=== PATIENT | female | born 1945 | race Caucasian/White ===

== ENCOUNTER 2020-03-24 09:22 | Outpatient (REF) | payer MEDICARE, SELFPAY ==
[2020-03-24 11:29] LABS: Thyroid Stimulating Hormone 1.43 uIU/mL (0.32-4.0)
[2020-03-24 12:03] LABS: Alanine Aminotransferase 19 U/L (0-31); Albumin Level 4.3 g/dL (3.5-5.0); Alkaline Phosphatase 74 U/L (39-117); Anion Gap 9 (12-20); Aspartate Amino Transferase 21 U/L (5-31); Bilirubin Total 0.5 mg/dL (0.0-1.0); Blood Urea Nitrogen 19 mg/dL (9-16); Calcium 9.1 mg/dL (8.4-10.2); Carbon Dioxide 28 mmol/L (22-29); Chloride 109 mmol/L (96-108); Cholesterol 142 mg/dL; Estimated Glomerular Filt Rate > 60; Glucose Fasting 129 mg/dL (60-99); HDL Cholesterol 51 mg/dL; LDL Cholesterol Calculated 76 mg/dl; Potassium 3.9 mmol/l (3.3-5.1); Sodium 142 mmol/L (135-145); Total Protein 6.9 g/dL (6.5-8.0); Triglycerides 78 mg/dL
[2020-03-24 15:50] LABS: Creatinine Urine 151.92 mg/dL; Microalbum/Creatinine Ratio Ur 6.5 ug/mg cr
== END 2020-03-24 09:23 | disposition home or self-care (01) ==
LOC: HO.LAB 09:22
PROVIDERS: PCP Physician Assistant; Visit Provider Physician Assistant
DX: E03.9 Hypothyroidism, unspecified (principal); E11.9 Type 2 diabetes mellitus without complications; E78.49 Other hyperlipidemia
CPT/HCPCS: 80053; 80061; 82043; 84443

== ENCOUNTER 2020-04-12 13:00 | Outpatient (REF) | payer MEDICARE, SELFPAY | END 2020-04-12 13:01 | disposition home or self-care (01) | LOC: HO.LAB 13:00 | PROVIDERS: Visit Provider Internal Medicine | DX: Z20.828 Contact with and (suspected) exposure to other viral communicable diseases (principal) | CPT/HCPCS: U0003 ==

== ENCOUNTER 2021-01-31 10:18 | Outpatient (REF) | payer MEDICARE, SELFPAY ==
[2021-01-31 11:10] LABS: Hematocrit 38.5 % (37-47); Hemoglobin 12.3 g/dl (12.0-16.0); Mean Corpuscular HGB Conc 31.9 g/dl (31.0-35.0); Mean Corpuscular Hemoglobin 30.6 pg (27.0-33.0); Mean Corpuscular Volume 95.8 fL (80-98); Mean Platelet Volume 9.7 fL (9.4-12.3); Platelet Count 321 X10*3/uL (160-400); Red Blood Count 4.02 X10*6/uL (4.20-5.50); Red Cell Distribution Width 13.8 % (11.0-16.0); White Blood Count 7.2 X10*3/uL (4.8-10.8)
[2021-01-31 11:43] LABS: Alanine Aminotransferase 18 U/L (0-31); Albumin Level 4.3 g/dL (3.5-5.0); Alkaline Phosphatase 76 U/L (39-117); Anion Gap 12 (12-20); Aspartate Amino Transferase 19 U/L (5-31); Bilirubin Total 0.3 mg/dL (0.0-1.0); Blood Urea Nitrogen 19 mg/dL (9-16); Carbon Dioxide 25 mmol/L (22-29); Chloride 109 mmol/L (96-108); Cholesterol 209 mg/dL; Estimated Glomerular Filt Rate > 60; Glucose Fasting 140 mg/dL (60-99); HDL Cholesterol 56 mg/dL; LDL Cholesterol Calculated 133 mg/dl; Potassium 4.4 mmol/L (3.3-5.1); Sodium 142 mmol/L (135-145); Total Protein 6.9 g/dL (6.5-8.0); Triglycerides 100 mg/dL
[2021-01-31 11:49] LABS: Estimated Average Glucose 131 mg/dL; Hemoglobin A1C 149.4614 umol/L; Hemoglobin A1c % 6.2 %
[2021-01-31 12:05] LABS: TSH reflex Free T4 3.11 uIU/mL (0.32-4.0)
[2021-01-31 12:40] LABS: Creatinine Urine 87.12 mg/dL; Microalbum/Creatinine Ratio Ur 6.8 ug/mg cr
== END 2021-01-31 10:19 | disposition home or self-care (01) ==
LOC: HO.LAB 10:18
PROVIDERS: PCP Physician Assistant; Visit Provider Physician Assistant
DX: E78.00 Pure hypercholesterolemia, unspecified (principal); E03.9 Hypothyroidism, unspecified; E11.9 Type 2 diabetes mellitus without complications; I10 Essential (primary) hypertension
CPT/HCPCS: 36415; 80053; 80061; 82043; 83036; 84443; 85027

== ENCOUNTER 2021-05-15 09:16 | Outpatient (REF) | payer MEDICARE, SELFPAY | END 2021-05-15 09:17 | disposition home or self-care (01) | LOC: HO.WFDLDS 09:16 | PROVIDERS: Visit Provider Internal Medicine | DX: Z20.822 Contact with and (suspected) exposure to COVID-19 (principal) | CPT/HCPCS: C9803; U0003; U0005 ==

== ENCOUNTER 2022-03-21 08:31 | Outpatient (REF) | payer MEDICARE, SELFPAY ==
[2022-03-21 09:08] LABS: Hematocrit 38.7 % (37.0-47.0); Hemoglobin 12.3 g/dl (12.0-16.0); Mean Corpuscular HGB Conc 31.8 g/dl (31.0-35.0); Mean Corpuscular Hemoglobin 30.4 pg (27.0-33.0); Mean Corpuscular Volume 95.6 fL (80.0-98.0); Mean Platelet Volume 9.2 fL (9.4-12.3); Platelet Count 334 X10*3/uL (160-400); Red Blood Count 4.05 X10*6/uL (4.20-5.50); Red Cell Distribution Width 14.2 % (11.0-16.0); White Blood Count 9.4 X10*3/uL (4.8-10.8)
[2022-03-21 09:34] LABS: Alanine Aminotransferase 14 U/L (0-31); Albumin Level 4.5 g/dL (3.5-5.0); Anion Gap 16 (12-20); Aspartate Amino Transferase 18 U/L (5-31); Bilirubin Total 0.6 mg/dL (0.0-1.0); Blood Urea Nitrogen 20 mg/dL (9-16); Calcium 9.8 mg/dL (8.4-10.2); Carbon Dioxide 23 mmol/L (22-29); Chloride 109 mmol/L (96-108); Estimated Glomerular Filt Rate > 60; Glucose Fasting 127 mg/dL (60-99); Potassium 4.1 mmol/L (3.3-5.1); Sodium 144 mmol/L (135-145); Total Protein 7.5 g/dL (6.5-8.0); Triglycerides 126 mg/dL
[2022-03-21 09:35] LABS: Alkaline Phosphatase 70 U/L (39-117); Cholesterol 188 mg/dL; HDL Cholesterol 57 mg/dL; LDL Cholesterol Calculated 106 mg/dl
[2022-03-21 09:58] LABS: TSH reflex Free T4 3.32 uIU/mL (0.32-4.0)
== END 2022-03-21 08:32 | disposition home or self-care (01) ==
LOC: HO.LAB 08:31
PROVIDERS: PCP Physician Assistant; Visit Provider Physician Assistant
DX: E03.9 Hypothyroidism, unspecified (principal); E11.9 Type 2 diabetes mellitus without complications; E78.00 Pure hypercholesterolemia, unspecified
CPT/HCPCS: 36415; 80053; 80061; 84443; 85027

== ENCOUNTER 2022-09-19 07:47 | Outpatient (REF) | payer MEDICARE, SELFPAY ==
[2022-09-19 12:56] LABS: Creatinine Urine 137.37 mg/dL; Microalbum/Creatinine Ratio Ur 10.1 ug/mg cr
== END 2022-09-19 07:48 | disposition home or self-care (01) ==
LOC: HO.LAB 07:47
PROVIDERS: PCP Physician Assistant; Visit Provider Physician Assistant
DX: E11.9 Type 2 diabetes mellitus without complications (principal)
CPT/HCPCS: 82043

== ENCOUNTER 2022-10-17 08:52 | Outpatient (REF) | payer MEDICARE, SELFPAY ==
--- NOTE | ~2022-10-17 | MM_ITS ---
EXAMINATION: BONE DENSITOMETRY CLINICAL INDICATION: Asymptomatic menopausal state. COMPARISON: None (current study represents initial baseline exam). TECHNIQUE: Using a Jigsaw DXA System (software version: 13.1) manufactured by [employer], dual-energy x-ray absorptiometry was performed of the lumbar spine and left hip. The images are of good technical quality. Summary results are attached. FINDINGS: AP SPINE L1-L3 (excluding L4): The data of L1-L4 has been changed to exclude the L4 vertebral body, because degenerative changes at this level may cause overestimation of lumbar spine density. BMD 1.022 g/cm2, Z-score 0.7, T-score -1.2, osteopenia. LEFT FEMUR, NECK: BMD 0.737 g/cm2, Z-score -0.1, T-score -2.2, osteopenia. LEFT FEMUR, TOTAL: BMD 0.858 g/cm2, Z-score 0.7, T-score -1.2, osteopenia. IDENTIFIED RISK FACTORS: Menopause, hysterectomy. HISTORY OF FRACTURE: None listed. MEDICATIONS: None listed. MM/XR DEXA axial skeleton IMPRESSION: 1. DIAGNOSIS: Osteopenia based on the lowest T-score value of -2.2 in the femoral neck applying World Health Organization criteria. 2. 10-YEAR FRACTURE RISK PREDICTION, FRAX: Major osteoporotic fracture (clinical spine, forearm, hip or shoulder) 14.9%. Hip fracture 4.4%. 3. Treatment Recommendations: NOF guidelines recommend consideration for treatment in postmenopausal women and men age 50 and older presenting with the following: -A hip or vertebral (clinical or morphometric) fracture. -T-score less than or equal to -2.5 at the femoral neck or spine after appropriate evaluation to exclude secondary causes. -Low bone mass at the hip or spine and a 10-year fracture probability by FRAX of greater than or equal to 3% for hip fracture or greater than or equal to 20% for major osteoporotic fracture based on the [place] adapted WHO algorithm. 4. Other Recommendations: All treatment decisions require clinical judgment and consideration of individual patient factors, including patient preferences, comorbidities, previous drug use, risk factors not captured in the FRAX model (e.g. frailty, falls, vitamin D deficiency, increased bone turnover, interval significant decline in bone density) and possible under or overestimation of fracture risk by FRAX. Additional medical evaluation for secondary cause of low bone mineral density may be appropriate. FUTURE SCAN RECOMMENDATION: People with diagnosed cases of osteoporosis or at high risk for fracture should have regular bone mineral density tests. For patients eligible for Medicare, routine testing is allowed once every 2 years. The testing frequency can be increased to one year for patients who have rapidly progressing disease, those who are receiving or discontinuing medical therapy to restore bone mass, or have additional risk factors.
== END 2022-10-17 08:53 | disposition home or self-care (01) ==
LOC: HO.MAMMO 08:52
PROVIDERS: PCP Physician Assistant; Visit Provider Physician Assistant
DX: Z13.820 Encounter for screening for osteoporosis (principal); Z78.0 Asymptomatic menopausal state
CPT/HCPCS: 77080

== ENCOUNTER 2023-01-29 12:59 | Outpatient (REF) | payer MEDICARE, SELFPAY | END 2023-01-29 13:00 | disposition home or self-care (01) | LOC: HO.SH 12:59 | PROVIDERS: Visit Provider Physician Assistant | DX: H90.A22 Sensorineural hearing loss, unilateral, left ear, with restricted hearing on the contralateral side (principal); H90.A31 Mixed conductive and sensorineural hearing loss, unilateral, right ear with restricted hearing on the contralateral side | CPT/HCPCS: 92557; 92567 ==

== ENCOUNTER → 2023-02-11 08:01 | Outpatient (REF) | payer MEDICARE, SELFPAY ==
--- NOTE | 2023-02-11 08:20 | ECG_ITS ---
Test Reason : htn Blood Pressure : / mmHG Vent. Rate : 058 BPM Atrial Rate : 058 BPM P-R Int : 158 ms QRS Dur : 086 ms QT Int : 402 ms P-R-T Axes : 022 056 057 degrees QTc Int : 394 ms Sinus bradycardia Nonspecific T wave abnormality Abnormal ECG No previous ECGs available Referred By: Raudel Flanagan Electronically Signed By:BJORN OLSON
[2023-02-11 09:16] LABS: Hematocrit 36.8 % (37.0-47.0); Hemoglobin 12.1 g/dl (12.0-16.0); Mean Corpuscular HGB Conc 32.9 g/dl (31.0-35.0); Mean Corpuscular Hemoglobin 31.7 pg (27.0-33.0); Mean Corpuscular Volume 96.3 fL (80.0-98.0); Mean Platelet Volume 9.8 fL (9.4-12.3); Platelet Count 316 X10*3/uL (160-400); Red Blood Count 3.82 X10*6/uL (4.20-5.50); Red Cell Distribution Width 13.3 % (11.0-16.0); White Blood Count 9.2 X10*3/uL (4.8-10.8)
[2023-02-11 10:00] LABS: Estimated Average Glucose 126 mg/dL
[2023-02-11 10:22] LABS: Alanine Aminotransferase 11 U/L (0-31); Albumin Level 4.2 g/dL (3.5-5.0); Alkaline Phosphatase 65 U/L (39-117); Anion Gap 14 (12-20); Aspartate Amino Transferase 15 U/L (5-31); Bilirubin Total 0.5 mg/dL (0.0-1.0); Blood Urea Nitrogen 21 mg/dL (9-16); Calcium 9.7 mg/dL (8.4-10.2); Carbon Dioxide 25 mmol/L (22-29); Chloride 108 mmol/L (96-108); Cholesterol 159 mg/dL (<200); Estimated Glomerular Filt Rate > 60; Glucose Fasting 115 mg/dL (60-99); HDL Cholesterol 52 mg/dL (>40); LDL Cholesterol Calculated 84 mg/dL (<100); Potassium 3.6 mmol/L (3.3-5.1); Sodium 143 mmol/L (135-145); Triglycerides 119 mg/dL (<150)
[2023-02-11 10:27] LABS: TSH reflex Free T4 1.72 uIU/mL (0.32-4.0)
== END ==
LOC: HO.CARD 08:01
PROVIDERS: PCP Physician Assistant; Visit Provider Physician Assistant
DX: E03.9 Hypothyroidism, unspecified (principal); R30.0 Dysuria; E78.00 Pure hypercholesterolemia, unspecified; I10 Essential (primary) hypertension; E11.9 Type 2 diabetes mellitus without complications
CPT/HCPCS: 36415; 80053; 80061; 83036; 84443; 85027; 87086; 93005

== ENCOUNTER 2023-02-11 14:42 | Outpatient (AMB) | payer MEDICARE, SELFPAY ==
[2023-02-11 14:55] VITALS: BP 122/66; PULSE 90; RESP 16; O2SAT 95; BMI 25.2
--- NOTE | 2023-02-11 14:55 | MHC.PC.OV ---
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 Accompanied by: Spouse Allergies peanut Allergy (Severe, Verified 02/11/23 15:04) Anaphylaxis Medication List - Last Reconciled 02/11/23 by Raudel Flanagan PA-C calcium carbonate (Oyster Shell Calcium) 500 mg PO BID 90 days cholecalciferol (vitamin D3) 50 mcg PO DAILY 90 days escitalopram oxalate 20 mg PO DAILY levothyroxine 88 mcg PO QAM 90 days lisinopril 20 mg PO DAILY 90 days lorazepam 0.5 mg PO DAILY 7 days metformin 1,500 mg (3 x 500 mg) PO BID 30 days simvastatin 20 mg PO BEDTIME Tobacco use date assessed: 02/11/23 Fall risk assessment: No Falls in past year Last assessed Fall Risk: 02/11/23 Dental Screening Dental Screen Date: 02/11/23 Did you have a dental visit in the last 12 months?: Yes Did you have a dental problem in the last 6 months where you did not have access to dental care?: No Was dental information given to patient?: Patient has dentist HPI f/u DMII/ HTN HPI Details who is a 77?year old female with a PMH significant for type 2 DM, anxiety, hypothyroid. Presents today with her . Concern--> Having some more trouble hearing, recently evaluated with a hearing exam and was advised to follow-up with ENT specialist. Also family having concerns about partner is short-term memory loss. 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 Also family and patient concerned about her balance. She reports she has feel somewhat off-balance when she is walking. She attributes this to wearing nonsupportive flip-flops. She does right ear issues and often has sinusitis which could be contributing to her disruptions and vestibular function. PLAN: Will try to set patient up with vestibular therapy. ? .. ? DMII: Patient is currently taking Metformin 1500 mg daily, Reports her diet has been poor, reports she is having family stress. Most recent fasting blood sugar improved to 127. Most recent A1c at 6.0 from 6.5 PLAN: Will reduce her metformin dose to 500 b.i.d.. .. Generalized anxiety disorder:? Has been under more anxiety as of late due to family issues.? Has been using lorazepam on a limited basis and needs a few refills.? Continues on Lexapro on a daily basis. ? .. ? Hypothyroidism:? Patient has been chemically clinically euthyroid.? Laboratory Tests 03/21/22 03/21/22 03/21/22 08:49 08:49 08:49 RBC 4.05 L Fasting Glucose 127 H Hgb A1c (Clinic) Hemoglobin A1c % LDL Cholesterol, C alc 106 TSH 03/21/22 02/11/23 02/11/23 09:22 08:16 08:16 RBC 3.82 L Fasting Glucose 115 H Hgb A1c (Clinic) 6.5 H Hemoglobin A1c % LDL Cholesterol, C alc TSH 02/11/23 02/11/23 02/11/23 08:16 08:16 08:16 RBC Fasting Glucose Hgb A1c (Clinic) Hemoglobin A1c % 6.0 LDL Cholesterol, C alc 84 TSH 1.72 [facility] Surgical History History of hysterectomy History of bunionectomy Family History Father Colon cancer Mother No problems noted. Social History Housing: House Alcohol intake: current Alcohol intake frequency: holidays/special occasions only Alcohol type: wine Patient Tobacco Use Status: Never used Tobacco e-Cigarette/Vaping Use: Never Used Second Hand Smoke Exposure: No Current occupational status: employed Cognitive needs: No Hearing needs: Yes (hearing loss in right ear and Pt has hearing aid.) Vision needs: No Questionnaire Thrive Questionnaire Date Thrive assessed: 09/19/22 TASHI-7 AMB Questionnaire TASHI-7 Date TASHI - 7 assessed: 09/19/22 Source: Developed by Drs. Minh Ewing, Yecenia Manzano, Juan Beckham and colleagues, with an educational lashaun from [employer]. Review of Systems Const Denies headache(s) Eyes Denies loss of vision ENT Denies vertigo, Denies dizziness, Denies headache(s) and Denies sore throat Card Denies chest pain, Denies leg edema and Denies lightheadedness Resp Denies cough, Denies hemoptysis and Denies wheezing GI Denies abdominal pain, Denies melena, Denies constipation, Denies diarrhea and Denies vomiting Denies urinary frequency, Denies dysuria and Denies urinary urgency Musc Denies arthralgias, Denies joint swelling, Denies numbness and Denies tingling Neuro Denies Abnormal speech present, Denies behavioral changes, Denies vertigo, Denies dizziness, Denies headache(s), Denies loss of vision, Reports memory loss, Denies numbness and Denies tingling Psych Reports anxiety, Denies behavioral changes, Denies depression, Reports memory loss and Denies panic attacks Harvinder/Lymph Denies easy bleeding and Denies easy bruising Aller/Immun Denies wheezing Physical exam (Primary Care) Vital Signs: Last Vital Signs Pulse 90 02/11/23 14:55 Resp 16 02/11/23 14:55 BP 122/66 02/11/23 14:55 Pulse Ox 95 02/11/23 14:55 Oxygen Delivery Method Room Air 02/11/23 14:55 BMI result Body Mass Index 25.2 Tobacco/Smoking Status: Tobacco use Status Tobacco use date assessed 02/11/23 02/11/23 15:01 Patient Tobacco Use Status Never used Tobacco 02/11/23 15:01 e-Cigarette/Vaping Use Never Used 02/11/23 15:01 Thrive Assessment: Date of Thrive Assessment Date Thrive assessed 09/19/22 02/11/23 15:01 Const General: healthy appearing, no acute distress, alert and awake Nutritional Appearance: well nourished Orientation/consciousness: oriented to person, oriented to place and oriented to time HENMT Ears: TM's normal bilaterally General nose exam: Normal nasal mucous membranes and turbinates present Eyes Conjunctivae: conjunctivae normal Sclerae: sclerae normal Pupils: Equal, round and reactive pupils present Neck Neck: Yes no lymphadenopathy and Yes no JVD Thyroid: Thyroid normal Carotids: no bruits Resp Effort & Inspection: normal respiratory effort and not tachypneic Auscultation: no crackles, no rales, no rhonchi and no wheezes Cardio Rate: regular rate Rhythm: regular rhythm Heart sounds: no murmurs and normal S1 and S2 GI Palpation (GI): Soft to palpation, nontender, no hepatomegaly and no splenomegaly Auscultation: normal bowel sounds Skin General skin exam: no rashes or lesions noted and dry skin Neuro General: oriented to person, oriented to place and oriented to time Cranial nerves: Yes Equal, round and reactive pupils present Speech: No Abnormal speech present Gait exam (Neuro): Normal gait present Motor exam (neuro): no tremor noted Extrem Right upper extremity: full ROM Left upper extremity: full ROM Right lower extremity: full ROM; no edema Left lower extremity: full ROM; no edema Psych Mental Status: mental status grossly normal Speech and movement: Normal speech and movement present Affect: normal affect Attitude: cooperative Thought process: Normal thought process present Office Procedures Flu Questionnaire Does the patient have a severe egg allergy?: No Does the patient have severe life threatening allergies?: No Does the patient have a fever or illness today?: No Has the patient ever had Guillain-[place] Syndrome?: No Has the patient ever had any past reaction to a flu shot?: No Results AMB Urinalysis, Automated UA Leukoctes 500 Sushma/uL Last Edit by HENRY Marin on 02/11/23 16:10 UA Nitrite Negative Last Edit by HENRY Marin on 02/11/23 16:10 UA Urobilinogen 0 mg/dL Last Edit by HENRY Marin on 02/11/23 16:10 UA Protein 0 mg/dL Last Edit by HENRY Marin on 02/11/23 16:10 UA pH 6.0 Last Edit by HENRY Marin on 02/11/23 16:10 UA Blood 0 Otoniel/uL Last Edit by HENRY Marin on 02/11/23 16:10 UA Specific [place] 1.030 Last Edit by HENRY Marin on 02/11/23 16:10 UA Ketone Negative Last Edit by HENRY Marin on 02/11/23 16:10 UA Bilirubin 1 mg/dL Last Edit by HENRY Marin on 02/11/23 16:10 UA Glucose 0 mg/dL Last Edit by HENRY Marin on 02/11/23 16:10 Immunizations flu vacc [id number] 6mos up(PF) 60 mcg(15 mcgx4)/0.5 mL IM syringe Performing Provider: Raudel Flanagan PA-C [facility] Administered by: HENRY Marin on 02/11/23 16:00 Dose Route Admin Location Dispensed Lot Number Expiration Date [employer] Major 0.5 mL IM Left Deltoid 0.5 mL [id number] 11/10/23 12764-085-02 [employer] VIS Given Date VIS Provided VIS Publication Date 02/11/23 Single Vaccine 20 Eligibility Eligibility Date Funding Source Not VF Eligible 02/11/23 Private Results Reviewed Results Reviewed: Laboratory Last Values Urine pH (Auto) 6.0 02/11/23 16:01 Specific [place] (Auto) 1.030 02/11/23 16:01 Urine Protein (Auto) 0 mg/dL 02/11/23 16:01 Glucose (UA)(Auto) 0 mg/dL 02/11/23 16:01 Urine Ketones (Auto) Negative 02/11/23 16:01 Urine Blood (Auto) 0 Otoniel/uL 02/11/23 16:01 Urine Nitrite (Auto) Negative 02/11/23 16:01 Urine Bilirubin (Auto) 1 mg/dL 02/11/23 16:01 Urine Urobilinogen (Auto) 0 mg/dL 02/11/23 16:01 Leukocyte Esterase (Auto) 500 Sushma/uL 02/11/23 16:01 Assessment and Plan Assessment & Plan (1) HTN (hypertension): Code(s): I10 - Essential (primary) hypertension Qualifiers: Hypertension type: essential hypertension Qualified Code(s): I10 - Essential (primary) hypertension Plan: Patient's blood pressure acceptable today in office. Will continue her current dose of lisinopril 20 mg. Goal blood pressure to be below 140/90 patient will keep an eye on her blood pressure at home. 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 A1c now 6.0. Will reduce her dose of metformin to 500 b.i.d.. Goal A1c to be below 7.0 (3) Hypothyroidism: Code(s): E03.9 - Hypothyroidism, unspecified Qualifiers: Hypothyroidism type: unspecified Qualified Code(s): E03.9 - Hypothyroidism, unspecified Plan: Patient's most recent TSH stable. Patient clinically and chemically euthyroid. Will continue current dose of levothyroxine. (4) HLD (hyperlipidemia): Code(s): E78.5 - Hyperlipidemia, unspecified Qualifiers: Hyperlipidemia type: pure hypercholesterolemia Qualified Code(s): E78.00 - Pure hypercholesterolemia, unspecified Plan: Patient continues on statin therapy without side effect. Most recent total cholesterol improved, LDL slightly elevated at 103. Continue to work on lifestyle modifications to reduce her high cholesterol foods in her diet. (5) TASHI (generalized anxiety disorder): Code(s): F41.1 - Generalized anxiety disorder Plan: Patient reports her anxiety has been well controlled with current dose of SSRI therapy. Will like to continue current dose. (6) Dysuria: Code(s): R30.0 - Dysuria Plan: Reports having some dysuria over the last week. Urinalysis showing 1+ leukocytes on in office urinalysis. Will send for urine culture (7) Memory impairment: Code(s): R41.3 - Other amnesia Plan: Family has noted worsening short-term memory issues. Will send for MRI brain to rule out any brain lesion. (8) Sensorineural hearing loss (SNHL) of both ears: Code(s): H90.3 - Sensorineural hearing loss, bilateral (9) Balance disorder: Code(s): R26.89 - Other abnormalities of gait and mobility Orders: Orders PT Evaluation and Treatment 02/11/23 R26.89 - Other abnormalities of gait and mobility Comprehensive [place]. Panel Fast 02/11/23 E11.9 - Type 2 diabetes mellitus without complications TSH reflex Free T4 02/11/23 E03.9 - Hypothyroidism, unspecified AMB Urinalysis Automated 02/11/23 R30.0 - Dysuria Urine Culture 02/11/23 R30.0 - Dysuria Influenza [id number] Immunization 02/11/23 Z23 - Encounter for immunization MR head/brain wo con 02/11/23 R41.3 - Other amnesia Microalbumin, Random (w Creat) 02/11/23 I10 - Essential (primary) hypertension Lipid Panel 02/11/23 E78.00 - Pure hypercholesterolemia, unspecified Medications: Changed From metformin Take 2 tabs in the a.m., 1 tab in the p.m. 1,500 mg (3 x 500 mg) PO BID 30 days 180 tabs 1RF E11.9 - Type 2 diabetes mellitus without complications To metformin decrease dose--> Take 1tab in the a.m., 1 tab in the p.m. 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
== END 2023-02-11 15:44 | disposition home or self-care (01) ==
PROVIDERS: PCP Physician Assistant; Visit Provider Physician Assistant
DX: Z23 Encounter for immunization (principal); R30.0 Dysuria
CPT/HCPCS: 81003; 90471; 90686; 99214

== ENCOUNTER 2023-04-17 10:21 | Outpatient (REF) | payer MEDICARE, SELFPAY ==
--- NOTE | ~2023-04-17 | MR_ITS ---
MRI OF THE BRAIN WITHOUT IV CONTRAST INDICATION: Amnesia. COMPARISON: Brain MRI 12/09/2018. TECHNIQUE: Multiplanar multisequence MR imaging of the brain was obtained without IV contrast. FINDINGS: There is no hydrocephalus, extra-axial surface collection, or herniation. Slightly progressive extensive nonspecific T2 signal changes within the supratentorial white matter, the deep patrick nuclei bilaterally, and the central tejas. Chronic lacunar infarct within the right thalamus. 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 The major flow voids at the skull base are preserved. There is no acute infarct on diffusion-weighted imaging. There is no intracranial hemorrhage on the gradient recalled echo acquisition. Punctate foci of susceptibility signal within the deep patrick nuclei bilaterally, likely chronic hypertensive microhemorrhages. The craniocervical junction is normal. Osseous marrow signal intensity is homogenous. The visualized soft tissues are unremarkable. MR/MR head/brain wo con IMPRESSION: - No acute intracranial findings. 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 - Slightly progressive extensive nonspecific T2 signal changes within the supratentorial white matter, the deep patrick nuclei bilaterally, and the central tejas. Chronic lacunar infarct within the right thalamus. - Punctate foci of susceptibility signal within the deep patrick nuclei bilaterally, likely chronic hypertensive microhemorrhages.
== END 2023-04-17 10:22 | disposition home or self-care (01) ==
LOC: HO.MRI 10:21
PROVIDERS: PCP Physician Assistant; Visit Provider Physician Assistant
DX: R41.3 Other amnesia (principal)
CPT/HCPCS: 70551

== ENCOUNTER 2023-05-16 10:43 | Outpatient (REF) | payer MEDICARE, SELFPAY | END 2023-05-16 10:44 | disposition home or self-care (01) | LOC: HO.LAB 10:43 | PROVIDERS: PCP Physician Assistant; Visit Provider Physician Assistant | DX: E03.9 Hypothyroidism, unspecified (principal); I10 Essential (primary) hypertension; E11.9 Type 2 diabetes mellitus without complications; E78.00 Pure hypercholesterolemia, unspecified | CPT/HCPCS: 36415; 80053; 80061; 82043; 82570; 84439; 84443 ==

== ENCOUNTER 2023-05-16 11:05 | Outpatient (AMB) | payer MEDICARE, SELFPAY ==
[2023-05-16 11:09] VITALS: BP 144/66; PULSE 80; RESP 17; BMI 26.3
--- NOTE | 2023-05-16 11:09 | MHC.PC.OV ---
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 Accompanied by: Self / Same As Patient Allergies peanut Allergy (Severe, Verified 05/16/23 11:24) Anaphylaxis Medication List - Last Reconciled 05/16/23 by Raudel Flanagan PA-C calcium carbonate (Oyster Shell Calcium) 500 mg PO BID 90 days cholecalciferol (vitamin D3) 50 mcg PO DAILY 90 days escitalopram oxalate 20 mg PO DAILY levothyroxine 88 mcg PO QAM 90 days lisinopril 20 mg PO DAILY 90 days lorazepam 0.5 mg PO DAILY 7 days metformin 1,000 mg (2 x 500 mg) PO BID 90 days simvastatin 20 mg PO BEDTIME Tobacco use date assessed: 05/16/23 Fall risk assessment: No Falls in past year Last assessed Fall Risk: 05/16/23 Dental Screening Dental Screen Date: 05/16/23 Did you have a dental visit in the last 12 months?: Yes Did you have a dental problem in the last 6 months where you did not have access to dental care?: No Was dental information given to patient?: Patient has dentist HPI 3mth f/u HPI Details who is a 77?year old female with a PMH significant for type 2 DM, anxiety, hypothyroid. Memory impairment: Has gotten brain MRI that did show age-related findings. Did follow-up with Neurology. ? .. ? DMII: Patient is currently taking Metformin 1500 mg daily, Reports her diet has been poor, reports she is having family stress. Most recent fasting blood sugar improved to 127. Most recent A1c at 6.0 from 6.5 .. Generalized anxiety disorder:? Has been under more anxiety as of late due to family issues.? Has been using lorazepam on a limited basis and needs a few refills.? Continues on Lexapro on a daily basis. ? .. ? Hypothyroidism:? Patient has been chemically clinically euthyroid. Will recheck TSH to assure normal. ? [facility] Surgical History History of hysterectomy History of bunionectomy Family History Father Colon cancer Mother No problems noted. 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 1. Little interest or pleasure in doing things: not at all 2. Feeling down, depressed, or hopeless: not at all 3. Trouble falling or staying asleep, or sleeping too much: not at all 4. Feeling tired or having little energy: not at all 5. Poor appetite or overeating: not at all 6. Feeling bad about yourself - or that you are a failure or have let yourself or your family down: not at all 7. Trouble concentrating on things, such as reading the newspaper or watching television: not at all 8. Moving or speaking so slowly that other people could have noticed. Or the opposite - being so fidgety or restless that you have been moving around a lot more than usual: not at all 9. Thoughts that you would be better off or of hurting yourself in some way: not at all Total score: 0 Depression Screening Interpretation: Negative Depression Screening Done: Yes 99265 - PHQ-9 Billing: Yes Source: Developed by Drs. Minh Ewing, Yecenia Manzano, Juan Beckham and colleagues, with an educational lashaun from [employer]. Thrive Questionnaire Date Thrive assessed: 05/16/23 I am a: Patient What is your living situation today?: I have a steady place to live Within the past 12 months, did the food you bought not last and you didn't have the money to get more?: Never true Within the past 12 months, did you worry whether your food would run out before you got money to buy more?: Never true Do you have trouble paying for medicines?: No Do you have trouble getting transportation to medical appointments?: No Do you have trouble paying your heating and electricity bill?: No Do you have trouble taking care of your child, family member or friend?: No Do you have trouble with day-to-day activities such as bathing, preparing meals, shopping, managing finances, etc.?: No Are you currently unemployed and looking for a job?: No Are you interested in more education?: No Please select the resources that you would like help with: None Currently or been in a relationship where the following occur: no concerns reported AUDIT C Alcohol Use Questionnaire (AUDIT-C) 1. How often do you have a drink containing alcohol?: Monthly or less 2. How many drinks containing alcohol do you have on a typical day when you are drinking?: 1 or 2 3. How often do you have six or more drinks on one occasion?: Never Total Score: 1 TASHI-7 AMB Questionnaire TASHI-7 Date TASHI - 7 assessed: 05/16/23 Feeling nervous, anxious, or on edge: 0 = Not at all Not being able to stop or control worryin = Not at all Worrying too much about different things: 0 = Not at all Trouble relaxin = Not at all Being so restless that it is hard to sit still: 0 = Not at all Becoming easily annoyed or irritable: 0 = Not at all Feeling afraid as if something awful might happen: 0 = Not at all Total TASHI-7 score (0-4 normal; 5-9 mild; 10-14 moderate; 15-21 severe): 0 Source: Developed by Drs. Minh Ewing, Yecenia Manzano, Juan Beckham and colleagues, with an educational lashaun from [employer]. TASHI-7 Assessment Billing TASHI-7 Assessment Tool: TASHI-7 Assessment 33108 Review of Systems Const Denies headache(s) Eyes Denies loss of vision ENT Denies vertigo, Denies dizziness, Denies headache(s) and Denies sore throat Card Denies chest pain, Denies leg edema and Denies lightheadedness Resp Denies cough, Denies hemoptysis and Denies wheezing GI Denies abdominal pain, Denies melena, Denies constipation, Denies diarrhea and Denies vomiting Denies urinary frequency, Denies dysuria and Denies urinary urgency Musc Denies arthralgias, Denies joint swelling, Denies numbness and Denies tingling Neuro Denies Abnormal speech present, Denies behavioral changes, Denies vertigo, Denies dizziness, Denies headache(s), Denies loss of vision, Denies memory loss, Denies numbness and Denies tingling Psych Denies anxiety, Denies behavioral changes, Denies depression, Denies memory loss and Denies panic attacks Harvinder/Lymph Denies easy bleeding and Denies easy bruising Aller/Immun Denies wheezing Physical exam (Primary Care) Vital Signs: Last Vital Signs Pulse 80 05/16/23 11:09 Resp 17 05/16/23 11:09 BP 128/70 05/16/23 11:33 BMI result Body Mass Index 26.3 Tobacco/Smoking Status: Tobacco use Status Tobacco use date assessed 05/16/23 05/16/23 11:16 Patient Tobacco Use Status Never used Tobacco 05/16/23 11:12 e-Cigarette/Vaping Use Never Used 05/16/23 11:12 PHQ-9: PHQ-9 Score PHQ-9: Total score 0 05/16/23 11:26 Depression Screening Interpretation: Negative Thrive Assessment: Date of Thrive Assessment Date Thrive assessed 05/16/23 05/16/23 11:16 Currently or been in a relationship where the following occur: no concerns reported Const General: healthy appearing, no acute distress, alert and awake Nutritional Appearance: well nourished Orientation/consciousness: oriented to person, oriented to place and oriented to time HENMT Ears: TM's normal bilaterally General nose exam: Normal nasal mucous membranes and turbinates present Eyes Conjunctivae: conjunctivae normal Sclerae: sclerae normal Pupils: Equal, round and reactive pupils present Neck Neck: Yes no lymphadenopathy and Yes no JVD Thyroid: Thyroid normal Carotids: no bruits Resp Effort & Inspection: normal respiratory effort and not tachypneic Auscultation: no crackles, no rales, no rhonchi and no wheezes Cardio Rate: regular rate Rhythm: regular rhythm Heart sounds: no murmurs and normal S1 and S2 GI Palpation (GI): Soft to palpation, nontender, no hepatomegaly and no splenomegaly Auscultation: normal bowel sounds Skin General skin exam: no rashes or lesions noted and dry skin Neuro General: oriented to person, oriented to place and oriented to time Cranial nerves: Yes Equal, round and reactive pupils present Speech: No Abnormal speech present Gait exam (Neuro): Normal gait present Motor exam (neuro): no tremor noted Extrem Right upper extremity: full ROM Left upper extremity: full ROM Right lower extremity: full ROM; no edema Left lower extremity: full ROM; no edema Psych Mental Status: mental status grossly normal Speech and movement: Normal speech and movement present Affect: normal affect Attitude: cooperative Thought process: Normal thought process present Assessment and Plan Assessment & Plan (1) HTN (hypertension): Code(s): I10 - Essential (primary) hypertension Qualifiers: Hypertension type: essential hypertension Qualified Code(s): I10 - Essential (primary) hypertension Plan: Patient's blood pressure acceptable today in office. Will continue her current dose of lisinopril 20 mg. Goal blood pressure to be below 140/90 patient will keep an eye on her blood pressure at home. 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 Continues on metformin 1000 mg daily A1c now 6.0. Goal A1c to be below 7.0 (3) Hypothyroidism: Code(s): E03.9 - Hypothyroidism, unspecified Qualifiers: Hypothyroidism type: unspecified Qualified Code(s): E03.9 - Hypothyroidism, unspecified Plan: Recently got labs to recheck TSH. Awaiting results. Will make levothyroxine dose adjustments accordingly. (4) HLD (hyperlipidemia): Code(s): E78.5 - Hyperlipidemia, unspecified Qualifiers: Hyperlipidemia type: pure hypercholesterolemia Qualified Code(s): E78.00 - Pure hypercholesterolemia, unspecified Plan: Patient continues on statin therapy without side effect. Most recent total cholesterol improved, LDL slightly elevated at 103. Continue to work on lifestyle modifications to reduce her high cholesterol foods in her diet. (5) TASHI (generalized anxiety disorder): Code(s): F41.1 - Generalized anxiety disorder Plan: Patient reports her anxiety has been well controlled with current dose of SSRI therapy. Will like to continue current dose. (6) Memory impairment: Code(s): R41.3 - Other amnesia Plan: Has gotten brain MRI the did show chronic age-related findings. Did follow-up with Neurology whom confirmed. No medication needed at this time. 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
[2023-05-16 11:33] VITALS: BP 128/70
== END 2023-05-16 11:43 | disposition home or self-care (01) ==
PROVIDERS: PCP Physician Assistant; Visit Provider Physician Assistant
DX: I10 Essential (primary) hypertension (principal); E11.9 Type 2 diabetes mellitus without complications; E03.9 Hypothyroidism, unspecified; E78.00 Pure hypercholesterolemia, unspecified; F41.1 Generalized anxiety disorder; R41.3 Other amnesia
CPT/HCPCS: 99214

== ENCOUNTER 2023-08-14 14:56 | Outpatient (AMB) | payer MEDICARE, SELFPAY ==
[2023-08-14 15:22] VITALS: BP 152/76; PULSE 79; RESP 16; O2SAT 97; BMI 26.2
--- NOTE | 2023-08-14 15:22 | MHC.PC.OV ---
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 Accompanied by: Self / Same As Patient Allergies peanut Allergy (Severe, Verified 08/14/23 15:41) Anaphylaxis Medication List - Last Reconciled 08/14/23 by Raudel Flanagan PA-C calcium carbonate (Oyster Shell Calcium) 500 mg PO BID 90 days cholecalciferol (vitamin D3) 50 mcg PO DAILY 90 days escitalopram oxalate 20 mg PO DAILY levothyroxine 88 mcg PO QAM 90 days levothyroxine 112 mcg PO DAILY 30 days lisinopril 20 mg PO DAILY 90 days lorazepam 0.5 mg PO DAILY 7 days metformin 1,000 mg (2 x 500 mg) PO BID 90 days simvastatin 20 mg PO BEDTIME Tobacco use date assessed: 05/16/23 Dental Screening Dental Screen Date: 05/16/23 HPI test results/ going over HPI Details who is a 78?year old female here today for follow-up visit. Patient has a PMH significant for type 2 DM, anxiety, hypothyroid. --Concern---> she reports over the last 12 hours noting a intermittent very sharp left lower abdominal quadrant pain. She denies any constipation or diarrhea, fevers or vomiting. She recently had a colonoscopy about 2 months ago apparently at [facility]. Will try to records, per patient there was no concern. Memory impairment: Has gotten brain MRI that did show age-related findings- parenchymal volume loss. Did follow-up with Neurology. ? .. ? DMII: Patient is currently taking Metformin 2000mg daily, Reports her diet has been poor, reports she is having family stress. Most recent fasting blood sugar elevated at 146. .. Generalized anxiety disorder:? Has been under more anxiety as of late due to family issues.? Has been using lorazepam on a limited basis and needs a few refills.? Continues on Lexapro on a daily basis. ? .. ? Hypothyroidism: Most recent TSH elevated at 7.8. Her levothyroxine had been increased in May of 2023 to 112 mcg. Advised to recheck TSH to assure normal. Also noted elevations in her cholesterol panel in the setting of hypo functioning thyroid. Laboratory Tests 02/11/23 02/11/23 02/11/23 08:16 08:16 08:16 RBC 3.82 L Hgb 12.1 Fasting Glucose 115 H Cholesterol LDL Cholesterol, C alc TSH 1.72 05/16/23 05/16/23 10:53 10:53 RBC Hgb Fasting Glucose 148 H Cholesterol 242 H LDL Cholesterol, C alc 150 H TSH 7.86 H PFSH Surgical History History of hysterectomy History of bunionectomy Family History Father Colon cancer Mother No problems noted. 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 Minh Ewing, Yecenia Manzano, Juan Beckham and colleagues, with an educational lashaun from [employer]. Review of Systems Const Denies headache(s) Eyes Denies loss of vision ENT Denies vertigo, Denies dizziness, Denies headache(s) and Denies sore throat Card Denies chest pain, Denies leg edema and Denies lightheadedness Resp Denies cough, Denies hemoptysis and Denies wheezing GI Denies abdominal pain, Denies melena, Denies constipation, Denies diarrhea and Denies vomiting Denies urinary frequency, Denies dysuria and Denies urinary urgency Musc Denies arthralgias, Denies joint swelling, Denies numbness and Denies tingling Neuro Denies Abnormal speech present, Denies behavioral changes, Denies vertigo, Denies dizziness, Denies headache(s), Denies loss of vision, Denies memory loss, Denies numbness and Denies tingling Psych Denies anxiety, Denies behavioral changes, Denies depression, Denies memory loss and Denies panic attacks Harvinder/Lymph Denies easy bleeding and Denies easy bruising Aller/Immun Denies wheezing Physical exam (Primary Care) Vital Signs: Last Vital Signs Pulse 79 08/14/23 15:22 Resp 16 08/14/23 15:22 BP 152/76 H 08/14/23 15:22 Pulse Ox 97 08/14/23 15:22 Oxygen Delivery Method Room Air 08/14/23 15:22 BMI result Body Mass Index 26.2 Tobacco/Smoking Status: Tobacco use Status Tobacco use date assessed 05/16/23 08/14/23 15:23 Patient Tobacco Use Status Never used Tobacco 08/14/23 15:23 e-Cigarette/Vaping Use Never Used 08/14/23 15:23 Thrive Assessment: Date of Thrive Assessment Date Thrive assessed 05/16/23 08/14/23 15:23 Const General: healthy appearing, no acute distress, alert and awake Nutritional Appearance: well nourished Orientation/consciousness: oriented to person, oriented to place and oriented to time HENMT Ears: TM's normal bilaterally General nose exam: Normal nasal mucous membranes and turbinates present Eyes Conjunctivae: conjunctivae normal Sclerae: sclerae normal Pupils: Equal, round and reactive pupils present Neck Neck: Yes no lymphadenopathy and Yes no JVD Thyroid: Thyroid normal Carotids: no bruits Resp Effort & Inspection: normal respiratory effort and not tachypneic Auscultation: no crackles, no rales, no rhonchi and no wheezes Cardio Rate: regular rate Rhythm: regular rhythm Heart sounds: no murmurs and normal S1 and S2 GI Other: SOME MODERATE LEFT LOWER QUADRANT ABDOMINAL PAIN TO PALPATION, NO PALPABLE LUMPS NOTED Palpation (GI): Soft to palpation, Tenderness to palpation present (GI) in the LLQ, no hepatomegaly and no splenomegaly Auscultation: normal bowel sounds Skin General skin exam: no rashes or lesions noted and dry skin Neuro General: oriented to person, oriented to place and oriented to time Cranial nerves: Yes Equal, round and reactive pupils present Speech: No Abnormal speech present Gait exam (Neuro): Normal gait present Motor exam (neuro): no tremor noted Extrem Right upper extremity: full ROM Left upper extremity: full ROM Right lower extremity: full ROM; no edema Left lower extremity: full ROM; no edema Psych Mental Status: mental status grossly normal Speech and movement: Normal speech and movement present Affect: normal affect Attitude: cooperative Thought process: Normal thought process present Assessment and Plan Assessment & Plan (1) HTN (hypertension): Code(s): I10 - Essential (primary) hypertension Qualifiers: Hypertension type: essential hypertension Qualified Code(s): I10 - Essential (primary) hypertension Plan: Patient's blood pressure acceptable today in office. Will continue her current dose of lisinopril 20 mg. Goal blood pressure to be below 140/90 patient will keep an eye on her blood pressure at home. 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 Most recent fasting blood sugar slightly elevated at 146. Continues on metformin 1000 mg BID. Goal A1c to be below 7.0 (3) Hypothyroidism: Code(s): E03.9 - Hypothyroidism, unspecified Qualifiers: Hypothyroidism type: unspecified Qualified Code(s): E03.9 - Hypothyroidism, unspecified Plan: Most recent TSH elevated at 7. Her levothyroxine was increased to 112 mcg. Advised to TSH rechecked. (4) HLD (hyperlipidemia): Code(s): E78.5 - Hyperlipidemia, unspecified Qualifiers: Hyperlipidemia type: pure hypercholesterolemia Qualified Code(s): E78.00 - Pure hypercholesterolemia, unspecified Plan: Noted elevations in her total cholesterol and LDL in the setting of hypo functioning thyroid. Will try to stabilize TSH in normal range. Will recheck lipid panel (5) TASHI (generalized anxiety disorder): Code(s): F41.1 - Generalized anxiety disorder Plan: Patient reports her anxiety has been well controlled with current dose of SSRI therapy. Will like to continue current dose. (6) Left lower quadrant abdominal pain: Code(s): R10.32 - Left lower quadrant pain Plan: Patient reports a 12 hour history sharp intermittent left lower abdominal pain. She does report getting a colonoscopy a few months ago at [facility] and there was no concerns. Will try to get records from [facility]. Will empirically treat for colitis with Augmentin Orders: Orders Lipid Panel 08/14/23 E78.00 - Pure hypercholesterolemia, unspecified TSH reflex Free T4 08/14/23 E03.9 - Hypothyroidism, unspecified Comprehensive [place]. 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
== END 2023-08-14 16:03 | disposition home or self-care (01) ==
PROVIDERS: PCP Physician Assistant; Visit Provider Physician Assistant
DX: I10 Essential (primary) hypertension (principal); E11.9 Type 2 diabetes mellitus without complications; E03.9 Hypothyroidism, unspecified; E78.00 Pure hypercholesterolemia, unspecified; F41.1 Generalized anxiety disorder; R10.32 Left lower quadrant pain
CPT/HCPCS: 99214

== ENCOUNTER 2023-09-11 09:53 | Outpatient (REF) | payer MEDICARE, SELFPAY ==
[2023-09-11 11:21] LABS: Estimated Average Glucose 143 mg/dL; Hemoglobin A1C 150.2928 umol/L; Hemoglobin A1c % 6.6 % (<6.0)
[2023-09-11 11:49] LABS: Alanine Aminotransferase 17 U/L (0-31); Albumin Level 4.1 g/dL (3.5-5.0); Alkaline Phosphatase 58 U/L (39-117); Anion Gap 12 (12-20); Aspartate Amino Transferase 20 U/L (5-31); Bilirubin Total 0.6 mg/dL (0.0-1.0); Blood Urea Nitrogen 18 mg/dL (9-16); Calcium 9.6 mg/dL (8.4-10.2); Carbon Dioxide 24 mmol/L (22-29); Chloride 110 mmol/L (96-108); Cholesterol 175 mg/dL (<200); Estimated Glomerular Filt Rate > 60; Glucose Fasting 129 mg/dL (60-99); HDL Cholesterol 53 mg/dL (>40); LDL Cholesterol Calculated 98 mg/dL (<100); Potassium 3.9 mmol/L (3.3-5.1); Sodium 142 mmol/L (135-145); Triglycerides 123 mg/dL (<150)
[2023-09-11 11:53] LABS: TSH reflex Free T4 4.19 uIU/mL (0.32-4.0)
[2023-09-11 12:40] LABS: Free T4 (Free Thyroxine) 0.72 ng/dL (0.71-1.85)
== END 2023-09-11 09:54 | disposition home or self-care (01) ==
LOC: HO.LAB 09:53
PROVIDERS: PCP Physician Assistant; Visit Provider Physician Assistant
DX: E78.00 Pure hypercholesterolemia, unspecified (principal); E03.9 Hypothyroidism, unspecified; E11.9 Type 2 diabetes mellitus without complications
CPT/HCPCS: 36415; 80053; 80061; 83036; 84439; 84443

== ENCOUNTER 2023-09-12 10:56 | Outpatient (AMB) | payer MEDICARE, SELFPAY ==
[2023-09-12 11:38] VITALS: BP 142/74; PULSE 92; O2SAT 96; BMI 26.4
--- NOTE | 2023-09-12 11:38 | MHC.PC.OV ---
Vital Signs 09/12/23 11:38 Height 5 ft 1 in Weight 140 lb BMI 26.4 BP 142/74 H Blood Pressure Location Lt brachial Position Sitting Pulse 92 Pulse Source Pulse Oximeter Pulse Oximetry (%) 96 Oxygen Delivery Method Room Air Intake Visit Reasons: f/u Labs Tripper Required: No Accompanied by: Self / Same As Patient Allergies peanut Allergy (Severe, Verified 09/12/23 11:55) Anaphylaxis Medication List - Last Reconciled 09/12/23 by Raudel Flanagan PA-C calcium carbonate (Oyster Shell Calcium) 500 mg PO BID 90 days cholecalciferol (vitamin D3) 50 mcg PO DAILY 90 days escitalopram oxalate 20 mg PO DAILY levothyroxine 112 mcg PO DAILY 30 days lisinopril 20 mg PO DAILY 90 days lorazepam 0.5 mg PO DAILY PRN metformin 1,000 mg (2 x 500 mg) PO BID 90 days simvastatin 20 mg PO BEDTIME Tobacco use date assessed: 05/16/23 Dental Screening Dental Screen Date: 05/16/23 HPI f/u Labs HPI Details who is a 78?year old female here today for follow-up visit. Patient has a PMH significant for type 2 DM, anxiety, hypothyroid. Memory impairment: Has gotten brain MRI that did show age-related findings- parenchymal volume loss. Did follow-up with Neurology. ? .. ? DMII: Most recent A1c is 6.6, fasting blood sugar improved. Patient is currently taking Metformin 2000mg daily, Reports her diet has been poor, reports she is having family stress. .. Generalized anxiety disorder:? Has been under more anxiety as of late due to family issues.? Has been using lorazepam on a limited basis and needs a few refills.? Continues on Lexapro on a daily basis. ? .. ? Hypothyroidism: Most recent TSH improved to 4.1 Her levothyroxine had been increased in May of 2023 to 112 mcg. She does report not taking thyroid medication for few weeks due to traveling and forgetting to take her meds. Also noted elevations in her cholesterol panel in the setting of hypo functioning thyroid. Lipid panel much improved since thyroid more regulated. [facility] Surgical History History of hysterectomy History of bunionectomy Family History Father Colon cancer Mother No problems noted. 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 Minh Ewing, Yecenia Manzano, Juan Beckham and colleagues, with an educational lashaun from [employer]. Review of Systems Const Denies headache(s) Eyes Denies loss of vision ENT Denies vertigo, Denies dizziness, Denies headache(s) and Denies sore throat Card Denies chest pain, Denies leg edema and Denies lightheadedness Resp Denies cough, Denies hemoptysis and Denies wheezing GI Denies abdominal pain, Denies melena, Denies constipation, Denies diarrhea and Denies vomiting Denies urinary frequency, Denies dysuria and Denies urinary urgency Musc Denies arthralgias, Denies joint swelling, Denies numbness and Denies tingling Neuro Denies Abnormal speech present, Denies behavioral changes, Denies vertigo, Denies dizziness, Denies headache(s), Denies loss of vision, Denies memory loss, Denies numbness and Denies tingling Psych Denies anxiety, Denies behavioral changes, Denies depression, Denies memory loss and Denies panic attacks Harvinder/Lymph Denies easy bleeding and Denies easy bruising Aller/Immun Denies wheezing Physical exam (Primary Care) Vital Signs: Last Vital Signs Pulse 92 09/12/23 11:38 BP 142/74 H 09/12/23 11:38 Pulse Ox 96 09/12/23 11:38 Oxygen Delivery Method Room Air 09/12/23 11:38 BMI result Body Mass Index 26.4 Tobacco/Smoking Status: Tobacco use Status Tobacco use date assessed 05/16/23 09/12/23 11:43 Patient Tobacco Use Status Never used Tobacco 09/12/23 11:43 e-Cigarette/Vaping Use Never Used 09/12/23 11:43 Thrive Assessment: Date of Thrive Assessment Date Thrive assessed 05/16/23 09/12/23 11:43 Const General: healthy appearing, no acute distress, alert and awake Nutritional Appearance: well nourished Orientation/consciousness: oriented to person, oriented to place and oriented to time HENMT Ears: TM's normal bilaterally General nose exam: Normal nasal mucous membranes and turbinates present Eyes Conjunctivae: conjunctivae normal Sclerae: sclerae normal Pupils: Equal, round and reactive pupils present Neck Neck: Yes no lymphadenopathy and Yes no JVD Thyroid: Thyroid normal Carotids: no bruits Resp Effort & Inspection: normal respiratory effort and not tachypneic Auscultation: no crackles, no rales, no rhonchi and no wheezes Cardio Rate: regular rate Rhythm: regular rhythm Heart sounds: no murmurs and normal S1 and S2 GI Palpation (GI): Soft to palpation, nontender, no hepatomegaly and no splenomegaly Auscultation: normal bowel sounds Skin General skin exam: no rashes or lesions noted and dry skin Neuro General: oriented to person, oriented to place and oriented to time Cranial nerves: Yes Equal, round and reactive pupils present Speech: No Abnormal speech present Gait exam (Neuro): Normal gait present Motor exam (neuro): no tremor noted Extrem Right upper extremity: full ROM Left upper extremity: full ROM Right lower extremity: full ROM; no edema Left lower extremity: full ROM; no edema Psych Mental Status: mental status grossly normal Speech and movement: Normal speech and movement present Affect: normal affect Attitude: cooperative Thought process: Normal thought process present Assessment and Plan Assessment & Plan (1) DMII (diabetes mellitus, type 2): Code(s): E11.9 - Type 2 diabetes mellitus without complications Qualifiers: Diabetes mellitus complication status: without complication Diabetes mellitus care home insulin use: without care home use Qualified Code(s): E11.9 - Type 2 diabetes mellitus without complications Plan: Patient's type 2 diabetes well controlled. Most recent A1c is 6.6. Fasting blood sugar improved to 129 Continues on metformin 1000 mg BID. Goal A1c to be below 7.0 (2) HTN (hypertension): Code(s): I10 - Essential (primary) hypertension Qualifiers: Hypertension type: essential hypertension Qualified Code(s): I10 - Essential (primary) hypertension Plan: Patient's blood pressure slightly elevated today in office. Will continue her current dose of lisinopril 20 mg. Goal blood pressure to be below 140/90 patient will keep an eye on her blood pressure at home. (3) Hypothyroidism: Code(s): E03.9 - Hypothyroidism, unspecified Qualifiers: Hypothyroidism type: unspecified Qualified Code(s): E03.9 - Hypothyroidism, unspecified Plan: Most recent TSH much improved to 4.1 from 7.. Her levothyroxine was increased to 112 mcg. (4) HLD (hyperlipidemia): Code(s): E78.5 - Hyperlipidemia, unspecified Qualifiers: Hyperlipidemia type: pure hypercholesterolemia Qualified Code(s): E78.00 - Pure hypercholesterolemia, unspecified Plan: Most recent lipid panel much improved from previous. Likely elevated cholesterol due to hypo functioning thyroid in the setting of being off of thyroid medication. Orders: Orders Comprehensive Basom. Panel Fast 6 Months I10 - Essential (primary) hypertension Lipid Panel 6 Months E78.00 - Pure hypercholesterolemia, unspecified TSH reflex Free T4 6 Months E03.9 - Hypothyroidism, unspecified Medications: Changed From lorazepam 0.5 mg PO DAILY 7 days 7 tabs 1RF F41.1 - Generalized anxiety disorder To lorazepam 0.5 mg PO DAILY PRN F41.1 - Generalized anxiety disorder Refilled lisinopril 20 mg PO DAILY 90 tabs 1RF 90 days I10 - Essential (primary) hypertension levothyroxine 112 mcg PO DAILY 30 tabs 1RF 30 days E03.9 - Hypothyroidism, unspecified metformin decrease dose--> Take 1tab in the a.m., 1 tab in the p.m. 1,000 mg (2 x 500 mg) PO BID 180 tabs 1RF 90 days E11.9 - Type 2 diabetes mellitus without complications Patient Instructions: Goal: A1c to remain below 7.0 Barriers: Adherence to medication, adherence to physical activity and healthy eating habits. Coding Level of Care Code Est Pt Level 4 (97076) Diagnoses Type 2 diabetes mellitus without complication, without long-term current use of insulin E11.9 Diabetes mellitus complication status: without complication Diabetes mellitus watermelon inspector insulin use: without watermelon inspector use Essential hypertension I10 Hypertension type: essential hypertension Hypothyroidism, unspecified type E03.9 Hypothyroidism type: unspecified Pure hypercholesterolemia E78.00 Hyperlipidemia type: pure hypercholesterolemia
== END 2023-09-12 12:08 | disposition home or self-care (01) ==
PROVIDERS: PCP Physician Assistant; Visit Provider Physician Assistant
DX: E11.9 Type 2 diabetes mellitus without complications (principal); I10 Essential (primary) hypertension; E03.9 Hypothyroidism, unspecified; E78.00 Pure hypercholesterolemia, unspecified
CPT/HCPCS: 99214

== ENCOUNTER 2023-12-16 08:15 | Outpatient (REF) | payer MEDICARE, SELFPAY ==
[2023-12-16 11:11] LABS: Free T4 (Free Thyroxine) 1.26 ng/dL (0.71-1.85)
== END 2023-12-16 08:16 | disposition home or self-care (01) ==
LOC: HO.LAB 08:15
PROVIDERS: PCP Physician Assistant; Visit Provider Physician Assistant
DX: E03.9 Hypothyroidism, unspecified (principal)
CPT/HCPCS: 36415; 84439; 84443

== ENCOUNTER 2023-12-16 08:37 | Outpatient (AMB) | payer MEDICARE, SELFPAY ==
[2023-12-16 08:38] VITALS: BP 130/74; PULSE 66; O2SAT 98; BMI 24.7
--- NOTE | 2023-12-16 08:38 | MHC.PC.OV ---
Vital Signs 12/16/23 08:38 Height 5 ft 1 in Weight 131 lb BMI 24.7 BP 130/74 Blood Pressure Location Lt brachial Position Sitting Pulse 66 Pulse Source Pulse Oximeter Pulse Oximetry (%) 98 Oxygen Delivery Method Room Air Intake Visit Reasons: F/U DMII/HTN Courtroom Clerk Required: No Allergies peanut Allergy (Severe, Verified 12/16/23 08:46) Anaphylaxis Medication List - Last Reconciled 12/16/23 by Raudel Flanagan PA-C calcium carbonate (Oyster Shell Calcium) 500 mg PO BID 90 days cholecalciferol (vitamin D3) 50 mcg PO DAILY 90 days escitalopram oxalate 20 mg PO DAILY levothyroxine 112 mcg PO DAILY 30 days lisinopril 20 mg PO DAILY 90 days lorazepam 0.5 mg PO DAILY PRN metformin 1,000 mg (2 x 500 mg) PO BID 90 days simvastatin 20 mg PO BEDTIME Tobacco use date assessed: 05/16/23 Fall risk assessment: No Falls in past year Last assessed Fall Risk: 12/16/23 Dental Screening Dental Screen Date: 05/16/23 HPI F/U DMII/HTN HPI Details who is a 78?year old female here today for follow-up visit. Patient has a PMH significant for type 2 DM, anxiety, hypothyroid. Concern--> she reports she continues to have somewhat of a balance issue. She often feels she is off balance when walking forward as if she was leaning to the right. We have talked about physical therapy for balance training and she is now willing to do this. Has noted some weight loss since last office visit Memory impairment: Has gotten brain MRI that did show age-related findings- parenchymal volume loss. Did follow-up with Neurology. ? .. ? DMII: Most recent A1c is 6.6, fasting blood sugar improved. Patient is currently taking Metformin 2000mg daily, Reports her diet has been a bit better during the summer. .. Generalized anxiety disorder:? Has been under more anxiety as of late due to family issues.? She does use lorazepam on a very limited p.r.n. basis.? Continues on Lexapro on a daily basis with decent affect. ? .. ? Hypothyroidism: Has noted weight loss since last office visit. Most recent TSH now low. Will reduce her levothyroxine dose. Laboratory Tests 02/11/23 05/16/23 09/11/23 08:16 10:53 10:11 RBC 3.82 L Hgb 12.1 Fasting Glucose 148 H 129 H Hemoglobin A1c % 6.6 H Cholesterol 242 H 175 LDL Cholesterol, C alc 150 H 98 TSH 7.86 H 4.19 H PFSH Surgical History History of hysterectomy History of bunionectomy Family History Father Colon cancer Mother No problems noted. 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 How often do you have a drink containing alcohol?: Monthly or less 2. How many drinks containing alcohol do you have on a typical day when you are drinking?: 1 or 2 3. How often do you have six or more drinks on one occasion?: Never Total Score: 1 TASHI-7 AMB Questionnaire TASHI-7 Date TASHI - 7 assessed: 05/16/23 Source: Developed by Drs. Minh Ewing, Yecenia Manzano, Juan Beckham and colleagues, with an educational lashaun from [employer]. Review of Systems Const Denies headache(s) Eyes Denies loss of vision ENT Denies vertigo, Denies dizziness, Denies headache(s) and Denies sore throat Card Denies chest pain, Denies leg edema and Denies lightheadedness Resp Denies cough, Denies hemoptysis and Denies wheezing GI Denies abdominal pain, Denies melena, Denies constipation, Denies diarrhea and Denies vomiting Denies urinary frequency, Denies dysuria and Denies urinary urgency Musc Denies arthralgias, Denies joint swelling, Denies numbness and Denies tingling Neuro Denies Abnormal speech present, Denies behavioral changes, Denies vertigo, Denies dizziness, Denies headache(s), Denies loss of vision, Denies memory loss, Denies numbness and Denies tingling Psych Denies anxiety, Denies behavioral changes, Denies depression, Denies memory loss and Denies panic attacks Harvinder/Lymph Denies easy bleeding and Denies easy bruising Aller/Immun Denies wheezing Physical exam (Primary Care) Vital Signs: Last Vital Signs Pulse 66 12/16/23 08:38 BP 130/74 12/16/23 08:38 Pulse Ox 98 12/16/23 08:38 Oxygen Delivery Method Room Air 12/16/23 08:38 BMI result Body Mass Index 24.7 Tobacco/Smoking Status: Tobacco use Status Tobacco use date assessed 05/16/23 12/16/23 08:38 Patient Tobacco Use Status Never used Tobacco 12/16/23 08:38 e-Cigarette/Vaping Use Never Used 12/16/23 08:38 Thrive Assessment: Date of Thrive Assessment Date Thrive assessed 05/16/23 12/16/23 08:38 Const General: healthy appearing, no acute distress, alert and awake Nutritional Appearance: well nourished Orientation/consciousness: oriented to person, oriented to place and oriented to time HENMT Ears: TM's normal bilaterally General nose exam: Normal nasal mucous membranes and turbinates present Eyes Conjunctivae: conjunctivae normal Sclerae: sclerae normal Pupils: Equal, round and reactive pupils present Neck Neck: Yes no lymphadenopathy and Yes no JVD Thyroid: Thyroid normal Carotids: no bruits Resp Effort & Inspection: normal respiratory effort and not tachypneic Auscultation: no crackles, no rales, no rhonchi and no wheezes Cardio Rate: regular rate Rhythm: regular rhythm Heart sounds: no murmurs and normal S1 and S2 GI Palpation (GI): Soft to palpation, nontender, no hepatomegaly and no splenomegaly Auscultation: normal bowel sounds Skin General skin exam: no rashes or lesions noted and dry skin Neuro General: oriented to person, oriented to place and oriented to time Cranial nerves: Yes Equal, round and reactive pupils present Speech: No Abnormal speech present Gait exam (Neuro): Normal gait present Motor exam (neuro): no tremor noted Extrem Right upper extremity: full ROM Left upper extremity: full ROM Right lower extremity: full ROM; no edema Left lower extremity: full ROM; no edema Psych Mental Status: mental status grossly normal Speech and movement: Normal speech and movement present Affect: normal affect Attitude: cooperative Thought process: Normal thought process present Results AMB Hemoglobin A1c AMB Hemoglobin A1c 6.5 % Last Edit by GENARO Murillo on 12/16/23 08:54 Results Reviewed Results Reviewed: Laboratory Last Values Hgb A1c (Clinic) 6.5 % (4.0-6.0) H 12/16/23 08:39 Assessment and Plan Assessment & Plan (1) DMII (diabetes mellitus, type 2): Code(s): E11.9 - Type 2 diabetes mellitus without complications Qualifiers: Diabetes mellitus complication status: without complication Diabetes mellitus continuous churn buttermaker insulin use: without continuous churn buttermaker use Qualified Code(s): E11.9 - Type 2 diabetes mellitus without complications Plan: Patient's type 2 diabetes well controlled. Most recent A1c is acceptable. Fasting blood sugar improved to 129 Continues on metformin 1000 mg BID. Goal A1c to be below 7.0 (2) HTN (hypertension): Code(s): I10 - Essential (primary) hypertension Qualifiers: Hypertension type: essential hypertension Qualified Code(s): I10 - Essential (primary) hypertension Plan: Patient's blood pressure acceptable today in office. Will continue her current dose of lisinopril 20 mg. Goal blood pressure to be below 140/90 patient will keep an eye on her blood pressure at home. (3) Hypothyroidism: Code(s): E03.9 - Hypothyroidism, unspecified Qualifiers: Hypothyroidism type: unspecified Qualified Code(s): E03.9 - Hypothyroidism, unspecified Plan: Most recent TSH on low side. Will reduce her levothyroxine dose to 100 mcg. (4) HLD (hyperlipidemia): Code(s): E78.5 - Hyperlipidemia, unspecified Qualifiers: Hyperlipidemia type: pure hypercholesterolemia Qualified Code(s): E78.00 - Pure hypercholesterolemia, unspecified Plan: Most recent lipid panel much improved from previous. Likely elevated cholesterol due to hypo functioning thyroid in the setting of being off of thyroid medication. (5) Balance disorder: Code(s): R26.89 - Other abnormalities of gait and mobility Plan: Patient's balance seems to be in. Which has been a chronic issue for her. She is now willing to try physical therapy for balance training. Orders: Orders AMB Hemoglobin A1c 12/16/23 E11.9 - Type 2 diabetes mellitus without complications PT Evaluation and Treatment 12/16/23 R26.89 - Other abnormalities of gait and mobility Medications: Refilled simvastatin 20 mg PO BEDTIME 90 tabs 2RF E78.00 - Pure hypercholesterolemia, unspecified Discontinued levothyroxine Discontinued Reason: Doctor's Order 112 mcg PO DAILY 30 days 30 tabs 1RF E03.9 - Hypothyroidism, unspecified Patient Instructions: Goal A1c to remain below 7, blood pressure to remain below 140/90 barriers: Adherence to physical activity and healthy eating habits Coding Level of Care Code Est Pt Level 4 (64090) Diagnoses Type 2 diabetes mellitus without complication, without long-term current use of insulin E11.9 Diabetes mellitus complication status: without complication Diabetes mellitus continuous churn buttermaker insulin use: without continuous churn buttermaker use Essential hypertension I10 Hypertension type: essential hypertension Hypothyroidism, unspecified type E03.9 Hypothyroidism type: unspecified Pure hypercholesterolemia E78.00 Hyperlipidemia type: pure hypercholesterolemia Balance disorder R26.89
== END 2023-12-16 09:09 | disposition home or self-care (01) ==
PROVIDERS: PCP Physician Assistant; Visit Provider Physician Assistant
DX: E11.9 Type 2 diabetes mellitus without complications (principal)
CPT/HCPCS: 83036; 99214

== ENCOUNTER 2024-03-19 09:23 | Outpatient (REF) | payer MEDICARE, SELFPAY ==
[2024-03-19 10:44] LABS: Alanine Aminotransferase 17 U/L (0-31); Albumin Level 4.1 g/dL (3.5-5.0); Alkaline Phosphatase 65 U/L (39-117); Anion Gap 11 (12-20); Aspartate Amino Transferase 24 U/L (5-31); Bilirubin Total 0.6 mg/dL (0.0-1.0); Blood Urea Nitrogen 15 mg/dL (9-16); Carbon Dioxide 27 mmol/L (22-29); Chloride 110 mmol/L (96-108); Cholesterol 144 mg/dL (<200); Estimated Glomerular Filt Rate > 60; Glucose Fasting 144 mg/dL (60-99); HDL Cholesterol 53 mg/dL (>40); LDL Cholesterol Calculated 68 mg/dL (<100); Potassium 3.9 mmol/L (3.3-5.1); Sodium 144 mmol/L (135-145); Triglycerides 117 mg/dL (<150)
[2024-03-19 10:52] LABS: TSH reflex Free T4 0.51 uIU/mL (0.32-4.0)
== END 2024-03-19 09:24 | disposition home or self-care (01) ==
LOC: HO.LAB 09:23
PROVIDERS: PCP Physician Assistant; Visit Provider Physician Assistant
DX: E11.9 Type 2 diabetes mellitus without complications (principal); E78.00 Pure hypercholesterolemia, unspecified; E03.9 Hypothyroidism, unspecified; I10 Essential (primary) hypertension; R26.89 Other abnormalities of gait and mobility
CPT/HCPCS: 36415; 80053; 80061; 84443; 90471; 99212

== ENCOUNTER 2024-03-19 10:46 | Outpatient (AMB) | payer MEDICARE, SELFPAY ==
[2024-03-19 11:04] VITALS: BP 148/90; PULSE 60; O2SAT 98; BMI 25.2
--- NOTE | 2024-03-19 11:04 | A.OFFPC_ITS ---
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 Accompanied by: Self / Same As Patient Allergies peanut Allergy (Severe, Verified 03/19/24 11:13) Anaphylaxis Medication List - Last Reconciled 03/19/24 by Raudel Flanagan PA-C calcium carbonate (Oyster Shell Calcium) 500 mg PO BID 90 days cholecalciferol (vitamin D3) 50 mcg PO DAILY 90 days escitalopram oxalate 20 mg PO DAILY levothyroxine 100 mcg PO DAILY lisinopril 20 mg PO DAILY 90 days lorazepam 0.5 mg PO DAILY PRN metformin 500 mg PO BID 90 days simvastatin 20 mg PO BEDTIME Tobacco use date assessed: 05/16/23 Fall risk assessment: No Falls in past year Last assessed Fall Risk: 03/19/24 Dental Screening Dental Screen Date: 05/16/23 HPI 6 Month F/U HPI Details who is a 78?year old female here today for follow-up visit. Patient has a PMH significant for type 2 DM, anxiety, hypothyroid. Concern--> Recently fell walking her dog injuring her face, Seen a [facility] ER and got CT of her head and neck without any significant injuries. She did have a contusion over I for awhile. She continues to have a bit of trouble with her balance over last several months. She understand she needs to wear more supportive shoes as she often is wearing flip-flops. She is interested in physical therapy to help her with her balance. Memory impairment: Has gotten brain MRI that did show age-related findings- parenchymal volume loss. Did follow-up with Neurology. ? .. ? DMII: Most recent A1c is 6.6, fasting blood sugar improved. Patient is currently taking Metformin 2000mg daily, Reports her diet has been a bit better during the summer. .. Generalized anxiety disorder:? Has been under more anxiety as of late due to family issues.? She does use lorazepam on a very limited p.r.n. basis.? Continues on Lexapro on a daily basis with decent affect. ? .. ? Hypothyroidism: Most recent labs showing much improved TSH. Will continue her current dose of levothyroxine. Laboratory Tests 12/16/23 12/16/23 03/19/24 08:30 08:39 09:47 Fasting Glucose 144 H Hgb A1c (Clinic) 6.5 H Cholesterol 144 TSH 0.30 L 0.51 PFSH Surgical History History of hysterectomy History of bunionectomy Family History Father Colon cancer Mother No problems noted. 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 Minh Ewing, Yecenia Manzano, Juan Beckham and colleagues, with an educational lashaun from [employer]. Review of Systems Const Denies headache(s) Eyes Denies loss of vision ENT Denies vertigo, Denies dizziness, Denies headache(s) and Denies sore throat Card Denies chest pain, Denies leg edema and Denies lightheadedness Resp Denies cough, Denies hemoptysis and Denies wheezing GI Denies abdominal pain, Denies melena, Denies constipation, Denies diarrhea and Denies vomiting Denies urinary frequency, Denies dysuria and Denies urinary urgency Musc Denies arthralgias, Denies joint swelling, Denies numbness and Denies tingling Neuro Denies Abnormal speech present, Denies behavioral changes, Denies vertigo, Denies dizziness, Denies headache(s), Denies loss of vision, Denies memory loss, Denies numbness and Denies tingling Psych Denies anxiety, Denies behavioral changes, Denies depression, Denies memory loss and Denies panic attacks Harvinder/Lymph Denies easy bleeding and Denies easy bruising Aller/Immun Denies wheezing Physical exam (Primary Care) Vital Signs: Last Vital Signs Pulse 60 03/19/24 11:04 BP 148/90 H 03/19/24 11:04 Pulse Ox 98 03/19/24 11:04 Oxygen Delivery Method Room Air 03/19/24 11:04 BMI result Body Mass Index 25.2 Tobacco/Smoking Status: Tobacco use Status Tobacco use date assessed 05/16/23 03/19/24 11:05 Patient Tobacco Use Status Never used Tobacco 03/19/24 11:05 e-Cigarette/Vaping Use Never Used 03/19/24 11:05 Thrive Assessment: Date of Thrive Assessment Date Thrive assessed 05/16/23 03/19/24 11:05 Const General: healthy appearing, no acute distress, alert and awake Nutritional Appearance: well nourished Orientation/consciousness: oriented to person, oriented to place and oriented to time HENMT Ears: TM's normal bilaterally General nose exam: Normal nasal mucous membranes and turbinates present Eyes Conjunctivae: conjunctivae normal Sclerae: sclerae normal Pupils: Equal, round and reactive pupils present Neck Neck: Yes no lymphadenopathy and Yes no JVD Thyroid: Thyroid normal Carotids: no bruits Resp Effort & Inspection: normal respiratory effort and not tachypneic Auscultation: no crackles, no rales, no rhonchi and no wheezes Cardio Rate: regular rate Rhythm: regular rhythm Heart sounds: no murmurs and normal S1 and S2 GI Palpation (GI): Soft to palpation, nontender, no hepatomegaly and no splenomegaly Auscultation: normal bowel sounds Skin General skin exam: no rashes or lesions noted and dry skin Neuro General: oriented to person, oriented to place and oriented to time Cranial nerves: Yes Equal, round and reactive pupils present Speech: No Abnormal speech present Gait exam (Neuro): Normal gait present Motor exam (neuro): no tremor noted Extrem Right upper extremity: full ROM Left upper extremity: full ROM Right lower extremity: full ROM; no edema Left lower extremity: full ROM; no edema Psych Mental Status: mental status grossly normal Speech and movement: Normal speech and movement present Affect: normal affect Attitude: cooperative Thought process: Normal thought process present Office Procedures Flu Questionnaire Does the patient have a severe egg allergy?: No Immunizations Fluarix Triv [id number] (PF) 45 mcg (15 mcg x 3)/0.5 mL IM syringe Performing Provider: Raudel Flanagan PA-C Performing Location: [facility] [place] [facility] Documented (not given) by: HENRY Marin on 03/19/24 11:05 Reason Not Given: Patient Refused Coding Level of Care Code Est Pt Level 4 (37005) Diagnoses Type 2 diabetes mellitus without complication, without long-term current use of insulin E11.9 Diabetes mellitus complication status: without complication 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 insulin use: without ad terminal makeup operator use Pure hypercholesterolemia E78.00 Hyperlipidemia type: pure hypercholesterolemia Essential hypertension I10 Hypertension type: essential hypertension Hypothyroidism, unspecified type E03.9 Hypothyroidism type: unspecified Balance disorder R26.89 Assessment & Plan Assessment & Plan (1) DMII (diabetes mellitus, type 2): Code(s): E11.9 - Type 2 diabetes mellitus without complications Category: Medical Qualifiers: Diabetes mellitus complication status: without complication Diabetes mellitus assisted insulin use: without assisted use Qualified Code(s): E11.9 - Type 2 diabetes mellitus without complications Plan: Patient's type 2 diabetes well controlled with current dose of metformin 500 b.i.d.. Goal A1c is to remain below 7.0 (2) HLD (hyperlipidemia): Code(s): E78.5 - Hyperlipidemia, unspecified Category: Medical Qualifiers: Hyperlipidemia type: pure hypercholesterolemia Qualified Code(s): E78.00 - Pure hypercholesterolemia, unspecified Plan: Patient's most recent lipid panel showing excellent control over total cholesterol and LDL. Will continue her current dose of statin therapy with goal LDL to remain below 100 (3) HTN (hypertension): Code(s): I10 - Essential (primary) hypertension Category: Medical Qualifiers: Hypertension type: essential hypertension Qualified Code(s): I10 - Essential (primary) hypertension Plan: Patient's blood pressure acceptable. Will continue current dose of medication. Goal blood pressure to be below 140/90 (4) Hypothyroidism: Code(s): E03.9 - Hypothyroidism, unspecified Category: Medical Qualifiers: Hypothyroidism type: unspecified Qualified Code(s): E03.9 - Hypothyroidism, unspecified Plan: Patient's most recent TSH has stabilized on higher dose of levothyroxine. Will continue levothyroxine 100 mcg daily. (5) Balance disorder: Code(s): R26.89 - Other abnormalities of gait and mobility Category: Medical Plan: Patient continues to feel a bit off balance when walking. Will try to establish her with physical therapy to help her with balance training. Orders: Orders PT Evaluation and Treatment 03/19/24 R26.89 - Other abnormalities of gait and mobility Influenza [id number] Immunization 03/19/24 Z23 - Encounter for immunization Patient Instructions: Goal: A1c to remain below 7.0, LDL to remain below 100 Barriers: Adherence to physical activity and healthy eating habits
== END 2024-03-19 11:33 | disposition home or self-care (01) ==
LOC: HO.HMCH 10:46
PROVIDERS: PCP Physician Assistant; Visit Provider Physician Assistant
DX: E11.9 Type 2 diabetes mellitus without complications (principal); E78.00 Pure hypercholesterolemia, unspecified; I10 Essential (primary) hypertension; E03.9 Hypothyroidism, unspecified; R26.89 Other abnormalities of gait and mobility

== ENCOUNTER 2024-04-17 10:56 | Outpatient (AMB) | payer MEDICARE, SELFPAY ==
--- NOTE | 2024-04-17 10:58 | A.OFFVIS_ITS ---
Vital Signs 04/17/24 11:01 Height 5 ft 1 in Weight 133 lb BMI 25.1 Intake Visit Reasons: INP-Amnesia Intake Note: Patient presents for follow up Amnesia Allergies peanut Allergy (Severe, Verified 04/17/24 11:04) Anaphylaxis HPI Comments Details: 78 year old female new patient referred to us by PCP for gait and memory issues. Feb 26 fell on her face tripped on the edge of sidewalk, poor shoes, she fell at son's home on the stairs, shoes got caught. Sees a building and grounds supervisor for R. Toe instability, Dr. Alyssia Nugent q 3 months R. post bunionecty, and inflammation. 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 She has balance issues and posture is right side leaning, denies vertigo, A/V hallucinations. Has hearing aids forgets them all the time. STM memory loss, forgetful at baseline, with events, tasks, appointments. Doesn't drive, scared of devices and getting lost, and confused. Sleep, is good goes to bed at midnight and sleeps in until 10am or 11am. Makes lists to remember tasks and groceries, does crosswords, piano and reads daily. 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 Mood short tempered at times, per . Diet is fine, 3 small meals toast for breakfast, snacks on cheese, crackers, then dinner. Socially goes out and has dinner with their friends and family 3 times a week. [facility], [facility] Surgical History History of hysterectomy History of bunionectomy Family History Father Colon cancer Mother No problems noted. 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.) Vision needs: No Review of Systems Const All systems reviewed & are unremarkable except as noted in HPI and below ENT Reports Normal hearing present (Wears hearing aid L ear better than R without aids in.) Neuro Reports Normal hearing present (Wears hearing aid L ear better than R without aids in.) Physical Exam Vital Signs: BMI result Body Mass Index 25.1 Const General: cooperative, comfortable and no acute distress Nutritional Appearance: average body habitus Orientation/consciousness: oriented to person and oriented to time HEENT Ears: hearing grossly impaired Teeth and gingiva: other ([place] score of 3) Eyes Pupils: Equal, round and reactive pupils present Resp Effort & Inspection: normal respiratory effort and able to speak in complete sen tences Neuro General: oriented to person and oriented to time Cranial nerves: Yes Facial sensation intact/muscles of mastication intact, Yes Equal, round and reactive pupils present, Yes Normal accommodation reflex present, Yes Bilaterally intact EOM present, Yes Nystagmus not present, Yes Normal facial strength present, Yes Midline tongue present, Yes Normal hearing present (Wears hearing aid L ear better than R without aids in.) and Yes Ability to bilaterally elevate shoulders present Gait exam (Neuro): Staggering gait present (Leans to the Right side, off balance.) Motor exam (neuro): 5/5 motor strength present throughout and Normal motor muscle tone present throughout Deep tendon reflexes (DTR's): Right triceps reflex intensity grade: 2+, Left triceps reflex intensity grade: 2+, Rt Biceps (C5, C6): 2+, Left biceps reflex intensity grade: 2+, Right brachioradialis reflex intensity grade: 2+, Left brachioradialis reflex intensity grade: 2+, Right patellar reflex intensity grade: 2+ and Left patellar reflex intensity grade: 2+ Coordination: [id number] test normal and rapid alternating movements of the distal upper extremity normal Orientation What is the (year) (season) (date) (day) (month)?: year, season, date, day and month Where are we (state) (county) (town or city) (hospital) (floor)?: state and floor Attention & Calculation (CHOOSE ONE) Spell WORLD backwards (DLROW): 5 letters Language Show patient a wristwatch & ask what it is. Repeat for pencil.: watch and pencil Ask the patient to repeat the phrase 'No ifs, ands, or buts' after you.: correct Ask the patient to 'take a piece of paper with their right hand' 'fold paper in half' 'place paper on floor': take paper in right hand, fold paper in half and place paper on floor Print the sentence 'CLOSE YOUR EYES' on a piece. If patient actually closes eyes then score.: followed written direction Give patient a blank piece of paper & ask to write a sentence. Score if it contains a noun & verb.: sentence contains subject and verb Score Score: 20 Results Reviewed Results Reviewed: MRI 2019 CATscan Feb 2024 Labs Assessment & Plan Assessment & Plan (1) Memory impairment: Code(s): R41.3 - Other amnesia Category: Medical Plan Imagining: MRI memory cognitive decline MMSE 22/ Meds: Memantine 7mg then 2 weeks later 14mg then 2 weeks later 28mg Vitamins/supplements: Mushrooms, Prevagen PRN Labs: CBC/ CMP / B12 Folate Homocysteine/ MMA /Vitamin D/ ESR CRP/ RPR / TSH / Iron Memory : -Speech and Hearing Cognitive Therapy -Gait / Balance PT Determined by patient close to home Patient Education: Patient instructed to wear her hearing aids daily, as the Vestibular system plays a major role in cognitive decline. Mood: Stay socially engaged with friends and family, play bingo, puzzles, piano and use devices to become more comfortably immersed with AI technology. Orders: Orders Complete Blood Count no Diff Today R41.3 - Other amnesia Comprehensive Met. Panel Today R41.3 - Other amnesia Vitamin B12 and Folate Today R41.3 - Other amnesia Homocysteine Today R41.3 - Other amnesia IRON PROFILE Today R41.3 - Other amnesia Methylmalonic Acid Today R41.3 - Other amnesia TSH reflex Free T4 Today F09 - Unspecified mental disorder due to known physiological condition CRP High Sensitivity Today R41.3 - Other amnesia MR brain wo con w neuroquant Today R41.3 - Other amnesia PT Evaluation and Treatment Today R26.89 - Other abnormalities of gait and mobility Referrals Speech and Hearing Referral R26.89 - Other abnormalities of gait and mobility, R41.3 - Other amnesia Medications: New memantine after she completes her 7 mg course for 2 weeks 14 mg PO DAILY 14 ea 0RF memantine after 14 mg 2 weeks course 21 mg PO DAILY 14 ea 0RF memantine after 21 mg 2 weeks course 28 mg PO DAILY 30 ea 6RF memantine 7 mg PO DAILY 14 ea 0RF Coding Level of Care Code New Pt Level 4 (39599) Diagnoses Memory impairment R41.3 Time Spent (min) 40 Comment Baseline New PT Cognitive Decline
[2024-04-17 11:01] VITALS: BMI 25.1
== END 2024-04-17 12:23 | disposition home or self-care (01) ==
PROVIDERS: PCP Physician Assistant; Visit Provider Physician Assistant Medical
DX: R41.3 Other amnesia (principal)
CPT/HCPCS: 99204

== ENCOUNTER → 2024-04-17 10:56 | Outpatient (BNVA) | payer MEDICARE, SELFPAY | PROVIDERS: PCP Physician Assistant; Visit Provider Physician Assistant Medical | DX: R41.3 Other amnesia (principal); R26.89 Other abnormalities of gait and mobility | CPT/HCPCS: 99202 ==

== ENCOUNTER 2024-05-13 09:55 | Outpatient (REF) | payer MEDICARE, SELFPAY ==
--- OUTSIDE RECORDS SUMMARY | 2024-05-13 10:00 | XMS_ITS | Data Portability ---
Author Organization [facility], [facility] Address [address] [place] [address] Care Team Providers Care Coach Name Role Phone KANWAL HEATHER Phys. Med. 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 Started by cutting out soda 6 weeks ago - previously drinking a lot of it daily. Dietary recall reveals some foods still high in added sugar, such as sinstant oatmeal packs, and some snack foods in larger portion sizes such as chips. Pt is also trying to help her change his eating habits. She used to like to bike ride with grandson, would like to get back to that. Pt Instructed in: - carb food sources and consistent carb eating 30-45g per meal, 15-20g per snack - estimated calorie & nutrient needs: 1100 kcal/day for slow gradual weight loss - appropriate portion sizes and how to measure, count out, or estimate - reading nutrition facts labels - plate method of eating - Mediterranean diet guidelines for heart health - importance of regular physical activity - SMART goal setting and identifying and overcoming barriers to change Pt verbalized understanding of above topics. [email or web address] Not available 08/30/2016 16:05:44 Plan of Treatment Reminders Order Date Submit Date Provider Last Modified By Organization Details Last Modified Time Details Appointments None recorded. Lab None recorded. Referral None recorded. Procedures None recorded. Surgeries None recorded. Imaging None recorded. Medication Orders metformin ER 500 mg tablet,exte nded release 24 hr [address]/Pharmacy #[id number], [address] [place], [address], 7 10:32:19 atorvastati n 40 mg tablet [address]/Pharmacy #2025, [address] [place], [address], 7 10:44:34 metformin ER 500 mg tablet,exte nded release 24 hr 2016 017 [facility]/Pharmacy #2025, [address] [place], [address], 7 10:44:34 Diflucan 150 mg tablet [address]/Pharmacy #2025, [address] [place], [address], 7 10:44:34 Patient TargetsNo targets recorded. Patient Instructions Encounter Date Encounter Id Patient Instructions Last Modified By Organization Details Last Modified Time 08/30/2016 [id number] - try a lower sugar higher protein breakfast - turkey sandwich? leftover chicken? - fruit or yogurt for snack - for crunchy snacks - carrots or snap peas and hummus dip? - double check labels for added sugar - 6g or less per serving in any one thing - continue to drink water all day, continue to avoid all the soda - start walking and bike riding 3-5x/week - build back up gradually 5-10 minutes to start - [email or web address] Not available 08/30/2016 14:06:36 Time in: 1:29 Time out: 2:15 Total minutes with patient: 46 [email or web address] Not available 08/30/2016 16:06:32 01/08/2017 [id number] CCM: The provide r and patient discussed the Chronic Care Management program, including the services provided, and any fees associated with them. After a discussion of treatment and medication options, which included consideration of the best practices in medicine, a medical plan was provided. The patient's opinions and concerns were included in this treatment plan and goal: ABOVE. Follow up in 3 months for labs/diabetes. Not available 01/08/2017 09:35:34 04/09/2017 [id number] high cholesterol lifestyle changes Not available 04/09/2017 10:44:33 After a discussion of treatment and medication options, which included consideration of the best practices in medicine, a medical plan was provided. The patient's opinions and concerns were included in this treatment plan and goal. -Continue w/ medS- increase in atorvastatin, and metformin. Patient is in agreement w/ this plan. Call w/ any concerns. - Follow up in 3 months. call w/ any concerns. Not available 04/09/2017 10:42:51 08/21/2017 [id number] schedule medical management when feeling better [email or web address] Not available 08/21/2017 16:44:31 08/28/2017 [id number] After a discussion of treatment options, which included consideration of best practices, patient preferences, and the patient's individual lifestyle and treatment goals, as well as consideration and attempted mitigation of any barriers to meeting the patient's goals, the above treatment plan and objectives were adopted. Good to see you today! - Please review the patient education provided to you today. - Take your medications as prescribed, and please let us know if you have any unwanted or unexpected side effects. - Keep your follow-up appointments as scheduled. - Please let us know if you are worse in any way, or if you have any further questions or concerns. 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 [email or web address] Not available 08/28/2017 16:23:16 Reason for Referral None Reported. Results Created Date Observation Date Name Description Value Unit Range Abnormal Flag Note LastModifiedBy Organization Detail LastModifiedTime 08/10/19 17 08/09/2016 HbA1c (hemo globi n A1c), blood hemoglobin A1C 6.9 % 4.8-6. 0 high Goal: <7% in Patie nts with Diabe claudy Not Available [address], [place], [address], 08/09/2016 09:15:24 08/10/1908/09/2016 HbA1c (hemo globi n A1c), blood estimated average glucose 151.3 mg/dL Not Available [address], [address], 08/09/2016 09:15:24 08/10/19 17 08/09/2016 micro album in, urine microalbumin 6.5 mg/L 1.3-20 .0 Not Available [address], [address], 08/09/2016 09:44:26 08/10/19 17 08/09/2016 micro album in, urine creatinine urine 64.1 mg/dL 30.0-1 25.0 Not Available [address], [address], 08/09/2016 09:44:26 08/10/19 17 08/09/2016 micro album in, urine microalb/cre at ratio 10.1 mg/g_ creat 0.0-29 .0 Not Available [address], [address], 08/09/2016 09:44:26 08/10/19 17 08/09/2016 BMP, serum or plasm a glucose 157 mg/dL 70-100 high Not Available [address], [address], 08/09/2016 11:14:05 08/10/19 17 08/09/2016 BMP, serum or plasm a BUN 14 mg/dL 7-18 Not Available [address], [address], 08/09/2016 11:14:05 08/10/19 17 08/09/2016 BMP, serum or plasm a creatinine 0.8 mg/dL 0.8-1. 3 Not Available [address], [address], 08/09/2016 11:14:05 08/10/19 17 08/09/2016 BMP, serum or plasm a B/C 17.5 ratio Not Available [address], [address], 08/09/2016 11:14:05 08/10/19 17 08/09/2016 BMP, serum or plasm a GFR -non 79.4 mL/mi n Recom arnold d GFR by the Natio nal Kidne y Found ation >60 mL/mi n/1.7 3m2 - Jodie l <60 mL/mi n/1.7 3m2 - Chron ic Kidne y Disea se <15 mL/mi n/1.7 3m2 - Kidne y Failu re Not Available [address], [address], 08/09/2016 11:14:05 08/10/19 17 08/09/2016 BMP, serum or plasm a GFR - if 91.3 mL/mi n For Afric an Ameri can patie nts: Resul ts Multi plied by 1.21 Not Available [address], [address], 08/09/2016 11:14:05 08/10/19 17 08/09/2016 BMP, serum or plasm a sodium 144 mmol/ L 136-14 5 Not Available [address], [address], 08/09/2016 11:14:05 08/10/19 17 08/09/2016 BMP, serum or plasm a potassium 4.1 mmol/ L 3.5-5. 1 Not Available [address], [address], 08/09/2016 11:14:05 08/10/19 17 08/09/2016 BMP, serum or plasm a chloride 108 mmol/ L 96-107 high Not Available [address], [address], 08/09/2016 11:14:05 08/10/19 17 08/09/2016 BMP, serum or plasm a anion gap 6.2 5.0-15 .0 Not Available [address], [address], 08/09/2016 11:14:05 08/10/19 17 08/09/2016 BMP, serum or plasm a CO2 30 mmol/ L 21-32 Not Available [address], [address], 08/09/2016 11:14:05 08/10/19 17 08/09/2016 BMP, serum or plasm a calcium 8.7 mg/dL 8.5-10 .3 Not Available [address], [address], 08/09/2016 11:14:05 08/10/19 17 08/09/2016 lipid panel , serum cholesterol 201 mg/dL <200 mg/dl Vince able 200-2 39 mg/dl Borde rline High >240 mg/dl High Not Available [address], [address], 08/09/2016 11:14:06 08/10/19 17 08/09/2016 lipid panel , serum triglyceride s 156 mg/dL <150 mg/dL Jodie l 150-1 99 mg/dL Borde rline High 200-4 99 mg/dL High >500 mg/dL Very High Not Available [address], [address], 08/09/2016 11:14:06 08/10/19 17 08/09/2016 lipid panel , serum direct HDL 48 mg/dL Not Available [address], [address], 08/09/2016 11:14:06 08/10/19 17 08/09/2016 LDL, calcu lated , serum (OBS) LDL - calculated 121.8 RISK CATEG ORY LDL GOAL _ CHD or CHD Risk Equiv alent s <100 mg/dl (10-y ear risk >20%) 2+ Risk Facto rs <130 mg/dl (10-y ear risk <= 20%) 0-1 Risk Facto r??? <160 mg/dl ??? Almos t all peopl e with 0-1 risk facto r have a 10 year risk <10%, thus 10 year risk asses ment in peopl e with 0-1 risk facto r is not curtis garcia. Not Available [address], [address], 08/09/2016 11:14:07 11/09/19 17 11/08/2016 HbA1c (hemo globi n A1c), blood hemoglobin A1C 7.0 % 4.8-6. 0 high Goal: <7% in Patie nts with Diabe claudy Not Available [address], [address], 11/08/2016 09:39:46 11/09/19 17 11/08/2016 HbA1c (hemo globi n A1c), blood estimated average glucose 154.2 mg/dL Not Available [address], [address], 11/08/2016 09:39:46 11/09/19 17 11/08/2016 lipid panel , serum cholesterol 151 mg/dL <200 mg/dl Vince able 200-2 39 mg/dl Borde rline High >240 mg/dl High Not Available [address], [address], 11/08/2016 11:53:43 11/09/19 17 11/08/2016 lipid panel , serum triglyceride s 88 mg/dL <150 mg/dL Jodie l 150-1 99 mg/dL Borde rline High 200-4 99 mg/dL High >500 mg/dL Very High Not Available [address], [address], 11/08/2016 11:53:43 11/09/1911/08/2016 lipid panel , serum direct HDL 50 mg/dL Not Available [address], [address], 11/08/2016 11:53:43 11/09/19 17 11/08/2016 LDL, calcu lated , serum (OBS) LDL - calculated 83.4 RISK CATEG ORY LDL GOAL _ CHD or CHD Risk Equiv alent s <100 mg/dl (10-y ear risk >20%) 2+ Risk Facto rs <130 mg/dl (10-y ear risk <= 20%) 0-1 Risk Facto r??? <160 mg/dl ??? Almos t all peopl e with 0-1 risk facto r have a 10 year risk <10%, thus 10 year risk asses ment in peopl e with 0-1 risk facto r is not curtis garcia. Not Available [address], [address], 11/08/2016 11:53:44 11/09/19 17 11/08/2016 hepat itis C virus Ab, serum hepatitis C antibody NON-RE ACTIVE non-re active normal Not Available [facility] [address], [address], 11/08/2016 19:58:09 11/09/19 17 11/08/2016 hepat itis C virus Ab, serum signal to cut-off 0.03 <1.00 normal Not Available [facility] [address], [address], 11/08/2016 19:58:09 04/08/20 17 04/08/2017 HbA1c (hemo globi n A1c), blood hemoglobin A1C 7.0 % 4.8-6. 0 high Goal: <7% in Patie nts with Diabe claudy Not Available [address], [address], 04/08/2017 09:41:26 04/08/20 17 04/08/2017 HbA1c (hemo globi n A1c), blood estimated average glucose 154.2 mg/dL Not Available [address], [address], 04/08/2017 09:41:26 04/08/20 17 04/08/2017 BMP, serum or plasm a glucose 131 mg/dL 70-100 high Not Available [address], [address], 04/08/2017 11:00:57 04/08/20 17 04/08/2017 BMP, serum or plasm a BUN 19 mg/dL 7-18 high Not Available [address], [address], 04/08/2017 11:00:57 04/08/20 17 04/08/2017 BMP, serum or plasm a creatinine 0.9 mg/dL 0.8-1. 3 Not Available [address], [address], 04/08/2017 11:00:57 04/08/20 17 04/08/2017 BMP, serum or plasm a B/C 21.1 ratio Not Available [address], [address], 04/08/2017 11:00:57 04/08/20 17 04/08/2017 BMP, serum or plasm a GFR -non 69.3 mL/mi n Recom arnold d GFR by the Natio nal Kidne y Found ation >60 mL/mi n/1.7 3m2 - Jodie l <60 mL/mi n/1.7 3m2 - Chron ic Kidne y Disea se <15 mL/mi n/1.7 3m2 - Kidne y Failu re Not Available [address], [address], 04/08/2017 11:00:57 04/08/20 17 04/08/2017 BMP, serum or plasm a GFR - if 79.7 mL/mi n For Afric an Ameri can patie nts: Resul ts Multi plied by 1.21 Not Available [address], [address], 04/08/2017 11:00:57 04/08/20 17 04/08/2017 BMP, serum or plasm a sodium 144 mmol/ L 136-14 5 Not Available [address], [address], 04/08/2017 11:00:57 04/08/20 17 04/08/2017 BMP, serum or plasm a potassium 4.0 mmol/ L 3.5-5. 1 Not Available [address], [address], 04/08/2017 11:00:57 04/08/20 17 04/08/2017 BMP, serum or plasm a chloride 107 mmol/ L 96-107 Not Available [address], [address], 04/08/2017 11:00:57 04/08/20 17 04/08/2017 BMP, serum or plasm a anion gap 11.3 5.0-15 .0 Not Available [address], [address], 04/08/2017 11:00:57 04/08/20 17 04/08/2017 BMP, serum or plasm a CO2 26 mmol/ L 21-32 Not Available [address], [address], 04/08/2017 11:00:57 04/08/20 17 04/08/2017 BMP, serum or plasm a calcium 9.2 mg/dL 8.5-10 .3 Not Available [address], [address], 04/08/2017 11:00:57 04/08/20 17 04/08/2017 lipid panel , serum cholesterol 188 mg/dL <200 mg/dl Vince able 200-2 39 mg/dl Borde rline High >240 mg/dl High Not Available [address], [address], 04/08/2017 11:00:58 04/08/20 17 04/08/2017 lipid panel , serum triglyceride s 108 mg/dL <150 mg/dL Jodie l 150-1 99 mg/dL Borde rline High 200-4 99 mg/dL High >500 mg/dL Very High Not Available [address], [address], 04/08/2017 11:00:58 04/08/20 17 04/08/2017 lipid panel , serum direct HDL 49 mg/dL Not Available [address], [address], 04/08/2017 11:00:58 04/08/20 17 04/08/2017 LDL, calcu lated , serum (OBS) LDL - calculated 117.4 RISK CATEG ORY LDL GOAL _ CHD or CHD Risk Equiv alent s <100 mg/dl (10-y ear risk >20%) 2+ Risk Facto rs <130 mg/dl (10-y ear risk <= 20%) 0-1 Risk Facto r??? <160 mg/dl ??? Almos t all peopl e with 0-1 risk facto r have a 10 year risk <10%, thus 10 year risk asses ment in peopl e with 0-1 risk facto r is not neces jose. Not Available [address], [address], 04/08/2017 11:00:59 08/31/19 17 08/30/2016 MAMMO , scree yolande, digit al, bilat eral OBSERV ATION: Screen ing Mammog mushtaq, Bilate ral with utiliz ation of comput er aided detect ion. Histor y: Routin e Compar johnny: dating back to 2012. Findin gs: No suspic ious masses or suspic ious cluste red microc alcifi cation s are presen t. No barb ectura l distor tion or signif icant asymme try is presen t. IMPRES JENNIE: Normal negati ve. Annual screen ing is recomm ended. Patien t notifi ed by letter . BI-RAD S CATEGO RY 1 - NEGATI VE Densit y: 2 Scatte red fibrog landul ar ered ts POS: [facility] Electr onical ly signed Maulik Alexander romeo: Chung Gali [address] (Imaging) [address] , [place], [address], 08/30/2016 13:38:43 Result Notes None recorded. Problems Name Problem SNOMED Code Status Onset Date Resolution Date Notes Provider Name and Address Organization Details Recorded Time Bunion 393689213 Active 2007 Not Available [facility] 3 03:14:44 Acquired hallux valgus 11001021 Active 2007 Not Available [facility] 3 03:14:44 Type 2 diabetes mellitus 68676698 Active 2015 Zehra Muse NP [address] [place] [address], [address] , [facility] 7 09:22:41 Anxiety 31507494 Active 2016 Zehra Muse NP [address] [place] [address], [address] , [facility] 7 14:02:43 Hyperlipidemi a 28889041 Active 2016 Zehra Muse NP [address] [place] [address], [address] , [facility] 7 09:33:24 Problem Notes None recorded. Procedures Surgical History Date Name Laterality Status Provider Name and Address Organization Details Recorded Time 08/17/19 17 Medicare Wellness Visit completed Kristin Louie [facility] 08/16/2016 13:34:47 08/17/19 17 Medicare Risk for Falls Screen completed Kristin Louie [facility] 08/16/2016 13:42:08 07/09/19 17 POC Urinalysis Testing completed Kristin Louie [facility] 07/09/2016 17:09:53 08/06/19 15 Medicare Wellness Visit completed Lisa Esteves Natalie [facility] 08/05/2014 11:07:58 07/09/19 15 Medicare Wellness Visit completed Lisa Esteves [facility] 07/09/2014 10:06:04 03/25/20 14 Treatment and Advice completed Heather Alvarez Ms, PT [address] [place], [address], [facility] 03/25/2014 12:01:51 01/28/20 14 Treatment and Advice completed Heather Alvarez Ms, PT [address] [place], [address], [facility] 01/27/2014 09:01:25 Total Hysterectomy completed Zehra Muse, PATIENT PORTAL REPRESENTATIVE [address] [place], [address], [facility] 07/11/2011 15:21:09 Imaging Results Imaging Date Name Status LastModified by Organiz ation Details LastModified Time 08/30/2016 MAMMO, screening, digital, bilateral completed [facility] (Imaging) [address], [place], [address], 08/30/2016 13:38:43 Procedure Notes None recorded. Medical Equipment None Reported. Allergies No known drug allergies Medications Name Sig Start Date Stop Date Status Note LastModified by Organization Details LastModified Time omeprazole cap 20mg active Not Available Not Available Not Available lexapro tab 20mg active Not Available Not Available Not Available azithromyci n tab 250mg active Not Available Not Available Not Available pantoprazol e tab 20mg active Not Available Not Available N ot Available nystatin carmen 201434 active Not Available Not Available N ot Available escitalopra m tab 20mg active Not Available Not Available N ot Available lorazepam tab 0.5mg active Not Available Not Available No t Available fluconazole 100 mg tablet take 1 tablet by mouth twice a day for 1 DAY then 1 tablet once daily until finished active Not Available Not Available No t Available atorvastati n 40 mg tablet TAKE 1 AND 1/2 TABLETS BY MOUTH EVERY DAY active Not Available Not Available No t Available clotrimazol e 10 mg lindsey active Not Available Not Available Not Available metformin 500 mg tablet active Not Available Not Available Not Available nystatin 100,000 unit/mL oral suspension SWISH AND SWALLOW 4 MLS BY MOUTH 4 TIMES DAILY FOR 2 WEEKS active Not Available Not Available No t Available tizanidine 2 mg tablet active Not Available Not Available Not Available azithromyci n 250 mg tablet active Not Available Not Available Not Available fluconazole 150 mg tablet TAKE 1 TABLET BY MOUTH ONCE active Not Available Not Available No t Available calcium 500 mg tablet takes 2 QD active Not Available Not Available No t Available pantoprazol e 20 mg tablet,jhony yed release TAKE 1 TABLET BY MOUTH ONCE DAILY active Not Available Not Available No t Available levothyroxi ne 75 mcg tablet active Not Available Not Available Not Available levothyroxi ne 88 mcg tablet active Not Available Not Available Not Available lorazepam 0.5 mg tablet take 1 tablet by mouth twice a day if needed active Not Available Not Available No t Available clarithromy delmer ER 500 mg tablet,exte nded release 24 hr active Not Available Not Available Not Available omeprazole 20 mg capsule,del ayed release take 1 capsule by mouth once daily 2015 active Not Available Not Available Not Avai lable metformin ER 500 mg tablet,exte nded release 24 hr TAKE 1 TABLET BY MOUTH TWICE A DAY active Not Available Not Available No t Available amoxicillin 875 mg-potassiu m clavulanate 125 mg tablet 08/28 completed Not Available Not Available Not Available oxycodone 5 mg tablet 08/28 completed Not Available Not Available Not Available escitalopra m 20 mg tablet TAKE 1 TABLET BY MOUTH EVERY DAY 2018 active Not Available Not Available Not Avai lable Vitamin D3 25 mcg (1,000 unit) capsule 1 QD active Not Available Not Available Not Available chlorhexidi ne gluconate 0.12 % mouthwash active Not Available Not Available No t Available Vitals Date Recorded Body height Body mass index (BMI) Body weight Heart rate Systolic blood pressure Diastolic blood pressure Provider Name and Address Organization Details Last Updated DateTime 7 154.94 cm 28 kg/m2 52088.0 7 g 64 /min 120 mm[Hg] 84 mm[Hg] Charity Taylor [facility] 7 09:13:19 Date Recorded Body height Body mass index (BMI) Body weight Heart rate Systolic blood pressure Diastolic blood pressure Provider Name and Address Organization Details Last Updated DateTime 7 154.94 cm 28.5 kg/m2 36868.4 5 g 84 /min 120 mm[Hg] 60 mm[Hg] Forest Serrano [facility] 7 10:15:46 Date Recorded Body height Body temperature Heart rate Systolic blood pressure Diastolic blood pressure Provider Name and Address Organization Details Last Updated DateTime 08/21/2017 154.94 cm 98 [degF] 76 /min 120 mm[Hg] 70 mm[Hg] Lisa TasiaGENARO carver [facility] 8 15:42:59 Date Recorded Body height Body temperature Heart rate Systolic blood pressure Diastolic blood pressure Provider Name and Address Organization Details Last Updated DateTime 08/28/2017 154.94 cm 98 [degF] 78 /min 122 mm[Hg] 68 mm[Hg] Forestloan Serrano LPN [facility] 8 16:08:56 Social History Question Answer Notes LastModified by Organizat ion Details LastModified Time Tobacco Smoking Status [facility] 14:54:04 What Is Your Level Of Alcohol Consumption? Occasional Information not available 07/09/2014 Do You Wear A Helmet When Biking? No Information not available 09/17/2014 What Is Your Level Of Caffeine Consumption? Moderate Information not available 07/11/2011 How Much Tobacco Do You Chew? None Information not available 07/09/2014 What Type Of Diet Are You Following? 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 0 Information not available 11/04/2012 Are There Any Guns Present In Your Home? No Information not available 09/17/2014 Live Alone Or With Others? With Others Information not available 07/11/2011 CSRP - Narcotics No [email or web address] Informat ion not available 06/02/2012 CSRP Contract Signed And Discussed Yes 04/21/12 Information not available 04/21/2012 Does The Patient Have Difficulty Speaking Cameroonian? No Information not available 09/17/2014 Does The Patient Have Difficulty Reading Cameroonian? No Information not available 09/17/2014 Patient Has Health Care Proxy Signed And In Chart No Kristofer [email or web address] Information not available 02/05/2018 DM Disease Process Post-needs Review Information not available 08/30/2016 Nutrition Post-needs Review Information not available 08/30/2016 Physical Activity Post-needs Review Information not available 08/30/2016 Medications Not Assessed Information not available 08/30/2016 Monitoring Not Assessed Information not available 08/30/2016 Acute Complications Not Assessed Information not available 08/30/2016 Chronic Complications Pre-shows Competency Information not available 08/30/2016 Coping Pre-shows Competency Information not available 08/30/2016 Behavior Change Pre-shows Competency Information not available 08/30/2016 DSME Plan Goal Being Active: Start Exercise 5-10 Minutes Of Walking Or Bike Ride Information not available 08/30/2016 DSME Plan Goal Success Initiated Information not available 08/30/2016 DSME Plan Goal Evaluation: 08/30/2016 Information not available 08/30/2016 DSME Plan Initiated: 08/30/2016 Dates Seen: MNT: 08/30/16 Information not available 08/30/2016 DSME Plan Status In Progress - Infor mation not available 08/30/2016 CCM Consent Discussion 01/08/2017 Information not available 01/08/2017 Marital Status Informatio n not available 07/11/2011 Mosquito Repellent Used Routinely No Information not available 08/15/2011 What Was The Date Of Your Most Recent Tobacco Screening? 08/28/2017 Information not available 12/03/2018 How Many Children Do You Have? 2 34g,36b; Gr Kids 1 Information not available 07/11/2011 Seat Belts Used Routinely Yes Information not available 07/11/2011 Smoke Alarm In Home Yes Information not available 07/11/2011 At What Age Did You Start Smoking Tobacco? 20 Information not available 07/11/2011 General Stress Level Medium Information not available 07/11/2011 Do You Use Sunscreen Routinely? Yes Information not available 08/15/2011 Sex: Unknown Functional Status None recorded. Mental Status None recorded. Family History Relationship Description Onset Age of this Age Resolved Age Notes LastModified by Organization Details LastModified Time Mother Problem dGi bleed Not available 08/05/2014 11:47:14 Mother Hypertensive disorder previo usly record ed as Hypert ension Not available 08/05/2014 11:47:14 Brother Problem A/W Not available 0 08/05/2014 11:47:14 Brother Problem A/W Not available 0 08/05/2014 11:47:14 Father Myocardial infarction Not available 08/05 11:47:14 Father Heart disease Not available 2014 11:47:14 Father Malignant tumor of colon 72 75 previo usly record ed as Cancer - Colon Not available 08/05/2014 11:47:14 Paternal Grandfather Diabetes mellitus previo usly record ed as Diabet es Not available 08/05/2014 11:47:14 Medical History Condition Response Anxiety Y Depression Y ENDOCRINE GERD Y Gynecological HistoryNo gynecological history recorded. Obstetrics History GPAL:G 0 P 0 0 0 0 Immunizations Vaccine Type Date Status Note Provider Nam e and Address Organization Details Recorded Time Tdap 08/15/2011 completed Not Available [employer] 05/30/2019 02:35:41 Past Encounters Encounter ID Performer Location Encounter Start Date Encounter Closed Date Diagnosis/Indication Diagnosis SNOMED-CT Code Diagnosis ICD10 Code [id number] Radiology , [address] [address] 05/30/2007 10:35:16 05/30/2007 12:16:19 [id number] Podiatry, [address] [address] 05/30/2007 10:02:56 06/02/2007 08:17:22 [id number] AURELIO Gray, [facility], OFFICE [address] [place] [address] 07/11/2011 14:32:41 07/11/2011 15:39:08 [id number] Radiology , [address] [address] 07/26/2011 13:26:32 07/30/2011 14:28:39 [id number] [place] [facility], OFFICE [address] [facility] [place] [address] 08/15/2011 13:52:11 08/15/2011 15:14:49 [id number] , [facility], OFFICE [address] [facility] [place] [address] 10/16/2011 11:57:05 10/16/2011 12:46:37 [id number] , [facility], OFFICE [address] [facility] [place] [address] 12/12/2011 16:32:37 12/12/2011 17:21:14 [id number] Zehra Muse NP , [facility], OFFICE [address] [facility] [place] [address] 04/21/2012 16:31:55 04/21/2012 17:34:51 [id number] Viktor Bermeo MD [facility] , [facility] [address] [facility] [place] [address] 08/05/2012 09:57:59 08/06/2012 12:18:20 [id number] Randell Darryl LOFTON , [facility], OFFICE [address] [facility] [place] [address] 11/04/2012 11:02:59 11/04/2012 12:16:15 [id number] , [facility], OFFICE [address] [facility] [place] [address] 01/06/2013 09:36:31 01/06/2013 10:12:27 Increased blood pressure 07123026 Anxiety disorder 06 Gastroesop hageal reflux disease 204644874 Impaired f asting glycemia 887462270 [id number] , [facility], OFFICE [address] [facility] [place] [address] 04/07/2013 09:34:03 04/07/2013 10:15:35 Increased blood pressure 42814019 Anxiety disorder 06 Impaired f asting glycemia 110010665 [id number] Keyla Sosa , [facility], OFFICE [address] [facility] [place] [address] 10/12/2013 13:30:54 10/12/2013 14:38:35 Impaired fasting glycemia 156392504 Chest pain 27137744 Gastroesop hageal reflux disease 013066262 [id number] , [facility], [facility] [address] [place] [address] 01/15/2014 15:18:20 01/15/2014 15:38:33 Injury of foot 246318693 [id number] Heathre Alvarez Ms, PT Physical Therapy, [address] [address] 01/27/2014 08:03:10 01/27/2014 11:20:34 Foot pain 59436808 [id number] [facility], [address] [address] 01/29/2014 11:29:10 02/01/2014 07:47:08 Foot pain 51461840 [id number] Heather Alvarez Ms, PT Physical Therapy, [address] [address] 02/11/2014 11:59:06 02/11/2014 14:24:52 Foot pain 70384721 [id number] Heather Alvarez Ms, PT Physical Therapy, [address] [address] 02/18/2014 11:32:53 02/18/2014 14:01:56 Foot pain 14517955 [id number] Heather Alvarez Ms, PT Physical Therapy, [address] [address] 02/25/2014 10:48:51 02/25/2014 12:09:34 Foot pain 86927916 [id number] Heather Alvarez Ms, PT Physical Therapy, [address] [address] 03/04/2014 11:00:19 03/04/2014 14:33:15 Foot pain 30330428 [id number] Heather Alvarez Ms, PT Physical Therapy, [address] [address] 03/11/2014 08:31:14 03/11/2014 12:48:41 Foot pain 51042955 [id number] Heather Alvarez Ms, PT Physical Therapy, [address] [address] 03/25/2014 11:14:35 03/26/2014 07:32:41 Foot pain 20260914 [id number] Heather Alvarez Ms, PT Physical Therapy, [address] [address] 04/06/2014 12:35:24 04/06/2014 13:45:25 Foot pain 29139557 [id number] Zehra Muse NP , [facility], OFFICE [address] [place] [address] 07/09/2014 10:02:02 07/09/2014 11:21:58 Pain in wrist 35905760 [id number] , [facility], OFFICE [address] [place] [address] 08/05/2014 11:02:11 08/05/2014 12:28:59 Adult health examination 264208207 Counseling 244770665 Screening mammography 24 512204 Chest pain 58732662 Fatigue 50710175 [id number] , [facility], OFFICE [address] [place] [address] 09/17/2014 09:17:17 09/17/2014 10:03:03 Impaired fasting glycemia 449848368 [id number] AURELIO Gray, [facility], OFFICE [address] [place] [address] 11/25/2015 08:16:16 11/25/2015 09:27:59 Impaired fasting glycemia 421027087 R73.01 Single neftali or depressive episode 045402430 F32.9 F32.0 Varicose v eins of lower extremity 62776712 I83.91 [id number] AURELIO Gray, [facility], OFFICE [address] [place] [address] 01/19/2016 11:54:06 01/19/2016 12:52:52 Type 2 diabetes mellitus 10784400 E11.9 [id number] AURELIO Lizarraga, [facility], OFFICE [address] [place] [address] 07/09/2016 17:04:03 07/10/2016 08:36:04 Urinary tract infectious disease 60286645 N39.0 Vaginitis and vulvovaginitis 075757960 N76.0 [id number] Zehra Muse NP , [facility], OFFICE [address] [place] [address] 6 08/16/2016 13:28:18 08/16/2016 14:43:19 Adult health examination 463823606 Z00.00 Benign ess ential hypertension 3405874 I10 Mixed hyperlipidemia 267 033691 E78.2 Screening for disorder 135765128 Z11.59 Screening mammography 24 389491 Z12.31 Anxiety 55210345 F41.9 Type 2 jerald betes mellitus 55114912 E11.9 Depressive disorder 3548 9007 F32.0 [id number] Jessika Noguera, Ms, Rdn, Ldn, CDE Nutrition -[address] [address] 08/30/2016 13:22:23 08/30/2016 16:17:53 Type 2 diabetes mellitus without complication 874406103 E11.9 [id number] Zehra Muse NP , [facility], OFFICE [address] [place] [address] 01/08/2017 09:01:25 01/08/2017 09:45:23 Type 2 diabetes mellitus 94473705 E11.9 Hyperlipidemia 16810099 E78.5 Anxiety 80426033 F41.9 [id number] Zehra Muse NP , [facility], OFFICE [address] [place] [address] 6 04/09/2017 10:03:21 04/09/2017 10:37:19 Mixed hyperlipidemia 071058057 E78.2 Type 2 jerald betes mellitus 23050679 E11.37X1 Candidiasis of vagina 72 560382 B37.3 [id number] Mone Griffin NP , [facility], OFFICE [address] [place] [address] 08/21/2017 15:35:48 08/21/2017 17:01:45 Otalgia 84868312 H92.01 Acute uppe r respiratory infection 72703142 J06.9 [id number] Gustavo Carey PA-C , [facility], OFFICE [address] [place] [address] 08/28/2017 15:42:38 08/28/2017 16:26:09 Temporomandibular joint disorder 69046378 M26.609 Acute uppe r respiratory infection 05977288 J06.9 Health Concerns Section Related Observation LastModified by Organization Detai ls LastModified Time None Recorded Concern Status LastModified by Organization Details LastModified Time None Recorded Advance Directives Directive None Recorded Payers Encounter Date Sequence Insurance Name Policy Number Policy Alarcon Covered Member ID Alarcon Member ID Guarantor Name 08/30/2016 1 [facility]: [facility] [id number] Kristofer Fonseca [id number] Barbara Fonseca 01/08/2017 1 [place] [facility] Barbara Estrada Marian [id number] Marian 04/09/2017 1 [place] [facility] A Marian [id number] Barbara Ellisonnon 08/21/2017 2 [facility]: [facility] Barbara Estrada Marian [id number] Marian 08/21/2017 1 [place] [facility] A Marian [id number] Marian 08/28/2017 2 [facility]: [facility] A Marian [id number] Marian 08/28/2017 1 [facility] A Marian [id number] Barbara Fonseca Notes Date Note Type Note Provider Name and Address Organization Details Recorded Time 7 text/html Nutrition Encounter updatedReported bypatient.Patient HistoryPatient chief nutritional complaint:Diabetes Nutrtition/dietarySee scanned images for Diet Intake Summary; past 6 weeks - stopped all soda likes junk like chips, fritos b - works at [employer]. packet of christianity oatmeal maple flavor, high fiber. snack - chips, cheese l - d - not a pasta eater brown rice or potato incorporating more vegetables found a low sugar yogurt for a snack at night Estimated Nutrient NeedsEnergy (kcals) 5390-4803 Recent Lab testsFasting Blood Sugar: (157); Hemoglobin A1C: (6.9%); Total Cholesterol: (201); LDL-Cholesterol: (121.8); HDL Cholesterol: (48); Triglycerides: (156) Physical Activity habitsExercise Type:Walking; likes to bike ride but fell off bike Jessika Noguera, Ms, Rdn, Ldn, CDE [address] [place], [address], [facility] 08/30/2016 16:07:18 7 text/html VMG HyperlipidemiaReported bypatient.Duration:at goal ldl 83 A1c 7. 0 Control:well controlled; improved since last visit; treated with diet; treated with medications Compliance:compliant with medications; compliant with follow-up visits Barriers to Careunder stress Context:Diabetes; Nonsmoker; No ischemic heart disease; No peripheral vascular disease (00099) Associated Symptoms:no muscle pain; no fatigue; no chest discomfort; no dyspneaVMG HypertensionReported bypatient.Control:Patient understands medications are to lower blood pressure Compliance:Compliant with medications; Compliant with diet Context:No ischemic heart disease; No kidney disease; No history of CVA; No congestive heart failure Associated Symptoms:No chest pain; No shortness of breath; No edema; No fatigue Son - and moved to in [place]- had melt down- 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 Dtr - w/ grandAnne lee this summer. Seeing dr guerra in 1 wk ANXIETY- takes prn ativan. 3-4 x per mos. Depression is stable- no si/hi. [[LAST VISIT Under a lot of stress, w/ prostetectomy, has scar tiusse - urethral implant.Son w// Mass gen w/ heart repair 37 open heart, testicular ca in past. Getting 10/27.]] Zehra Muse NP [address] [place], [address], [facility] 01/08/2017 09:47:41 7 text/html VMG DiabetesReported bypatient.Review finger sticks:a1c 7.0;VMG HyperlipidemiaReported bypatient.Duration:at goal ldl 117 A1c 7. 0 Control:well controlled; improved since last visit; treated with diet; treated with medications Compliance:compliant with medications; compliant with follow-up visits;noncompliant with diet; NOT EXERCISING. Barriers to Careunder stress Context:Diabetes; Nonsmoker; No ischemic heart disease; No peripheral vascular disease (18286) Associated Symptoms:no muscle pain; no fatigue; no chest discomfort; no dyspnea CAME BACK FORM TX- for tday; last week. got cream for vaginal itching. flet she had reaction to creasm. and then took benadyrl #2 in middle of noc.Started to itch everywhere, was hallucinating, kept seeing sons living room.fine the next am. discd not to take the benadryl. ANXIETY- takes prn ativan. 3-4 x per mos. DTR was going to getmarried now not, has kids and very stressful. Depression is stable- no si/hi. [[LAST VISIT Under a lot of stress, w/ prostetectomy, has scar tiusse - urethral implant.Son w// Mass gen w/ heart repair 37 open heart, testicular ca in past. 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 Zehra Muse NP [address] [place] [address], [phone], [facility] 04/09/2017 10:44:50 8 text/html pt presents for ED f/u [facility] 08/18/2017- dx with right ear infection. tx with augmentin. taking with food but is causing nausea. was given oxycodone for ear pain- also reporting cough, sinus congestion, body aches, fatigue x1 week. no sob. no fever. no n/v/d/c- ear pain has improved but not resolved- no hx of asthma/copd- pt also reports recently being on a zpa for dental infection Mone Griffin NP [address] [place], [address], [facility] 08/21/2017 16:44:59 8 text/html F/U ear pain. Treated with Augmentin for ear infection on right.Completed full 7-day course.Also given oxycodone for the pain. Also saw dentist prior to this for right-sided jaw pain. Was given Z-pack. No relief. This pain here has persisted. Jaw is cracking, pain with chewing. Left ear crackling. Also has mild runny nose, sinus pressure, cough. Denies sinus pain, F/C, N/V/D. Gustavo Carey PA-C [address] [place] [address], [phone], [facility] 08/28/2017 16:26:43 OBGyn Episode No OBEpisode recorded.
== END 2024-05-13 09:56 | disposition home or self-care (01) ==
LOC: HO.MRI 09:55
PROVIDERS: PCP Physician Assistant; Visit Provider Physician Assistant Medical
DX: R41.3 Other amnesia (principal)
CPT/HCPCS: 70551; 76377

== ENCOUNTER → 2024-05-13 10:05 | Outpatient (BNV) | payer MEDICARE, SELFPAY | PROVIDERS: PCP Physician Assistant; Visit Provider Radiology Diagnostic Radiology | DX: R41.3 Other amnesia (principal) | CPT/HCPCS: 70551 ==

== ENCOUNTER 2024-06-08 12:31 | Outpatient (RCR) | payer MEDICARE, SELFPAY ==
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
== END 2024-07-23 14:20 | disposition still patient (30) ==
LOC: HO.SH 12:31
PROVIDERS: PCP Physician Assistant; Visit Provider Physician Assistant Medical
DX: R26.89 Other abnormalities of gait and mobility (principal); R41.3 Other amnesia
CPT/HCPCS: 96125

== ENCOUNTER 2024-06-10 12:06 | Emergency (ER) | payer MEDICARE, SELFPAY ==
--- NOTE | 2024-06-10 12:25 | ED.GENADULT ---
HPI - General Adult General Chief complaint: General Medical Stated complaint: High Blood Pressure Sent by PT Time Seen by Provider: 06/10/24 17:14 Source: patient Mode of arrival: ambulatory Limitations: no limitations History of Present Illness HPI narrative: This is a 78-year-old woman with a past medical history of hypertension, hyperlipidemia, hypothyroidism, type 2 diabetes mellitus, anxiety, chronic balance disorder who presents for evaluation of hypertension. is present at the time of history and exam. Patient states that she is doing physical therapy for balance issues that she has had chronically and follows with neurology for. She states that she was found to have high blood pressure via physical therapists and she was recommended to come to the emergency room for further evaluation. She states otherwise she has been having a toothache for the last few weeks and states that her dentist is planning on removing 1 of her teeth. She states no trauma recently. She states no headache. She States no chest pain or dyspnea. She states no leg swelling or pain. She states no back pain or abdominal pain. He states no GI or symptoms. Related Data Home Medications ?Medication ?Instructions ?Recorded ?Confirmed lorazepam 0.5 mg tablet 0.5 mg PO DAILY PRN 09/12/23 03/19/24 Previous Rx's ?Medication ?Instructions ?Recorded lisinopril 20 mg tablet 20 mg PO DAILY 90 days #90 tabs 09/12/23 calcium carbonate (Oyster Shell 500 mg PO BID 90 days #180 tabs 11/08/23 Calcium) cholecalciferol (vitamin D3) 50 50 mcg PO DAILY 90 days #90 caps 11/08/23 mcg (2,000 unit) capsule simvastatin 20 mg tablet 20 mg PO BEDTIME #90 tabs 12/16/23 escitalopram oxalate 20 mg tablet 20 mg PO DAILY #90 tabs 02/10/24 metformin 500 mg tablet 500 mg PO BID 90 days #180 tabs 03/10/24 levothyroxine 100 mcg tablet 100 mcg PO DAILY #90 tabs 03/14/24 memantine 14 mg capsule 14 mg PO DAILY #14 ea 04/17/24 sprinkle,extended release 24hr memantine 21 mg capsule 21 mg PO DAILY #14 ea 04/17/24 sprinkle,extended release 24hr memantine 28 mg capsule 28 mg PO DAILY #30 ea 04/17/24 sprinkle,extended release 24hr memantine 7 mg capsule 7 mg PO DAILY #14 ea 04/17/24 sprinkle,extended release 24hr Allergies Allergy/AdvReac Type Severity Reaction Status Date / Time peanut Allergy Severe Anaphylaxis Verified 06/10/24 12:31 Review of Systems Review of Systems: ROS as per HPI [facility] Past Medical History Surgical History History of hysterectomy History of bunionectomy Family History Family History Father Colon cancer Mother No problems noted. Social History Social History Housing: House Alcohol intake: current Alcohol intake frequency: holidays/special occasions only Alcohol type: wine Patient Tobacco Use Status: Never used Tobacco e-Cigarette/Vaping Use: Never Used Second Hand Smoke Exposure: No Use of substances other than those prescribed or required for medical reasons: No Advance Directives: No Advance Directives Information Provided: Yes service: No Current occupational status: employed Cognitive needs: No Hearing needs: Yes (hearing loss in right ear and Pt has hearing aid.) Vision needs: No Physical Exam ED Vital Signs: Vital Signs - 24 hr 06/10/24 12:26 06/10/24 17:24 06/10/24 18:33 Temperature 97.5 F 97.7 F 97.7 F Pulse Rate 68 67 67 Respiratory Rate 16 16 16 Blood Pressure 176/70 H 189/70 H 189/70 H Pulse Oximetry 97 96 96 Oxygen Delivery Method Room Air Room Air Room Air BMI result Body Mass Index 24.2 Gen: NAD, AOx3 HEENT: NCAT, EOMI, normal conjunctiva, uvula midline with a edema, no posterior oropharynx erythema/exudates, no palatal asymmetry, no dental abscess, no sublingual edema, no anterior neck edema/overlying skin changes CV: RRR, no murmurs appreciated Pulm: CTAB, no increased work of breathing GI: Soft, NTND, no rebound, guarding or rigidity Neuro: Grossly non focal MSK: No asymmetrical calf edema/erythema/TTP Course Course Course Narrative: This is an RME: Additional HPI, ROS, PE not included below will be deferred to primary provider. RME assessment and note performed by: Pippa Tamez PA-C This is a [id number]-female, with a hx of HTN on lisinopril, who presents to the ER with complaints of elevated BP reading. Reports that she has an unsteady gait which has been ongoing for several months and has been going to PT for this issue. Patient states that while she was at her physical therapy appointment they took her blood pressure and it was elevated. She states that she just received a blood pressure cuff and has been monitoring her blood pressure and her levels have been 190s over 80s. Also reports that she has had a lot of recent dental work, reporting some discomfort in her lower jaw in his unsure if this is what is causing her blood pressure to be elevated. She was alert and oriented x4. Plan: Labs, EKG, UA, further ER evaluation needed. Medical Decision Making Medical Decision Making [facility] Narrative: Differential diagnosis includes, but is not limited to hypertensive urgency, hypertension. This is not hypertensive emergency. Patient is afebrile and hemodynamically stable on room air. Exam is benign and reassuring. I reviewed the patient's labs, urine studies and EKG as below. On re-examination, patient is well-appearing and in no acute distress. ?Patient states symptoms have resolved. ?There is no indication for further emergent evaluation in this otherwise well-appearing patient as above. ?Patient and are provided written and verbal instructions, educational materials, recommendations for outpatient follow-up, strict return precautions and teach back is performed. ?Patient and state understanding and agreement with plan of care. ?Patient is discharged home in stable and improved condition. Admission/Observation Consideration of admission/observation: Escalation of care including admission/observation considered Lab Data [facility] Lab Attestation statement: I reviewed the patient's lab results. I independently reviewed and interpreted the patient's labs including CBC, metabolic panel, magnesium level and troponin. Urinalysis is noncontributory. 06/10/24 12:57 06/10/24 12:57 Labs: Lab Results 06/10/24 06/10/24 Range/Units 12:57 17:59 WBC 7.9 (4.8-10.8) X10*3/uL RBC 4.23 (4.20-5.50) X10*6/uL Hgb 13.2 (12.0-16.0) g/dl Hct 39.2 (37.0-47.0) % MCV 92.7 (80.0-98.0) fL MCH 31.2 (27.0-33.0) pg MCHC 33.7 (31.0-35.0) g/dl RDW 13.3 (11.0-16.0) % Plt Count 279 (160-400) X10*3/uL MPV 9.5 (9.4-12.3) fL Immature Gran % (Auto) 0.1 (0.0-0.4) % Neut % (Auto) 61.7 (45-73) % Lymph % (Auto) 28.0 (20-40) % [place] % (Auto) 5.7 (2-11) % Eos % (Auto) 3.6 (0-4) % Baso % (Auto) 0.9 (0-2) % Lymph # (Auto) 2.2 (1.2-4.9) X10*3/uL [place] # (Auto) 0.5 (0.1-1.2) X10*3/uL Eos # (Auto) 0.3 (0.0-0.4) X10*3/uL Baso # (Auto) 0.1 (0.0-0.2) X10*3/uL Abs Immat Gran (auto) 0.01 (0.00-0.03) X10*3/uL Absolute Neuts (auto) 4.9 (2.0-8.3) x10*3/uL Absolute Nucleated RBC 0.000 (0.0-0.012) X10*3/uL Nucleated RBC % (auto) 0.0 (0.0-0.2) /100WBC Sodium 141 (135-145) mmol/L Potassium 3.4 (3.3-5.1) mmol/L Chloride 109 H (96-108) mmol/L Carbon Dioxide 25 (22-29) mmol/L Anion Gap 10 L (12-20) BUN 18 H (9-16) mg/dL Creatinine 0.80 (0.5-1.4) mg/dL Estim Creat Clear Calc 48.7 Estimated GFR > 60 Random Glucose 153 H (60-115) mg/dL Calcium 9.4 (8.4-10.2) mg/dL Magnesium 2.0 (1.6-2.6) mg/dL Total Bilirubin 0.4 (0.0-1.0) mg/dL Direct Bilirubin 0.1 (0.0-0.5) mg/dL AST 25 (5-31) U/L ALT 18 (0-31) U/L Alkaline Phosphatase 69 (39-117) U/L Troponin I High Sens < 2.7 (<3.5-17.0) ng/L Total Protein 7.5 (6.5-8.0) g/dL Albumin 4.2 (3.5-5.0) g/dL Urine Color Yellow Urine Appearance Clear Urine pH 6.0 (5.0-9.0) Ur Specific [place] 1.020 (1.005-1.025) Urine Protein Trace (Neg-Trace) mg/dL Urine Glucose (UA) 100 H (Negative) mg/dL Urine Ketones Negative (Negative) mg/dL Urine Blood Negative (Negative) Urine Nitrite Negative (Negative) Ur Leukocyte Esterase Negative (Negative) Independent Interpretation I performed an independent interpretation of an: EKG Interpretation: I independently reviewed and interpreted the patient's EKG, which demonstrates a sinus rhythm at 62 beats per minute, VT 166, QRS 96, QTC 4 3, no STEMI (there are no diagnostic ischemic changes compared to previous EKG February 11, 2023) Discharge Plan Discharge Clinical Impression: Hypertension Patient Disposition: Home, Self-Care Instructions: Hypertension (ED) Additional Instructions: You were seen and evaluated in the emergency room. Your vital signs were notable for elevated blood pressure and otherwise reassuring. Your blood work and EKG were very reassuring. Please follow-up with your primary care doctor and neurologist in the next 5-7 days to have your blood pressure checked again and discuss your current blood pressure medications. Please return to the emergency room if you develop any worsening symptoms including, but not limited to chest pain or difficulty breathing. ? Prescriptions: No Action calcium carbonate [Oyster Shell Calcium] 500 mg calcium (1,250 mg) tablet 500 mg PO BID 90 Days Qty: 180 1RF cholecalciferol (vitamin D3) 50 mcg (2,000 unit) capsule 50 mcg PO DAILY 90 Days Qty: 90 1RF escitalopram oxalate 20 mg tablet 20 mg PO DAILY Qty: 90 2RF metformin 500 mg tablet 500 mg PO BID 90 Days Qty: 180 1RF Rx Instructions: Take 500 b.i.d. levothyroxine 100 mcg tablet 100 mcg PO DAILY Qty: 90 1RF simvastatin 20 mg tablet 20 mg PO BEDTIME Qty: 90 2RF lorazepam 0.5 mg tablet 0.5 mg PO DAILY PRN lisinopril 20 mg tablet 20 mg PO DAILY 90 Days Qty: 90 1RF memantine 7 mg capsule,sprinkle,ER 24hr 7 mg PO DAILY Qty: 14 0RF memantine 14 mg capsule,sprinkle,ER 24hr 14 mg PO DAILY Qty: 14 0RF Rx Instructions: after she completes her 7 mg course for 2 weeks memantine 21 mg capsule,sprinkle,ER 24hr 21 mg PO DAILY Qty: 14 0RF Rx Instructions: after 14 mg 2 weeks course memantine 28 mg capsule,sprinkle,ER 24hr 28 mg PO DAILY Qty: 30 6RF Rx Instructions: after 21 mg 2 weeks course Interventions: ED Discharge Assessment Last Done: 06/10/24 18:33 Discharge Date/Time: 06/10/24 18:34 Print Language: Czech
[2024-06-10 12:26] VITALS: BP 176/70; PULSE 68; RESP 16; TEMP 36.4; O2SAT 97; BMI 24.2
--- NOTE | 2024-06-10 12:32 | ECG_ITS ---
Test Reason : HTN Blood Pressure : */* mmHG Vent. Rate : 62 BPM Atrial Rate : 62 BPM P-R Int : 166 ms QRS Dur : 96 ms QT Int : 398 ms P-R-T Axes : 38 60 43 degrees QTcB Int : 403 ms Normal sinus rhythm Nonspecific T wave abnormality Abnormal ECG When compared with ECG of 11-Feb-2023 08:20, Nonspecific ST and T wave abnormality present Referred By: Pippa Tamez Electronically Signed By: HOLLY FORD
[2024-06-10 13:06] LABS: MANUAL DIFF FLAG NO
[2024-06-10 13:14] LABS: Basophils Absolute Auto 0.1 X10*3/uL (0.0-0.2); Basophils Percent Auto 0.9 % (0-2); Eosinophils Absolute Auto 0.3 X10*3/uL (0.0-0.4); Eosinophils Percent Auto 3.6 % (0-4); Hematocrit 39.2 % (37.0-47.0); Hemoglobin 13.2 g/dl (12.0-16.0); Imm Gran Abs Auto 0.01 X10*3/uL (0.00-0.03); Imm Gran Pct Auto 0.1 % (0.0-0.4); Lymphocytes Absolute Auto 2.2 X10*3/uL (1.2-4.9); Mean Corpuscular HGB Conc 33.7 g/dl (31.0-35.0); Mean Corpuscular Hemoglobin 31.2 pg (27.0-33.0); Mean Corpuscular Volume 92.7 fL (80.0-98.0); Mean Platelet Volume 9.5 fL (9.4-12.3); Monocytes Absolute Auto 0.5 X10*3/uL (0.1-1.2); Monocytes Percent Auto 5.7 % (2-11); Neutrophils Absolute Auto 4.9 x10*3/uL (2.0-8.3); Neutrophils Percent Auto 61.7 % (45-73); Platelet Count 279 X10*3/uL (160-400); Red Blood Count 4.23 X10*6/uL (4.20-5.50); Red Cell Distribution Width 13.3 % (11.0-16.0); White Blood Count 7.9 X10*3/uL (4.8-10.8)
[2024-06-10 13:22] LABS: Alanine Aminotransferase 18 U/L (0-31); Albumin Level 4.2 g/dL (3.5-5.0); Alkaline Phosphatase 69 U/L (39-117); Anion Gap 10 (12-20); Aspartate Amino Transferase 25 U/L (5-31); Bilirubin Direct 0.1 mg/dL (0.0-0.5); Bilirubin Total 0.4 mg/dL (0.0-1.0); Blood Urea Nitrogen 18 mg/dL (9-16); Calcium 9.4 mg/dL (8.4-10.2); Carbon Dioxide 25 mmol/L (22-29); Chloride 109 mmol/L (96-108); Creatinine Clr Calc Pharmacy 48.7; Estimated Glomerular Filt Rate > 60; Glucose Random 153 mg/dL (60-115); Potassium 3.4 mmol/L (3.3-5.1); Sodium 141 mmol/L (135-145); Total Protein 7.5 g/dL (6.5-8.0)
[2024-06-10 13:30] LABS: Troponin-I High Sensitivity < 2.7 ng/L (<3.5-17.0)
--- OUTSIDE RECORDS SUMMARY | 2024-06-10 15:11 | XMS_ITS | Data Portability ---
Author Organization [facility], [facility] Address [address] [place] [address] Care Team Providers Care Container Finishing Inspector Name Role Phone KANWAL HEATHER Phys. Med. & Rehab Unavailable ZEHRA MUSE Primary Care Provider [phone] VIKTOR LABOY Concrete Analyst Unavailable Assessment Encounter Date Assessment Date Assessment [...] tablet,exte nded release 24 hr [address]/Pharmacy #2025, [address] [place], [address], 7 10:32:19 atorvastati n 40 mg tablet [address]/Pharmacy #2025, [address] [place], [address], 7 10:44:34 metformin ER 500 mg tablet,exte nded release 24 hr 2016 017 [facility]/Pharmacy #2025, [address] [place], [address], 7 10:44:34 Diflucan 150 mg tablet [address]/Pharmacy #2025, [address] [place], [address], 7 10:44:34 Patient TargetsNo targets recorded. Patient Instructions Encounter Date Encounter Id Patient Instructions Last Modified By Organization Details Last Modified Time 08/30/2016 [id number] - try a lower sugar higher protein [...] 46 [email or web address] Not available 08/30/2016 16:06:32 01/08/2017 [id number] CCM: The provide r and patient discussed [...] for labs/diabetes. Not available 01/08/2017 09:35:34 04/09/2017 [id number] high cholesterol lifestyle changes Not available 04/09/2017 [...] any concerns. Not available 04/09/2017 10:42:51 08/21/2017 [id number] schedule medical management when feeling better [email or web address] Not available 08/21/2017 16:44:31 08/28/2017 [id number] After a discussion of treatment options, which [...] further questions or concerns. - We are phone representative 24 hours a day, 7 days a week by phone: [phone]. [email or web address] Not available 08/28/2017 16:23:16 Reason for Referral None Reported. Results Created Date Observation Date Name Description Value Unit Range Abnormal Flag Note LastModifiedBy Organization Detail LastModifiedTime 08/10/19 17 08/09/2016 HbA1c (hemo globi n A1c), blood hemoglobin A1C 6.9 % 4.8-6. 0 high Goal: <7% in Patie nts with Diabe claudy Not Available [address], [place], [address], 08/09/2016 09:15:24 08/10/1908/09/2016 HbA1c (hemo globi n A1c), blood estimated average glucose 151.3 mg/dL Not Available [address], [address], 08/09/2016 09:15:24 08/10/19 17 08/09/2016 micro album in, urine microalbumin 6.5 mg/L 1.3-20 .0 Not Available [address], [address], 08/09/2016 09:44:26 08/10/19 17 08/09/2016 micro album in, urine creatinine urine 64.1 mg/dL 30.0-1 25.0 Not Available [address], [address], 08/09/2016 09:44:26 08/10/19 17 08/09/2016 micro album in, urine microalb/cre at ratio 10.1 mg/g_ creat 0.0-29 .0 Not Available [address], [address], 08/09/2016 09:44:26 08/10/19 17 08/09/2016 BMP, serum or plasm a glucose 157 mg/dL 70-100 high Not Available [address], [address], 08/09/2016 11:14:05 08/10/19 17 08/09/2016 BMP, serum or plasm a BUN 14 mg/dL 7-18 Not Available [address], [address], 08/09/2016 11:14:05 08/10/19 17 08/09/2016 BMP, serum or plasm a creatinine 0.8 mg/dL 0.8-1. 3 Not Available [address], [address], 08/09/2016 11:14:05 08/10/19 17 08/09/2016 BMP, serum or plasm a B/C 17.5 ratio Not Available [address], [address], 08/09/2016 11:14:05 08/10/19 17 08/09/2016 BMP, serum or plasm a GFR -non 79.4 mL/mi n Recom arnold d GFR by the Natio nal Kidne y Found ation >60 mL/mi n/1.7 3m2 - Jodie l <60 mL/mi n/1.7 3m2 - Chron ic Kidne y Disea se <15 mL/mi n/1.7 3m2 - Kidne y Failu re Not Available [address], [address], 08/09/2016 11:14:05 08/10/19 17 08/09/2016 BMP, serum or plasm a GFR - if 91.3 mL/mi n For Afric an Ameri can patie nts: Resul ts Multi plied by 1.21 Not Available [address], [address], 08/09/2016 11:14:05 08/10/19 17 08/09/2016 BMP, serum or plasm a sodium 144 mmol/ L 136-14 5 Not Available [address], [address], 08/09/2016 11:14:05 08/10/19 17 08/09/2016 BMP, serum or plasm a potassium 4.1 mmol/ L 3.5-5. 1 Not Available [address], [address], 08/09/2016 11:14:05 08/10/19 17 08/09/2016 BMP, serum or plasm a chloride 108 mmol/ L 96-107 high Not Available [address], [address], 08/09/2016 11:14:05 08/10/19 17 08/09/2016 BMP, serum or plasm a anion gap 6.2 5.0-15 .0 Not Available [address], [address], 08/09/2016 11:14:05 08/10/19 17 08/09/2016 BMP, serum or plasm a CO2 30 mmol/ L 21-32 Not Available [address], [address], 08/09/2016 11:14:05 08/10/19 17 08/09/2016 BMP, serum or plasm a calcium 8.7 mg/dL 8.5-10 .3 Not Available [address], [address], 08/09/2016 11:14:05 08/10/19 17 08/09/2016 lipid panel , serum cholesterol 201 mg/dL <200 mg/dl Vince able 200-2 39 mg/dl Borde rline High >240 mg/dl High Not Available [address], [address], 08/09/2016 11:14:06 08/10/19 17 08/09/2016 lipid panel , serum triglyceride s 156 mg/dL <150 mg/dL Jodie l 150-1 99 mg/dL Borde rline High 200-4 99 mg/dL High >500 mg/dL Very High Not Available [address], [address], 08/09/2016 11:14:06 08/10/19 17 08/09/2016 lipid panel , serum direct HDL 48 mg/dL Not Available [address], [address], 08/09/2016 11:14:06 08/10/19 17 08/09/2016 LDL, calcu lated , serum (OBS) LDL - calculated 121.8 RISK CATEG ORY LDL GOAL _ CHD or CHD Risk Equiv alent s <100 mg/dl (10-y ear risk >20%) 2+ Risk Facto rs <130 mg/dl (10-y ear risk <= 20%) 0-1 Risk Facto r? <160 mg/dl ? Almos t all peopl e with 0-1 risk facto r have a 10 year risk <10%, thus 10 year risk asses ment in peopl e with 0-1 risk facto r is not ryannancy garcia. Not Available [address], [address], 08/09/2016 11:14:07 11/09/19 17 11/08/2016 HbA1c (hemo globi n A1c), blood hemoglobin A1C 7.0 % 4.8-6. 0 high Goal: <7% in Patie nts with Diabe claudy Not Available [address], [address], 11/08/2016 09:39:46 11/09/19 17 11/08/2016 HbA1c (hemo globi n A1c), blood estimated average glucose 154.2 mg/dL Not Available [address], [address], 11/08/2016 09:39:46 11/09/19 17 11/08/2016 lipid panel , serum cholesterol 151 mg/dL <200 mg/dl Ivnce able 200-2 39 mg/dl Borde rline High >240 mg/dl High Not Available [address], [address], 11/08/2016 11:53:43 11/09/19 17 11/08/2016 lipid panel , serum triglyceride s 88 mg/dL <150 mg/dL Jodie l 150-1 99 mg/dL Borde rline High 200-4 99 mg/dL High >500 mg/dL Very High Not Available [address], [address], 11/08/2016 11:53:43 11/09/19 17 11/08/2016 lipid panel , serum direct HDL 50 mg/dL Not Available [address], [address], 11/08/2016 11:53:43 11/09/19 17 11/08/2016 LDL, calcu lated , serum (OBS) LDL - calculated 83.4 RISK CATEG ORY LDL GOAL _ CHD or CHD Risk Equiv alent s <100 mg/dl (10-y ear risk >20%) 2+ Risk Facto rs <130 mg/dl (10-y ear risk <= 20%) 0-1 Risk Facto r? <160 mg/dl ? Almos t all peopl e with 0-1 risk facto r have a 10 year risk <10%, thus 10 year risk asses ment in peopl e with 0-1 risk facto r is not curtis garcia. Not Available [address], [address], 11/08/2016 11:53:44 11/09/19 17 11/08/2016 hepat itis C virus Ab, serum hepatitis C antibody NON-RE ACTIVE non-re active normal Not Available [facility] [address], [address], 11/08/2016 19:58:09 11/09/19 17 11/08/2016 hepat itis C virus Ab, serum signal to cut-off 0.03 <1.00 normal Not Available [facility] [address], [address], 11/08/2016 19:58:09 04/08/20 17 04/08/2017 HbA1c (hemo globi n A1c), blood hemoglobin A1C 7.0 % 4.8-6. 0 high Goal: <7% in Patie nts with Diabe claudy Not Available [address], [address], 04/08/2017 09:41:26 04/08/20 17 04/08/2017 HbA1c (hemo globi n A1c), blood estimated average glucose 154.2 mg/dL Not Available [address], [address], 04/08/2017 09:41:26 04/08/20 17 04/08/2017 BMP, serum or plasm a glucose 131 mg/dL 70-100 high Not Available [address], [address], 04/08/2017 11:00:57 04/08/20 17 04/08/2017 BMP, serum or plasm a BUN 19 mg/dL 7-18 high Not Available [address], [address], 04/08/2017 11:00:57 04/08/20 17 04/08/2017 BMP, serum or plasm a creatinine 0.9 mg/dL 0.8-1. 3 Not Available [address], [address], 04/08/2017 11:00:57 04/08/20 17 04/08/2017 BMP, serum or plasm a B/C 21.1 ratio Not Available [address], [address], 04/08/2017 11:00:57 04/08/20 17 04/08/2017 BMP, serum or plasm a GFR -non 69.3 mL/mi n Recom arnold d GFR by the Natio nal Kidne y Found ation >60 mL/mi n/1.7 3m2 - Jodie l <60 mL/mi n/1.7 3m2 - Chron ic Kidne y Disea se <15 mL/mi n/1.7 3m2 - Kidne y Failu re Not Available [address], [address], 04/08/2017 11:00:57 04/08/20 17 04/08/2017 BMP, serum or plasm a GFR - if 79.7 mL/mi n For Afric an Ameri can patie nts: Resul ts Multi plied by 1.21 Not Available [address], [address], 04/08/2017 11:00:57 04/08/20 17 04/08/2017 BMP, serum or plasm a sodium 144 mmol/ L 136-14 5 Not Available [address], [address], 04/08/2017 11:00:57 04/08/20 17 04/08/2017 BMP, serum or plasm a potassium 4.0 mmol/ L 3.5-5. 1 Not Available [address], [address], 04/08/2017 11:00:57 04/08/20 17 04/08/2017 BMP, serum or plasm a chloride 107 mmol/ L 96-107 Not Available [address], [address], 04/08/2017 11:00:57 04/08/20 17 04/08/2017 BMP, serum or plasm a anion gap 11.3 5.0-15 .0 Not Available [address], [address], 04/08/2017 11:00:57 04/08/20 17 04/08/2017 BMP, serum or plasm a CO2 26 mmol/ L 21-32 Not Available [address], [address], 04/08/2017 11:00:57 04/08/20 17 04/08/2017 BMP, serum or plasm a calcium 9.2 mg/dL 8.5-10 .3 Not Available [address], [address], 04/08/2017 11:00:57 04/08/20 17 04/08/2017 lipid panel , serum cholesterol 188 mg/dL <200 mg/dl Vince able 200-2 39 mg/dl Borde rline High >240 mg/dl High Not Available [address], [address], 04/08/2017 11:00:58 04/08/20 17 04/08/2017 lipid panel , serum triglyceride s 108 mg/dL <150 mg/dL Jodie l 150-1 99 mg/dL Borde rline High 200-4 99 mg/dL High >500 mg/dL Very High Not Available [address], [address], 04/08/2017 11:00:58 04/08/20 17 04/08/2017 lipid panel , serum direct HDL 49 mg/dL Not Available [address], [address], 04/08/2017 11:00:58 04/08/20 17 04/08/2017 LDL, calcu lated , serum (OBS) LDL - calculated 117.4 RISK CATEG ORY LDL GOAL _ CHD or CHD Risk Equiv alent s <100 mg/dl (10-y ear risk >20%) 2+ Risk Facto rs <130 mg/dl (10-y ear risk <= 20%) 0-1 Risk Facto r? <160 mg/dl ? Almos t all peopl e with 0-1 risk facto r have a 10 year risk <10%, thus 10 year risk asses ment in peopl e with 0-1 risk facto r is not neces jose. Not Available [address], [address], 04/08/2017 11:00:59 08/31/19 17 08/30/2016 MAMMO , [...] y: 2 Scatte red fibrog landul ar reed ts POS: [employer] onical ly signed Maulik Alexander romeo: Chung Camposo [address] (Imaging) [address] , [place], [address], 08/30/2016 13:38:43 Result Notes None recorded. Problems Name Problem SNOMED Code Status Onset Date Resolution Date Notes Provider Name and Address Organization Details Recorded Time Bunion 402101993 Active 2007 Not Available [facility] 3 03:14:44 Acquired hallux valgus 10923585 Active 2007 Not Available [facility] 3 03:14:44 Type 2 diabetes mellitus 86580098 Active 2015 Zehra Muse NP [address] [place] [address], [address] , [facility] 7 09:22:41 Anxiety 89367154 Active 2016 Zehra Muse NP [address] [place] [address], [address] , [facility] 7 14:02:43 Hyperlipidemi a 16539252 Active 2016 Zehra Muse NP [address] [place] [address], [address] , [facility] 7 09:33:24 Problem Notes None recorded. Procedures Surgical History Date Name Laterality Status Provider Name and Address Organization Details Recorded Time 08/17/19 17 Medicare Wellness Visit completed Kristin Louie [facility] 08/16/2016 13:34:47 08/17/19 17 Medicare Risk for Falls Screen completed Kristin Louie [facility] 08/16/2016 13:42:08 07/09/19 17 POC Urinalysis Testing completed Kristin Louie [facility] 07/09/2016 17:09:53 08/06/19 15 Medicare Wellness Visit completed GENARO Lee [facility] 08/05/2014 11:07:58 07/09/19 15 Medicare Wellness Visit completed GENARO Lee [facility] 07/09/2014 10:06:04 03/25/20 14 Treatment and Advice completed Heather Alvarez Ms, PT [address] [place], [address], [facility] 03/25/2014 12:01:51 01/28/20 14 Treatment and Advice completed Heather Alvarez Ms, PT [address] [place], [address], [facility] 01/27/2014 09:01:25 Total Hysterectomy completed Zehra Muse, CARE GIVER [address] [place], [address], [facility] 07/11/2011 15:21:09 Imaging Results Imaging Date Name Status LastModified by Organiz ation Details LastModified Time 08/30/2016 MAMMO, screening, digital, bilateral completed [facility] (Imaging) [address], [place], [address], 08/30/2016 13:38:43 Procedure Notes None recorded. Medical Equipment None Reported. Allergies No known drug allergies Medications Name Sig Start Date Stop Date Status Note LastModified by Organization Details LastModified Time nystatin carmen 350306 active Not Available Not Available N ot Available lexapro tab 20mg active Not Available Not Available Not Available pantoprazol e tab 20mg active Not Available Not Available N ot Available azithromyci n tab 250mg active Not Available Not Available Not Available escitalopra m tab 20mg active Not Available Not Available N ot Available omeprazole cap 20mg active Not Available Not Available Not Available lorazepam tab 0.5mg active Not Available [...] t Available Vitals Date Recorded Body height Provider Name an d Address Organization Details Last Updated DateTime 01/08/2017 154.94 cm Charity Taylor [facility] 01/08/2017 09:11:30 Date Recorded Body mass index (BMI) Body weight Provider Name and Address Organization Details Last Updated DateTime 01/08/2017 28 kg/m2 28807.07 g Charity Taylor [facility] 01/08/2017 09:11:38 Date Recorded Heart rate Provider Name an d Address Organization Details Last Updated DateTime 01/08/2017 64 /min Charity Taylor [facility] 01/08/2017 09:14:04 Date Recorded Body height Provider Name an d Address Organization Details Last Updated DateTime 04/09/2017 154.94 cm Forest Serrano [facility] 04/09/2017 10:13:47 Date Recorded Body mass index (BMI) Body weight Provider Name and Address Organization Details Last Updated DateTime 04/09/2017 28.5 kg/m2 29154.45 g Forest Serrano [facility] 04/09/2017 10:13:55 Date Recorded Heart rate Provider Name an d Address Organization Details Last Updated DateTime 04/09/2017 84 /min Forest Serrano [facility] 04/09/2017 10:14:22 Date Recorded Body height Provider Name an d Address Organization Details Last Updated DateTime 08/21/2017 154.94 cm Lisa Esteves [facility] 08/21/2017 15:40:09 Date Recorded Body temperature Provider Name a nd Address Organization Details Last Updated DateTime 08/21/2017 98 [degF] Lisa Esteves [facility] 08/21/2017 15:41:25 Date Recorded Heart rate Provider Name an d Address Organization Details Last Updated DateTime 08/21/2017 76 /min Lisa Esteves [facility] 08/21/2017 15:42:35 Date Recorded Body height Provider Name an d Address Organization Details Last Updated DateTime 08/28/2017 154.94 cm Forest Serrano [facility] 08/28/2017 16:07:10 Date Recorded Body temperature Provider Name a nd Address Organization Details Last Updated DateTime 08/28/2017 98 [degF] Forest Serrano [facility] 08/28/2017 16:07:48 Date Recorded Heart rate Provider Name an d Address Organization Details Last Updated DateTime 08/28/2017 78 /min Forest Serrano [facility] 08/28/2017 16:08:07 Date Recorded Systolic blood pressure Diastolic blood pressure Provider Name and Address Organization Details Last Updated DateTime 01/08/2017 120 mm[Hg] 84 mm[Hg] Charity Taylor [facility] 01/08/2017 09:13:19 Date Recorded Systolic blood pressure Diastolic blood pressure Provider Name and Address Organization Details Last Updated DateTime 04/09/2017 120 mm[Hg] 60 mm[Hg] Forest Serrano LPN [facility] 04/09/2017 10:15:46 Date Recorded Systolic blood pressure Diastolic blood pressure Provider Name and Address Organization Details Last Updated DateTime 08/21/2017 120 mm[Hg] 70 mm[Hg] GENARO Lee [facility] 08/21/2017 15:42:59 Date Recorded Systolic blood pressure Diastolic blood pressure Provider Name and Address Organization Details Last Updated DateTime 08/28/2017 122 mm[Hg] 68 mm[Hg] Forest Serrano LPN [facility] 08/28/2017 16:08:56 Social History Question Answer Notes LastModified by Organizat ion Details LastModified Time Tobacco Smoking Status [facility] 14:54:04 What Is Your Level Of [...] not available 07/11/2011 CSRP - Narcotics No [email or web address] Informat ion not available 06/02/2012 CSRP Contract Signed And Discussed Yes 04/21/12 Information not available 04/21/2012 Does The Patient Have Difficulty Speaking Nigerien? No Information not available 09/17/2014 Does The Patient Have Difficulty Reading Nigerien? No Information not available 09/17/2014 Patient Has [...] Recorded Time Tdap 08/15/2011 completed Not Available [facility] 05/30/2019 02:35:41 Past Encounters Encounter ID Performer Location Encounter Start Date Encounter Closed Date Diagnosis/Indication Diagnosis SNOMED-CT Code Diagnosis ICD10 Code Diagnosis Note [id number] Radiology , [address] [address] 05/30/2007 10:35:16 05/30/2007 12:16:19 [id number] Podiatry, [address] [address] 05/30/2007 10:02:56 06/02/2007 08:17:22 [id number] Zehra Muse NP , [facility], OFFICE [address] [place] [address] 07/11/2011 14:32:41 07/11/2011 15:39:08 [id number] Radiology , [address] [address] 07/26/2011 13:26:32 07/30/2011 14:28:39 [id number] , [facility], OFFICE [address] [facility] [place] [address] 08/15/2011 13:52:11 08/15/2011 15:14:49 [id number] , [facility], OFFICE [address] [place] [address] 10/16/2011 11:57:05 10/16/2011 12:46:37 [id number] , [facility], OFFICE [address] [place] [address] 12/12/2011 16:32:37 12/12/2011 17:21:14 [id number] Zehra Muse NP , [facility], OFFICE [address] [facility] [place] [address] 04/21/2012 16:31:55 04/21/2012 17:34:51 [id number] Viktor Bermeo MD [facility] , [facility] [address] [facility] [place] [address] 08/05/2012 09:57:59 08/06/2012 12:18:20 [id number] Randell Darryl LOFTON , [facility], OFFICE [address] [facility] [place] [address] 11/04/2012 11:02:59 11/04/2012 12:16:15 [id number] , [facility], OFFICE [address] [facility] [place] [address] 01/06/2013 09:36:31 01/06/2013 10:12:27 Increased blood pressure 41743664 Anxiety disorder 237228074 Gastroesop hageal reflux disease 979483611 Impaired f asting glycemia 052767438 [id number] , [facility], OFFICE [address] [facility] [place] [address] 04/07/2013 09:34:03 04/07/2013 10:15:35 Increased blood pressure 11886781 Anxiety disorder 425273122 Impaired f asting glycemia 719858362 [id number] Keyla Ian , [facility], OFFICE [address] [place] [address] 10/12/2013 13:30:54 10/12/2013 14:38:35 Impaired fasting glycemia 791206472 Chest pain 71621084 Gastroesop hageal reflux disease 547817890 [id number] , [facility], [facility] [address] [place] [address] 01/15/2014 15:18:20 01/15/2014 15:38:33 Injury of foot 430739331 [id number] Heather Alvarez Ms, PT Physical Therapy, [address] [address] 01/27/2014 08:03:10 01/27/2014 11:20:34 Foot pain 15323396 [id number] [facility], [address] [address] 01/29/2014 11:29:10 02/01/2014 07:47:08 Foot pain 51251448 [id number] Heather Alvarez Ms, PT Physical Therapy, [address] [address] 02/11/2014 11:59:06 02/11/2014 14:24:52 Foot pain 70591017 [id number] Heather Alvarez Ms, PT Physical Therapy, [address] [address] 02/18/2014 11:32:53 02/18/2014 14:01:56 Foot pain 05896718 [id number] Heather Alvarez Ms, PT Physical Therapy, [address] [address] 02/25/2014 10:48:51 02/25/2014 12:09:34 Foot pain 92481403 [id number] Heather Alvarez Ms, PT Physical Therapy, [address] [address] 03/04/2014 11:00:19 03/04/2014 14:33:15 Foot pain 49609179 [id number] Heather Alvarez Ms, PT Physical Therapy, [address] [address] 03/11/2014 08:31:14 03/11/2014 12:48:41 Foot pain 13194201 [id number] Heather Alvarez Ms, PT Physical Therapy, [facility] [address] [place] [address] 03/25/2014 11:14:35 03/26/2014 07:32:41 Foot pain 70268290 [id number] Heather Alvarez Ms, PT Physical Therapy, [address] [address] 04/06/2014 12:35:24 04/06/2014 13:45:25 Foot pain 56350043 [id number] Zehra Muse NP , [facility], OFFICE [address] [place] [address] 07/09/2014 10:02:02 07/09/2014 11:21:58 Pain in wrist 44280725 [id number] [place] [facility], OFFICE [address] [place] [address] 08/05/2014 11:02:11 08/05/2014 12:28:59 Adult health examination 844806283 see Risk Assessment and Lifestyle Change Counseling section above Counseling [id number] Screening mammography 75593157 Chest pain 58536444 Fatigue 72039074 [id number] , [facility], OFFICE [address] [place] [address] 09/17/2014 09:17:17 09/17/2014 10:03:03 Impaired fasting glycemia 303899084 [id number] AURELIO Gray, [facility], OFFICE [address] [place] [address] 11/25/2015 08:16:16 11/25/2015 09:27:59 Impaired fasting glycemia 052439889 R73.01 Single neftali or depressive episode 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 Varicose v eins of lower extremity 88799110 I83.91 [id number] AURELIO Gray, [facility], OFFICE [address] [place] [address] 01/19/2016 11:54:06 01/19/2016 12:52:52 Type 2 diabetes mellitus 05670115 E11.9 A1C 7.2 attempting to diet control, at this time does not want a glucometer , [id number] AURELIO Lizarraga, [facility], OFFICE [address] [place] [address] 07/09/2016 17:04:03 07/10/2016 08:36:04 Urinary tract infectious disease 61528967 N39.0 Patient instructed to push fluids, to follow up for persistent or worsening symptoms or fever or back pain. Vaginitis and vulvovaginitis 134253907 N76.0 [id number] Zehra Muse NP , [facility], OFFICE [address] [place] [address] 08/16/2016 13:28:18 08/16/2016 14:43:19 Adult health examination 812968078 Z00.00 see Risk Assessment and Lifestyle Change Counseling section above Benign ess ential hypertension 4317124 I10 continue to work on diet, exercise, and lowering salt intake as discussed Mixed hyperlipidemia 267 128702 E78.2 continue to work on diet and exercise as discussed Screening for disorder 068892739 Z11.59 Screening mammography 24 227590 Z12.31 Anxiety 54678018 F41.9 Type 2 jerald betes mellitus 26455756 E11.9 A1C 6.9 attempting to diet control. Depressive disorder 3548 9007 F32.0 [id number] Jessika Noguera, Ms, Rdn, Ldn, CDE Nutrition -[address] [address] 08/30/2016 13:22:23 08/30/2016 16:17:53 Type 2 diabetes mellitus without complication 740817213 E11.9 [id number] Zehra Muse NP , [facility] [facility], OFFICE [address] [place] [phone] 01/08/2017 09:01:25 01/08/2017 09:45:23 Type 2 diabetes mellitus [id number] E11.9 A1C IS7.0Goal is asif 7.Will increase metformin to 1 bid Hyperlipidemia 54888234 E78.5 At goal.Goal is under 100LDL 83 Anxiety [id number] F41.9 Stable on meds. [id number] AURELIO Gray, [facility], OFFICE [address] [place] [phone] 04/09/2017 10:03:21 04/09/2017 10:37:19 Mixed hyperlipidemia [id number] E78.2 -continue to work on diet and exercise as discussed; WILL INCREASE MEDS. -LDL GOAL IS UNDER 100, LAST ONE WAS 117; NOT AT GOAL. Type 2 jerald doug mellitus [id number] E11.37X1 DIABETES GOAL IS UNDER 7LAST A1C WAS 7 AGAIN. -INCREASE METFORMIN TO 2 PILLS AM AND 1 PM. Candidiasis of vagina 72 203632 B37.3 [id number] AURELIO Mast, [facility], OFFICE [address] [place] [phone] 08/21/2017 15:35:48 08/21/2017 17:01:45 Otalgia [id number] H92.01 no erythema or bulging of the TM. not tolerating abx/augmen tin prescribed at [facility]. okay to stop Acute uppe r respiratory infection [id number] J06.9 Drink plenty of fluids. Eat healthy foods, lots of fruits and vegetables . Rest when you can. Take ibuprofen 400 mg or acetaminop hen 650 mg every 6 hours as needed for aches or headache and for fever. You can use a Neti pot for nasal congestion or sinus pain/press ure. Elderberry extract and Umcka are herbal remedies that have been shown to reduce length of flu-like symptoms. Gargling with salt water can help your immune system fight off the sore throat. Mix 1/2 teaspoon of salt with 8 oz warm water, gargle for 20-30 secs, and spit out the liquid. Repeat twice daily. Use Sugar free lozenges can help with a sore throat. Wash your hands frequently . Symptoms may worsen for the first 7-10 days before they improve For high fever (>101) for more than 3 days, worsening shortness of breath, cough productive of rust-color ed mucus (not dark yellow), or symptoms unchanged at two weeks, come back in for reassessme nt (urgent care available in [place] office Sat 9- and Saturday-12 by appointmen t - call after 8AM for appt.) Dry cough can last for up to six weeks. [id number] OFELIA Cannon, [facility], OFFICE [address] [place] [address] 08/28/2017 15:42:38 08/28/2017 16:26:09 Temporomandibular joint disorder [id number] M26.609 Discussed etiology, prognosis. Rec'd rest, ice/heat, NSAIDs PRN, and demonstrat ed jaw exercises. Acute uppe r respiratory infection [id number] J06.9 Viral, s/p 2 courses of antibiotic s.Discusse d supportive care, including rest, fluids, and OTC remedies as needed.F/U for any worsening or failure to improve in 2-3 weeks. Health Concerns Section Related Observation LastModified by Organization Detai ls LastModified Time None Recorded Concern Status LastModified by Organization Details LastModified Time None Recorded Advance Directives Directive None Recorded Payers Encounter Date Sequence Insurance Name Policy Number Policy Alarcon Covered Member ID Alarcon Member ID Guarantor Name 08/30/2016 1 [facility] [facility] [id number] Kristofer Fonseca [id number] Barbara Fonseca 01/08/2017 1 [place] [employer] A Marian [id number] Marian 04/09/2017 1 [place] [facility] A Marian [id number] Marian 08/21/2017 2 [facility] A Marian [id number] Barbara Ellisonnon 08/21/2017 1 [place] [facility] A Marian [id number] Marian 08/28/2017 2 [facility]: [facility] A Marian [id number] Marian 08/28/2017 1 [place] [facility] A Marian [id number] Marian Notes Date Note Type Note Provider Name and Address Organization Details Recorded Time 7 text/html Nutrition Encounter updatedReported bypatient.Patient HistoryPatient chief nutritional complaint:Diabetes Nutrtition/dietarySee scanned images for Diet Intake Summary; past 6 weeks - stopped all soda likes junk like chips, fritos b - works at 8. packet of lutheran oatmeal maple flavor, high fiber. snack - chips, cheese l - d - not a pasta eater brown rice or potato incorporating more vegetables found a low sugar yogurt for a snack at night Estimated Nutrient NeedsEnergy (kcals) [id number] Recent Lab testsFasting Blood Sugar: (157); Hemoglobin A1C: (6.9%); Total Cholesterol: (201); LDL-Cholesterol: (121.8); HDL Cholesterol: (48); Triglycerides: (156) Physical Activity habitsExercise Type:Walking; likes to bike ride but fell off bike Jessika Noguera, , Rdn, Ldn, CDE [address] [place], [phone], [facility] 08/30/2016 16:07:18 7 text/html VMG HyperlipidemiaReported bypatient.Duration:at goal ldl 83 A1c 7. 0 Control:well controlled; improved since last visit; treated with diet; treated with medications Compliance:compliant with medications; compliant with follow-up visits Barriers to Careunder stress Context:Diabetes; Nonsmoker; No ischemic heart disease; No peripheral vascular disease ([id number]) Associated Symptoms:no muscle pain; no fatigue; no chest discomfort; no dyspneaVMG HypertensionReported bypatient.Control:Patient understands medications are to lower blood pressure Compliance:Compliant with medications; Compliant with diet Context:No ischemic heart disease; No kidney disease; No history of CVA; No congestive heart failure Associated Symptoms:No chest pain; No shortness of breath; No edema; No fatigue Son - and moved to in [place]- had melt down- 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 Dtr - w/ grandbAnne this summer. Seeing dr guerra in 1 wk ANXIETY- takes prn ativan. 3-4 x per mos. Depression is stable- no si/hi. [[LAST VISIT Under a lot of stress, w/ prostetectomy, has scar tiusse - urethral implant.Son w// Mass gen w/ heart repair 37 open heart, testicular ca in past. Getting 10/27.]] Zehra Muse NP [address] [place], [phone], [facility] 01/08/2017 09:47:41 7 text/html VMG DiabetesReported bypatient.Review finger sticks:a1c 7.0;VMG HyperlipidemiaReported bypatient.Duration:at goal ldl 117 A1c 7. 0 Control:well controlled; improved since last visit; treated with diet; treated with medications Compliance:compliant with medications; compliant with follow-up visits;noncompliant with diet; NOT EXERCISING. 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 Zehra Muse NP [address] [place] [address], [phone], [facility] 04/09/2017 [...] pt also reports recently being on a zpac for dental infection Mone Griffin NP [address] [place], [phone], [facility] 08/21/2017 16:44:59 04/18/201 8 text/html F/U ear pain. Treated with [...] sinus pain, F/C, N/V/D. Gustavo Carey PA-C [address] [place] [address], [phone], [facility] 08/28/2017 16:26:43 OBGyn Episode No OBEpisode recorded.
[2024-06-10 17:24] VITALS: BP 189/70; PULSE 67; RESP 16; TEMP 36.5; O2SAT 96
[2024-06-10 18:05] LABS: Appearance Urine Clear; Color Urine Yellow; Glucose Urine UA 100 mg/dL (Negative); Leukocyte Esterase Urine Negative (Negative); Nitrite Urine Negative (Negative); Urine Blood Negative (Negative); Urine Ketones Negative (Negative); Urine Protein Trace mg/dL (Neg-Trace)
--- NOTE | 2024-06-10 18:31 | PC.NURSE ---
pt a&ox3, pt was hypertensive with her vitals. pt has no c/o pain/discomfort, rr equal/non labored. labs and ekg previously obtained, provider spoke with pt and she is to follow up with pcp.
[2024-06-10 18:33] VITALS: BP 189/70; PULSE 67; RESP 16; TEMP 36.5; O2SAT 96
== END 2024-06-10 18:34 | disposition home or self-care (01) ==
PROVIDERS: Physician Assistant Medical; Emergency Provider Emergency Medicine; PCP Physician Assistant
DX: I10 Essential (primary) hypertension (principal); E11.9 Type 2 diabetes mellitus without complications; F41.9 Anxiety disorder, unspecified; R94.31 Abnormal electrocardiogram [ECG] [EKG]; Z79.899 Other long term (current) drug therapy; Z79.84 Long term (current) use of oral hypoglycemic drugs
CPT/HCPCS: 36415; 80048; 80076; 81003; 83735; 84484; 85025; 93005; 99283; 99284

== ENCOUNTER → 2024-06-10 12:32 | Outpatient (BNV) | payer MEDICARE, SELFPAY | PROVIDERS: Emergency Provider Emergency Medicine; PCP Physician Assistant; Visit Provider Internal Medicine | DX: I10 Essential (primary) hypertension (principal) | CPT/HCPCS: 93010 ==

== ENCOUNTER 2024-06-15 11:07 | Outpatient (AMB) | payer MEDICARE, SELFPAY ==
[2024-06-15 11:41] VITALS: BP 142/90; PULSE 85; TEMP 36.1; O2SAT 96; BMI 26.0
--- NOTE | 2024-06-15 11:41 | MHC.PC.OV ---
Vital Signs 06/15/24 11:41 Height 5 ft 1 in Weight 137 lb 6 oz BMI 26.0 BP 142/90 H Blood Pressure Location Lt brachial Position Sitting Pulse 85 Pulse Source Pulse Oximeter Temp 96.9 F Temp Source Temporal Artery Scan Pulse Oximetry (%) 96 Oxygen Delivery Method Room Air Intake [place] [facility] [place] High Blood Pressure Sent by PT Radio Commentator Required: No Accompanied by: Spouse Allergies peanut Allergy (Severe, Verified 06/15/24 12:03) Anaphylaxis Medication List - Last Reconciled 06/15/24 by Raudel Flanagan PA-C calcium carbonate (Oyster Shell Calcium) 500 mg PO BID 90 days cholecalciferol (vitamin D3) 50 mcg PO DAILY 90 days escitalopram oxalate 20 mg PO DAILY levothyroxine 100 mcg PO DAILY lisinopril 20 mg PO DAILY 90 days lorazepam 0.5 mg PO DAILY PRN memantine 14 mg PO DAILY memantine 21 mg PO DAILY memantine 28 mg PO DAILY memantine 7 mg PO DAILY metformin 500 mg PO BID 90 days simvastatin 20 mg PO BEDTIME Tobacco use date assessed: 06/15/24 Fall risk assessment: 1 Fall in past year Last assessed Fall Risk: 06/15/24 Dental Screening Dental Screen Date: 06/15/24 Did you have a dental visit in the last 12 months?: Yes Did you have a dental problem in the last 6 months where you did not have access to dental care?: No Was dental information given to patient?: Patient has dentist [place] [facility] [place] High Blood Pressure Sent by PT HPI Fouzia Jimenez who is a 78?year old female here today for ER follow-up visit. She was found to have elevated blood pressure readings at her physical therapy office. Patient has a PMH significant for type 2 DM, HYPERTENSION, anxiety, hypothyroid. Concern--> she reports having blood pressure is 180s to 190s systolic while at her physical therapy office visits. Again was seen at the ER evaluation was done including EKG that show normal sinus rhythm though abnormalities were seen on T-waves, troponins normal. Of note she does report having dental work and taking ibuprofen during this time. She also continues to have a vague sense of dizziness while ambulating though unclear etiology at this time. Again MRI brain showing cerebral volume loss though no signs of previous CVA. PLAN: Will add on hydrochlorothiazide 12.5 for better blood pressure control. Will also send for Sixto protocol stress test to evaluate for cardiac ischemia on physical exertion CHRONIC MEDICAL CONDITIONS----> Memory impairment: Has gotten brain MRI that did show age-related findings- parenchymal volume loss. Did follow-up with Neurology. ? .. ? DMII: Most recent A1c is 6.6, fasting blood sugar improved. Patient is currently taking Metformin 2000mg daily, Reports her diet has been a bit better during the summer. .. Generalized anxiety disorder:? Has been under more anxiety as of late due to family issues.? She does use lorazepam on a very limited p.r.n. basis.? Continues on Lexapro on a daily basis with decent affect. ? .. ? Hypothyroidism: Most recent labs showing much improved TSH. Will continue her current dose of levothyroxine. COUNT INCLUDES THE [facility] Surgical History History of hysterectomy History of bunionectomy Family History Father Colon cancer Mother No problems noted. 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 1. Little interest or pleasure in doing things: not at all 2. Feeling down, depressed, or hopeless: not at all 3. Trouble falling or staying asleep, or sleeping too much: not at all 4. Feeling tired or having little energy: not at all 5. Poor appetite or overeating: not at all 6. Feeling bad about yourself - or that you are a failure or have let yourself or your family down: not at all 7. Trouble concentrating on things, such as reading the newspaper or watching television: not at all 8. Moving or speaking so slowly that other people could have noticed. Or the opposite - being so fidgety or restless that you have been moving around a lot more than usual: not at all 9. Thoughts that you would be better off or of hurting yourself in some way: not at all Total score: 0 Depression Screening Interpretation: Negative Depression Screening Done: Yes 60415 - PHQ-9 Billing: Yes Source: Developed by Drs. Minh Ewing, Yecenia Manzano, Juan Beckham and colleagues, with an educational lashaun from [employer]. Thrive Questionnaire Date Thrive assessed: 06/15/24 I am a: Patient What is your living situation today?: I have a steady place to live Within the past 12 months, did the food you bought not last and you didn't have the money to get more?: Never true Within the past 12 months, did you worry whether your food would run out before you got money to buy more?: Never true Do you have trouble paying for medicines?: No Do you have trouble getting transportation to medical appointments?: No Do you have trouble paying your heating and electricity bill?: No Do you have trouble taking care of your child, family member or friend?: No Do you have trouble with day-to-day activities such as bathing, preparing meals, shopping, managing finances, etc.?: No Are you currently unemployed and looking for a job?: No Are you interested in more education?: No Please select the resources that you would like help with: None Currently or been in a relationship where the following occur: No concerns reported THRIVE Score: 0 AUDIT C Alcohol Use Questionnaire (AUDIT-C) 1. How often do you have a drink containing alcohol?: Monthly or less 2. How many drinks containing alcohol do you have on a typical day when you are drinking?: 1 or 2 3. How often do you have six or more drinks on one occasion?: Never Total Score: 1 TASHI-7 AMB Questionnaire TASHI-7 Date TASHI - 7 assessed: 06/15/24 Feeling nervous, anxious, or on edge: 0 = Not at all Not being able to stop or control worryin = Not at all Worrying too much about different things: 0 = Not at all Trouble relaxin = Not at all Being so restless that it is hard to sit still: 0 = Not at all Becoming easily annoyed or irritable: 0 = Not at all Feeling afraid as if something awful might happen: 0 = Not at all Total TASHI-7 score (0-4 normal; 5-9 mild; 10-14 moderate; 15-21 severe): 0 Source: Developed by Drs. Minh Ewing, Yecenia Manzano, Juan Beckham and colleagues, with an educational lashaun from [employer]. TASHI-7 Assessment Billing TASHI-7 Assessment Tool: TASHI-7 Assessment 27631 Review of Systems Const Denies headache(s) Eyes Denies loss of vision ENT Denies vertigo, Reports dizziness, Denies headache(s) and Denies sore throat Card Denies chest pain, Denies leg edema and Denies lightheadedness Resp Denies cough, Denies hemoptysis and Denies wheezing GI Denies abdominal pain, Denies melena, Denies constipation, Denies diarrhea and Denies vomiting Denies urinary frequency, Denies dysuria and Denies urinary urgency Musc Denies arthralgias, Denies joint swelling, Denies numbness and Denies tingling Neuro Denies Abnormal speech present, Denies behavioral changes, Denies vertigo, Reports dizziness, Denies headache(s), Denies loss of vision, Denies memory loss, Denies numbness and Denies tingling Psych Denies anxiety, Denies behavioral changes, Denies depression, Denies memory loss and Denies panic attacks Harvinder/Lymph Denies easy bleeding and Denies easy bruising Aller/Immun Denies wheezing Physical exam (Primary Care) Vital Signs: Last Vital Signs Temp 96.9 F 06/15/24 11:41 Pulse 85 06/15/24 11:41 BP 142/90 H 06/15/24 11:41 Pulse Ox 96 06/15/24 11:41 Oxygen Delivery Method Room Air 06/15/24 11:41 BMI result Body Mass Index 26.0 Tobacco/Smoking Status: Tobacco use Status Tobacco use date assessed 06/15/24 06/15/24 11:48 Patient Tobacco Use Status Never used Tobacco 06/15/24 11:45 e-Cigarette/Vaping Use Never Used 06/15/24 11:45 PHQ-9: PHQ-9 Score PHQ-9: Total score 0 06/15/24 12:03 Depression Screening Interpretation: Negative Thrive Assessment: Date of Thrive Assessment Date Thrive assessed 06/15/24 06/15/24 11:48 Currently or been in a relationship where the following occur: No concerns reported Const General: healthy appearing, no acute distress, alert and awake Nutritional Appearance: well nourished Orientation/consciousness: oriented to person, oriented to place and oriented to time HENMT Ears: TM's normal bilaterally General nose exam: Normal nasal mucous membranes and turbinates present Eyes Conjunctivae: conjunctivae normal Sclerae: sclerae normal Pupils: Equal, round and reactive pupils present Neck Neck: Yes no lymphadenopathy and Yes no JVD Thyroid: Thyroid normal Carotids: no bruits Resp Effort & Inspection: normal respiratory effort and not tachypneic Auscultation: no crackles, no rales, no rhonchi and no wheezes Cardio Rate: regular rate Rhythm: regular rhythm Heart sounds: no murmurs and normal S1 and S2 GI Palpation (GI): Soft to palpation, nontender, no hepatomegaly and no splenomegaly Auscultation: normal bowel sounds Skin General skin exam: no rashes or lesions noted and dry skin Neuro General: oriented to person, oriented to place and oriented to time Cranial nerves: Yes Equal, round and reactive pupils present Speech: No Abnormal speech present Gait exam (Neuro): Normal gait present Motor exam (neuro): no tremor noted Extrem Right upper extremity: full ROM Left upper extremity: full ROM Right lower extremity: full ROM; no edema Left lower extremity: full ROM; no edema Psych Mental Status: mental status grossly normal Speech and movement: Normal speech and movement present Affect: normal affect Attitude: cooperative Thought process: Normal thought process present Coding Level of Care Code Est Pt Level 4 (25217) Diagnoses Essential hypertension I10 Hypertension type: essential hypertension Electrocardiogram showing T wave abnormalities R94.31 Chronic pansinusitis J32.4 Sinusitis location: pansinusitis Additional Codes TASHI-7 Assessment Billing - TASHI-7 Assessment Tool: TASHI-7 Assessment 86402 ([id number]) PHQ-9 - 99774 - PHQ-9 Billing: Yes ([id number]) Assessment & Plan Assessment & Plan (1) HTN (hypertension): Code(s): I10 - Essential (primary) hypertension Category: Medical Qualifiers: Hypertension type: essential hypertension Qualified Code(s): I10 - Essential (primary) hypertension Plan: PATIENT'S BLOOD PRESSURE SLIGHTLY ELEVATED TODAY IN OFFICE. SHE REPORTS BLOOD PRESSURES RECENTLY WHEN 80S TO 190S SYSTOLIC. THIS WAS IN THE SETTING OF TAKING NSAIDS DUE TO DENTAL PROCEDURE. SHE HAS BEEN CHECKING HER BLOOD PRESSURE AT HOME AND HAVE NOTE ELEVATED BLOOD PRESSURE IS 1 40S TO 150 SYSTOLIC. WILL ADD ON HYDROCHLOROTHIAZIDE FOR BETTER BLOOD PRESSURE CONTROL. ADVISED TO STAY AWAY FROM NSAIDS FOR NOW AND USE TYLENOL FOR HER DENTAL PAIN. ADVISED TO CONTINUE MONITORING BLOOD PRESSURE AT WITH GOAL BLOOD PRESSURE TO BE BELOW 140/90 (2) Electrocardiogram showing T wave abnormalities: Code(s): R94.31 - Abnormal electrocardiogram [ECG] [EKG] Category: Medical Plan: Patient's most recent EKG showing normal sinus rhythm though there was some T-wave abnormalities. In the setting of elevated blood pressure readings and her nonspecific sense of being intermittently dizzy while walking will send for cardiac stress test to evaluate for cardiac ischemia on physical exertion (3) Chronic sinusitis: Code(s): J32.9 - Chronic sinusitis, unspecified Category: Medical Qualifiers: Sinusitis location: pansinusitis Qualified Code(s): J32.4 - Chronic pansinusitis Plan: Patient has a history cleft lift procedure many years ago. Her most recent MRI of brain did show mild sinusitis. Unclear if this is the reason for her dizzy and unsteadiness during ambulation. She is in physical therapy to help her with vestibular issues. Otherwise brain MRI did not show any significant CVA. Orders: Orders CA stress test 06/15/24 R94.31 - Abnormal electrocardiogram [ECG] [EKG] XR sinus min 3V 06/15/24 J32.9 - Chronic sinusitis, unspecified Medications: New hydrochlorothiazide 12.5 mg PO DAILY 30 days 30 tabs 3RF I10 - Essential (primary) hypertension
--- OUTSIDE RECORDS SUMMARY | 2024-06-15 12:20 | XMS_ITS | Data Portability ---
Author Organization [facility], [facility] Address [address] [place] [address] Care Team Providers Care Surgeon/President Name Role Phone KANWAL HEATHER Phys. Med. & Rehab Unavailable ZEHRA MUSE Primary Care Provider [phone] VIKTOR LABOY Advisory Intern Unavailable Assessment Encounter Date Assessment Date Assessment [...] tablet,exte nded release 24 hr [address]/Pharmacy #2025, [address] [place], [address], 7 10:32:19 atorvastati n 40 mg tablet [address]/Pharmacy #2025, [address] [place], [address], 7 10:44:34 metformin ER 500 mg tablet,exte nded release 24 hr 2016 017 [facility]/Pharmacy #2025, [address] [place], [address], 7 10:44:34 Diflucan 150 mg tablet [address]/Pharmacy #2025, [address] [place], [address], 7 10:44:34 Patient TargetsNo targets recorded. Patient Instructions Encounter Date Encounter Id Patient Instructions Last Modified By Organization Details Last Modified Time 08/30/2016 [id number] - try a lower sugar higher protein [...] 46 clukas Not available 08/30/2016 16:06:32 01/08/2017 [id number] CCM: The provide r and patient discussed [...] for labs/diabetes. Not available 01/08/2017 09:35:34 04/09/2017 [id number] high cholesterol lifestyle changes Not available 04/09/2017 [...] any concerns. Not available 04/09/2017 10:42:51 08/21/2017 [id number] schedule medical management when feeling better [email or web address] Not available 08/21/2017 16:44:31 08/28/2017 [id number] After a discussion of treatment options, which [...] further questions or concerns. 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 agrinstein Not available 08/28/2017 16:23:16 Reason for Referral None Reported. Results Created Date Observation Date Name Description Value Unit Range Abnormal Flag Note LastModifiedBy Organization Detail LastModifiedTime 08/10/19 17 08/09/2016 HbA1c (hemo globi n A1c), blood hemoglobin A1C 6.9 % 4.8-6. 0 high Goal: <7% in Patie nts with Diabe claudy Not Available [address], [place], [address], 08/09/2016 09:15:24 08/10/1908/09/2016 HbA1c (hemo globi n A1c), blood estimated average glucose 151.3 mg/dL Not Available [address], [address], 08/09/2016 09:15:24 08/10/19 17 08/09/2016 micro album in, urine microalbumin 6.5 mg/L 1.3-20 .0 Not Available [address], [address], 08/09/2016 09:44:26 08/10/19 17 08/09/2016 micro album in, urine creatinine urine 64.1 mg/dL 30.0-1 25.0 Not Available [address], [address], 08/09/2016 09:44:26 08/10/19 17 08/09/2016 micro album in, urine microalb/cre at ratio 10.1 mg/g_ creat 0.0-29 .0 Not Available [address], [address], 08/09/2016 09:44:26 08/10/19 17 08/09/2016 BMP, serum or plasm a glucose 157 mg/dL 70-100 high Not Available [address], [address], 08/09/2016 11:14:05 08/10/19 17 08/09/2016 BMP, serum or plasm a BUN 14 mg/dL 7-18 Not Available [address], [address], 08/09/2016 11:14:05 08/10/19 17 08/09/2016 BMP, serum or plasm a creatinine 0.8 mg/dL 0.8-1. 3 Not Available [address], [address], 08/09/2016 11:14:05 08/10/19 17 08/09/2016 BMP, serum or plasm a B/C 17.5 ratio Not Available [address], [address], 08/09/2016 11:14:05 08/10/19 17 08/09/2016 BMP, serum or plasm a GFR -non 79.4 mL/mi n Recom arnold d GFR by the Natio nal Kidne y Found ation >60 mL/mi n/1.7 3m2 - Jodie l <60 mL/mi n/1.7 3m2 - Chron ic Kidne y Disea se <15 mL/mi n/1.7 3m2 - Kidne y Failu re Not Available [address], [address], 08/09/2016 11:14:05 08/10/19 17 08/09/2016 BMP, serum or plasm a GFR - if 91.3 mL/mi n For Afric an Ameri can patie nts: Resul ts Multi plied by 1.21 Not Available [address], [address], 08/09/2016 11:14:05 08/10/19 17 08/09/2016 BMP, serum or plasm a sodium 144 mmol/ L 136-14 5 Not Available [address], [address], 08/09/2016 11:14:05 08/10/19 17 08/09/2016 BMP, serum or plasm a potassium 4.1 mmol/ L 3.5-5. 1 Not Available [address], [address], 08/09/2016 11:14:05 08/10/19 17 08/09/2016 BMP, serum or plasm a chloride 108 mmol/ L 96-107 high Not Available [address], [address], 08/09/2016 11:14:05 08/10/19 17 08/09/2016 BMP, serum or plasm a anion gap 6.2 5.0-15 .0 Not Available [address], [address], 08/09/2016 11:14:05 08/10/19 17 08/09/2016 BMP, serum or plasm a CO2 30 mmol/ L 21-32 Not Available [address], [address], 08/09/2016 11:14:05 08/10/19 17 08/09/2016 BMP, serum or plasm a calcium 8.7 mg/dL 8.5-10 .3 Not Available [address], [address], 08/09/2016 11:14:05 08/10/19 17 08/09/2016 lipid panel , serum cholesterol 201 mg/dL <200 mg/dl Vince able 200-2 39 mg/dl Borde rline High >240 mg/dl High Not Available [address], [address], 08/09/2016 11:14:06 08/10/19 17 08/09/2016 lipid panel , serum triglyceride s 156 mg/dL <150 mg/dL Jodie l 150-1 99 mg/dL Borde rline High 200-4 99 mg/dL High >500 mg/dL Very High Not Available [address], [address], 08/09/2016 11:14:06 08/10/19 17 08/09/2016 lipid panel , serum direct HDL 48 mg/dL Not Available [address], [address], 08/09/2016 11:14:06 08/10/19 17 08/09/2016 LDL, calcu [...] r is not ryannancy garcia. Not Available [address], [address], 08/09/2016 11:14:07 11/09/19 17 11/08/2016 HbA1c (hemo globi n A1c), blood hemoglobin A1C 7.0 % 4.8-6. 0 high Goal: <7% in Patie nts with Diabe claudy Not Available [address], [address], 11/08/2016 09:39:46 11/09/19 17 11/08/2016 HbA1c (hemo globi n A1c), blood estimated average glucose 154.2 mg/dL Not Available [address], [address], 11/08/2016 09:39:46 11/09/19 17 11/08/2016 lipid panel , serum cholesterol 151 mg/dL <200 mg/dl Vince able 200-2 39 mg/dl Borde rline High >240 mg/dl High Not Available [address], [address], 11/08/2016 11:53:43 11/09/19 17 11/08/2016 lipid panel , serum triglyceride s 88 mg/dL <150 mg/dL Jodie l 150-1 99 mg/dL Borde rline High 200-4 99 mg/dL High >500 mg/dL Very High Not Available [address], [address], 11/08/2016 11:53:43 11/09/19 17 11/08/2016 lipid panel , serum direct HDL 50 mg/dL Not Available [address], [address], 11/08/2016 11:53:43 11/09/19 17 11/08/2016 LDL, calcu [...] r is not curtis garcia. Not Available [address], [address], 11/08/2016 11:53:44 11/09/19 17 11/08/2016 hepat itis C virus Ab, serum hepatitis C antibody NON-RE ACTIVE non-re active normal Not Available [facility] [address], [address], 11/08/2016 19:58:09 11/09/19 17 11/08/2016 hepat itis C virus Ab, serum signal to cut-off 0.03 <1.00 normal Not Available [facility] [address], [address], 11/08/2016 19:58:09 04/08/20 17 04/08/2017 HbA1c (hemo globi n A1c), blood hemoglobin A1C 7.0 % 4.8-6. 0 high Goal: <7% in Patie nts with Diabe claudy Not Available [address], [address], 04/08/2017 09:41:26 04/08/20 17 04/08/2017 HbA1c (hemo globi n A1c), blood estimated average glucose 154.2 mg/dL Not Available [address], [address], 04/08/2017 09:41:26 04/08/20 17 04/08/2017 BMP, serum or plasm a glucose 131 mg/dL 70-100 high Not Available [address], [address], 04/08/2017 11:00:57 04/08/20 17 04/08/2017 BMP, serum or plasm a BUN 19 mg/dL 7-18 high Not Available [address], [address], 04/08/2017 11:00:57 04/08/20 17 04/08/2017 BMP, serum or plasm a creatinine 0.9 mg/dL 0.8-1. 3 Not Available [address], [address], 04/08/2017 11:00:57 04/08/20 17 04/08/2017 BMP, serum or plasm a B/C 21.1 ratio Not Available [address], [address], 04/08/2017 11:00:57 04/08/20 17 04/08/2017 BMP, serum or plasm a GFR -non 69.3 mL/mi n Recom arnold d GFR by the Natio nal Kidne y Found ation >60 mL/mi n/1.7 3m2 - Jodie l <60 mL/mi n/1.7 3m2 - Chron ic Kidne y Disea se <15 mL/mi n/1.7 3m2 - Kidne y Failu re Not Available [address], [address], 04/08/2017 11:00:57 04/08/20 17 04/08/2017 BMP, serum or plasm a GFR - if 79.7 mL/mi n For Afric an Ameri can patie nts: Resul ts Multi plied by 1.21 Not Available [address], [address], 04/08/2017 11:00:57 04/08/20 17 04/08/2017 BMP, serum or plasm a sodium 144 mmol/ L 136-14 5 Not Available [address], [address], 04/08/2017 11:00:57 04/08/20 17 04/08/2017 BMP, serum or plasm a potassium 4.0 mmol/ L 3.5-5. 1 Not Available [address], [address], 04/08/2017 11:00:57 04/08/20 17 04/08/2017 BMP, serum or plasm a chloride 107 mmol/ L 96-107 Not Available [address], [address], 04/08/2017 11:00:57 04/08/20 17 04/08/2017 BMP, serum or plasm a anion gap 11.3 5.0-15 .0 Not Available [address], [address], 04/08/2017 11:00:57 04/08/20 17 04/08/2017 BMP, serum or plasm a CO2 26 mmol/ L 21-32 Not Available [address], [address], 04/08/2017 11:00:57 04/08/20 17 04/08/2017 BMP, serum or plasm a calcium 9.2 mg/dL 8.5-10 .3 Not Available [address], [address], 04/08/2017 11:00:57 04/08/20 17 04/08/2017 lipid panel , serum cholesterol 188 mg/dL <200 mg/dl Vince able 200-2 39 mg/dl Borde rline High >240 mg/dl High Not Available [address], [address], 04/08/2017 11:00:58 04/08/20 17 04/08/2017 lipid panel , serum triglyceride s 108 mg/dL <150 mg/dL Jodie l 150-1 99 mg/dL Borde rline High 200-4 99 mg/dL High >500 mg/dL Very High Not Available [address], [address], 04/08/2017 11:00:58 04/08/20 17 04/08/2017 lipid panel , serum direct HDL 49 mg/dL Not Available [address], [address], 04/08/2017 11:00:58 04/08/20 17 04/08/2017 LDL, calcu [...] r is not neces jose. Not Available [address], [address], 04/08/2017 11:00:59 08/31/19 17 08/30/2016 MAMMO , [...] ly signed Maulik Alexander romeo: Chung Camposo [address] (Imaging) [address] , [place], [address], 08/30/2016 13:38:43 Result Notes None recorded. Problems Name Problem SNOMED Code Status Onset Date Resolution Date Notes Provider Name and Address Organization Details Recorded Time Bunion 912272770 Active 2007 Not Available [facility] 3 03:14:44 Acquired hallux valgus 00671412 Active 2007 Not Available [facility] 3 03:14:44 Type 2 diabetes mellitus 79155194 Active 2015 Zehra Muse NP [address] [place] [address], [address] , [facility] 7 09:22:41 Anxiety 25325824 Active 2016 Zehra Muse NP [address] [place] [address], [address] , [facility] 7 14:02:43 Hyperlipidemi a 81518169 Active 2016 Zehra Muse NP [address] [place] [address], [address] , [facility] 7 09:33:24 Problem Notes None recorded. Procedures Surgical History Date Name Laterality Status Provider Name and Address Organization Details Recorded Time 08/17/19 17 Medicare Wellness Visit completed Kristin Louie [facility] 08/16/2016 13:34:47 08/17/19 17 Medicare Risk for Falls Screen completed Kristin Louie [facility] 08/16/2016 13:42:08 07/09/19 17 POC Urinalysis Testing completed Kristin Louei [facility] 07/09/2016 17:09:53 08/06/19 15 Medicare Wellness Visit completed GENARO Lee [facility] 08/05/2014 11:07:58 07/09/19 15 Medicare Wellness Visit completed GENARO Lee [facility] 07/09/2014 10:06:04 03/25/20 14 Treatment and Advice completed Heather Alvarez Ms, PT [address] [place], [address], [facility] 03/25/2014 12:01:51 01/28/20 14 Treatment and Advice completed Heather Alvarez Ms, PT [address] [place], [address], [facility] 01/27/2014 09:01:25 Total Hysterectomy completed Zehra Muse, CORPORATE REAL ESTATE SPECIALIST [address] [place], [address], [facility] 07/11/2011 15:21:09 Imaging Results Imaging Date Name Status LastModified by Organiz ation Details LastModified Time 08/30/2016 MAMMO, screening, digital, bilateral completed [facility] (Imaging) [address], [place], [address], 08/30/2016 13:38:43 Procedure Notes None recorded. Medical Equipment None Reported. Allergies No known drug allergies Medications Name Sig Start Date Stop Date Status Note LastModified by Organization Details LastModified Time lexapro tab 20mg active Not Available Not Available Not Available pantoprazol e tab 20mg active Not Available Not Available N ot Available azithromyci n tab 250mg active Not Available Not Available Not Available escitalopra m tab 20mg active Not Available Not Available N ot Available lorazepam tab 0.5mg active Not Available Not Available No t Available nystatin carmen 693919 active Not Available Not Available N ot Available omeprazole cap 20mg active Not Available Not Available Not Available fluconazole 100 mg tablet take 1 [...] Updated DateTime 7 154.94 cm 28 kg/m2 44379.0 7 g 64 /min 120 mm[Hg] 84 mm[Hg] Charity Taylor OUTBOARD MOTORBOAT OPERATOR [facility] 7 09:13:19 Date Recorded Body height Body mass index (BMI) Body weight Heart rate Systolic blood pressure Diastolic blood pressure Provider Name and Address Organization Details Last Updated DateTime 7 154.94 cm 28.5 kg/m2 03344.4 5 g 84 /min 120 mm[Hg] 60 mm[Hg] Forest Serrano OUTBOARD MOTORBOAT OPERATOR [facility] 7 10:15:46 Date Recorded Body height Body temperature Heart rate Systolic blood pressure Diastolic blood pressure Provider Name and Address Organization Details Last Updated DateTime 08/21/2017 154.94 cm 98 [degF] 76 /min 120 mm[Hg] 70 mm[Hg] GENARO Gillette [facility] 8 15:42:59 Date Recorded Body height Body temperature Heart rate Systolic blood pressure Diastolic blood pressure Provider Name and Address Organization Details Last Updated DateTime 08/28/2017 154.94 cm 98 [degF] 78 /min 122 mm[Hg] 68 mm[Hg] Forest Serrano OUTBOARD MOTORBOAT OPERATOR [facility] 8 16:08:56 Social History Question Answer Notes LastModified by Organizat ion Details LastModified Time Tobacco Smoking Status [facility]/11[facility]2011 14:54:04 What Is Your Level [...] not available 07/11/2011 CSRP - Narcotics No [email or web address] Informat ion not available 06/02/2012 CSRP Contract Signed And Discussed Yes 04/21/12 Information not available 04/21/2012 Does The Patient Have Difficulty Speaking Vietnamese? No Information not available 09/17/2014 Does The Patient Have Difficulty Reading Vietnamese? No Information not available 09/17/2014 Patient Has [...] Recorded Time Tdap 08/15/2011 completed [facility] 05/30/2019 02:35:41 Past Encounters Encounter ID Performer Location Encounter Start Date Encounter Closed Date Diagnosis/Indication Diagnosis SNOMED-CT Code Diagnosis ICD10 Code Diagnosis Note [id number] Radiology , [address] [address] 05/30/2007 10:35:16 05/30/2007 12:16:19 [id number] Podiatry, [address] [address] 05/30/2007 10:02:56 06/02/2007 08:17:22 [id number] Zehra Muse NP , [facility], OFFICE [address] [place] [address] 07/11/2011 14:32:41 07/11/2011 15:39:08 [id number] Radiology , [address] [address] 07/26/2011 13:26:32 07/30/2011 14:28:39 [id number] , [facility], OFF[address] [facility] [place] [address] 08/15/2011 13:52:11 08/15/2011 15:14:49 [id number] , [facility], OFF[address] [facility] [place] [address] 10/16/2011 11:57:05 10/16/2011 12:46:37 [id number] , [facility], OFFICE [address] [facility] [place] [address] 12/12/2011 16:32:37 12/12/2011 17:21:14 [id number] Zehra Muse NP , [facility], [address] [facility] [place] [address] 04/21/2012 16:31:55 04/21/2012 17:34:51 [id number] Viktor Bermeo MD [facility] , [facility] [address] [facility] [place] [address] 08/05/2012 09:57:59 08/06/2012 12:18:20 [id number] Randell Darryl LOFTON , [facility], OFF[address] [facility] [place] [address] 11/04/2012 11:02:59 11/04/2012 12:16:15 [id number] , [facility], OFFICE [address] [facility] [place] [address] 01/06/2013 09:36:31 01/06/2013 10:12:27 Increased blood pressure 92620434 Anxiety disorder 260252140 Gastroesop hageal reflux disease 517372841 Impaired f asting glycemia 780615985 [id number] , [facility], OFFICE [address] [place] [address] 04/07/2013 09:34:03 04/07/2013 10:15:35 Increased blood pressure 95375289 Anxiety disorder 748477108 Impaired f asting glycemia 251563425 [id number] Keyla Sosa , [facility], OFFICE [address] [facility] [place] [address] 10/12/2013 13:30:54 10/12/2013 14:38:35 Impaired fasting glycemia 239305923 Chest pain 88214576 Gastroesop hageal reflux disease 481084082 [id number] , [facility], [address] [address] 01/15/2014 15:18:20 01/15/2014 15:38:33 Injury of foot 386416991 [id number] Heather Alvarez Ms, PT Physical Therapy, [address] [address] 01/27/2014 08:03:10 01/27/2014 11:20:34 Foot pain 22312101 [id number] [facility], [address] [address] 01/29/2014 11:29:10 02/01/2014 07:47:08 Foot pain 43051438 [id number] Heather Alvarez Ms, PT Physical Therapy, [address] [address] 02/11/2014 11:59:06 02/11/2014 14:24:52 Foot pain 94078247 [id number] Heather Alavrez Ms, PT Physical Therapy, [address] [address] 02/18/2014 11:32:53 02/18/2014 14:01:56 Foot pain 09915941 [id number] Heather Alvarez Ms, PT Physical Therapy, [address] [address] 02/25/2014 10:48:51 02/25/2014 12:09:34 Foot pain 90999141 [id number] Heather Alvarez Ms, PT Physical Therapy, [address] [address] 03/04/2014 11:00:19 03/04/2014 14:33:15 Foot pain 78097647 [id number] Heather Alvarez Ms, PT Physical Therapy, [address] [address] 03/11/2014 08:31:14 03/11/2014 12:48:41 Foot pain 36526731 [id number] Heather Alvarez Ms, PT Physical Therapy, [address] [address] 03/25/2014 11:14:35 03/26/2014 07:32:41 Foot pain 39068181 [id number] Heather Alvarez Ms, PT Physical Therapy, [address] [address] 04/06/2014 12:35:24 04/06/2014 13:45:25 Foot pain 55426604 [id number] Zehra Muse NP FP, [facility], OFFICE [address] [place] [address] 07/09/2014 10:02:02 07/09/2014 11:21:58 Pain in wrist 95838819 [id number] MILTON Hugo, OFFICE [address] [place] [address] 08/05/2014 11:02:11 08/05/2014 12:28:59 Adult health examination [id number] see Risk Assessment and Lifestyle Change Counseling section above Counseling [id number] Screening mammography 97907149 Chest pain 07723980 Fatigue 57153289 [id number] MILTON Hugo, OFFICE [address] [place] [address] 09/17/2014 09:17:17 09/17/2014 10:03:03 Impaired fasting glycemia 707118748 [id number] AURELIO Gray, [facility], OFFICE [address] [place] [address] 11/25/2015 08:16:16 11/25/2015 09:27:59 Impaired fasting glycemia 763596704 R73.01 Single neftali or depressive episode 457421959 F32.9 F32.0 Stable on meds. Varicose v eins of lower extremity 55884701 I83.91 [id number] AURELIO Gray, [facility], OFFICE [address] [place] [address] 01/19/2016 11:54:06 01/19/2016 12:52:52 Type 2 diabetes mellitus 24378906 E11.9 A1C 7.2 attempting to diet control, at this time does not want a glucometer , will follow up with [facility] [id number] Luisa Willis NP FP, [facility], OFFICE [address] [place] [address] 07/09/2016 17:04:03 07/10/2016 08:36:04 Urinary tract infectious disease 72761660 N39.0 Patient instructed to push fluids, to follow up for persistent or worsening symptoms or fever or back pain. Vaginitis and vulvovaginitis 518702141 N76.0 [id number] Zehra Muse NP , [facility], OFFICE [address] [place] [address] 08/16/2016 13:28:18 08/16/2016 14:43:19 Adult health examination 547579676 Z00.00 see Risk Assessment and Lifestyle Change Counseling section above Benign ess ential hypertension 4893282 I10 continue to work on diet, exercise, and lowering salt intake as discussed Mixed hyperlipidemia 267 196814 E78.2 continue to work on diet and exercise as discussed Screening for disorder 544001202 Z11.59 Screening mammography 24 987721 Z12.31 Anxiety 67127819 F41.9 Type 2 jerald betes mellitus 36034256 E11.9 A1C 6.9 attempting to diet control. Depressive disorder 3548 9007 F32.0 [id number] Jessika Noguera, Ms, Rdn, Ldn, CDE Nutrition -[address] [address] 08/30/2016 13:22:23 08/30/2016 16:17:53 Type 2 diabetes mellitus without complication 689217773 E11.9 [id number] Zehra Muse NP , [facility], OFFICE [address] [place] [address] 01/08/2017 09:01:25 01/08/2017 09:45:23 Type 2 diabetes mellitus 18672891 E11.9 A1C IS7.0Goal is asif 7.Will increase metformin to 1 bid Hyperlipidemia 55677306 E78.5 At goal.Goal is under 100LDL 83 Anxiety 27246719 F41.9 Stable on meds. [id number] AURELIO Gray, [facility], OFFICE [address] [place] [address] 04/09/2017 10:03:21 04/09/2017 10:37:19 Mixed hyperlipidemia 744149536 E78.2 -continue to work on diet and exercise as discussed; WILL INCREASE MEDS. -LDL GOAL IS UNDER 100, LAST ONE WAS 117; NOT AT GOAL. Type 2 jerald betes mellitus 56403586 E11.37X1 DIABETES GOAL IS UNDER 7LAST A1C WAS 7 AGAIN. -INCREASE METFORMIN TO 2 PILLS AM AND 1 PM. Candidiasis of vagina 72 833277 B37.3 [id number] Mone Griffin NP FP, [facility], OFFICE [address] [place] [address] 08/21/2017 15:35:48 08/21/2017 17:01:45 Otalgia 70638388 H92.01 no erythema or bulging of the TM. not tolerating abx/augmen tin prescribed at [facility]. okay to stop Acute uppe r respiratory infection 08761571 J06.9 Drink plenty of fluids. Eat healthy [...] for reassessme nt (urgent care available in [place] office Sat 9- and Saturday-12 by appointmen t - call after 8AM for appt.) Dry cough can last for up to six weeks. [id number] Gustavo Carey PA-C FP, [facility], OFFICE [address] [place] [address] 08/28/2017 15:42:38 08/28/2017 16:26:09 Temporomandibular joint disorder 24999799 M26.609 Discussed etiology, prognosis. Rec'd rest, ice/heat, NSAIDs PRN, and demonstrat ed jaw exercises. Acute uppe r respiratory infection 13642353 J06.9 Viral, s/p 2 courses of antibiotic [...] Alarcon Member ID Guarantor Name 08/30/2016 1 [facility]: [facility] [id number] Kristofer Fonseca [id number] Barbara Fonseca 01/08/2017 1 MEDICARE [place]: [employer] A Marian [id number] Barbara Fonseca 04/09/2017 1 [facility] A Marian [id number] Marian 08/21/2017 2 [facility]: [facility] A Marian [id number] Marian 08/21/2017 1 [place]: [facility] A Marian [id number] Marian 08/28/2017 2 [facility]: [facility] A Marian [id number] Marian 08/28/2017 1 MEDICARE [place]: [employer] A Marian [id number] Barbara Fonseca Notes Date Note Type Note Provider Name and Address Organization Details Recorded Time 7 text/html Nutrition Encounter updatedReported bypatient.Patient HistoryPatient chief nutritional complaint:Diabetes Nutrtition/dietarySee scanned images for Diet Intake Summary; past 6 weeks - stopped all soda likes junk like chips, fritos b - 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 snack - chips, cheese l - d - not a pasta eater brown rice or potato incorporating more vegetables found a low sugar yogurt for a snack at night Estimated Nutrient NeedsEnergy (kcals) [id number] Recent Lab testsFasting Blood Sugar: (157); Hemoglobin A1C: (6.9%); Total Cholesterol: (201); LDL-Cholesterol: (121.8); HDL Cholesterol: (48); Triglycerides: (156) Physical Activity habitsExercise Type:Walking; likes to bike ride but fell off bike Jessika Noguera, Ms, Rdn, Ldn, CDE [address] [place], [phone] [facility] [place] 16:07:18 7 text/html VMG HyperlipidemiaReported bypatient.Duration:at goal ldl 83 A1c 7. 0 Control:well controlled; improved since last visit; treated with diet; treated with medications Compliance:compliant with medications; compliant with follow-up visits Barriers to Careunder stress Context:Diabetes; Nonsmoker; No ischemic heart disease; No peripheral vascular disease (48972) Associated Symptoms:no muscle pain; no fatigue; no chest discomfort; no dyspneaVMG HypertensionReported bypatient.Control:Patient understands medications are to lower blood pressure Compliance:Compliant with medications; Compliant with diet Context:No ischemic heart disease; No kidney disease; No history of CVA; No congestive heart failure Associated Symptoms:No chest pain; No shortness of breath; No edema; No fatigue Son - and moved to in [place]- had melt down- [facility] [employer] [facility]- crying. [...] past. Getting 10/27.]] Zehra Muse NP [address] [place], [phone], [facility] [place]2017 09:47:41 7 text/html VMG DiabetesReported bypatient.Review finger sticks:a1c 7.0;VMG HyperlipidemiaReported bypatient.Duration:at goal ldl 117 A1c 7. 0 Control:well controlled; improved since last visit; treated with diet; treated with medications Compliance:compliant with medications; compliant with follow-up visits;noncompliant with diet; NOT EXERCISING. Barriers to Careunder stress Context:Diabetes; Nonsmoker; No ischemic heart disease; No peripheral vascular disease (87020) Associated Symptoms:no muscle pain; no fatigue; no [...] visit- Son - and moved to in [place]- had melt down- 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 Zehra Muse NP [address] [place] [address], [phone], [facility] [place] 04[place]09/2017 10:44:50 8 text/html pt presents for [...] for dental infection Mone Griffin NP [address] [place], [phone], [facility] [place] 08/21/2017 16:44:59 8 text/html F/U ear pain. [...] sinus pain, F/C, N/V/D. Gustavo Carey PA-C [address] [place] [address], [phone], [facility] [place]28/[place] 16:26:43 OBGyn Episode No OBEpisode recorded.
== END 2024-06-15 12:29 | disposition home or self-care (01) ==
PROVIDERS: PCP Physician Assistant; Visit Provider Physician Assistant
DX: I10 Essential (primary) hypertension (principal); R94.31 Abnormal electrocardiogram [ECG] [EKG]; J32.4 Chronic pansinusitis

== ENCOUNTER → 2024-06-15 11:07 | Outpatient (BNVA) | payer MEDICARE, SELFPAY | PROVIDERS: PCP Physician Assistant; Visit Provider Physician Assistant | DX: I10 Essential (primary) hypertension (principal); R94.31 Abnormal electrocardiogram [ECG] [EKG]; J32.4 Chronic pansinusitis | CPT/HCPCS: 96127; 99212 ==

== ENCOUNTER → 2024-06-30 09:22 | Outpatient (REF) | payer MEDICARE, SELFPAY ==
--- NOTE | 2024-06-30 09:25 | CA_ITS ---
Acquisition Time: 2024-06-30 09:35:06 Total Exercise Time: 00:05:00 Test Indications: ABNORMAL EKG Medications: METFORMIN LISINOPRIL Protocol: JAIDA Max HR: 130 BPM 91% of Pred: 142 BPM Max BP: 124/60 mmHG Max Work Load: 4.6 METS Exercise Stress Test with exercise 5 mins of Jiada Protocol, held at Stage 1, acheiving 90% MPHR, with reports of dizziness, no chest discomfort, with isolated PVC, with normotensive response to exercise. Without EKG changes meeting criteria for ischemia. In recovery, dizziness improved. Test reviewed with Dr. Hayes. PS: pt reported baseline constant head pressure (vague in discription), didnot change with exercise. Referred By: Raudel Flanagan Electronically Signed By: Gus Ladd
--- OUTSIDE RECORDS SUMMARY | 2024-06-30 10:10 | XMS_ITS | Data Portability ---
Author Organization [facility], [facility] Address [address] [place] [address] Care Team Providers Care Wing Commander Name Role Phone KANWAL HEATHER Phys. Med. & Rehab Unavailable ZEHRA MUSE Primary Care Provider [phone] VIKTOR LABOY Miter Cutter Unavailable Assessment Encounter Date Assessment Date Assessment [...] None recorded. Imaging None recorded. Medication Orders atorvastati n 40 mg tablet [address]/Pharmacy #2025, [address] [place], [address], 7 10:44:34 metformin ER 500 mg tablet,exte nded release 24 hr [address]/Pharmacy #2025, [address] [place], [address], 7 10:44:34 Diflucan 150 mg tablet 2016 [address]/Pharmacy #2025, [address] [place], [address], 7 10:44:34 metformin ER 500 mg tablet,exte nded release 24 hr 2016 [address]/Pharmacy #2025, [address] [place], [address], 7 10:32:19 Patient TargetsNo targets recorded. Patient Instructions Encounter Date Encounter Id Patient Instructions Last Modified By Organization Details Last Modified Time 08/30/2016 [id number] - try a lower sugar higher protein [...] 46 [email or web address] Not available 08/30/2016 16:06:32 01/08/2017 [id number] CCM: The provide r and patient discussed [...] for labs/diabetes. Not available 01/08/2017 09:35:34 04/09/2017 [id number] high cholesterol lifestyle changes Not available 04/09/2017 [...] any concerns. Not available 04/09/2017 10:42:51 08/21/2017 [id number] schedule medical management when feeling better [email or web address] Not available 08/21/2017 16:44:31 08/28/2017 [id number] After a discussion of treatment options, which [...] further questions or concerns. 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 agrinstein Not available 08/28/2017 16:23:16 Reason for Referral None Reported. Results Created Date Observation Date Name Description Value Unit Range Abnormal Flag Note LastModifiedBy Organization Detail LastModifiedTime 08/10/19 17 08/09/2016 HbA1c (hemo globi n A1c), blood hemoglobin A1C 6.9 % 4.8-6. 0 high Goal: <7% in Patie nts with Diabe claudy Not Available [address], [place], [address], 08/09/2016 09:15:24 08/10/1908/09/2016 HbA1c (hemo globi n A1c), blood estimated average glucose 151.3 mg/dL Not Available [address], [address], 08/09/2016 09:15:24 08/10/19 17 08/09/2016 micro album in, urine microalbumin 6.5 mg/L 1.3-20 .0 Not Available [address], [address], 08/09/2016 09:44:26 08/10/19 17 08/09/2016 micro album in, urine creatinine urine 64.1 mg/dL 30.0-1 25.0 Not Available [address], [address], 08/09/2016 09:44:26 08/10/19 17 08/09/2016 micro album in, urine microalb/cre at ratio 10.1 mg/g_ creat 0.0-29 .0 Not Available [address], [address], 08/09/2016 09:44:26 08/10/19 17 08/09/2016 BMP, serum or plasm a glucose 157 mg/dL 70-100 high Not Available [address], [address], 08/09/2016 11:14:05 08/10/19 17 08/09/2016 BMP, serum or plasm a BUN 14 mg/dL 7-18 Not Available [address], [address], 08/09/2016 11:14:05 08/10/19 17 08/09/2016 BMP, serum or plasm a creatinine 0.8 mg/dL 0.8-1. 3 Not Available [address], [address], 08/09/2016 11:14:05 08/10/19 17 08/09/2016 BMP, serum or plasm a B/C 17.5 ratio Not Available [address], [address], 08/09/2016 11:14:05 08/10/19 17 08/09/2016 BMP, serum or plasm a GFR -non 79.4 mL/mi n Recom arnold d GFR by the Natio nal Kidne y Found ation >60 mL/mi n/1.7 3m2 - Jodie l <60 mL/mi n/1.7 3m2 - Chron ic Kidne y Disea se <15 mL/mi n/1.7 3m2 - Kidne y Failu re Not Available [address], [address], 08/09/2016 11:14:05 08/10/19 17 08/09/2016 BMP, serum or plasm a GFR - if 91.3 mL/mi n For Afric an Ameri can patie nts: Resul ts Multi plied by 1.21 Not Available [address], [address], 08/09/2016 11:14:05 08/10/19 17 08/09/2016 BMP, serum or plasm a sodium 144 mmol/ L 136-14 5 Not Available [address], [address], 08/09/2016 11:14:05 08/10/19 17 08/09/2016 BMP, serum or plasm a potassium 4.1 mmol/ L 3.5-5. 1 Not Available [address], [address], 08/09/2016 11:14:05 08/10/19 17 08/09/2016 BMP, serum or plasm a chloride 108 mmol/ L 96-107 high Not Available [address], [address], 08/09/2016 11:14:05 08/10/19 17 08/09/2016 BMP, serum or plasm a anion gap 6.2 5.0-15 .0 Not Available [address], [address], 08/09/2016 11:14:05 08/10/19 17 08/09/2016 BMP, serum or plasm a CO2 30 mmol/ L 21-32 Not Available [address], [address], 08/09/2016 11:14:05 08/10/19 17 08/09/2016 BMP, serum or plasm a calcium 8.7 mg/dL 8.5-10 .3 Not Available [address], [address], 08/09/2016 11:14:05 08/10/19 17 08/09/2016 lipid panel , serum cholesterol 201 mg/dL <200 mg/dl Vince able 200-2 39 mg/dl Borde rline High >240 mg/dl High Not Available [address], [address], 08/09/2016 11:14:06 08/10/19 17 08/09/2016 lipid panel , serum triglyceride s 156 mg/dL <150 mg/dL Jodie l 150-1 99 mg/dL Borde rline High 200-4 99 mg/dL High >500 mg/dL Very High Not Available [address], [address], 08/09/2016 11:14:06 08/10/19 17 08/09/2016 lipid panel , serum direct HDL 48 mg/dL Not Available [address], [address], 08/09/2016 11:14:06 08/10/19 17 08/09/2016 LDL, calcu [...] r is not ryannancy garcia. Not Available [address], [address], 08/09/2016 11:14:07 11/09/19 17 11/08/2016 HbA1c (hemo globi n A1c), blood hemoglobin A1C 7.0 % 4.8-6. 0 high Goal: <7% in Patie nts with Diabe claudy Not Available [address], [address], 11/08/2016 09:39:46 11/09/19 17 11/08/2016 HbA1c (hemo globi n A1c), blood estimated average glucose 154.2 mg/dL Not Available [address], [address], 11/08/2016 09:39:46 11/09/19 17 11/08/2016 lipid panel , serum cholesterol 151 mg/dL <200 mg/dl Vince able 200-2 39 mg/dl Borde rline High >240 mg/dl High Not Available [address], [address], 11/08/2016 11:53:43 11/09/19 17 11/08/2016 lipid panel , serum triglyceride s 88 mg/dL <150 mg/dL Jodie l 150-1 99 mg/dL Borde rline High 200-4 99 mg/dL High >500 mg/dL Very High Not Available [address], [address], 11/08/2016 11:53:43 11/09/19 17 11/08/2016 lipid panel , serum direct HDL 50 mg/dL Not Available [address], [address], 11/08/2016 11:53:43 11/09/19 17 11/08/2016 LDL, calcu [...] r is not curtis garcia. Not Available [address], [address], 11/08/2016 11:53:44 11/09/19 17 11/08/2016 hepat itis C virus Ab, serum hepatitis C antibody NON-RE ACTIVE non-re active normal Not Available [facility] [address], [address], 11/08/2016 19:58:09 11/09/19 17 11/08/2016 hepat itis C virus Ab, serum signal to cut-off 0.03 <1.00 normal Not Available [facility] [address], [address], 11/08/2016 19:58:09 04/08/20 17 04/08/2017 HbA1c (hemo globi n A1c), blood hemoglobin A1C 7.0 % 4.8-6. 0 high Goal: <7% in Patie nts with Diabe claudy Not Available [address], [address], 04/08/2017 09:41:26 04/08/20 17 04/08/2017 HbA1c (hemo globi n A1c), blood estimated average glucose 154.2 mg/dL Not Available [address], [address], 04/08/2017 09:41:26 04/08/20 17 04/08/2017 BMP, serum or plasm a glucose 131 mg/dL 70-100 high Not Available [address], [address], 04/08/2017 11:00:57 04/08/20 17 04/08/2017 BMP, serum or plasm a BUN 19 mg/dL 7-18 high Not Available [address], [address], 04/08/2017 11:00:57 04/08/20 17 04/08/2017 BMP, serum or plasm a creatinine 0.9 mg/dL 0.8-1. 3 Not Available [address], [address], 04/08/2017 11:00:57 04/08/20 17 04/08/2017 BMP, serum or plasm a B/C 21.1 ratio Not Available [address], [address], 04/08/2017 11:00:57 04/08/20 17 04/08/2017 BMP, serum or plasm a GFR -non 69.3 mL/mi n Recom arnold d GFR by the Natio nal Kidne y Found ation >60 mL/mi n/1.7 3m2 - Jodie l <60 mL/mi n/1.7 3m2 - Chron ic Kidne y Disea se <15 mL/mi n/1.7 3m2 - Kidne y Failu re Not Available [address], [address], 04/08/2017 11:00:57 04/08/20 17 04/08/2017 BMP, serum or plasm a GFR - if 79.7 mL/mi n For Afric an Ameri can patie nts: Resul ts Multi plied by 1.21 Not Available [address], [address], 04/08/2017 11:00:57 04/08/20 17 04/08/2017 BMP, serum or plasm a sodium 144 mmol/ L 136-14 5 Not Available [address], [address], 04/08/2017 11:00:57 04/08/20 17 04/08/2017 BMP, serum or plasm a potassium 4.0 mmol/ L 3.5-5. 1 Not Available [address], [address], 04/08/2017 11:00:57 04/08/20 17 04/08/2017 BMP, serum or plasm a chloride 107 mmol/ L 96-107 Not Available [address], [address], 04/08/2017 11:00:57 04/08/20 17 04/08/2017 BMP, serum or plasm a anion gap 11.3 5.0-15 .0 Not Available [address], [address], 04/08/2017 11:00:57 04/08/20 17 04/08/2017 BMP, serum or plasm a CO2 26 mmol/ L 21-32 Not Available [address], [address], 04/08/2017 11:00:57 04/08/20 17 04/08/2017 BMP, serum or plasm a calcium 9.2 mg/dL 8.5-10 .3 Not Available [address], [address], 04/08/2017 11:00:57 04/08/20 17 04/08/2017 lipid panel , serum cholesterol 188 mg/dL <200 mg/dl Vince able 200-2 39 mg/dl Borde rline High >240 mg/dl High Not Available [address], [address], 04/08/2017 11:00:58 04/08/20 17 04/08/2017 lipid panel , serum triglyceride s 108 mg/dL <150 mg/dL Jodie l 150-1 99 mg/dL Borde rline High 200-4 99 mg/dL High >500 mg/dL Very High Not Available [address], [address], 04/08/2017 11:00:58 04/08/20 17 04/08/2017 lipid panel , serum direct HDL 49 mg/dL Not Available [address], [address], 04/08/2017 11:00:58 04/08/20 17 04/08/2017 LDL, calcu [...] r is not neces jose. Not Available [address], [address], 04/08/2017 11:00:59 08/31/19 17 08/30/2016 MAMMO , [...] ly signed Maulik Alexander romeo: Chung Camposo [address] (Imaging) [address] , [place], [address], 08/30/2016 13:38:43 Result Notes None recorded. Problems Name Problem SNOMED Code Status Onset Date Resolution Date Notes Provider Name and Address Organization Details Recorded Time Bunion 101144157 Active 2007 Not Available [facility] 3 03:14:44 Acquired hallux valgus 59251108 Active 2007 Not Available [facility] 3 03:14:44 Type 2 diabetes mellitus 99446922 Active 2015 Zehra Muse NP [address] [place] [address], [address] , [facility] 7 09:22:41 Anxiety 15861528 Active 2016 Zehra Muse NP [address] [place] [address], [address] , [facility] 7 14:02:43 Hyperlipidemi a 73158544 Active 2016 Zehra Muse NP [address] [place] [address], [address] , [facility] 7 09:33:24 Problem Notes None recorded. Procedures Surgical History Date Name Laterality Status Provider Name and Address Organization Details Recorded Time 08/17/19 17 Medicare Wellness Visit completed Kristin Louie [facility] 08/16/2016 13:34:47 08/17/19 17 Medicare Risk for Falls Screen completed Kristin Louie [facility] 08/16/2016 13:42:08 07/09/19 17 POC Urinalysis Testing completed Kristin Louie [facility] 07/09/2016 17:09:53 08/06/19 15 Medicare Wellness Visit completed GENARO Lee [facility] 08/05/2014 11:07:58 07/09/19 15 Medicare Wellness Visit completed GENARO Lee [facility] 07/09/2014 10:06:04 03/25/20 14 Treatment and Advice completed Heather Alvarez Ms, PT [address] [place], [address], [facility] 03/25/2014 12:01:51 01/28/20 14 Treatment and Advice completed Heather Alvarez Ms, PT [address] [place], [address], [facility] 01/27/2014 09:01:25 Total Hysterectomy completed Zehra Muse, DIESEL DRAGLINE OPERATOR [address] [place], [address], [facility] 07/11/2011 15:21:09 Imaging Results Imaging Date Name Status LastModified by Organiz ation Details LastModified Time 08/30/2016 MAMMO, screening, digital, bilateral completed [facility] (Imaging) [address], [place], [address], 08/30/2016 13:38:43 Procedure Notes None recorded. Medical Equipment None Reported. Allergies No known drug allergies Medications Name Sig Start Date Stop Date Status Note LastModified by Organization Details LastModified Time nystatin carmen [id number] active Not Available Not Available N ot [...] Updated DateTime 7 154.94 cm 28 kg/m2 22598.0 7 g 64 /min 120 mm[Hg] 84 mm[Hg] Charity Taylor [employer] [facility] 7 09:13:19 Date Recorded Body height Body mass index (BMI) Body weight Heart rate Systolic blood pressure Diastolic blood pressure Provider Name and Address Organization Details Last Updated DateTime 7 154.94 cm 28.5 kg/m2 64370.4 5 g 84 /min 120 mm[Hg] 60 mm[Hg] Forest Serrano PLAST[employer] SEWER [facility] 7 10:15:46 Date Recorded Body height Body temperature Heart rate Systolic blood pressure Diastolic blood pressure Provider Name and Address Organization Details Last Updated DateTime 08/21/2017 154.94 cm 98 [degF] 76 /min 120 mm[Hg] 70 mm[Hg] GENARO Gillette [facility] 8 15:42:59 Date Recorded Body height Body temperature Heart rate Systolic blood pressure Diastolic blood pressure Provider Name and Address Organization Details Last Updated DateTime 08/28/2017 154.94 cm 98 [degF] 78 /min 122 mm[Hg] 68 mm[Hg] Forest Duronmarcos PLAST[employer] SEWER [facility] 8 16:08:56 Social History Question Answer Notes LastModified by Organizat ion Details LastModified Time Tobacco Smoking Status [facility]2011 14:54:04 What Is Your [...] not available 07/11/2011 CSRP - Narcotics No [email or web address] Informat ion not available 06/02/2012 CSRP Contract Signed And Discussed Yes 04/21/12 Information not available 04/21/2012 Patient Has Health Care Proxy Signed And [...] SNOMED-CT Code Diagnosis ICD10 Code Diagnosis Note [id number] Radiology , [address] [address] 05/30/2007 10:35:16 05/30/2007 12:16:19 [id number] Podiatry, [address] [address] 05/30/2007 10:02:56 06/02/2007 08:17:22 [id number] Zehra Muse NP , [facility], OFFICE [address] [place] [address] 07/11/2011 14:32:41 07/11/2011 15:39:08 [id number] Radiology , [address] [address] 07/26/2011 13:26:32 07/30/2011 14:28:39 [id number] [facility], OFFICE [address] [place] [address] 08/15/2011 13:52:11 08/15/2011 15:14:49 [id number] , [facility], OFFICE [address] [place] [address] [place] [address] 10/16/2011 11:57:05 10/16/2011 12:46:37 [id number] , [facility], OFFICE [address] [place] [address] [place] [address] 12/12/2011 16:32:37 12/12/2011 17:21:14 [id number] Zehra Muse NP , [facility], OFFICE [address] [place] [address] [place] [address] 04/21/2012 16:31:55 04/21/2012 17:34:51 [id number] Viktor Bermeo MD [facility] , [address] [address] 08/05/2012 09:57:59 08/06/2012 12:18:20 [id number] Randell Darryl LOFTON , [facility], OFFICE [address] [place] [address] 11/04/2012 11:02:59 11/04/2012 12:16:15 [id number] , [facility], OFFICE [address] [place] [address] [place] [address] 01/06/2013 09:36:31 01/06/2013 10:12:27 Increased blood pressure 22197524 Anxiety disorder 942763796 Gastroesop hageal reflux disease 293516245 Impaired f asting glycemia 383516975 [id number] , [facility], OFFICE [address] [place] [address] [place] [address] 04/07/2013 09:34:03 04/07/2013 10:15:35 Increased blood pressure 54653248 Anxiety disorder 194534920 Impaired f asting glycemia 986799567 [id number] Keyla Sosa , [facility], OFFICE [address] [facility] [place] [address] 10/12/2013 13:30:54 10/12/2013 14:38:35 Impaired fasting glycemia 735699485 Chest pain 34256395 Gastroesop hageal reflux disease 086868560 [id number] , [facility], [address] [address] 01/15/2014 15:18:20 01/15/2014 15:38:33 Injury of foot 689602328 [id number] Heather Alvarez Ms, PT Physical Therapy, [address] [address] 01/27/2014 08:03:10 01/27/2014 11:20:34 Foot pain 46238791 [id number] [facility], [address] [address] 01/29/2014 11:29:10 02/01/2014 07:47:08 Foot pain 96038177 [id number] Heather Alvarez Ms, PT Physical Therapy, [address] [address] 02/11/2014 11:59:06 02/11/2014 14:24:52 Foot pain 37984739 [id number] Heather Alvarez Ms, PT Physical Therapy, [address] [address] 02/18/2014 11:32:53 02/18/2014 14:01:56 Foot pain 91577419 [id number] Heather Alvarez Ms, PT Physical Therapy, [address] [address] 02/25/2014 10:48:51 02/25/2014 12:09:34 Foot pain 55804506 [id number] Heather Alvarez Ms, PT Physical Therapy, [address] [address] 03/04/2014 11:00:19 03/04/2014 14:33:15 Foot pain 08004387 [id number] Heather Alvarez Ms, PT Physical Therapy, [address] [address] 03/11/2014 08:31:14 03/11/2014 12:48:41 Foot pain 58545267 [id number] Heather Alvarze Ms, PT Physical Therapy, [address] [address] 03/25/2014 11:14:35 03/26/2014 07:32:41 Foot pain 27947841 [id number] Heather Alvarez Ms, PT Physical Therapy, [address] [address] 04/06/2014 12:35:24 04/06/2014 13:45:25 Foot pain 72903097 [id number] Zehra Muse NP , [facility], OFFICE [address] [place] [address] 07/09/2014 10:02:02 07/09/2014 11:21:58 Pain in wrist 06751790 [id number] , [facility], OFFICE [address] [place] [address] 08/05/2014 11:02:11 08/05/2014 12:28:59 Adult health examination 564619241 see Risk Assessment and Lifestyle Change Counseling section above Counseling [id number] Screening mammography 79719235 Chest pain 06337405 Fatigue 82366907 [id number] [place], [facility], OFFICE [address] [place] [address] 09/17/2014 09:17:17 09/17/2014 10:03:03 Impaired fasting glycemia 021387093 [id number] AURELIO Gray, [facility], OFFICE [address] [place] [address] 11/25/2015 08:16:16 11/25/2015 09:27:59 Impaired fasting glycemia 385928577 R73.01 Single neftali or depressive episode 991584565 F32.9 F32.0 Stable on meds. Varicose v eins of lower extremity 22641132 I83.91 [id number] AURELIO Gray, [facility], OFFICE [address] [place] [address] 01/19/2016 11:54:06 01/19/2016 12:52:52 Type 2 diabetes mellitus 90659549 E11.9 A1C 7.2 attempting to diet control, at this time does not want a glucometer , will follow up with [facility]. [id number] AURELIO Lizarraga, [facility], OFFICE [address] [place] [address] 07/09/2016 17:04:03 07/10/2016 08:36:04 Urinary tract infectious disease 67366940 N39.0 Patient instructed to push fluids, to follow up for persistent or worsening symptoms or fever or back pain. Vaginitis and vulvovaginitis 159258076 N76.0 [id number] AURELIO Gray, [facility], OFFICE [address] [place] [address] 08/16/2016 13:28:18 08/16/2016 14:43:19 Adult health examination 385025890 Z00.00 see Risk Assessment and Lifestyle Change Counseling section above Benign ess ential hypertension 6569672 I10 continue to work on diet, exercise, and lowering salt intake as discussed Mixed hyperlipidemia 267 212922 E78.2 continue to work on diet and exercise as discussed Screening for disorder 112104721 Z11.59 Screening mammography 24 968374 Z12.31 Anxiety 24768667 F41.9 Type 2 jerald betes mellitus 86683432 E11.9 A1C 6.9 attempting to diet control. Depressive disorder 3548 9007 F32.0 [id number] Jessika Noguera, Ms, Rdn, Ldn, CDE Nutrition -[address] [address] 08/30/2016 13:22:23 08/30/2016 16:17:53 Type 2 diabetes mellitus without complication 074839131 E11.9 [id number] Zehra Muse NP , [facility], OFFICE [address] [place] [address] 01/08/2017 09:01:25 01/08/2017 09:45:23 Type 2 diabetes mellitus 69435779 E11.9 A1C IS7.0Goal is asif 7.Will increase metformin to 1 bid Hyperlipidemia 85471352 E78.5 At goal.Goal is under 100LDL 83 Anxiety 84895727 F41.9 Stable on meds. [id number] Zehra Muse NP , [facility], OFFICE [address] [place] [address] 04/09/2017 10:03:21 04/09/2017 10:37:19 Mixed hyperlipidemia 013333504 E78.2 -continue to work on diet and exercise as discussed; WILL INCREASE MEDS. -LDL GOAL IS UNDER 100, LAST ONE WAS 117; NOT AT GOAL. Type 2 jerald betes mellitus 02963158 E11.37X1 DIABETES GOAL IS UNDER 7LAST A1C WAS 7 AGAIN. -INCREASE METFORMIN TO 2 PILLS AM AND 1 PM. Candidiasis of vagina 72 385678 B37.3 [id number] Mone Griffin NP , [facility], OFFICE [address] [place] [address] 08/21/2017 15:35:48 08/21/2017 17:01:45 Otalgia 33715130 H92.01 no erythema or bulging of the TM. not tolerating abx/augmen tin prescribed at [facility]. okay to stop Acute uppe r respiratory infection 99478636 J06.9 Drink plenty of fluids. Eat healthy [...] for reassessme nt (urgent care available in [place] office Sat 9-4 and Saturday-12 by appointmen t - call after 8AM for appt.) Dry cough can last for up to six weeks. 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 Rec'd rest, ice/heat, NSAIDs PRN, and demonstrat ed jaw exercises. Acute uppe r respiratory infection 63333560 J06.9 Viral, s/p 2 courses of antibiotic [...] Alarcon Member ID Guarantor Name 08/30/2016 1 [facility] [id number] Kristofer Fonseca [id number] Barbara Fonseca 01/08/2017 1 [place] [facility] Barbara Fonseca [id number] Barbara Fonseca 04/09/2017 1 [place] [facility] Barbara Fonseca [id number] Marian 08/21/2017 2 [facility] Barbara Fonseca [id number] Barbara Fonseca 08/21/2017 1 [place] [facility] Barbara Fonseca [id number] Marian 08/28/2017 2 [facility] Barbara Fonseca [id number] Barbara Fonseca 08/28/2017 1 [place] [facility] Barbara Fonseca [id number] Barbara Fonseca Notes Date Note Type Note Provider Name and Address Organization Details Recorded Time 7 text/html Nutrition Encounter updatedReported bypatient.Patient HistoryPatient chief nutritional complaint:Diabetes Nutrtition/dietarySee scanned images for Diet Intake Summary; past 6 weeks - stopped all soda likes junk like chips, fritos b - works at 8. packet of restoration oatmeal maple flavor, high fiber. snack - chips, cheese l - d - not a pasta eater brown rice or potato incorporating more vegetables found a low sugar yogurt for a snack at night Estimated Nutrient NeedsEnergy (kcals) 2291-9825 Recent Lab testsFasting Blood Sugar: (157); Hemoglobin A1C: (6.9%); Total Cholesterol: (201); LDL-Cholesterol: (121.8); HDL Cholesterol: (48); Triglycerides: (156) Physical Activity habitsExercise Type:Walking; likes to bike ride but fell off bike Jessika Noguera, Ms, Rdn, Ldn, CDE [address] [place], [address], [facility] 08/30/2016 16:07:18 7 text/html VMG HyperlipidemiaReported bypatient.Duration:at goal ldl 83 A1c 7. 0 Control:well controlled; improved since last visit; treated with diet; treated with medications Compliance:compliant with medications; compliant with follow-up visits Barriers to Careunder stress Context:Diabetes; Nonsmoker; No ischemic heart disease; No peripheral vascular disease ([address]) Associated Symptoms:no muscle pain; no fatigue; no chest discomfort; no dyspneaVMG HypertensionReported bypatient.Control:Patient understands medications are to lower blood pressure Compliance:Compliant with medications; Compliant with diet Context:No ischemic heart disease; No kidney disease; No history of CVA; No congestive heart failure Associated Symptoms:No chest pain; No shortness of breath; No edema; No fatigue Son - and moved to in [place]- had melt down- [facility]- crying. transporting pple. Dtr - w/ grandb, Anne this summer. Seeing dr guerra in 1 wk ANXIETY- takes prn ativan. 3-4 x per mos. Depression is stable- no si/hi. [[LAST VISIT Under a lot of stress, w/ prostetectomy, has scar tiusse - urethral implant.Son w// Mass gen w/ heart repair 37 open heart, testicular ca in past. Getting 10/27.]] Zehra Muse NP [address], [place], [id number], [facility] 01/08/2017 09:47:41 7 text/html [facility] DiabetesReported bypatient.Review finger sticks:a1c 7.0;[facility] HyperlipidemiaReported bypatient.Duration:at goal ldl 117 A1c 7. 0 Control:well controlled; improved since last visit; treated with diet; treated with medications Compliance:compliant with medications; compliant with follow-up visits;noncompliant with diet; NOT EXERCISING. Barriers to Careunder stress Context:Diabetes; Nonsmoker; No ischemic heart disease; No peripheral vascular disease ([address]) Associated Symptoms:no muscle pain; no fatigue; no [...] visit- Son - and moved to in [place]- had melt down- 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 Zehra Muse NP [address] [place] [address], [phone], [facility] 04/09/2017 10:44:50 8 text/html pt presents for [...] for dental infection Mone Griffin NP [address] [place], [id number], [facility] 08/21/2017 16:44:59 8 text/html F/U ear pain. [...] sinus pain, F/C, N/V/D. Gustavo Carey PA-C [address] [place] [address], [phone], [facility] 08/28/2017 16:26:43 OBGyn Episode No OBEpisode recorded.
== END ==
LOC: HO.CARD 09:22
PROVIDERS: PCP Physician Assistant; Visit Provider Physician Assistant
DX: R94.31 Abnormal electrocardiogram [ECG] [EKG] (principal)
CPT/HCPCS: 93017

== ENCOUNTER → 2024-06-30 09:25 | Outpatient (BNV) | payer MEDICARE, SELFPAY | PROVIDERS: PCP Physician Assistant | DX: I49.3 Ventricular premature depolarization (principal) | CPT/HCPCS: 93016; 93018 ==

== ENCOUNTER 2024-07-03 13:54 | Outpatient (REF) | payer MEDICARE, SELFPAY ==
--- NOTE | ~2024-07-03 | XR_ITS ---
EXAMINATION: XR PARANASAL SINUSES 3 VIEWS HISTORY: J32.9 - Chronic sinusitis, unspecified COMPARISON: There are no prior studies for comparison. FINDINGS: Five views of the paranasal sinuses are submitted. The bilateral frontal, maxillary, ethmoid, and sphenoid sinuses are well-aerated and clear. XR/XR sinus min 3V IMPRESSION: Unremarkable examination of the paranasal sinuses. Electronically signed by: Minh Sanchez MD 07/07/2024 09:41 AM EST
--- OUTSIDE RECORDS SUMMARY | 2024-07-03 14:21 | XMS_ITS | Data Portability ---
Author Organization [facility], [facility] Address [address] [place] [address] Care Team Providers Care Privacy Director Name Role Phone KANWAL HEATHER Phys. Med. 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 Patient Instructions Encounter Date Encounter Id Patient Instructions Last Modified By Organization Details Last Modified Time 08/30/2016 [id number] - try a lower sugar higher protein [...] 46 clukas Not available 08/30/2016 16:06:32 01/08/2017 [id number] CCM: The provide r and patient discussed [...] for labs/diabetes. Not available 01/08/2017 09:35:34 04/09/2017 [id number] high cholesterol lifestyle changes Not available 04/09/2017 [...] any concerns. Not available 04/09/2017 10:42:51 08/21/2017 [id number] schedule medical management when feeling better [email or web address] Not available 08/21/2017 16:44:31 08/28/2017 [id number] After a discussion of treatment options, which [...] further questions or concerns. 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 agrinstein Not available 08/28/2017 16:23:16 Reason for Referral None Reported. Results Created Date Observation Date Name Description Value Unit Range Abnormal Flag Note LastModifiedBy Organization Detail LastModifiedTime 08/10/19 17 08/09/2016 HbA1c (hemo globi n A1c), blood hemoglobin A1C 6.9 % 4.8-6. 0 high Goal: <7% in Patie nts with Diabe claudy Not Available [address], [place], [address], 08/09/2016 09:15:24 08/10/1908/09/2016 HbA1c (hemo globi n A1c), blood estimated average glucose 151.3 mg/dL Not Available [address], [address], 08/09/2016 09:15:24 08/10/19 17 08/09/2016 micro album in, urine microalbumin 6.5 mg/L 1.3-20 .0 Not Available [address], [address], 08/09/2016 09:44:26 08/10/19 17 08/09/2016 micro album in, urine creatinine urine 64.1 mg/dL 30.0-1 25.0 Not Available [address], [address], 08/09/2016 09:44:26 08/10/19 17 08/09/2016 micro album in, urine microalb/cre at ratio 10.1 mg/g_ creat 0.0-29 .0 Not Available [address], [address], 08/09/2016 09:44:26 08/10/19 17 08/09/2016 BMP, serum or plasm a glucose 157 mg/dL 70-100 high Not Available [address], [address], 08/09/2016 11:14:05 08/10/19 17 08/09/2016 BMP, serum or plasm a BUN 14 mg/dL 7-18 Not Available [address], [address], 08/09/2016 11:14:05 08/10/19 17 08/09/2016 BMP, serum or plasm a creatinine 0.8 mg/dL 0.8-1. 3 Not Available [address], [address], 08/09/2016 11:14:05 08/10/19 17 08/09/2016 BMP, serum or plasm a B/C 17.5 ratio Not Available [address], [address], 08/09/2016 11:14:05 08/10/19 17 08/09/2016 BMP, serum or plasm a GFR -non 79.4 mL/mi n Recom arnold d GFR by the Natio nal Kidne y Found ation >60 mL/mi n/1.7 3m2 - Jodie l <60 mL/mi n/1.7 3m2 - Chron ic Kidne y Disea se <15 mL/mi n/1.7 3m2 - Kidne y Failu re Not Available [address], [address], 08/09/2016 11:14:05 08/10/19 17 08/09/2016 BMP, serum or plasm a GFR - if 91.3 mL/mi n For Afric an Ameri can patie nts: Resul ts Multi plied by 1.21 Not Available [address], [address], 08/09/2016 11:14:05 08/10/19 17 08/09/2016 BMP, serum or plasm a sodium 144 mmol/ L 136-14 5 Not Available [address], [address], 08/09/2016 11:14:05 08/10/19 17 08/09/2016 BMP, serum or plasm a potassium 4.1 mmol/ L 3.5-5. 1 Not Available [address], [address], 08/09/2016 11:14:05 08/10/19 17 08/09/2016 BMP, serum or plasm a chloride 108 mmol/ L 96-107 high Not Available [address], [address], 08/09/2016 11:14:05 08/10/19 17 08/09/2016 BMP, serum or plasm a anion gap 6.2 5.0-15 .0 Not Available [address], [address], 08/09/2016 11:14:05 08/10/19 17 08/09/2016 BMP, serum or plasm a CO2 30 mmol/ L 21-32 Not Available [address], [address], 08/09/2016 11:14:05 08/10/19 17 08/09/2016 BMP, serum or plasm a calcium 8.7 mg/dL 8.5-10 .3 Not Available [address], [address], 08/09/2016 11:14:05 08/10/19 17 08/09/2016 lipid panel , serum cholesterol 201 mg/dL <200 mg/dl Vince able 200-2 39 mg/dl Borde rline High >240 mg/dl High Not Available [address], [address], 08/09/2016 11:14:06 08/10/19 17 08/09/2016 lipid panel , serum triglyceride s 156 mg/dL <150 mg/dL Jodie l 150-1 99 mg/dL Borde rline High 200-4 99 mg/dL High >500 mg/dL Very High Not Available [address], [address], 08/09/2016 11:14:06 08/10/19 17 08/09/2016 lipid panel , serum direct HDL 48 mg/dL Not Available [address], [address], 08/09/2016 11:14:06 08/10/19 17 08/09/2016 LDL, calcu [...] r is not ryannancy garcia. Not Available [address], [address], 08/09/2016 11:14:07 11/09/19 17 11/08/2016 HbA1c (hemo globi n A1c), blood hemoglobin A1C 7.0 % 4.8-6. 0 high Goal: <7% in Patie nts with Diabe claudy Not Available [address], [address], 11/08/2016 09:39:46 11/09/19 17 11/08/2016 HbA1c (hemo globi n A1c), blood estimated average glucose 154.2 mg/dL Not Available [address], [address], 11/08/2016 09:39:46 11/09/19 17 11/08/2016 lipid panel , serum cholesterol 151 mg/dL <200 mg/dl Vince able 200-2 39 mg/dl Borde rline High >240 mg/dl High Not Available [address], [address], 11/08/2016 11:53:43 11/09/19 17 11/08/2016 lipid panel , serum triglyceride s 88 mg/dL <150 mg/dL Jodie l 150-1 99 mg/dL Borde rline High 200-4 99 mg/dL High >500 mg/dL Very High Not Available [address], [address], 11/08/2016 11:53:43 11/09/19 17 11/08/2016 lipid panel , serum direct HDL 50 mg/dL Not Available [address], [address], 11/08/2016 11:53:43 11/09/19 17 11/08/2016 LDL, calcu [...] r is not curtis garcia. Not Available [address], [address], 11/08/2016 11:53:44 11/09/19 17 11/08/2016 hepat itis C virus Ab, serum hepatitis C antibody NON-RE ACTIVE non-re active normal Not Available [facility] [address], [address], 11/08/2016 19:58:09 11/09/19 17 11/08/2016 hepat itis C virus Ab, serum signal to cut-off 0.03 <1.00 normal Not Available [facility] [address], [address], 11/08/2016 19:58:09 04/08/20 17 04/08/2017 HbA1c (hemo globi n A1c), blood hemoglobin A1C 7.0 % 4.8-6. 0 high Goal: <7% in Patie nts with Diabe claudy Not Available [address], [address], 04/08/2017 09:41:26 04/08/20 17 04/08/2017 HbA1c (hemo globi n A1c), blood estimated average glucose 154.2 mg/dL Not Available [address], [address], 04/08/2017 09:41:26 04/08/20 17 04/08/2017 BMP, serum or plasm a glucose 131 mg/dL 70-100 high Not Available [address], [address], 04/08/2017 11:00:57 04/08/20 17 04/08/2017 BMP, serum or plasm a BUN 19 mg/dL 7-18 high Not Available [address], [address], 04/08/2017 11:00:57 04/08/20 17 04/08/2017 BMP, serum or plasm a creatinine 0.9 mg/dL 0.8-1. 3 Not Available [address], [address], 04/08/2017 11:00:57 04/08/20 17 04/08/2017 BMP, serum or plasm a B/C 21.1 ratio Not Available [address], [address], 04/08/2017 11:00:57 04/08/20 17 04/08/2017 BMP, serum or plasm a GFR -non 69.3 mL/mi n Recom arnold d GFR by the Natio nal Kidne y Found ation >60 mL/mi n/1.7 3m2 - Jodie l <60 mL/mi n/1.7 3m2 - Chron ic Kidne y Disea se <15 mL/mi n/1.7 3m2 - Kidne y Failu re Not Available [address], [address], 04/08/2017 11:00:57 04/08/20 17 04/08/2017 BMP, serum or plasm a GFR - if 79.7 mL/mi n For Afric an Ameri can patie nts: Resul ts Multi plied by 1.21 Not Available [address], [address], 04/08/2017 11:00:57 04/08/20 17 04/08/2017 BMP, serum or plasm a sodium 144 mmol/ L 136-14 5 Not Available [address], [address], 04/08/2017 11:00:57 04/08/20 17 04/08/2017 BMP, serum or plasm a potassium 4.0 mmol/ L 3.5-5. 1 Not Available [address], [address], 04/08/2017 11:00:57 04/08/20 17 04/08/2017 BMP, serum or plasm a chloride 107 mmol/ L 96-107 Not Available [address], [address], 04/08/2017 11:00:57 04/08/20 17 04/08/2017 BMP, serum or plasm a anion gap 11.3 5.0-15 .0 Not Available [address], [address], 04/08/2017 11:00:57 04/08/20 17 04/08/2017 BMP, serum or plasm a CO2 26 mmol/ L 21-32 Not Available [address], [address], 04/08/2017 11:00:57 04/08/20 17 04/08/2017 BMP, serum or plasm a calcium 9.2 mg/dL 8.5-10 .3 Not Available [address], [address], 04/08/2017 11:00:57 04/08/20 17 04/08/2017 lipid panel , serum cholesterol 188 mg/dL <200 mg/dl Vince able 200-2 39 mg/dl Borde rline High >240 mg/dl High Not Available [address], [address], 04/08/2017 11:00:58 04/08/20 17 04/08/2017 lipid panel , serum triglyceride s 108 mg/dL <150 mg/dL Jodie l 150-1 99 mg/dL Borde rline High 200-4 99 mg/dL High >500 mg/dL Very High Not Available [address], [address], 04/08/2017 11:00:58 04/08/20 17 04/08/2017 lipid panel , serum direct HDL 49 mg/dL Not Available [address], [address], 04/08/2017 11:00:58 04/08/20 17 04/08/2017 LDL, calcu [...] r is not neces jose. Not Available [address], [address], 04/08/2017 11:00:59 08/31/19 17 08/30/2016 MAMMO , [...] ly signed Maulik Alexander romeo: Chung Camposo [employer] (Imaging) [address] , [place], [address], 08/30/2016 13:38:43 Result Notes None recorded. Problems Name Problem SNOMED Code Status Onset Date Resolution Date Notes Provider Name and Address Organization Details Recorded Time Bunion 774222381 Active 2007 Not Available [facility] 3 03:14:44 Acquired hallux valgus 80839053 Active [address] [facility] 3 03:14:44 Type 2 diabetes mellitus 85485387 Active 2015 Zehra Muse NP [address] [place] [address], [address] , [facility] 7 09:22:41 Anxiety 45141303 Active 2016 Zehra Muse NP [address] [place] [address], [address] , [facility] 7 14:02:43 Hyperlipidemi a 75330828 Active 2016 Zehra Muse NP [address] [place] [address], [address] , [facility] 7 09:33:24 Problem Notes None recorded. Procedures Surgical History Date Name Laterality Status Provider Name and Address Organization Details Recorded Time 08/17/19 17 Medicare Wellness Visit completed Kristin Louie [facility] 08/16/2016 13:34:47 08/17/19 17 Medicare Risk for Falls Screen completed Kristin Louie [facility] 08/16/2016 13:42:08 07/09/19 17 POC Urinalysis Testing completed Kristin Louie [facility] 07/09/2016 17:09:53 08/06/19 15 Medicare Wellness Visit completed GENARO Lee [facility] 08/05/2014 11:07:58 07/09/19 15 Medicare Wellness Visit completed GENARO Lee [facility] 07/09/2014 10:06:04 03/25/20 14 Treatment and Advice completed Heather Alvarez Ms, PT [address] [place], [address], [facility] 03/25/2014 12:01:51 01/28/20 14 Treatment and Advice completed Heather Alvarez Ms, PT [address] [place], [address], [facility] 01/27/2014 09:01:25 Total Hysterectomy completed Zehra Muse, BOTTLE LABELER [address] [place], [address], [facility] 07/11/2011 15:21:09 Imaging Results Imaging Date Name Status LastModified by Organiz ation Details LastModified Time 08/30/2016 MAMMO, screening, digital, bilateral completed [facility] (Imaging) [address], [place], [address], 08/30/2016 13:38:43 Procedure Notes None recorded. Medical Equipment None Reported. 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 [facility] 7 09:13:19 Date Recorded Body height Body mass index (BMI) Body weight Heart rate Systolic blood pressure Diastolic blood pressure Provider Name and Address Organization Details Last Updated DateTime 7 154.94 cm 28.5 kg/m2 25731.4 5 g 84 /min 120 mm[Hg] 60 mm[Hg] Forest Serrano PAPER PROCESSING MACHINE HELPER [facility] 7 10:15:46 Date Recorded Body height Body temperature Heart rate Systolic blood pressure Diastolic blood pressure Provider Name and Address Organization Details Last Updated DateTime 08/21/2017 154.94 cm 98 [degF] 76 /min 120 mm[Hg] 70 mm[Hg] GENARO Gillette [facility] 8 15:42:59 Date Recorded Body height Body temperature Heart rate Systolic blood pressure Diastolic blood pressure Provider Name and Address Organization Details Last Updated DateTime 08/28/2017 154.94 cm 98 [degF] 78 /min 122 mm[Hg] 68 mm[Hg] Foerst Duronmarcos PAPER PROCESSING MACHINE HELPER [facility] 8 16:08:56 Social History Question Answer Notes LastModified by Organizat ion Details LastModified Time Tobacco Smoking Status Former [facility]oker [facility] 07/11/2011 14:54:04 What Is Your Level [...] not available 07/11/2011 CSRP - Narcotics No [email or web address] Informat ion not available 06/02/2012 CSRP Contract [...] SNOMED-CT Code Diagnosis ICD10 Code Diagnosis Note [id number] Radiology , [address] [address] 05/30/2007 10:35:16 05/30/2007 12:16:19 [id number] Podiatry, [address] [address] 05/30/2007 10:02:56 06/02/2007 08:17:22 [id number] Zehra Muse NP , [facility], OFFICE [address] [place] [address] 07/11/2011 14:32:41 07/11/2011 15:39:08 [id number] Radiology , [address] [address] 07/26/2011 13:26:32 07/30/2011 14:28:39 [id number] [facility], OFFICE [address] [place] [address] 08/15/2011 13:52:11 08/15/2011 15:14:49 [id number] , [facility], OFFICE [address] [place] [address] [place] [address] 10/16/2011 11:57:05 10/16/2011 12:46:37 [id number] , [facility], OFFICE [address] [place] [address] [place] [address] 12/12/2011 16:32:37 12/12/2011 17:21:14 [id number] Zehra Muse NP , [facility], OFFICE [address] [place] [address] [place] [address] 04/21/2012 16:31:55 04/21/2012 17:34:51 [id number] Viktor Bermeo MD [facility] , [address] [address] 08/05/2012 09:57:59 08/06/2012 12:18:20 [id number] Randell Darryl LOFTON , [facility], OFFICE [address] [place] [address] 11/04/2012 11:02:59 11/04/2012 12:16:15 [id number] , [facility], OFFICE [address] [place] [address] [place] [address] 01/06/2013 09:36:31 01/06/2013 10:12:27 Increased blood pressure 58041504 Anxiety disorder 414460107 Gastroesop hageal reflux disease 668387455 Impaired f asting glycemia 083986928 [id number] , [facility], OFFICE [address] [place] [address] [place] [address] 04/07/2013 09:34:03 04/07/2013 10:15:35 Increased blood pressure 63413782 Anxiety disorder 300799231 Impaired f asting glycemia 725366951 [id number] Keyla Sosa , [facility], OFFICE [address] [facility] [place] [address] 10/12/2013 13:30:54 10/12/2013 14:38:35 Impaired fasting glycemia 848699775 Chest pain 39453827 Gastroesop hageal reflux disease 349567197 [id number] , [facility], [address] [address] 01/15/2014 15:18:20 01/15/2014 15:38:33 Injury of foot 914646101 [id number] Heather Alvarez Ms, PT Physical Therapy, [address] [address] 01/27/2014 08:03:10 01/27/2014 11:20:34 Foot pain 41161667 [id number] [facility], [address] [address] 01/29/2014 11:29:10 02/01/2014 07:47:08 Foot pain 60838522 [id number] Heather Alvarez Ms, PT Physical Therapy, [address] [address] 02/11/2014 11:59:06 02/11/2014 14:24:52 Foot pain 96166481 [id number] Heather Alvarez Ms, PT Physical Therapy, [address] [address] 02/18/2014 11:32:53 02/18/2014 14:01:56 Foot pain 43760136 [id number] Heather Alvarez Ms, PT Physical Therapy, [address] [address] 02/25/2014 10:48:51 02/25/2014 12:09:34 Foot pain 83316740 [id number] Heather Alvarez Ms, PT Physical Therapy, [address] [address] 03/04/2014 11:00:19 03/04/2014 14:33:15 Foot pain 76071093 [id number] Heather Alvarez Ms, PT Physical Therapy, [address] [address] 03/11/2014 08:31:14 03/11/2014 12:48:41 Foot pain 00329762 [id number] Heather Alvarez Ms, PT Physical Therapy, [address] [address] 03/25/2014 11:14:35 03/26/2014 07:32:41 Foot pain 81635818 [id number] Heather Alvarez Ms, PT Physical Therapy, [address] [address] 04/06/2014 12:35:24 04/06/2014 13:45:25 Foot pain 51247402 [id number] Zehra Muse NP , [facility], OFFICE [address] [place] [address] 07/09/2014 10:02:02 07/09/2014 11:21:58 Pain in wrist 30828875 [id number] , [facility], OFFICE [address] [place] [address] 08/05/2014 11:02:11 08/05/2014 12:28:59 Adult health examination [id number] see Risk Assessment and Lifestyle Change Counseling section above Counseling [id number] Screening mammography 05466448 Chest pain 35347402 Fatigue 08780020 [id number] [place], [facility], OFFICE [address] [place] [address] 09/17/2014 09:17:17 09/17/2014 10:03:03 Impaired fasting glycemia 161088563 [id number] AURELIO Gray, [facility], OFFICE [address] [place] [address] 11/25/2015 08:16:16 11/25/2015 09:27:59 Impaired fasting glycemia 225271407 R73.01 Single neftali or depressive episode 373284616 F32.9 F32.0 Stable on meds. Varicose v eins of lower extremity 91881424 I83.91 [id number] AURELIO Gray, [facility], OFFICE [address] [place] [address] 01/19/2016 11:54:06 01/19/2016 12:52:52 Type 2 diabetes mellitus 14934246 E11.9 A1C 7.2 attempting to diet control, at this time does not want a glucometer , will follow up with [facility]. [id number] AURELIO Lizarraga, [facility], OFFICE [address] [place] [address] 07/09/2016 17:04:03 07/10/2016 08:36:04 Urinary tract infectious disease 77750152 N39.0 Patient instructed to push fluids, to follow up for persistent or worsening symptoms or fever or back pain. Vaginitis and vulvovaginitis 235357342 N76.0 [id number] AURELIO Gray, [facility], OFFICE [address] [place] [address] 08/16/2016 13:28:18 08/16/2016 14:43:19 Adult health examination 211105750 Z00.00 see Risk Assessment and Lifestyle Change Counseling section above Benign ess ential hypertension 2328404 I10 continue to work on diet, exercise, and lowering salt intake as discussed Mixed hyperlipidemia 267 356705 E78.2 continue to work on diet and exercise as discussed Screening for disorder 599905892 Z11.59 Screening mammography 24 449260 Z12.31 Anxiety 31472155 F41.9 Type 2 jerald betes mellitus 57158399 E11.9 A1C 6.9 attempting to diet control. Depressive disorder 3548 9007 F32.0 [id number] Jessika Noguera, Ms, Rdn, Ldn, CDE Nutrition -[address] [address] 08/30/2016 13:22:23 08/30/2016 16:17:53 Type 2 diabetes mellitus without complication 898872937 E11.9 [id number] Zehra Muse NP , [facility], OFFICE [address] [place] [address] 01/08/2017 09:01:25 01/08/2017 09:45:23 Type 2 diabetes mellitus 18797181 E11.9 A1C IS7.0Goal is asif 7.Will increase metformin to 1 bid Hyperlipidemia 22606054 E78.5 At goal.Goal is under 100LDL 83 Anxiety 44316780 F41.9 Stable on meds. [id number] Zehra Muse NP , [facility], OFFICE [address] [place] [address] 04/09/2017 10:03:21 04/09/2017 10:37:19 Mixed hyperlipidemia 729079938 E78.2 -continue to work on diet and exercise as discussed; WILL INCREASE MEDS. -LDL GOAL IS UNDER 100, LAST ONE WAS 117; NOT AT GOAL. Type 2 jerald betes mellitus 93894307 E11.37X1 DIABETES GOAL IS UNDER 7LAST A1C WAS 7 AGAIN. -INCREASE METFORMIN TO 2 PILLS AM AND 1 PM. Candidiasis of vagina 72 356155 B37.3 [id number] Mone Griffin NP , [facility], OFFICE [address] [place] [address] 08/21/2017 15:35:48 08/21/2017 17:01:45 Otalgia 17700554 H92.01 no erythema or bulging of the TM. not tolerating abx/augmen tin prescribed at [facility]. okay to stop Acute uppe r respiratory infection 20101758 J06.9 Drink plenty of fluids. Eat healthy [...] for reassessme nt (urgent care available in [place] office Sat 9-4 and Saturday-12 by appointmen t - call after 8AM for appt.) Dry cough can last for up to six weeks. [id number] OFELIA Cannon, [facility], OFFICE [address] [place] [address] 08/28/2017 15:42:38 08/28/2017 16:26:09 Temporomandibular joint disorder 29152657 M26.609 Discussed etiology, prognosis. Rec'd rest, ice/heat, NSAIDs PRN, and demonstrat ed jaw exercises. Acute uppe r respiratory infection 21549156 J06.9 Viral, s/p 2 courses of antibiotic [...] Alarcon Member ID Guarantor Name 08/30/[address] [facility] [id number] Kristofer Fonseca [id number] Barbara Fonseca 01/08/2017 1 [place]: [facility] Barbara Fonseca [id number] Barbara Fonseca 04/09/2017 1 [place] [facility] Barbara Fonseca [id number] Marian 08/21/[address] [facility] Barbara Fonseca [id number] Barbara Fonseca 08/21/2017 1 [place] [facility] Barbara Fonseca [id number] Marian 08/28/[address] [facility] Barbara Fonseca [id number] Barbara Fonseca 08/28/2017 1 [place] [facility] Barbara Fonseca [id number] Barbara Fonseca Notes Date Note Type Note Provider Name and Address Organization Details Recorded Time 7 text/html Nutrition Encounter updatedReported bypatient.Patient HistoryPatient chief nutritional complaint:Diabetes Nutrtition/dietarySee scanned images for Diet Intake Summary; past 6 weeks - stopped all soda likes junk like chips, fritos b - works at [employer]. packet of taoism oatmeal maple flavor, high fiber. snack - chips, cheese l - d - not a pasta eater brown rice or potato incorporating more vegetables found a low sugar yogurt for a snack at night Estimated Nutrient NeedsEnergy (kcals) 7818-9770 Recent Lab testsFasting Blood Sugar: (157); Hemoglobin A1C: (6.9%); Total Cholesterol: (201); LDL-Cholesterol: (121.8); HDL Cholesterol: (48); Triglycerides: (156) Physical Activity habitsExercise Type:Walking; likes to bike ride but fell off bike Jessika Noguera, Ms, Rdn, Ldn, CDE [address] [place], [address], [facility] 08/30/2016 16:07:18 7 text/html VMG HyperlipidemiaReported bypatient.Duration:at goal ldl 83 A1c 7. 0 Control:well controlled; improved since last visit; treated with diet; treated with medications Compliance:compliant with medications; compliant with follow-up visits Barriers to Careunder stress Context:Diabetes; Nonsmoker; No ischemic heart disease; No peripheral vascular disease ([address]) Associated Symptoms:no muscle pain; no fatigue; no chest discomfort; no dyspneaVMG HypertensionReported bypatient.Control:Patient understands medications are to lower blood pressure Compliance:Compliant with medications; Compliant with diet Context:No ischemic heart disease; No kidney disease; No history of CVA; No congestive heart failure Associated Symptoms:No chest pain; No shortness of breath; No edema; No fatigue Son - and moved to in [place]- had melt down- [facility]- crying. transporting pple. Dtr [...] past. Getting 10/27.]] Zehra Muse NP [address] [place], [address], [facility] 01/08/2017 09:47:41 7 text/html VMG DiabetesReported bypatient.Review finger sticks:a1c 7.0;VMG HyperlipidemiaReported bypatient.Duration:at goal ldl 117 A1c 7. 0 Control:well controlled; improved since last visit; treated with diet; treated with medications Compliance:compliant with medications; compliant with follow-up visits;noncompliant with diet; NOT EXERCISING. Barriers to Careunder stress Context:Diabetes; Nonsmoker; No ischemic heart disease; No peripheral vascular disease ([id number]) Associated Symptoms:no muscle pain; no fatigue; no [...] visit- Son - and moved to in [place]- had melt down- 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 Zehra Muse NP [address] [place] [address], [phone], [facility] 04/09/2017 10:44:50 8 text/html pt presents for [...] for dental infection Mone Griffin NP [address] [place], [phone], [facility] 08/21/2017 16:44:59 8 text/html F/U ear pain. [...] sinus pain, F/C, N/V/D. Gustavo Carey PA-C [address] [place] [address], [phone], [facility] 08/28/2017 16:26:43 OBGyn Episode No OBEpisode recorded.
== END 2024-07-03 13:55 | disposition home or self-care (01) ==
LOC: HO.XRAY 13:54
PROVIDERS: PCP Physician Assistant; Visit Provider Physician Assistant
DX: J32.9 Chronic sinusitis, unspecified (principal)
CPT/HCPCS: 70220

== ENCOUNTER → 2024-07-03 14:03 | Outpatient (BNV) | payer MEDICARE, SELFPAY | PROVIDERS: PCP Physician Assistant; Visit Provider Radiology Diagnostic Radiology | DX: J32.9 Chronic sinusitis, unspecified (principal) | CPT/HCPCS: 70220 ==

== ENCOUNTER 2024-07-16 10:45 | Outpatient (AMB) | payer MEDICARE, SELFPAY ==
[2024-07-16 11:14] VITALS: BP 140/82; PULSE 81; O2SAT 94; BMI 25.3
--- NOTE | 2024-07-16 11:14 | A.OFFVIS_ITS ---
Vital Signs 07/16/24 11:14 Height 5 ft 1 in Weight 134 lb BMI 25.3 BP 140/82 H Blood Pressure Location Rt brachial Position Sitting Pulse 81 Pulse Source Pulse Oximeter Pulse Oximetry (%) 94 Oxygen Delivery Method Room Air Intake Visit Reasons: Follow Up Intake Note: Patient presents follow up memory. Labs/MRI in chart. PT/Speech eval in chart. Balance getting bit worse Allergies peanut Allergy (Severe, Verified 07/16/24 11:20) Anaphylaxis HPI Comments Details: 78 year old female new patient referred to us by PCP for gait and cognitive decline. She has been free of falls and working with her PT 3x a week, head tilts are helpful however she still has pain after the PT sessions are completed. She will return to PT as patient said she did benefit from the sessions and sees a little improvement. Speech and Hearing has not reached out yet still pending visit. She did get new hearing aides, and needs some training on turning the battery off at night as she often forgets how to use them, she is hearing better. Sleep is good Her is interested in [place] therapy for her. Neuro Cognitive Evaluation is submitted. She continues to have dizziness, balance and gait difficulties. 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 She is socializing with her confucianism members and friends 3x per week. Her mood and diet is okay. Will have her complete the APOE4 Genetic markers testing saliva test with [employer] [facility]. Reviewed MRI with patient. [facility] Surgical History History of hysterectomy History of bunionectomy Family History Father Colon cancer Mother No problems noted. 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.) Vision needs: No Review of Systems ENT Reports Normal hearing present (Wears hearing aid L ear better than R without aids in.) Neuro Reports Normal hearing present (Wears hearing aid L ear better than R without aids in.) Physical Exam Vital Signs: Last Vital Signs Pulse 81 07/16/24 11:14 BP 140/82 H 07/16/24 11:14 Pulse Ox 94 07/16/24 11:14 Oxygen Delivery Method Room Air 07/16/24 11:14 BMI result Body Mass Index 25.3 Const General: cooperative, comfortable and no acute distress Nutritional Appearance: average body habitus Orientation/consciousness: oriented to person and oriented to time HEENT Ears: hearing grossly impaired Teeth and gingiva: other ([place] score of 3) Eyes Pupils: Equal, round and reactive pupils present Resp Effort & Inspection: normal respiratory effort and able to speak in complete sentences Neuro General: oriented to person and oriented to time Cranial nerves: Yes Facial sensation intact/muscles of mastication intact, Yes Equal, round and reactive pupils present, Yes Normal accommodation reflex present, Yes Bilaterally intact EOM present, Yes Nystagmus not present, Yes Normal facial strength present, Yes Midline tongue present, Yes Normal hearing present (Wears hearing aid L ear better than R without aids in.) and Yes Ability to bilaterally elevate shoulders present Gait exam (Neuro): Staggering gait present (Leans to the Right side, off balance.) Motor exam (neuro): 5/5 motor strength present throughout and Normal motor muscle tone present throughout Deep tendon reflexes (DTR's): Right triceps reflex intensity grade: 2+, Left triceps reflex intensity grade: 2+, Rt Biceps (C5, C6): 2+, Left biceps reflex intensity grade: 2+, Right brachioradialis reflex intensity grade: 2+, Left brac hioradialis reflex intensity grade: 2+, Right patellar reflex intensity grade: 2+ and Left patellar reflex intensity grade: 2+ Coordination: [id number]-ax-budp test normal and rapid alternating movements of the distal upper extremity normal Results Reviewed Results Reviewed: MR/MR brain wo con w neuroquant IMPRESSION: No acute intracranial findings. There is moderate cerebral volume loss of temporal lobe and hippocampus as described on Neuro quant studies. Extensive T2 periventricular small vessel ischemic changes in the supratentorial brain is similar to previous study. Electronically signed by: Socrates Bey MD 05/21/2024 0 Assessment & Plan Assessment & Plan (1) Memory impairment: Code(s): R41.3 - Other amnesia Category: Medical (2) Alzheimer's dementia: Code(s): G30.9 - Alzheimer's disease, unspecified; F02.80 - Dementia in other diseases classified elsewhere, unspecified severity, without behavioral disturbance, psychotic disturbance, mood disturbance, and anxiety Category: Medical Qualifiers: Alzheimer's disease onset: unspecified onset Dementia behavioral or psychological symptom: without behavioral, psychotic, or mood disturbance or anxiety Dementia severity: unspecified severity Qualified Code(s): G30.9 - Alzheimer's disease, unspecified; F02.80 - Dementia in other diseases classified elsewhere, unspecified severity, without behavioral disturbance, psychotic disturbance, mood disturbance, and anxiety Plan PET scan to determine Amyloid plaque burden APO E4 Genetic Marker Saliva testing with [employer] online and submit to lab of your choice. Last visit MMSE /30 will evaluate with MMSE at next visit. Continue Memantine at 28mg Vitamins/supplements: Lions benjamin mushrooms, cordyceps and Reishi, B6 vitamins Labs: CBC/ CMP / B12 Folate Homocysteine/ MMA /Vitamin D/ ESR CRP/ RPR / TSH / Iron F/U with Speech and Hearing Cognitive Therapy Continue Gait and Balance PT Determined by patient close to home Orders: Orders PT Evaluation and Treatment 07/16/24 M54.32 - Sciatica, left side PET Brain beta amyloid Today F02.80 - Dementia in other diseases classified elsewhere, unspecified severity, without behavioral disturbance, psychotic disturbance, mood disturbance, and anxiety, G30.9 - Alzheimer's disease, unspecified Patient Instructions: PET scan APO E4 Saliva Testing for Genetic Mutation Markers purchase and submit to lab Neuro Cognitive Evaluation PT Evaluation and Treat - strenght training Speech and Hearing Continue taking all medications as prescribed, continue socializing and attending PT, continue doing puzzles, reading and exercise at home also with resistance band. Allow to drive you to places, appointments etc. Join a book club Patient Education: Patient instructed to wear her hearing aids daily, as the Vestibular system plays a major role in cognitive decline. Mood: Stay socially engaged with friends and family, play bingo, puzzles, piano and use devices to become more comfortably immersed with AI technology. Coding Level of Care Code Est Pt Level 4 (96029) Complex EM visit Add On G2211 Diagnoses Memory impairment R41.3 Alzheimer's dementia without behavioral disturbance, psychotic disturbance, mood disturbance, or anxiety, unspecified dementia severity, unspecified timing of dementia onset G30.9; F02.80 Alzheimer's disease onset: unspecified onset Dementia behavioral or psychological symptom: without behavioral, psychotic, or mood disturbance or anxiety Dementia severity: unspecified severity
== END 2024-07-16 12:23 | disposition home or self-care (01) ==
PROVIDERS: PCP Physician Assistant; Visit Provider Physician Assistant Medical
DX: R41.3 Other amnesia (principal); G30.9 Alzheimer's disease, unspecified; F02.80 Dementia in other diseases classified elsewhere, unspecified severity, without behavioral disturbance, psychotic disturbance, mood disturbance, and anxiety
CPT/HCPCS: 99214; G2211

== ENCOUNTER → 2024-07-16 10:45 | Outpatient (BNVA) | payer MEDICARE, SELFPAY | PROVIDERS: PCP Physician Assistant; Visit Provider Physician Assistant Medical | DX: R41.3 Other amnesia (principal); G30.9 Alzheimer's disease, unspecified; F02.80 Dementia in other diseases classified elsewhere, unspecified severity, without behavioral disturbance, psychotic disturbance, mood disturbance, and anxiety | CPT/HCPCS: 99212 ==

== ENCOUNTER 2024-07-22 14:41 | Outpatient (REF) | payer MEDICARE, SELFPAY ==
[2024-07-22 15:20] LABS: Hematocrit 35.9 % (37.0-47.0); Hemoglobin 11.9 g/dl (12.0-16.0); Mean Corpuscular HGB Conc 33.1 g/dl (31.0-35.0); Mean Corpuscular Hemoglobin 30.6 pg (27.0-33.0); Mean Corpuscular Volume 92.3 fL (80.0-98.0); Mean Platelet Volume 9.7 fL (9.4-12.3); Platelet Count 266 X10*3/uL (160-400); Red Blood Count 3.89 X10*6/uL (4.20-5.50); Red Cell Distribution Width 12.7 % (11.0-16.0); White Blood Count 9.1 X10*3/uL (4.8-10.8)
[2024-07-22 16:26] LABS: Folate 7.6 ng/mL (> or = 4.0); Vitamin B12 275 pg/mL (200-900)
[2024-07-22 17:15] LABS: Alanine Aminotransferase 24 U/L (0-31); Albumin Level 4.3 g/dL (3.5-5.0); Alkaline Phosphatase 68 U/L (39-117); Anion Gap 13 (12-20); Aspartate Amino Transferase 33 U/L (5-31); Bilirubin Total 0.5 mg/dL (0.0-1.0); Blood Urea Nitrogen 50 mg/dL (9-16); Calcium 10.7 mg/dL (8.4-10.2); Carbon Dioxide 27 mmol/L (22-29); Chloride 105 mmol/L (96-108); Estimated Glomerular Filt Rate 21; Glucose Random 97 mg/dL (60-115); Iron 131 mcg/dL (30-160); Percent Iron Saturation 47 % (15-50); Potassium 3.9 mmol/L (3.3-5.1); Sodium 141 mmol/L (135-145); Total Iron Binding Capacity 280 mcg/dL (228-428); Total Protein 7.6 g/dL (6.5-8.0); Unsaturated Iron Binding 149 ug/dL
--- OUTSIDE RECORDS SUMMARY | 2024-07-22 17:20 | XMS_ITS | Data Portability ---
Author Organization [facility], FORMERLY [facility] Address [address] [place] [address] Care Team Providers Care Balance Recesser Name Role Phone KANWAL HEATHER Phys. Med. & Rehab Unavailable ZEHRA MUSE Primary Care Provider [phone] VIKTOR LABOY Beater Room Helper Unavailable Assessment Encounter Date Assessment Date Assessment [...] atorvastati n 40 mg tablet [address]/Pharmacy [address]2025, [address] [place], [address], 7 10:44:34 metformin ER 500 mg tablet,exte nded release 24 hr [address]armacy [address]2025, [address] [place], [address], 7 10:44:34 Diflucan 150 mg tablet [address]armacy [address]2025, [address] [place], [address], 7 10:44:34 metformin ER 500 mg tablet,exte nded release 24 hr [address]armacy [address]2025, [address] [place], [address], 7 10:32:19 Patient TargetsNo targets recorded. Patient Instructions Encounter Date Encounter Id Patient Instructions Last Modified By Organization Details Last Modified Time 08/30/2016 [id number] - try a lower sugar higher protein [...] 46 [email or web address] Not available 08/30/2016 16:06:32 01/08/2017 [id number] CCM: The provide r and patient discussed [...] for labs/diabetes. Not available 01/08/2017 09:35:34 04/09/2017 [id number] high cholesterol lifestyle changes Not available 04/09/2017 [...] any concerns. Not available 04/09/2017 10:42:51 08/21/2017 [id number] schedule medical management when feeling better hwzorek Not available 08/21/2017 16:44:31 08/28/2017 [id number] After a discussion of treatment options, which [...] further questions or concerns. 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 agrinstein Not available 08/28/2017 16:23:16 Reason for Referral None Reported. Results Created Date Observation Date Name Description Value Unit Range Abnormal Flag Note LastModifiedBy Organization Detail LastModifiedTime 08/10/19 17 08/09/2016 HbA1c (hemo globi n A1c), blood hemoglobin A1C 6.9 % 4.8-6. 0 high Goal: <7% in Patie nts with Diabe claudy Not Available [address], [place], [address], 08/09/2016 09:15:24 08/10/1908/09/2016 HbA1c (hemo globi n A1c), blood estimated average glucose 151.3 mg/dL Not Available [address], [address], 08/09/2016 09:15:24 08/10/19 17 08/09/2016 micro album in, urine microalbumin 6.5 mg/L 1.3-20 .0 Not Available [address], [address], 08/09/2016 09:44:26 08/10/19 17 08/09/2016 micro album in, urine creatinine urine 64.1 mg/dL 30.0-1 25.0 Not Available [address], [address], 08/09/2016 09:44:26 08/10/19 17 08/09/2016 micro album in, urine microalb/cre at ratio 10.1 mg/g_ creat 0.0-29 .0 Not Available [address], [address], 08/09/2016 09:44:26 08/10/19 17 08/09/2016 BMP, serum or plasm a glucose 157 mg/dL 70-100 high Not Available [address], [address], 08/09/2016 11:14:05 08/10/19 17 08/09/2016 BMP, serum or plasm a BUN 14 mg/dL 7-18 Not Available [address], [address], 08/09/2016 11:14:05 08/10/19 17 08/09/2016 BMP, serum or plasm a creatinine 0.8 mg/dL 0.8-1. 3 Not Available [address], [address], 08/09/2016 11:14:05 08/10/19 17 08/09/2016 BMP, serum or plasm a B/C 17.5 ratio Not Available [address], [address], 08/09/2016 11:14:05 08/10/19 17 08/09/2016 BMP, serum or plasm a GFR -non 79.4 mL/mi n Recom arnold d GFR by the Natio nal Kidne y Found ation >60 mL/mi n/1.7 3m2 - Jodie l <60 mL/mi n/1.7 3m2 - Chron ic Kidne y Disea se <15 mL/mi n/1.7 3m2 - Kidne y Failu re Not Available [address], [address], 08/09/2016 11:14:05 08/10/19 17 08/09/2016 BMP, serum or plasm a GFR - if 91.3 mL/mi n For Afric an Ameri can patie nts: Resul ts Multi plied by 1.21 Not Available [address], [address], 08/09/2016 11:14:05 08/10/19 17 08/09/2016 BMP, serum or plasm a sodium 144 mmol/ L 136-14 5 Not Available [address], [address], 08/09/2016 11:14:05 08/10/19 17 08/09/2016 BMP, serum or plasm a potassium 4.1 mmol/ L 3.5-5. 1 Not Available [address], [address], 08/09/2016 11:14:05 08/10/19 17 08/09/2016 BMP, serum or plasm a chloride 108 mmol/ L 96-107 high Not Available [address], [address], 08/09/2016 11:14:05 08/10/19 17 08/09/2016 BMP, serum or plasm a anion gap 6.2 5.0-15 .0 Not Available [address], [address], 08/09/2016 11:14:05 08/10/19 17 08/09/2016 BMP, serum or plasm a CO2 30 mmol/ L 21-32 Not Available [address], [address], 08/09/2016 11:14:05 08/10/19 17 08/09/2016 BMP, serum or plasm a calcium 8.7 mg/dL 8.5-10 .3 Not Available [address], [address], 08/09/2016 11:14:05 08/10/19 17 08/09/2016 lipid panel , serum cholesterol 201 mg/dL <200 mg/dl Vince able 200-2 39 mg/dl Borde rline High >240 mg/dl High Not Available [address], [address], 08/09/2016 11:14:06 08/10/19 17 08/09/2016 lipid panel , serum triglyceride s 156 mg/dL <150 mg/dL Jodie l 150-1 99 mg/dL Borde rline High 200-4 99 mg/dL High >500 mg/dL Very High Not Available [address], [address], 08/09/2016 11:14:06 08/10/19 17 08/09/2016 lipid panel , serum direct HDL 48 mg/dL Not Available [address], [address], 08/09/2016 11:14:06 08/10/19 17 08/09/2016 LDL, calcu [...] r is not ryannancy garcia. Not Available [address], [address], 08/09/2016 11:14:07 11/09/19 17 11/08/2016 HbA1c (hemo globi n A1c), blood hemoglobin A1C 7.0 % 4.8-6. 0 high Goal: <7% in Patie nts with Diabe claudy Not Available [address], [address], 11/08/2016 09:39:46 11/09/19 17 11/08/2016 HbA1c (hemo globi n A1c), blood estimated average glucose 154.2 mg/dL Not Available [address], [address], 11/08/2016 09:39:46 11/09/19 17 11/08/2016 lipid panel , serum cholesterol 151 mg/dL <200 mg/dl Vince able 200-2 39 mg/dl Borde rline High >240 mg/dl High Not Available [address], [address], 11/08/2016 11:53:43 11/09/19 17 11/08/2016 lipid panel , serum triglyceride s 88 mg/dL <150 mg/dL Jodie l 150-1 99 mg/dL Borde rline High 200-4 99 mg/dL High >500 mg/dL Very High Not Available [address], [address], 11/08/2016 11:53:43 11/09/19 17 11/08/2016 lipid panel , serum direct HDL 50 mg/dL Not Available [address], [address], 11/08/2016 11:53:43 11/09/19 17 11/08/2016 LDL, calcu [...] r is not curtis garcia. Not Available [address], [address], 11/08/2016 11:53:44 11/09/19 17 11/08/2016 hepat itis C virus Ab, serum hepatitis C antibody NON-RE ACTIVE non-re active normal Not Available [facility] [address], [address], 11/08/2016 19:58:09 11/09/19 17 11/08/2016 hepat itis C virus Ab, serum signal to cut-off 0.03 <1.00 normal Not Available [facility] [address], [address], 11/08/2016 19:58:09 04/08/20 17 04/08/2017 HbA1c (hemo globi n A1c), blood hemoglobin A1C 7.0 % 4.8-6. 0 high Goal: <7% in Patie nts with Diabe claudy Not Available [address], [address], 04/08/2017 09:41:26 04/08/20 17 04/08/2017 HbA1c (hemo globi n A1c), blood estimated average glucose 154.2 mg/dL Not Available [address], [address], 04/08/2017 09:41:26 04/08/20 17 04/08/2017 BMP, serum or plasm a glucose 131 mg/dL 70-100 high Not Available [address], [address], 04/08/2017 11:00:57 04/08/20 17 04/08/2017 BMP, serum or plasm a BUN 19 mg/dL 7-18 high Not Available [address], [address], 04/08/2017 11:00:57 04/08/20 17 04/08/2017 BMP, serum or plasm a creatinine 0.9 mg/dL 0.8-1. 3 Not Available [address], [address], 04/08/2017 11:00:57 04/08/20 17 04/08/2017 BMP, serum or plasm a B/C 21.1 ratio Not Available [address], [address], 04/08/2017 11:00:57 04/08/20 17 04/08/2017 BMP, serum or plasm a GFR -non 69.3 mL/mi n Recom arnold d GFR by the Natio nal Kidne y Found ation >60 mL/mi n/1.7 3m2 - Jodie l <60 mL/mi n/1.7 3m2 - Chron ic Kidne y Disea se <15 mL/mi n/1.7 3m2 - Kidne y Failu re Not Available [address], [address], 04/08/2017 11:00:57 04/08/20 17 04/08/2017 BMP, serum or plasm a GFR - if 79.7 mL/mi n For Afric an Ameri can patie nts: Resul ts Multi plied by 1.21 Not Available [address], [address], 04/08/2017 11:00:57 04/08/20 17 04/08/2017 BMP, serum or plasm a sodium 144 mmol/ L 136-14 5 Not Available [address], [address], 04/08/2017 11:00:57 04/08/20 17 04/08/2017 BMP, serum or plasm a potassium 4.0 mmol/ L 3.5-5. 1 Not Available [address], [address], 04/08/2017 11:00:57 04/08/20 17 04/08/2017 BMP, serum or plasm a chloride 107 mmol/ L 96-107 Not Available [address], [address], 04/08/2017 11:00:57 04/08/20 17 04/08/2017 BMP, serum or plasm a anion gap 11.3 5.0-15 .0 Not Available [address], [address], 04/08/2017 11:00:57 04/08/20 17 04/08/2017 BMP, serum or plasm a CO2 26 mmol/ L 21-32 Not Available [address], [address], 04/08/2017 11:00:57 04/08/20 17 04/08/2017 BMP, serum or plasm a calcium 9.2 mg/dL 8.5-10 .3 Not Available [address], [address], 04/08/2017 11:00:57 04/08/20 17 04/08/2017 lipid panel , serum cholesterol 188 mg/dL <200 mg/dl Vince able 200-2 39 mg/dl Borde rline High >240 mg/dl High Not Available [address], [address], 04/08/2017 11:00:58 04/08/20 17 04/08/2017 lipid panel , serum triglyceride s 108 mg/dL <150 mg/dL Jodie l 150-1 99 mg/dL Borde rline High 200-4 99 mg/dL High >500 mg/dL Very High Not Available [address], [address], 04/08/2017 11:00:58 04/08/20 17 04/08/2017 lipid panel , serum direct HDL 49 mg/dL Not Available [address], [address], 04/08/2017 11:00:58 04/08/20 17 04/08/2017 LDL, calcu [...] r is not neces jose. Not Available [address], [address], 04/08/2017 11:00:59 08/31/19 17 08/30/2016 MAMMO , [...] ly signed Maulik Alexander romeo: Chung Camposo [address] (Imaging) [address] , [place], [address], 08/30/2016 13:38:43 Result Notes None recorded. Problems Name Problem SNOMED Code Status Onset Date Resolution Date Notes Provider Name and Address Organization Details Recorded Time Bunion 584160688 Active 2007 Not Available [facility] 3 03:14:44 Acquired hallux valgus 20922087 Active 2007 Not Available [facility] 3 03:14:44 Type 2 diabetes mellitus 25197800 Active 2015 Zehra Muse NP [address] [place] [address], [address] , [facility] 7 09:22:41 Anxiety 81070535 Active 2016 Zehra Muse NP [address] [place] [address], [address] , [facility] 7 14:02:43 Hyperlipidemi a 56988589 Active 2016 Zehra Muse NP [address] [place] [address], [address] , [facility] 7 09:33:24 Problem Notes None recorded. Procedures Surgical History Date Name Laterality Status Provider Name and Address Organization Details Recorded Time 08/17/19 17 Medicare Wellness Visit completed Kristin Louie [facility] 08/16/2016 13:34:47 08/17/19 17 Medicare Risk for Falls Screen completed Kristin Louie [facility] 08/16/2016 13:42:08 07/09/19 17 POC Urinalysis Testing completed Kristin Louie [facility] 07/09/2016 17:09:53 08/06/19 15 Medicare Wellness Visit completed GENARO Lee [facility] 08/05/2014 11:07:58 07/09/19 15 Medicare Wellness Visit completed GENARO Lee [facility] 07/09/2014 10:06:04 03/25/20 14 Treatment and Advice completed Heather Alvarez Ms, PT [address] [place], [address], [facility] 03/25/2014 12:01:51 01/28/20 14 Treatment and Advice completed Heather Alvarez Ms, PT [address] [place], [address], [facility] 01/27/2014 09:01:25 Total Hysterectomy completed Zehra Muse, ORNAMENTAL IRON ERECTOR [address] [place], [address], [facility] 07/11/2011 15:21:09 Imaging Results Imaging Date Name Status LastModified by Organiz ation Details LastModified Time 08/30/2016 MAMMO, screening, digital, bilateral completed [facility] ([facility]) [address], [place], [address], 08/30/2016 13:38:43 Procedure Notes None recorded. Medical Equipment None Reported. Allergies No known drug allergies Medications Name Sig Start Date Stop Date Status Note LastModified by Organization Details LastModified Time nystatin carmen 180631 active Not Available Not Available N ot [...] Updated DateTime 7 154.94 cm 28 kg/m2 44469.0 7 g 64 /min 120 mm[Hg] 84 mm[Hg] Charity Taylor SUPPORT SERVICES COORDINATOR [facility] 7 09:13:19 Date Recorded Body height Body mass index (BMI) Body weight Heart rate Systolic blood pressure Diastolic blood pressure Provider Name and Address Organization Details Last Updated DateTime 7 154.94 cm 28.5 kg/m2 76495.4 5 g 84 /min 120 mm[Hg] 60 mm[Hg] Forest Serrano SUPPORT SERVICES COORDINATOR [facility] 7 10:15:46 Date Recorded Body height Body temperature Heart rate Systolic blood pressure Diastolic blood pressure Provider Name and Address Organization Details Last Updated DateTime 08/21/2017 154.94 cm 98 [degF] 76 /min 120 mm[Hg] 70 mm[Hg] GENARO Gillette [facility] 8 15:42:59 Date Recorded Body height Body temperature Heart rate Systolic blood pressure Diastolic blood pressure Provider Name and Address Organization Details Last Updated DateTime 08/28/2017 154.94 cm 98 [degF] 78 /min 122 mm[Hg] 68 mm[Hg] Forest Duronmarcos SUPPORT SERVICES COORDINATOR [facility] 8 16:08:56 Social History Question Answer Notes LastModified by Organizat ion Details LastModified Time Tobacco Smoking Status [facility]2011 14:54:04 What Is Your [...] not available 07/11/2011 CSRP - Narcotics No [email or web address] Informat ion not available 06/02/2012 CSRP Contract [...] SNOMED-CT Code Diagnosis ICD10 Code Diagnosis Note [id number] Radiology , [address] [address] 05/30/2007 10:35:16 05/30/2007 12:16:19 [id number] Podiatry, [address] [address] 05/30/2007 10:02:56 06/02/2007 08:17:22 [id number] Zehra Muse NP , [facility], OFFICE [address] [place] [address] 07/11/2011 14:32:41 07/11/2011 15:39:08 [id number] Radiology , [address] [address] 07/26/2011 13:26:32 07/30/2011 14:28:39 [id number] [facility], OFFICE [address] [place] [address] 08/15/2011 13:52:11 08/15/2011 15:14:49 [id number] , [facility], OFFICE [address] [place] [address] [place] [address] 10/16/2011 11:57:05 10/16/2011 12:46:37 [id number] , [facility], OFFICE [address] [place] [address] [place] [address] 12/12/2011 16:32:37 12/12/2011 17:21:14 [id number] Zehra Muse NP , [facility] [place], OFFICE [address] [place] [address] [place] [address] 04/21/2012 16:31:55 04/21/2012 17:34:51 [id number] Viktor Bermeo MD [facility] , [address] [address] 08/05/2012 09:57:59 08/06/2012 12:18:20 [id number] Randell Darryl LO[place]ON , [facility] [place], OFFICE [address] [place] [address] 11/04/2012 11:02:59 11/04/2012 12:16:15 [id number] , [facility], OFFICE [address] [place] [address] [place] [address] 01/06/2013 09:36:31 01/06/2013 10:12:27 Increased blood pressure 26289269 Anxiety disorder 614199071 Gastroesop hageal reflux disease 566938517 Impaired f asting glycemia 649976054 [id number] , [facility] [place], OFFICE [address] [place] [address] [place] [address] 04/07/2013 09:34:03 04/07/2013 10:15:35 Increased blood pressure 61905170 Anxiety disorder 590005864 Impaired f asting glycemia 684745761 [id number] Keyla Sosa , [facility], OFFICE [address] [facility] [place] [address] 10/12/2013 13:30:54 10/12/2013 14:38:35 Impaired fasting glycemia 813686856 Chest pain 54924519 Gastroesop hageal reflux disease 117946131 [id number] , [facility] [place], [address] [address] 01/15/2014 15:18:20 01/15/2014 15:38:33 Injury of foot 633031626 [id number] Heather Alvarez Ms, PT Physical Therapy, [address] [address] 01/27/2014 08:03:10 01/27/2014 11:20:34 Foot pain 84517523 [id number] [facility], [address] [address] 01/29/2014 11:29:10 02/01/2014 07:47:08 Foot pain 10139123 [id number] Heather Alvarez Ms, PT Physical Therapy, [address] [address] 02/11/2014 11:59:06 02/11/2014 14:24:52 Foot pain 81247112 [id number] Heather Alvarez Ms, PT Physical Therapy, [address] [address] 02/18/2014 11:32:53 02/18/2014 14:01:56 Foot pain 86775807 [id number] Heather Alvarez Ms, PT Physical Therapy, [address] [address] 02/25/2014 10:48:51 02/25/2014 12:09:34 Foot pain 37392633 [id number] Heather Alvarez Ms, PT Physical Therapy, [address] [address] 03/04/2014 11:00:19 03/04/2014 14:33:15 Foot pain 11156036 [id number] Heather Alvarez Ms, PT Physical Therapy, [address] [address] 03/11/2014 08:31:14 03/11/2014 12:48:41 Foot pain 92458413 [id number] Heather Alvarez Ms, PT Physical Therapy, [address] [address] 03/25/2014 11:14:35 03/26/2014 07:32:41 Foot pain 73067596 [id number] Heather Alvarez Ms, PT Physical Therapy, [address] [address] 04/06/2014 12:35:24 04/06/2014 13:45:25 Foot pain 41116918 [id number] Zehra Muse NP , [facility] [place], OFFICE [address] [place] [address] 07/09/2014 10:02:02 07/09/2014 11:21:58 Pain in wrist 98670993 [id number] , [facility] [place], OFFICE [address] [place] [address] 08/05/2014 11:02:11 08/05/2014 12:28:59 Adult health examination 700031934 see Risk Assessment and Lifestyle Change Counseling section above Counseling [id number] Screening mammography 20500364 Chest pain 23632315 Fatigue 60261802 [id number] [place], [facility], OFFICE [address] [place] [address] 09/17/2014 09:17:17 09/17/2014 10:03:03 Impaired fasting glycemia 417838638 [id number] AURELIO Gray, [facility] [place], OFFICE [address] [place] [address] 11/25/2015 08:16:16 11/25/2015 09:27:59 Impaired fasting glycemia 247408633 R73.01 Single neftali or depressive episode 437810477 F32.9 F32.0 Stable on meds. Varicose v eins of lower extremity 89770836 I83.91 [id number] AURELIO Gray, [facility] [place], OFFICE [address] [place] [address] 01/19/2016 11:54:06 01/19/2016 12:52:52 Type 2 diabetes mellitus 06115707 E11.9 A1C 7.2 attempting to diet control, at this time does not want a glucometer , will follow up with [facility]. [id number] AURELIO Lizarraga, [facility] [place], OFFICE [address] [place] [address] 07/09/2016 17:04:03 07/10/2016 08:36:04 Urinary tract infectious disease 28858018 N39.0 Patient instructed to push fluids, to follow up for persistent or worsening symptoms or fever or back pain. Vaginitis and vulvovaginitis 380141819 N76.0 [id number] AURELIO Gray, [facility] [place], OFFICE [address] [place] [address] 08/16/2016 13:28:18 08/16/2016 14:43:19 Adult health examination 638639760 Z00.00 see Risk Assessment and Lifestyle Change Counseling section above Benign ess ential hypertension 3332954 I10 continue to work on diet, exercise, and lowering salt intake as discussed Mixed hyperlipidemia 267 724795 E78.2 continue to work on diet and exercise as discussed Screening for disorder 372630394 Z11.59 Screening mammography 24 518120 Z12.31 Anxiety 57148629 F41.9 Type 2 jerald betes mellitus 51397489 E11.9 A1C 6.9 attempting to diet control. Depressive disorder 3548 9007 F32.0 [id number] Jessika Noguera, Ms, Rdn, Ldn, CDE Nutrition -[address] [address] 08/30/2016 13:22:23 08/30/2016 16:17:53 Type 2 diabetes mellitus without complication 308762935 E11.9 [id number] Zehra Muse NP , [facility] [place], OFFICE [address] [place] [address] 01/08/2017 09:01:25 01/08/2017 09:45:23 Type 2 diabetes mellitus 16801535 E11.9 A1C IS7.0Goal is asif 7.Will increase metformin to 1 bid Hyperlipidemia 97966608 E78.5 At goal.Goal is under 100LDL 83 Anxiety 42124894 F41.9 Stable on meds. [id number] Zehra Muse NP , [facility] [place], OFFICE [address] [place] [address] 04/09/2017 10:03:21 04/09/2017 10:37:19 Mixed hyperlipidemia 650794647 E78.2 -continue to work on diet and exercise as discussed; WILL INCREASE MEDS. -LDL GOAL IS UNDER 100, LAST ONE WAS 117; NOT AT GOAL. Type 2 jerald betes mellitus 43017905 E11.37X1 DIABETES GOAL IS UNDER 7LAST A1C WAS 7 AGAIN. -INCREASE METFORMIN TO 2 PILLS AM AND 1 PM. Candidiasis of vagina 72 425461 B37.3 [id number] Mone Griffin NP , [facility] [place], OFFICE [address] [place] [address] 08/21/2017 15:35:48 08/21/2017 17:01:45 Otalgia 91919051 H92.01 no erythema or bulging of the TM. not tolerating abx/augmen tin prescribed at [facility]. okay to stop Acute uppe r respiratory infection 91414513 J06.9 Drink plenty of fluids. Eat healthy [...] for reassessme nt (urgent care available in [place] office Sat 9-4 and Saturday-12 by appointmen t - call after 8AM for appt.) Dry cough can last for up to six weeks. [id number] OFELIA Cannon, [facility] [place], OFFICE [address] [place] [address] 08/28/2017 15:42:38 08/28/2017 16:26:09 Temporomandibular joint disorder 29545852 M26.609 Discussed etiology, prognosis. Rec'd rest, ice/heat, NSAIDs PRN, and demonstrat ed jaw exercises. Acute uppe r respiratory infection 39530856 J06.9 Viral, s/p 2 courses of antibiotic [...] Alarcon Member ID Guarantor Name 08/30/2016 1 [facility] [id number] Kristofer Fonseca [id number] Barbara Fonseca 01/08/2017 1 MEDICARE B-PA: [employer] A Marian [id number] Barbara Ellisonnon 04/09/2017 1 MEDICARE B-PA: [employer] A Marian [id number] Marian 08/21/2017 2 [facility] Barbara Fonseca [id number] Marian 08/21/2017 1 MEDICARE B-PA: N[facility] A Marian [id number] Marian 08/28/2017 2 [facility]: [facility] A Marian [id number] Marian 08/28/2017 1 MEDICARE B-PA: [employer] A Marian [id number] Barbara Fonseca Notes Date Note Type Note Provider Name and Address Organization Details Recorded Time 7 text/html Nutrition Encounter updatedReported bypatient.Patient HistoryPatient chief nutritional complaint:Diabetes Nutrtition/dietarySee scanned images for Diet Intake Summary; past 6 weeks - stopped all soda likes junk like chips, fritos b - works at [employer]. packet of roman [employer] oatmeal maple flavor, high fiber. snack - chips, cheese l - d - not a pasta eater brown rice or potato incorporating more vegetables found a low sugar yogurt for a snack at night Estimated Nutrient NeedsEnergy (kcals) 4337-7920 Recent Lab testsFasting Blood Sugar: (157); Hemoglobin A1C: (6.9%); Total Cholesterol: (201); LDL-Cholesterol: (121.8); HDL Cholesterol: (48); Triglycerides: (156) Physical Activity habitsExercise Type:Walking; likes to bike ride but fell off bike Jessika Noguera, Ms, Rdn, Ldn, CDE [address], [place], [id number], [facility] 08/30/2016 16:07:18 7 text/html VMG HyperlipidemiaReported bypatient.Duration:at goal ldl 83 A1c 7. 0 Control:well controlled; improved since last visit; treated with diet; treated with medications Compliance:compliant with medications; compliant with follow-up visits Barriers to Careunder stress Context:Diabetes; Nonsmoker; No ischemic heart disease; No peripheral vascular disease ([id number]) Associated Symptoms:no muscle pain; no fatigue; no chest discomfort; no dyspneaVMG HypertensionReported bypatient.Control:Patient understands medications are to lower blood pressure Compliance:Compliant with medications; Compliant with diet Context:No ischemic heart disease; No kidney disease; No history of CVA; No congestive heart failure Associated Symptoms:No chest pain; No shortness of breath; No edema; No fatigue Son - and [place]- had melt down- [facility] [employer]- crying. [...] testicular ca in past. Getting 10/27.]] Zehra Muse, AURE[address] [place], [phone], [facility] 01/08/2017 09:47:41 7 text/html VMG DiabetesReported bypatient.Review finger sticks:a1c 7.0;VMG HyperlipidemiaReported bypatient.Duration:at goal ldl 117 A1c 7. 0 Control:well controlled; improved since last visit; treated with diet; treated with medications Compliance:compliant with medications; compliant with follow-up visits;noncompliant with diet; NOT EXERCISING. Barriers to Careunder stress Context:Diabetes; Nonsmoker; No ischemic heart disease; No peripheral vascular disease ([id number]) Associated Symptoms:no muscle pain; no fatigue; no [...] visit- Son - and moved [place]- had melt down- 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 Zehra Muse NP [address] [place] [address], [phone], [facility] 04/09/2017 10:44:50 8 text/html pt presents for [...] zpac for dental infection Mone Griffin NP [address] [place] [address], [phone], [facility] 08/21/2017 16:44:59 8 text/html F/U ear pain. [...] sinus pain, F/C, N/V/D. Gustavo Carey PA-C [address] [place] [address], [phone], [facility] 08/28/2017 16:26:43 OBGyn Episode No OBEpisode recorded.
[2024-07-22 17:32] LABS: TSH reflex Free T4 0.02 uIU/mL (0.32-4.0)
[2024-07-22 21:27] LABS: Free T4 (Free Thyroxine) 1.61 ng/dL (0.71-1.85)
[2024-07-26 04:08] LABS: Methylmalonic Acid 302 nmol/L (69-390)
== END 2024-07-22 14:42 | disposition home or self-care (01) ==
LOC: HO.LAB 14:41
PROVIDERS: PCP Physician Assistant; Visit Provider Physician Assistant Medical
DX: R41.3 Other amnesia (principal); F09 Unspecified mental disorder due to known physiological condition; G30.9 Alzheimer's disease, unspecified; F02.80 Dementia in other diseases classified elsewhere, unspecified severity, without behavioral disturbance, psychotic disturbance, mood disturbance, and anxiety; Z13.6 Encounter for screening for cardiovascular disorders
CPT/HCPCS: 80053; 82542; 82607; 82746; 83090; 83540; 83921; 84439; 84443; 85027; 86141

== ENCOUNTER 2024-08-10 14:00 | Outpatient (AMB) | payer MEDICARE, SELFPAY ==
[2024-08-10 14:02] VITALS: BP 108/62; PULSE 88; O2SAT 95; BMI 24.2
--- NOTE | 2024-08-10 14:02 | MHC.PC.OV ---
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 Accompanied by: Family/Other Allergies peanut Allergy (Severe, Verified 08/10/24 14:17) Anaphylaxis Medication List - Last Reconciled 08/10/24 by Raudel Flanagan PA-C calcium carbonate (Oyster Shell Calcium) 500 mg PO BID 90 days cholecalciferol (vitamin D3) 50 mcg PO DAILY 90 days escitalopram oxalate 20 mg PO DAILY ferrous sulfate 325 mg PO DAILY 90 days MDD 325mg hydrochlorothiazide 12.5 mg PO DAILY 30 days levothyroxine 100 mcg PO DAILY levothyroxine 75 mcg PO DAILY lisinopril 20 mg PO DAILY 90 days lorazepam 0.5 mg PO DAILY PRN memantine 28 mg PO DAILY MDD 28mg memantine 28 mg PO DAILY 90 days metformin 500 mg PO BID 90 days simvastatin 20 mg PO BEDTIME Tobacco use date assessed: 06/15/24 Fall risk assessment: 2 + Falls in past year Last assessed Fall Risk: 08/10/24 Dental Screening Dental Screen Date: 06/15/24 HPI f/u DMII HPI Details who is a 79 ?year old female here today for ER follow-up visit. She was found to have elevated blood pressure readings at her physical therapy office. Patient has a PMH significant for type 2 DM, hypertension, anxiety, hypothyroid. Concern--> Patient reporting dizziness and unsteadiness over the last 6 months though has increased over the last month.. She reports episodes of orthostatic hypotension and has experienced two recent falls. Her family notes increased fatigue, lethargy, and cognitive decline over the past six weeks. Despite discontinuing memantine, her fatigue and memory issues persist. The family reports significant changes, including long periods of sleep, minimal dietary intake, decreased appetite, and unintended weight loss to 128 pounds. Hearing impairment has worsened due to a malfunction of her hearing aids. Previous laboratory tests indicated dehydration-related acute kidney injury, as suggested by elevated BUN and creatinine levels. Concerns regarding her blood pressure medications, particularly Lisinopril and hydrochlorothiazide, contributing to her condition, were discussed. CHRONIC MEDICAL CONDITIONS----> Memory impairment: Has gotten brain MRI that did show age-related findings- parenchymal volume loss. Has been started on memantine by her neurologist. ? .. ? DMII: Most recent A1c is 6.6, fasting blood sugar improved. Patient is currently taking Metformin 2000mg daily, Reports her diet has been a bit better during the summer. .. Generalized anxiety disorder:? Has been under more anxiety as of late due to family issues.? She does use lorazepam on a very limited p.r.n. basis.? Continues on Lexapro on a daily basis with decent affect. ? .. ? Hypothyroidism: Most recent labs showing much improved TSH. Will continue her current dose of levothyroxine. [facility] Surgical History History of hysterectomy History of bunionectomy Family History Father Colon cancer Mother No problems noted. 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 Minh Ewing, Yecenia Manzano, Juan Beckham and colleagues, with an educational lashaun from [employer]. Review of Systems Const Denies headache(s) Eyes Denies loss of vision ENT Denies vertigo, Denies dizziness, Denies headache(s) and Denies sore throat Card Denies chest pain, Denies leg edema and Denies lightheadedness Resp Denies cough, Denies hemoptysis and Denies wheezing GI Denies abdominal pain, Denies melena, Denies constipation, Denies diarrhea and Denies vomiting Denies urinary frequency, Denies dysuria and Denies urinary urgency Musc Denies arthralgias, Denies joint swelling, Denies numbness and Denies tingling Neuro Denies Abnormal speech present, Denies behavioral changes, Denies vertigo, Denies dizziness, Denies headache(s), Denies loss of vision, Denies memory loss, Denies numbness and Denies tingling Psych Denies anxiety, Denies behavioral changes, Denies depression, Denies memory loss and Denies panic attacks Harvinder/Lymph Denies easy bleeding and Denies easy bruising Aller/Immun Denies wheezing Physical exam (Primary Care) Vital Signs: Last Vital Signs Pulse 88 08/10/24 14:02 BP 108/62 08/10/24 14:02 Pulse Ox 95 08/10/24 14:02 Oxygen Delivery Method Room Air 08/10/24 14:02 BMI result Body Mass Index 24.2 Tobacco/Smoking Status: Tobacco use Status Tobacco use date assessed 06/15/24 08/10/24 14:03 Patient Tobacco Use Status Never used Tobacco 08/10/24 14:03 e-Cigarette/Vaping Use Never Used 08/10/24 14:03 Thrive Assessment: Date of Thrive Assessment Date Thrive assessed 06/15/24 08/10/24 14:03 Const General: healthy appearing, no acute distress, alert and awake Nutritional Appearance: well nourished Orientation/consciousness: oriented to person, oriented to place and oriented to time HENMT Other: NOTED HORIZONTAL NYSTAGMUS DURING EDWARD-HALLPIKE MANEUVER Ears: TM's normal bilaterally General nose exam: Normal nasal mucous membranes and turbinates present Eyes Other: NOTED HORIZONTAL NYSTAGMUS DURING EDWARD-HALLPIKE MANEUVER Conjunctivae: conjunctivae normal Sclerae: sclerae normal Pupils: Equal, round and reactive pupils present Neck Neck: Yes no lymphadenopathy and Yes no JVD Thyroid: Thyroid normal Carotids: no bruits Resp Effort & Inspection: normal respiratory effort and not tachypneic Auscultation: no crackles, no rales, no rhonchi and no wheezes Cardio Rate: regular rate Rhythm: regular rhythm Heart sounds: no murmurs and normal S1 and S2 GI Palpation (GI): Soft to palpation, nontender, no hepatomegaly and no splenomegaly Auscultation: normal bowel sounds Skin General skin exam: no rashes or lesions noted and dry skin Neuro General: oriented to person, oriented to place and oriented to time Cranial nerves: Yes Equal, round and reactive pupils present Speech: No Abnormal speech present Gait exam (Neuro): Normal gait present Motor exam (neuro): no tremor noted Extrem Right upper extremity: full ROM Left upper extremity: full ROM Right lower extremity: full ROM; no edema Left lower extremity: full ROM; no edema Psych Mental Status: mental status grossly normal Speech and movement: Normal speech and movement present Affect: normal affect Attitude: cooperative Thought process: Normal thought process present Results AMB Hemoglobin A1c AMB Hemoglobin A1c 6.5 % Last Edit by HENRY Marin on 08/10/24 14:15 Results Reviewed Results Reviewed: Laboratory Last Values Hgb A1c (Clinic) 6.5 % (4.0-6.0) H 08/10/24 14:03 Coding Level of Care Code Est Pt Level 4 (82027) Diagnoses Benign paroxysmal positional vertigo due to bilateral vestibular disorder H81.13 Laterality: bilateral KEV (acute kidney injury) N17.9 Alzheimer's dementia without behavioral disturbance, psychotic disturbance, mood disturbance, or anxiety, unspecified dementia severity, unspecified timing of dementia onset G30.9; F02.80 Alzheimer's disease onset: unspecified onset Dementia behavioral or psychological symptom: without behavioral, psychotic, or mood disturbance or anxiety Dementia severity: unspecified severity Orthostatic hypotension I95.1 Sensorineural hearing loss (SNHL) of both ears H90.3 Laterality: bilateral Assessment & Plan Assessment & Plan (1) BPPV (benign paroxysmal positional vertigo): Code(s): H81.10 - Benign paroxysmal vertigo, unspecified ear Category: Medical Qualifiers: Laterality: bilateral Qualified Code(s): H81.13 - Benign paroxysmal vertigo, bilateral Plan: Patient's signs symptoms consistent with benign paroxysmal positional vertigo. estibular therapy and potential positional maneuvers for suspected paroxysmal positional vertigo. Consider auditory canal CT scan for comprehensive evaluation. Will try to set patient up with vestibular therapy as she is having horizontal nystagmus upon [place] maneuvers here in the office. Recommend use of assistive devices. Consider life alert for increased safety. Encourage mobility aids like canes or walkers. (2) KEV (acute kidney injury): Code(s): N17.9 - Acute kidney failure, unspecified Category: Medical Plan: Patient's most recent labs showing an acute kidney injury. Advised to recheck labs. At this time will hold lisinopril and hydrochlorothiazide and monitor blood pressure at home with goal blood pressure to be below 140/90 and above 100/60 (3) Alzheimer's dementia: Code(s): G30.9 - Alzheimer's disease, unspecified; F02.80 - Dementia in other diseases classified elsewhere, unspecified severity, without behavioral disturbance, psychotic disturbance, mood disturbance, and anxiety Category: Medical Qualifiers: Alzheimer's disease onset: unspecified onset Dementia behavioral or psychological symptom: without behavioral, psychotic, or mood disturbance or anxiety Dementia severity: unspecified severity Qualified Code(s): G30.9 - Alzheimer's disease, unspecified; F02.80 - Dementia in other diseases classified elsewhere, unspecified severity, without behavioral disturbance, psychotic disturbance, mood disturbance, and anxiety Plan: Patient now followed by Neurology. Most recent brain MRI showing--> There is moderate cerebral volume loss of temporal lobe and hippocampus ss as described on Neuro quant studies. Extensive T2 periventricular small vessel ischemic changes in the supratentorial brain is similar to previous study. (4) Orthostatic hypotension: Code(s): I95.1 - Orthostatic hypotension Category: Medical Plan: Patient does seem to have some orthostatic hypotension, will hold off on her hydrochlorothiazide and lisinopril for now in the setting of also have an KEV most recent labs. Will recheck labs and keep her off blood pressure medication for now and monitor blood pressure. Blood pressure is to be below 140/90 and above 100/60. Advised to stay well hydrated (5) SNHL (sensorineural hearing loss): Code(s): H90.5 - Unspecified sensorineural hearing loss Category: Medical Qualifiers: Laterality: bilateral Qualified Code(s): H90.3 - Sensorineural hearing loss, bilateral Plan: Patient does have hearing aids in is due for an appointment to recalibrate her hearing aids at they have not been working well for her. Orders: Orders PT Evaluation and Treatment 08/10/24 H81.13 - Benign paroxysmal vertigo, bilateral CT internal auditory canals BI 08/10/24 H90.3 - Sensorineural hearing loss, bilateral AMB Hemoglobin A1c 08/10/24 E11.9 - Type 2 diabetes mellitus without complications UA CC w/rflx Micro + Cult Today N17.9 - Acute kidney failure, unspecified, R30.0 - Dysuria Complete Blood Count no Diff 08/10/24 N17.9 - Acute kidney failure, unspecified Basic Metabolic Panel 08/10/24 N17.9 - Acute kidney failure, unspecified Medications: New walker (Ultra-Light Rollator misc) As directed 1 ea 0RF R26.89 - Other abnormalities of gait and mobility On Hold levothyroxine Hold Comment: Doctor's Order 75 mcg PO DAILY 30 tabs 1RF E03.9 - Hypothyroidism, unspecified
--- OUTSIDE RECORDS SUMMARY | 2024-08-10 15:51 | XMS_ITS | Data Portability ---
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 Med. 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 Patient Instructions Encounter Date Encounter Id Patient Instructions Last Modified By Organization Details Last Modified Time 08/30/2016 [id number] - try a lower sugar higher protein [...] 46 [email or web address] Not available 08/30/2016 16:06:32 01/08/2017 [id number] CCM: The provide r and patient discussed [...] for labs/diabetes. Not available 01/08/2017 09:35:34 04/09/2017 [id number] high cholesterol lifestyle changes Not available 04/09/2017 [...] any concerns. Not available 04/09/2017 10:42:51 08/21/2017 [id number] schedule medical management when feeling better hwzorek Not available 08/21/2017 16:44:31 08/28/2017 [id number] After a discussion of treatment options, which [...] further questions or concerns. 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 agrinstein Not available 08/28/2017 16:23:16 Reason for Referral None Reported. Results Created Date Observation Date Name Description Value Unit Range Abnormal Flag Note LastModifiedBy Organization Detail LastModifiedTime 08/10/19 17 08/09/2016 HbA1c (hemo globi n A1c), blood hemoglobin A1C 6.9 % 4.8-6. 0 high Goal: <7% in Patie nts with Diabe claudy Not Available [address], [place], [address], 08/09/2016 09:15:24 08/10/1908/09/2016 HbA1c (hemo globi n A1c), blood estimated average glucose 151.3 mg/dL Not Available [address], [address], 08/09/2016 09:15:24 08/10/19 17 08/09/2016 micro album in, urine microalbumin 6.5 mg/L 1.3-20 .0 Not Available [address], [address], 08/09/2016 09:44:26 08/10/19 17 08/09/2016 micro album in, urine creatinine urine 64.1 mg/dL 30.0-1 25.0 Not Available [address], [address], 08/09/2016 09:44:26 08/10/19 17 08/09/2016 micro album in, urine microalb/cre at ratio 10.1 mg/g_ creat 0.0-29 .0 Not Available [address], [address], 08/09/2016 09:44:26 08/10/19 17 08/09/2016 BMP, serum or plasm a glucose 157 mg/dL 70-100 high Not Available [address], [address], 08/09/2016 11:14:05 08/10/19 17 08/09/2016 BMP, serum or plasm a BUN 14 mg/dL 7-18 Not Available [address], [address], 08/09/2016 11:14:05 08/10/19 17 08/09/2016 BMP, serum or plasm a creatinine 0.8 mg/dL 0.8-1. 3 Not Available [address], [address], 08/09/2016 11:14:05 08/10/19 17 08/09/2016 BMP, serum or plasm a B/C 17.5 ratio Not Available [address], [address], 08/09/2016 11:14:05 08/10/19 17 08/09/2016 BMP, serum or plasm a GFR -non 79.4 mL/mi n Recom arnold d GFR by the Natio nal Kidne y Found ation >60 mL/mi n/1.7 3m2 - Jodie l <60 mL/mi n/1.7 3m2 - Chron ic Kidne y Disea se <15 mL/mi n/1.7 3m2 - Kidne y Failu re Not Available [address], [address], 08/09/2016 11:14:05 08/10/19 17 08/09/2016 BMP, serum or plasm a GFR - if 91.3 mL/mi n For Afric an Ameri can patie nts: Resul ts Multi plied by 1.21 Not Available [address], [address], 08/09/2016 11:14:05 08/10/19 17 08/09/2016 BMP, serum or plasm a sodium 144 mmol/ L 136-14 5 Not Available [address], [address], 08/09/2016 11:14:05 08/10/19 17 08/09/2016 BMP, serum or plasm a potassium 4.1 mmol/ L 3.5-5. 1 Not Available [address], [address], 08/09/2016 11:14:05 08/10/19 17 08/09/2016 BMP, serum or plasm a chloride 108 mmol/ L 96-107 high Not Available [address], [address], 08/09/2016 11:14:05 08/10/19 17 08/09/2016 BMP, serum or plasm a anion gap 6.2 5.0-15 .0 Not Available [address], [address], 08/09/2016 11:14:05 08/10/19 17 08/09/2016 BMP, serum or plasm a CO2 30 mmol/ L 21-32 Not Available [address], [address], 08/09/2016 11:14:05 08/10/19 17 08/09/2016 BMP, serum or plasm a calcium 8.7 mg/dL 8.5-10 .3 Not Available [address], [address], 08/09/2016 11:14:05 08/10/19 17 08/09/2016 lipid panel , serum cholesterol 201 mg/dL <200 mg/dl Vince able 200-2 39 mg/dl Borde rline High >240 mg/dl High Not Available [address], [address], 08/09/2016 11:14:06 08/10/19 17 08/09/2016 lipid panel , serum triglyceride s 156 mg/dL <150 mg/dL Jodie l 150-1 99 mg/dL Borde rline High 200-4 99 mg/dL High >500 mg/dL Very High Not Available [address], [address], 08/09/2016 11:14:06 08/10/19 17 08/09/2016 lipid panel , serum direct HDL 48 mg/dL Not Available [address], [address], 08/09/2016 11:14:06 08/10/19 17 08/09/2016 LDL, calcu [...] r is not ryannancy garcia. Not Available [address], [address], 08/09/2016 11:14:07 11/09/19 17 11/08/2016 HbA1c (hemo globi n A1c), blood hemoglobin A1C 7.0 % 4.8-6. 0 high Goal: <7% in Patie nts with Diabe claudy Not Available [address], [address], 11/08/2016 09:39:46 11/09/19 17 11/08/2016 HbA1c (hemo globi n A1c), blood estimated average glucose 154.2 mg/dL Not Available [address], [address], 11/08/2016 09:39:46 11/09/19 17 11/08/2016 lipid panel , serum cholesterol 151 mg/dL <200 mg/dl Vince able 200-2 39 mg/dl Borde rline High >240 mg/dl High Not Available [address], [address], 11/08/2016 11:53:43 11/09/19 17 11/08/2016 lipid panel , serum triglyceride s 88 mg/dL <150 mg/dL Jodie l 150-1 99 mg/dL Borde rline High 200-4 99 mg/dL High >500 mg/dL Very High Not Available [address], [address], 11/08/2016 11:53:43 11/09/19 17 11/08/2016 lipid panel , serum direct HDL 50 mg/dL Not Available [address], [address], 11/08/2016 11:53:43 11/09/19 17 11/08/2016 LDL, calcu [...] r is not curtis garcia. Not Available [address], [address], 11/08/2016 11:53:44 11/09/19 17 11/08/2016 hepat itis C virus Ab, serum hepatitis C antibody NON-RE ACTIVE non-re active normal Not Available [facility] [address], [address], 11/08/2016 19:58:09 11/09/19 17 11/08/2016 hepat itis C virus Ab, serum signal to cut-off 0.03 <1.00 normal Not Available [facility] [address], [address], 11/08/2016 19:58:09 04/08/20 17 04/08/2017 HbA1c (hemo globi n A1c), blood hemoglobin A1C 7.0 % 4.8-6. 0 high Goal: <7% in Patie nts with Diabe claudy Not Available [address], [address], 04/08/2017 09:41:26 04/08/20 17 04/08/2017 HbA1c (hemo globi n A1c), blood estimated average glucose 154.2 mg/dL Not Available [address], [address], 04/08/2017 09:41:26 04/08/20 17 04/08/2017 BMP, serum or plasm a glucose 131 mg/dL 70-100 high Not Available [address], [address], 04/08/2017 11:00:57 04/08/20 17 04/08/2017 BMP, serum or plasm a BUN 19 mg/dL 7-18 high Not Available [address], [address], 04/08/2017 11:00:57 04/08/20 17 04/08/2017 BMP, serum or plasm a creatinine 0.9 mg/dL 0.8-1. 3 Not Available [address], [address], 04/08/2017 11:00:57 04/08/20 17 04/08/2017 BMP, serum or plasm a B/C 21.1 ratio Not Available [address], [address], 04/08/2017 11:00:57 04/08/20 17 04/08/2017 BMP, serum or plasm a GFR -non 69.3 mL/mi n Recom arnold d GFR by the Natio nal Kidne y Found ation >60 mL/mi n/1.7 3m2 - Jodie l <60 mL/mi n/1.7 3m2 - Chron ic Kidne y Disea se <15 mL/mi n/1.7 3m2 - Kidne y Failu re Not Available [address], [address], 04/08/2017 11:00:57 04/08/20 17 04/08/2017 BMP, serum or plasm a GFR - if 79.7 mL/mi n For Afric an Ameri can patie nts: Resul ts Multi plied by 1.21 Not Available [address], [address], 04/08/2017 11:00:57 04/08/20 17 04/08/2017 BMP, serum or plasm a sodium 144 mmol/ L 136-14 5 Not Available [address], [address], 04/08/2017 11:00:57 04/08/20 17 04/08/2017 BMP, serum or plasm a potassium 4.0 mmol/ L 3.5-5. 1 Not Available [address], [address], 04/08/2017 11:00:57 04/08/20 17 04/08/2017 BMP, serum or plasm a chloride 107 mmol/ L 96-107 Not Available [address], [address], 04/08/2017 11:00:57 04/08/20 17 04/08/2017 BMP, serum or plasm a anion gap 11.3 5.0-15 .0 Not Available [address], [address], 04/08/2017 11:00:57 04/08/20 17 04/08/2017 BMP, serum or plasm a CO2 26 mmol/ L 21-32 Not Available [address], [address], 04/08/2017 11:00:57 04/08/20 17 04/08/2017 BMP, serum or plasm a calcium 9.2 mg/dL 8.5-10 .3 Not Available [address], [address], 04/08/2017 11:00:57 04/08/20 17 04/08/2017 lipid panel , serum cholesterol 188 mg/dL <200 mg/dl Vince able 200-2 39 mg/dl Borde rline High >240 mg/dl High Not Available [address], [address], 04/08/2017 11:00:58 04/08/20 17 04/08/2017 lipid panel , serum triglyceride s 108 mg/dL <150 mg/dL Jodie l 150-1 99 mg/dL Borde rline High 200-4 99 mg/dL High >500 mg/dL Very High Not Available [address], [address], 04/08/2017 11:00:58 04/08/20 17 04/08/2017 lipid panel , serum direct HDL 49 mg/dL Not Available [address], [address], 04/08/2017 11:00:58 04/08/20 17 04/08/2017 LDL, calcu [...] r is not neces jose. Not Available [address], [address], 04/08/2017 11:00:59 08/31/19 17 08/30/2016 MAMMO , [...] ly signed Maulik Alexander romeo: Chung Camposo [address] (Imaging) [address] , [place], [address], 08/30/2016 13:38:43 Result Notes None recorded. Problems Name Problem SNOMED Code Status Onset Date Resolution Date Notes Provider Name and Address Organization Details Recorded Time Bunion 054795373 Active 2007 Not Available [facility] 3 03:14:44 Acquired hallux valgus 84013722 Active 2007 Not Available [facility] 3 03:14:44 Type 2 diabetes mellitus 63149047 Active 2015 Zehra Muse NP [address] [place] [address], [address] , [facility] 7 09:22:41 Anxiety 70612441 Active 2016 Zehra Muse NP [address] [place] [address], [address] , [facility] 7 14:02:43 Hyperlipidemi a 39372293 Active 2016 Zehra Muse NP [address] [place] [address], [address] , [facility] 7 09:33:24 Problem Notes None recorded. Procedures Surgical History Date Name Laterality Status Provider Name and Address Organization Details Recorded Time 08/17/19 17 Medicare Wellness Visit completed Kristin Louie [facility] 08/16/2016 13:34:47 08/17/19 17 Medicare Risk for Falls Screen completed Kristin Louie [facility] 08/16/2016 13:42:08 07/09/19 17 POC Urinalysis Testing completed Kristin Louie [facility] 07/09/2016 17:09:53 08/06/19 15 Medicare Wellness Visit completed GENARO [facility] 08/05/2014 11:07:58 07/09/19 15 Medicare Wellness Visit completed GENARO [facility] 07/09/2014 10:06:04 03/25/20 14 Treatment and Advice completed Heather Alvarez Ms, PT [address] [place], [address], [facility] 03/25/2014 12:01:51 01/28/20 14 Treatment and Advice completed Heather Alvarez Ms, PT [address] [place], [address], [facility] 01/27/2014 09:01:25 Total Hysterectomy completed Zehra Muse, REVIEW RN [address] [place], [address], [facility] 07/11/2011 15:21:09 Imaging Results Imaging Date Name Status LastModified by Organiz ation Details LastModified Time 08/30/2016 MAMMO, screening, digital, bilateral completed [facility] (Imaging) [address], [place], [address], 08/30/2016 13:38:43 Procedure Notes None recorded. Medical Equipment None Reported. Allergies No known drug allergies Medications Name Sig Start Date Stop Date Status Note LastModified by Organization Details LastModified Time nystatin carmen [id number] active Not Available Not Available N ot [...] Updated DateTime 7 154.94 cm 28 kg/m2 85241.0 7 g 64 /min 120 mm[Hg] 84 mm[Hg] Charity Taylor [employer] [facility] 7 09:13:19 Date Recorded Body height Body mass index (BMI) Body weight Heart rate Systolic blood pressure Diastolic blood pressure Provider Name and Address Organization Details Last Updated DateTime 7 154.94 cm 28.5 kg/m2 12596.4 5 g 84 /min 120 mm[Hg] 60 mm[Hg] Forest Serrano [employer] [facility] 7 10:15:46 Date Recorded Body height Body temperature Heart rate Systolic blood pressure Diastolic blood pressure Provider Name and Address Organization Details Last Updated DateTime 08/21/2017 154.94 cm 98 [degF] 76 /min 120 mm[Hg] 70 mm[Hg] GENARO [facility] 8 15:42:59 Date Recorded Body height Body temperature Heart rate Systolic blood pressure Diastolic blood pressure Provider Name and Address Organization Details Last Updated DateTime 08/28/2017 154.94 cm 98 [degF] 78 /min 122 mm[Hg] 68 mm[Hg] Forest Duronmarcos [employer] [facility] 8 16:08:56 Social History Question Answer Notes LastModified by Organizat ion Details LastModified Time Tobacco Smoking Status [facility]/11[facility]2011 14:54:04 What Is Your [...] not available 07/11/2011 CSRP - Narcotics No Informat ion not available 06/02/2012 CSRP Contract [...] SNOMED-CT Code Diagnosis ICD10 Code Diagnosis Note [id number] Radiology , [address] [address] 05/30/2007 10:35:16 05/30/2007 12:16:19 [id number] Podiatry, [address] [address] 05/30/2007 10:02:56 06/02/2007 08:17:22 [id number] Zehra Muse NP , [facility], OFFICE [address] [place] [address] 07/11/2011 14:32:41 07/11/2011 15:39:08 [id number] Radiology , [address] [address] 07/26/2011 13:26:32 07/30/2011 14:28:39 [id number] [facility], OFFICE [address] [place] [address] 08/15/2011 13:52:11 08/15/2011 15:14:49 [id number] , [facility], OFFICE [address] [place] [address] [place] [address] 10/16/2011 11:57:05 10/16/2011 12:46:37 [id number] , [facility], OFFICE [address] [place] [address] [place] [address] 12/12/2011 16:32:37 12/12/2011 17:21:14 [id number] Zehra Muse NP , [facility], OFFICE [address] [place] [address] [place] [address] 04/21/2012 16:31:55 04/21/2012 17:34:51 [id number] Viktor Bermeo MD [facility] , [address] [address] 08/05/2012 09:57:59 08/06/2012 12:18:20 [id number] Randell Darryl LOFTON , [facility], OFFICE [address] [place] [address] 11/04/2012 11:02:59 11/04/2012 12:16:15 [id number] , [facility], OFFICE [address] [place] [address] [place] [address] 01/06/2013 09:36:31 01/06/2013 10:12:27 Increased blood pressure 18909514 Anxiety disorder 437414471 Gastroesop hageal reflux disease 894740482 Impaired f asting glycemia 529422018 [id number] , [facility], OFFICE [address] [place] [address] [place] [address] 04/07/2013 09:34:03 04/07/2013 10:15:35 Increased blood pressure 73344348 Anxiety disorder 724188590 Impaired f asting glycemia 884707463 [id number] Keyla Sosa , [facility], OFFICE [address] [facility] [place] [address] 10/12/2013 13:30:54 10/12/2013 14:38:35 Impaired fasting glycemia 401148296 Chest pain 91361549 Gastroesop hageal reflux disease 466992097 [id number] , [facility], [address] [address] 01/15/2014 15:18:20 01/15/2014 15:38:33 Injury of foot 874039568 [id number] Heather Alvarez Ms, PT Physical Therapy, [address] [address] 01/27/2014 08:03:10 01/27/2014 11:20:34 Foot pain 89092788 [id number] [facility], [address] [address] 01/29/2014 11:29:10 02/01/2014 07:47:08 Foot pain 91270727 [id number] Heather Alvarez Ms, PT Physical Therapy, [address] [address] 02/11/2014 11:59:06 02/11/2014 14:24:52 Foot pain 37646999 [id number] Heather Alvarez Ms, PT Physical Therapy, [address] [address] 02/18/2014 11:32:53 02/18/2014 14:01:56 Foot pain 83539940 [id number] Heather Alvarez Ms, PT Physical Therapy, [address] [address] 02/25/2014 10:48:51 02/25/2014 12:09:34 Foot pain 69315597 [id number] Heather Alvarez Ms, PT Physical Therapy, [address] [address] 03/04/2014 11:00:19 03/04/2014 14:33:15 Foot pain 49311060 [id number] Heather Alvarez Ms, PT Physical Therapy, [address] [address] 03/11/2014 08:31:14 03/11/2014 12:48:41 Foot pain 93681644 [id number] Heather Alvarez Ms, PT Physical Therapy, [address] [address] 03/25/2014 11:14:35 03/26/2014 07:32:41 Foot pain 05238134 [id number] Heather Alvarez Ms, PT Physical Therapy, [address] [address] 04/06/2014 12:35:24 04/06/2014 13:45:25 Foot pain 11247676 [id number] Zehra Muse NP , [facility], OFFICE [address] [place] [address] 07/09/2014 10:02:02 07/09/2014 11:21:58 Pain in wrist 22686525 [id number] , [facility], OFFICE [address] [place] [address] 08/05/2014 11:02:11 08/05/2014 12:28:59 Adult health examination 803345572 see Risk Assessment and Lifestyle Change Counseling section above Counseling 046557556 Screening mammography 25910910 Chest pain 76403165 Fatigue 67031515 [id number] MILTON, [facility], OFFICE [address] [place] [address] 09/17/2014 09:17:17 09/17/2014 10:03:03 Impaired fasting glycemia 658577185 [id number] AURELIO Gray, [facility], OFFICE [address] [place] [address] 11/25/2015 08:16:16 11/25/2015 09:27:59 Impaired fasting glycemia 757143806 R73.01 Single neftali or depressive episode 698546458 F32.9 F32.0 Stable on meds. Varicose v eins of lower extremity 98164349 I83.91 [id number] AURELIO Gray, [facility], OFFICE [address] [place] [address] 01/19/2016 11:54:06 01/19/2016 12:52:52 Type 2 diabetes mellitus 27575503 E11.9 A1C 7.2 attempting to diet control, at this time does not want a glucometer , will follow up with [facility]. [id number] AURELIO Lizarraga, [facility], OFFICE [address] [place] [address] 07/09/2016 17:04:03 07/10/2016 08:36:04 Urinary tract infectious disease 61491991 N39.0 Patient instructed to push fluids, to follow up for persistent or worsening symptoms or fever or back pain. Vaginitis and vulvovaginitis 529550979 N76.0 [id number] AURELIO Gray, [facility], OFFICE [address] [place] [address] 08/16/2016 13:28:18 08/16/2016 14:43:19 Adult health examination 512032144 Z00.00 see Risk Assessment and Lifestyle Change Counseling section above Benign ess ential hypertension 2019880 I10 continue to work on diet, exercise, and lowering salt intake as discussed Mixed hyperlipidemia 267 622488 E78.2 continue to work on diet and exercise as discussed Screening for disorder 087374568 Z11.59 Screening mammography 24 494728 Z12.31 Anxiety 52001553 F41.9 Type 2 jerald betes mellitus 99596888 E11.9 A1C 6.9 attempting to diet control. Depressive disorder 3548 9007 F32.0 [id number] Jessika Noguera, Ms, Rdn, Ldn, CDE Nutrition -[address] [address] 08/30/2016 13:22:23 08/30/2016 16:17:53 Type 2 diabetes mellitus without complication 399107523 E11.9 [id number] Zehra Muse NP , [facility], OFFICE [address] [place] [address] 01/08/2017 09:01:25 01/08/2017 09:45:23 Type 2 diabetes mellitus 48835887 E11.9 A1C IS7.0Goal is asif 7.Will increase metformin to 1 bid Hyperlipidemia 84724695 E78.5 At goal.Goal is under 100LDL 83 Anxiety 17939842 F41.9 Stable on meds. [id number] Zehra Muse NP , [facility], OFFICE [address] [place] [address] 04/09/2017 10:03:21 04/09/2017 10:37:19 Mixed hyperlipidemia 519188119 E78.2 -continue to work on diet and exercise as discussed; WILL INCREASE MEDS. -LDL GOAL IS UNDER 100, LAST ONE WAS 117; NOT AT GOAL. Type 2 jerald betes mellitus 07455566 E11.37X1 DIABETES GOAL IS UNDER 7LAST A1C WAS 7 AGAIN. -INCREASE METFORMIN TO 2 PILLS AM AND 1 PM. Candidiasis of vagina 72 606405 B37.3 [id number] Mone Griffin NP , [facility], OFFICE [address] [place] [address] 08/21/2017 15:35:48 08/21/2017 17:01:45 Otalgia 43583485 H92.01 no erythema or bulging of the TM. not tolerating abx/augmen tin prescribed at [facility]. okay to stop Acute uppe r respiratory infection 03074942 J06.9 Drink plenty of fluids. Eat healthy [...] for reassessme nt (urgent care available in [place] office Sat 9-4 and Saturday-12 by appointmen t - call after 8AM for appt.) Dry cough can last for up to six weeks. 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 Rec'd rest, ice/heat, NSAIDs PRN, and demonstrat ed jaw exercises. Acute uppe r respiratory infection 62700084 J06.9 Viral, s/p 2 courses of antibiotic [...] Alarcon Member ID Guarantor Name 08/30/2016 1 [facility]: [facility] [id number] Kristofer Fonseca [id number] Barbara Fonseca 01/08/2017 1 MEDICARE [facility]-[place]: [employer] A Marian [id number] Barbara Ellisonnon 04/09/2017 1 MEDICARE [place]: [employer] A Marian [id number] Marian 08/21/2017 2 [facility] Barbara Fonseca [id number] Marian 08/21/2017 1 MEDICARE [place]: N[facility] A Marian [id number] Marian 08/28/2017 2 [facility]: [facility] A Marian [id number] Marian 08/28/2017 1 MEDICARE [place]: [employer] A Marian [id number] Barbara Fonseca Notes Date Note Type Note Provider Name and Address Organization Details Recorded Time 7 text/html Nutrition Encounter updatedReported bypatient.Patient HistoryPatient chief nutritional complaint:Diabetes Nutrtition/dietarySee scanned images for Diet Intake Summary; past 6 weeks - stopped all soda likes junk like chips, fritos b - works at [employer]. packet of [employer] oatmeal maple flavor, high fiber. snack - chips, cheese l - d - not a pasta eater brown rice or potato incorporating more vegetables found a low sugar yogurt for a snack at night Estimated Nutrient NeedsEnergy (kcals) 2004-5953 Recent Lab testsFasting Blood Sugar: (157); Hemoglobin A1C: (6.9%); Total Cholesterol: (201); LDL-Cholesterol: (121.8); HDL Cholesterol: (48); Triglycerides: (156) Physical Activity habitsExercise Type:Walking; likes to bike ride but fell off bike Jessika Noguera, Ms, Rdn, Ldn, CDE [address] [place], [address], [facility] 08/30/2016 16:07:18 7 text/html VMG HyperlipidemiaReported bypatient.Duration:at goal ldl 83 A1c 7. 0 Control:well controlled; improved since last visit; treated with diet; treated with medications Compliance:compliant with medications; compliant with follow-up visits Barriers to Careunder stress Context:Diabetes; Nonsmoker; No ischemic heart disease; No peripheral vascular disease ([address]) Associated Symptoms:no muscle pain; no fatigue; no chest discomfort; no dyspneaVMG HypertensionReported bypatient.Control:Patient understands medications are to lower blood pressure Compliance:Compliant with medications; Compliant with diet Context:No ischemic heart disease; No kidney disease; No history of CVA; No congestive heart failure Associated Symptoms:No chest pain; No shortness of breath; No edema; No fatigue Son - and moved to in [place]- had melt down- [facility]gr [facility]- crying. [...] past. Getting 10/27.]] Zehra Muse, AURELIO [address] [place], [phone], [facility] 01/08/2017 09:47:41 7 text/html VMG DiabetesReported bypatient.Review finger sticks:a1c 7.0;VMG HyperlipidemiaReported bypatient.Duration:at goal ldl 117 A1c 7. 0 Control:well controlled; improved since last visit; treated with diet; treated with medications Compliance:compliant with medications; compliant with follow-up visits;noncompliant with diet; NOT EXERCISING. Barriers to Careunder stress Context:Diabetes; Nonsmoker; No ischemic heart disease; No peripheral vascular disease (01661) Associated Symptoms:no muscle pain; no fatigue; no [...] visit- Son - and moved to in [place]- had melt down- 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 Zehra Muse NP [address] [place] [address], [phone], [facility] 04/09/2017 10:44:50 8 text/html pt presents for [...] zpac for dental infection Mone Griffin NP [address] [place] [address], [phone], [facility] 08/21/2017 16:44:59 8 text/html F/U ear [...] sinus pain, F/C, N/V/D. Gustavo Carey PA-C [address] [place] [address], [phone], [facility] 08/28/2017 16:26:43 OBGyn Episode No OBEpisode recorded.
--- OUTSIDE RECORDS SUMMARY | 2024-08-10 15:51 | XMS_ITS | Clinical Summary ---
Author Organization [facility] Address [address] [place] [address] Phone Care Team Providers Care 911 Emergency Services Dispatcher Name Role Phone Unavailable Primary Care Provider Unavailabl e Encounters Date Type Department Care Team Description 07/30/2024 12:45 PM EDT - 07/30/2024 11:59 PM EDT Hospital Encounter [facility] PET Scan [address] [place] [address] Alzheimer's disease, unspecified (CODE) ([facility]) Discharge Disposition: Home or Self Care from Last 3 Months Social History Tobacco Use Types Packs/Day Years Used Date Smoking Tobacco: Never Assessed Comments Unknown Sex and Gender Information Value Date Recorded Sex Assigned at Not on file Legal Sex Female 12:35 PM EDT Gender Identity Not on file Sexual Orientation Not on file Plan of Treatment Health Maintenance Due Date Last Done Comments Diabetes: Annual GFR (Glomerular Filtration Rate) 1946 Diabetes: Annual Foot Exam 1956 Diabetes: Annual Retina Eye Exam 1956 Pneumococcal Vaccine: 50+ Years (1 of 1 - PCV) 1996 Zoster Vaccines (2 of 3) 02/06/2012 12/12/2011 RSV Immunization Patients 60 + Years Old (1 - 1-dose 75+ series) 2021 COVID-19 Vaccine (4 - 2023-2 5 season) 2024 04/20/2021, 07/12/2020, 06/21/2020 Influenza Vaccine (#1) 2024 , 03/24/2020 Cholesterol Screening (Lipid Panel) 07/30/2024 Depression Screening 07/30/2024 Falls Risk Assessment 07/30/2024 Hepatitis C Screening 07/30/2024 Medicare Annual Wellness Visit 07/30/2024 Osteoporosis Screening (Bone Density Screening) 07/30/2024 Social Influencers of Health Screening 07/30/2024 Diabetes: Annual Urine Albumin-Creatinine Ratio (uACR) 07/31/2024 Diabetes: Blood Sugar Contro l Test (HGBA1C) 07/31/2024 DTaP,Tdap,and Td Vaccines (3 - Td or Tdap) 06/06/2028 06/06/2018, 08/15/2011 HIB Vaccines Aged Out No longer eligi ble based on patient's age to complete this topic HPV Vaccines Aged Out No longer eligi ble based on patient's age to complete this topic Hepatitis A Vaccines Aged Out No long er eligible based on patient's age to complete this topic Hepatitis B Vaccines Aged Out No long er eligible based on patient's age to complete this topic IPV Vaccines Aged Out No longer eligi ble based on patient's age to complete this topic MMR Vaccines Aged Out No longer eligi ble based on patient's age to complete this topic Meningococcal ACWY Vaccine Aged Out N o longer eligible based on patient's age to complete this topic Meningococcal B Vacine Aged Out No lo nger eligible based on patient's age to complete this topic RSV Immunization Patients Under 20 months Aged Out No longer eligible b ased on patient's age to complete this topic Varicella Vaccines Aged Out No longer eligible based on patient's age to complete this topic Procedures Procedure Name Priority Date/Time Associated Diagnosis Comments PET CT LIMITED AREA INITIAL Routine 07/30/2024 2:15 PM EDT Alzheimer's disease, unspecified (CODE) ([facility]) Procedure Note - Mayda Belle MD - 07/30/2024 2:15 PM EDTThis note is in progress. INDICATION: ALZHEIMER DISEASE TECHNIQUE: F-18 Amyvid PET imaging was performed from of the head in asingle acquisition with data set reconstructed in axial, coronal, andsagittal planes at the computer workstation with fused data from both thePET imaging study and attenuation correction CT. The CT portion of theexamination was done strictly for attenuation correction and is not a truediagnostic CT examination. DLP: 934 mGy-cm Radiopharmaceutical: 9.8 mCi of F-18 Florbetapir IV. COMPARISON: Correlation is made with outside brain MRI dated May2024 FINDINGS: HEAD AND NECK: Lack of emery-white matter differentiation. Cerebral volume loss with scattered white matter hypodensities which mayrepresent microangiopathic white matter change. IMPRESSION: Positive study Please note: The CT was acquired at a low radiation dose settings. The images are ofnondiagnostic quality and used solely for purposes of attenuationcorrection and slice localization for the PET scan. If a diagnostic CTstudy is desired it must be ordered separately. -------- PRELIMINARY REPORT -------- Dictated By: Mayda Belle Dictated Date: 08/05/2024 10:23 ET Assigned Physician: Mayda Belle Reviewed and Electronically Signed By: Signed Date: ET Workstation ID: [id number] Transcribed By: Self Edit Transcribed Date: 08/05/2024 11:13 ET from Last 3 Months Insurance MEDICARE [facility]
== END 2024-08-10 15:03 | disposition home or self-care (01) ==
LOC: HO.HMCH 14:01
PROVIDERS: PCP Physician Assistant; Visit Provider Physician Assistant
DX: H81.13 Benign paroxysmal vertigo, bilateral (principal); N17.9 Acute kidney failure, unspecified; G30.9 Alzheimer's disease, unspecified; F02.80 Dementia in other diseases classified elsewhere, unspecified severity, without behavioral disturbance, psychotic disturbance, mood disturbance, and anxiety; I95.1 Orthostatic hypotension; H90.3 Sensorineural hearing loss, bilateral

== ENCOUNTER 2024-08-10 14:00 | Outpatient (REF) | payer MEDICARE, SELFPAY ==
[2024-08-10 15:50] LABS: Hematocrit 36.2 % (37.0-47.0); Mean Corpuscular HGB Conc 33.1 g/dl (31.0-35.0); Mean Corpuscular Hemoglobin 30.4 pg (27.0-33.0); Mean Corpuscular Volume 91.6 fL (80.0-98.0); Mean Platelet Volume 9.8 fL (9.4-12.3); Platelet Count 245 X10*3/uL (160-400); Red Blood Count 3.95 X10*6/uL (4.20-5.50); Red Cell Distribution Width 12.4 % (11.0-16.0); White Blood Count 9.7 X10*3/uL (4.8-10.8)
[2024-08-10 17:01] LABS: Anion Gap 14 (12-20); Blood Urea Nitrogen 50 mg/dL (9-16); Calcium 11.5 mg/dL (8.4-10.2); Carbon Dioxide 28 mmol/L (22-29); Chloride 100 mmol/L (96-108); Estimated Glomerular Filt Rate 18; Glucose Random 113 mg/dL (60-115); Potassium 3.9 mmol/L (3.3-5.1); Sodium 138 mmol/L (135-145)
[2024-08-10 17:19] LABS: TSH reflex Free T4 0.03 uIU/mL (0.32-4.0)
--- OUTSIDE RECORDS SUMMARY | 2024-08-10 17:21 | XMS_ITS | Clinical Summary ---
Author Organization [facility] Address [address] [place] [address] Phone Care Team Providers Care Work Environment Safety Inspector Name Role Phone Unavailable Primary Care Provider Unavailabl e Encounters Date Type Department Care Team Description 07/30/2024 12:45 PM EDT - 07/30/2024 11:59 PM EDT Hospital Encounter [facility] PET Scan [address] [place] [address] Alzheimer's disease, unspecified (CODE) ([facility]) Discharge Disposition: Home or Self Care from [...] 2:15 PM EDT Alzheimer's disease, unspecified (CODE) ([facility]) Procedure Note - Mayda Belle MD - [...] Signed By: Signed Date: ET Workstation ID: [id number] Transcribed By: Self Edit Transcribed Date: 08/05/2024 11:13 ET from Last 3 Months Insurance MEDICARE [facility]
[2024-08-10 18:20] LABS: Free T4 (Free Thyroxine) 1.59 ng/dL (0.71-1.85)
== END 2024-08-10 14:01 | disposition home or self-care (01) ==
LOC: HO.LAB 14:00
PROVIDERS: PCP Physician Assistant; Visit Provider Physician Assistant
DX: H81.13 Benign paroxysmal vertigo, bilateral (principal); N17.9 Acute kidney failure, unspecified; G30.9 Alzheimer's disease, unspecified; F02.80 Dementia in other diseases classified elsewhere, unspecified severity, without behavioral disturbance, psychotic disturbance, mood disturbance, and anxiety; I95.1 Orthostatic hypotension; H90.3 Sensorineural hearing loss, bilateral; E11.9 Type 2 diabetes mellitus without complications; E03.9 Hypothyroidism, unspecified; F41.1 Generalized anxiety disorder; R26.89 Other abnormalities of gait and mobility; Z79.899 Other long term (current) drug therapy
CPT/HCPCS: 36415; 80048; 83036; 84439; 84443; 85027; 99212

== ENCOUNTER 2024-08-11 11:58 | Outpatient (REF) | payer MEDICARE, SELFPAY ==
[2024-08-11 12:13] LABS: Appearance Urine Clear; Color Urine Yellow; Glucose Urine UA Negative (Negative); Leukocyte Esterase Urine Trace (Negative); Nitrite Urine Negative (Negative); PH 6.5 (5.0-9.0); Specific Gravity - Urine <= 1.005 (1.005-1.025); UMIC TRIGGER UACC YES; Urine Blood Negative (Negative); Urine Ketones Negative (Negative); Urine Protein Negative (Neg-Trace)
[2024-08-11 12:24] LABS: Bacteria Urine None Seen (None Seen); Hyaline Casts Urine 0-2 /LPF (0-2); RBC Urine 0-2 /HPF (0-2); WBC Urine 0-5 /HPF (0-5)
--- OUTSIDE RECORDS SUMMARY | 2024-08-11 14:16 | XMS_ITS | Clinical Summary ---
Author Organization [facility] Address [address] [place] [address] Phone Care Team Providers Care Supervisor Fur Dressing Name Role Phone Unavailable Primary Care Provider Unavailabl e Encounters Date Type Department Care Team Description 07/30/2024 12:45 PM EDT - 07/30/2024 11:59 PM EDT Hospital Encounter [facility] PET Scan [address] [place] [address] Alzheimer's disease, unspecified (CODE) ([facility]) Discharge Disposition: Home or Self Care [...] 2:15 PM EDT Alzheimer's disease, unspecified (CODE) ([facility]) Procedure Note - Mayda Belle MD [...] Signed By: Signed Date: ET Workstation ID: [id number] Transcribed By: Self Edit Transcribed Date: 08/05/2024 11:13 ET from Last 3 Months Insurance MEDICARE [facility]
== END 2024-08-11 11:59 | disposition home or self-care (01) ==
LOC: HO.LNP 11:58
PROVIDERS: Visit Provider Physician Assistant
DX: R30.0 Dysuria (principal); N17.9 Acute kidney failure, unspecified
CPT/HCPCS: 81001; 81003

== ENCOUNTER 2024-08-24 15:14 | Emergency (ER) | payer MEDICARE, SELFPAY ==
[2024-08-24 15:22] VITALS: BP 117/76; PULSE 72; RESP 18; TEMP 36.6; O2SAT 98; BMI 23.0
--- NOTE | 2024-08-24 15:22 | ED_ITS ---
HPI - General Adult General Chief complaint: Dizziness Stated complaint: was here for therapy started feeling weak and dizz Time Seen by Provider: 08/24/24 19:22 Source: patient and family Limitations: other (Cognitive impairment) History of Present Illness ED Provider: Aishwarya Royal PA-C HPI narrative: 79-year-old female with a history of BPPV, orthostatic hypotension, SN HL, Alzheimer's dementia, gait instability who refuses to use a walker at home, hypertension, anxiety, hyperlipidemia, diabetes and hypothyroidism, presents with dizziness. Patient has been receiving treatments for her vertigo here at [facility]; sounds as if the Delfina maneuver has been implemented from what they described. Patient states over the past 2 days, her vertigo has been refractory. She was seen in the clinic today, the maneuver was performed. Patient here in the emergency department secondary to her refractory vertigo, she has a unable to walk. Related Data Home Medications ?Medication ?Instructions ?Recorded ?Confirmed lorazepam 0.5 mg tablet 0.5 mg PO DAILY PRN 09/12/23 08/10/24 Previous Rx's ?Medication ?Instructions ?Recorded lisinopril 20 mg tablet 20 mg PO DAILY 90 days #90 tabs 09/12/23 calcium carbonate (Oyster Shell 500 mg PO BID 90 days #180 tabs 11/08/23 Calcium) escitalopram oxalate 20 mg tablet 20 mg PO DAILY #90 tabs 02/10/24 metformin 500 mg tablet 500 mg PO BID 90 days #180 tabs 03/10/24 levothyroxine 100 mcg tablet 100 mcg PO DAILY #90 tabs 03/14/24 hydrochlorothiazide 12.5 mg tablet 12.5 mg PO DAILY 30 days #30 tabs 06/15/24 memantine 28 mg capsule 28 mg PO DAILY cognitive 06/16/24 sprinkle,extended release 24hr impairment #30 ea memantine 28 mg capsule 28 mg PO DAILY 90 days #90 ea 07/02/24 sprinkle,extended release 24hr ferrous sulfate 325 mg (65 mg 325 mg PO DAILY Anemia 90 days #90 07/22/24 iron) tablet tabs levothyroxine 75 mcg tablet 75 mcg PO DAILY #30 tabs 07/27/24 walker (Ultra-Light Rollator misc) #1 ea 08/10/24 levothyroxine 25 mcg tablet 25 mcg PO DAILY 30 days #30 tabs 08/11/24 ondansetron 4 mg disintegrating 4 mg PO Q8H PRN nausea and 08/18/24 tablet vomiting 14 days #42 tabs cholecalciferol (vitamin D3) 50 50 mcg PO DAILY 90 days #90 caps 08/21/24 mcg (2,000 unit) capsule simvastatin 20 mg tablet 20 mg PO BEDTIME #90 tabs 08/21/24 meclizine 25 mg tablet 25 mg PO TID PRN dizziness #12 tabs 08/24/24 Allergies Allergy/AdvReac Type Severity Reaction Status Date / Time peanut Allergy Severe Anaphylaxis Verified 08/24/24 15:24 nut - unspecified Allergy Unknown Verified 08/24/24 15:24 Review of Systems 2 Review of Systems: Yes all other systems are reviewed and are negative Constitutional: Constitutional: Denies fatigue, Denies fever(s) and Denies headache(s) ENT: Reports vertigo, Reports dizziness, Denies headache(s) and Denies neck pain Cardiovascular: Cardiovascular: Denies chest pain and Denies dyspnea Respiratory: Respiratory: Denies cough and Denies dyspnea Gastrointestinal: Gastrointestinal: Denies abdominal pain, Denies nausea and Denies vomiting Musculoskeletal: Musculoskeletal: Denies back pain, Denies neck pain, Denies numbness and Denies tingling Neurologic: Reports vertigo, Reports dizziness, Denies headache(s), Denies numbness and Denies tingling Endocrine: Endocrine: Denies fatigue PMFSH Past Medical History Attestation statement: The following information was validated with the patient. Surgical History History of hysterectomy History of bunionectomy Family History Family History Father Colon cancer Mother No problems noted. Social History Social History Housing: House Alcohol intake: current Alcohol intake frequency: holidays/special occasions only Alcohol type: wine Patient Tobacco Use Status: Never used Tobacco Smoked in Last 30 Days: No e-Cigarette/Vaping Use: Never Used Second Hand Smoke Exposure: No Use of substances other than those prescribed or required for medical reasons: No Advance Directives: No Advance Directives Information Provided: No Do you have a plan to hurt others: No Plan service: No Current occupational status: employed Cognitive needs: No Hearing needs: Yes (hearing loss in right ear and Pt has hearing aid.) Vision needs: No Physical Exam ED Vital Signs: Vital Signs - 24 hr 08/24/24 15:22 08/24/24 18:28 08/24/24 20:21 Temperature 98 F 98.1 F Pulse Rate 72 63 61 Respiratory Rate 18 18 16 Blood Pressure 117/76 140/66 H 131/62 Pulse Oximetry 98 99 98 Oxygen Delivery Method Room Air Room Air Room Air 08/24/24 22:36 Temperature 98.7 F Pulse Rate 63 Respiratory Rate 16 Blood Pressure 150/67 H Pulse Oximetry 98 Oxygen Delivery Method Room Air BMI result Body Mass Index 23.0 Const Other: Alert Orientation/consciousness: patient oriented x3 Eyes Other: No nystagmus on exam Resp Effort & Inspection: normal respiratory effort Cardio Other: Normal peripheral perfusion Skin Other: Warm dry no rash Neuro Other: Off balance with her gait, states she is at her baseline General: patient oriented x3, no focal motor deficits and CN's II-XI intact bilaterally Psych Other: Cooperative Course Course Course Narrative: This is a Rapid Medical Examination (RME) performed by Tuan Van PA-C in triage. Full HPI, ROS, assessment and treatment plan per primary provider in the Main ED. 08/24/24 1523 LUCÍA Shaw Hx: 79 yo female hx of HTN, DM, hypothyroid, BPPV, alzheimers here for eval of vertigo-type dizziness x weeks, worsening x2 days. was just at a PT appointment for treatment of vertigo, felt unsteady on her feet. PT provided her with a walker to go home with. she came to the ED for further evaluation. PE/vitals: well appearing. Plan: labs, ekg, trop - will defer imaging to primary provider Reevaluation(s) Reevaluation #1: Dizziness much improved, she is not having symptoms with movement of the head or eyes, she is able to stand and ambulate at her baseline, we will send with a short script of meclizine, it is ideal she has follow up with her neurologist tomorrow Medications Administered Discontinued Medications Generic Name Dose Route Start Last Admin Trade Name Freq PRN Reason Stop Dose Admin Magnesium Sulfate 2 gm in 50 mls @ 25 mls/hr 08/24/24 19:23 08/24/24 21:30 Magnesium Sulfate/H2o IV 08/24/24 21:22 Infused ONCE ONE Infusion Meclizine HCl 25 mg 08/24/24 19:38 08/24/24 19:42 Meclizine Hcl 25 Mg Tablet PO 08/24/24 19:39 25 mg ONCE ONE Administration Meclizine HCl 25 mg 08/24/24 22:40 08/24/24 22:50 Meclizine Hcl 25 Mg Tablet PO 08/24/24 22:41 25 mg ONCE ONE Administration Medical Decision Making Medical Decision Making MDM Narrative: 79-year-old female with a history of BPPV, orthostatic hypotension, SN HL, Alzheimer's dementia, gait instability who refuses to use a walker at home, hypertension, anxiety, hyperlipidemia, diabetes and hypothyroidism, presents with dizziness. Patient has been receiving treatments for her vertigo here at [facility]; sounds as if the Delfina maneuver has been implemented from what they described. Patient states over the past 2 days, her vertigo has been refractory. She was seen in the clinic today, the maneuver was performed. Patient here in the emergency department secondary to her refractory vertigo, she has a unable to walk. Problem: Vertigo, dementia History: Per patient and her I have considered the following differential diagnoses: Exacerbation of vertigo, CVA, labyrinthitis, migraine, intracranial hemorrhage Plan: Patient was here with refractory vertigo, she has a well documented history, she is receiving treatments as an outpatient. We will try meclizine. Thought about intracranial hemorrhage, however there was no preceding trauma, she is mentating at her baseline, she is neurologically intact. Likewise, thought about posterior circulation CVA, however the vertigo is chronic, there was no change in her symptoms. Thought about complex migraine, however she does not have a headache. She is also not complaining of cough and cold symptoms with congestion, ear pain to suggest labyrinthitis. I have independently reviewed the following tests: Labs: No leukocytosis, not anemic, creatinine improved from a month ago, magnesium slightly low we will give 2 g IV, her calcium remains elevated Lab Data 08/24/24 15:43 08/24/24 15:43 Labs: Lab Results 04/14/25 Range/Units 15:43 WBC 8.3 (4.8-10.8) X10*3/uL RBC 3.31 L (4.20-5.50) X10*6/uL Hgb 10.3 L (12.0-16.0) g/dl Hct 29.9 L (37.0-47.0) % MCV 90.3 (80.0-98.0) fL MCH 31.1 (27.0-33.0) pg MCHC 34.4 (31.0-35.0) g/dl RDW 13.3 (11.0-16.0) % Plt Count 217 (160-400) X10*3/uL MPV 9.1 L (9.4-12.3) fL Immature Gran % (Auto) 0.2 (0.0-0.4) % Neut % (Auto) 51.6 (45-73) % Lymph % (Auto) 39.1 (20-40) % Mills % (Auto) 6.4 (2-11) % Eos % (Auto) 2.2 (0-4) % Baso % (Auto) 0.5 (0-2) % Lymph # (Auto) 3.2 (1.2-4.9) X10*3/uL Mills # (Auto) 0.5 (0.1-1.2) X10*3/uL Eos # (Auto) 0.2 (0.0-0.4) X10*3/uL Baso # (Auto) 0.0 (0.0-0.2) X10*3/uL Abs Immat Gran (auto) 0.02 (0.00-0.03) X10*3/uL Absolute Neuts (auto) 4.3 (2.0-8.3) x10*3/uL Absolute Nucleated RBC 0.000 (0.0-0.012) X10*3/uL Nucleated RBC % (auto) 0.0 (0.0-0.2) /100WBC Sodium 142 (135-145) mmol/L Potassium 3.8 (3.3-5.1) mmol/L Chloride 111 H (96-108) mmol/L Carbon Dioxide 24 (22-29) mmol/L Anion Gap 11 L (12-20) BUN 27 H (9-16) mg/dL Creatinine 1.90 H (0.5-1.4) mg/dL Estim Creat Clear Calc 20.1 Estimated GFR 26 Random Glucose 92 (60-115) mg/dL Calcium 10.5 H D (8.4-10.2) mg/dL Magnesium 1.3 L* (1.6-2.6) mg/dL Total Bilirubin 0.5 (0.0-1.0) mg/dL AST 24 (5-31) U/L ALT 14 (0-31) U/L Alkaline Phosphatase 54 (39-117) U/L Troponin I High Sens 5.5 D (<3.5-17.0) ng/L Total Protein 6.5 (6.5-8.0) g/dL Albumin 4.1 (3.5-5.0) g/dL TSH 2.52 (0.32-4.0) uIU/mL Discharge Plan Discharge Clinical Impression: Vertigo Patient Disposition: Home, Self-Care Instructions: Vertigo (ED) Additional Instructions: You were treated for vertigo. We gave you 50 mg of meclizine total, it alleviated your symptoms. You can have discussion with your provider who manages your vertigo tomorrow at your scheduled appointment. I am sending you with a limited prescription to your pharmacy. Prescriptions: New meclizine 25 mg tablet 25 mg PO TID PRN (Reason: dizziness) Qty: 12 0RF No Action calcium carbonate [Oyster Shell Calcium] 500 mg calcium (1,250 mg) tablet 500 mg PO BID 90 Days Qty: 180 1RF escitalopram oxalate 20 mg tablet 20 mg PO DAILY Qty: 90 2RF metformin 500 mg tablet 500 mg PO BID 90 Days Qty: 180 1RF Rx Instructions: Take 500 b.i.d. levothyroxine 100 mcg tablet 100 mcg PO DAILY Qty: 90 1RF memantine 28 mg capsule,sprinkle,ER 24hr 28 mg PO DAILY MDD 28mg Qty: 30 6RF Rx Instructions: Take one 28mg sprinkle with food, daily for cognitive impairment. memantine 28 mg capsule,sprinkle,ER 24hr 28 mg PO DAILY 90 Days Qty: 90 3RF Rx Instructions: Take this dose 28mg ext release PO daily for ongoing maintenance therapy. ferrous sulfate 325 mg (65 mg iron) tablet 325 mg PO DAILY MDD 325mg 90 Days Qty: 90 3RF Rx Instructions: 325mg PO Iron tablet by mouth daily with a glass of orange juice at lunch time. levothyroxine 75 mcg tablet 75 mcg PO DAILY Qty: 30 1RF levothyroxine 25 mcg tablet 25 mcg PO DAILY 30 Days Qty: 30 1RF ondansetron 4 mg tablet,disintegrating 4 mg PO Q8H PRN (Reason: nausea and vomiting) 14 Days Qty: 42 0RF cholecalciferol (vitamin D3) 50 mcg (2,000 unit) capsule 50 mcg PO DAILY 90 Days Qty: 90 1RF simvastatin 20 mg tablet 20 mg PO BEDTIME Qty: 90 2RF lorazepam 0.5 mg tablet 0.5 mg PO DAILY PRN lisinopril 20 mg tablet 20 mg PO DAILY 90 Days Qty: 90 1RF hydrochlorothiazide 12.5 mg tablet 12.5 mg PO DAILY 30 Days Qty: 30 3RF (DME) Ultra-Light Rollator Misc See Rx Instructions .Route Qty: 1 0RF Rx Instructions: As directed Print Language: Chinese
--- NOTE | 2024-08-24 15:24 | ECG_ITS ---
Test Reason : dizziness Blood Pressure : */* mmHG Vent. Rate : 70 BPM Atrial Rate : 70 BPM P-R Int : 160 ms QRS Dur : 86 ms QT Int : 394 ms P-R-T Axes : 32 29 37 degrees QTcB Int : 425 ms Normal sinus rhythm Normal ECG When compared with ECG of 10-Jun-2024 13:01, Nonspecific T wave abnormality, improved in Inferior leads Nonspecific T wave abnormality no longer evident in Anterior leads Referred By: Seda Van Electronically Signed By: SHIRLENE DA SILVA MD
[2024-08-24 15:47] LABS: MANUAL DIFF FLAG NO
[2024-08-24 15:48] LABS: Basophils Percent Auto 0.5 % (0-2); Eosinophils Absolute Auto 0.2 X10*3/uL (0.0-0.4); Eosinophils Percent Auto 2.2 % (0-4); Hematocrit 29.9 % (37.0-47.0); Hemoglobin 10.3 g/dl (12.0-16.0); Imm Gran Abs Auto 0.02 X10*3/uL (0.00-0.03); Imm Gran Pct Auto 0.2 % (0.0-0.4); Lymphocytes Absolute Auto 3.2 X10*3/uL (1.2-4.9); Lymphocytes Percent Auto 39.1 % (20-40); Mean Corpuscular HGB Conc 34.4 g/dl (31.0-35.0); Mean Corpuscular Hemoglobin 31.1 pg (27.0-33.0); Mean Corpuscular Volume 90.3 fL (80.0-98.0); Mean Platelet Volume 9.1 fL (9.4-12.3); Monocytes Absolute Auto 0.5 X10*3/uL (0.1-1.2); Monocytes Percent Auto 6.4 % (2-11); Neutrophils Absolute Auto 4.3 x10*3/uL (2.0-8.3); Neutrophils Percent Auto 51.6 % (45-73); Platelet Count 217 X10*3/uL (160-400); Red Blood Count 3.31 X10*6/uL (4.20-5.50); Red Cell Distribution Width 13.3 % (11.0-16.0); White Blood Count 8.3 X10*3/uL (4.8-10.8)
[2024-08-24 16:10] LABS: Alanine Aminotransferase 14 U/L (0-31); Albumin Level 4.1 g/dL (3.5-5.0); Alkaline Phosphatase 54 U/L (39-117); Anion Gap 11 (12-20); Aspartate Amino Transferase 24 U/L (5-31); Bilirubin Total 0.5 mg/dL (0.0-1.0); Blood Urea Nitrogen 27 mg/dL (9-16); Calcium 10.5 mg/dL (8.4-10.2); Carbon Dioxide 24 mmol/L (22-29); Chloride 111 mmol/L (96-108); Creatinine Clr Calc Pharmacy 20.1; Estimated Glomerular Filt Rate 26; Glucose Random 92 mg/dL (60-115); Magnesium 1.3 mg/dL (1.6-2.6); Potassium 3.8 mmol/L (3.3-5.1); Sodium 142 mmol/L (135-145); Total Protein 6.5 g/dL (6.5-8.0)
[2024-08-24 16:14] LABS: Troponin-I High Sensitivity 5.5 ng/L (<3.5-17.0)
[2024-08-24 16:28] LABS: TSH reflex Free T4 2.52 uIU/mL (0.32-4.0)
[2024-08-24 18:28] VITALS: BP 140/66; PULSE 63; RESP 18; O2SAT 99
--- OUTSIDE RECORDS SUMMARY | 2024-08-24 18:43 | XMS_ITS | Clinical Summary ---
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 Role Phone Unavailable Primary Care Provider Unavailabl e Encounters Date Type Department Care Team Description 07/30/2024 12:45 PM EDT - 07/30/2024 11:59 PM EDT Hospital Encounter [facility] PET Scan [address] [place] [address] Alzheimer's disease, unspecified (CODE) ([facility] V24, [facility] V28) Discharge Disposition: Home or Self Care from [...] (2 of 3) 02/06/2012 12/12/2011 RSV Immunization Adult Patients (1 - 1-dose 75+ series) 2021 COVID-19 Vaccine (4 - 2023-2 5 season) 2024 04/20/2021, 07/12/2020, 06/21/2020 Cholesterol Screening (Lipid Panel) 07/30/2024 Depression Screening 07/30/2024 Falls Risk Assessment 07/30/2024 Hepatitis C Screening 07/30/2024 Medicare Annual Wellness Visit 07/30/2024 Osteoporosis Screening (Bone Density Screening) 07/30/2024 Social Influencers of Health Screening 07/30/2024 Diabetes: Annual Urine Albumin-Creatinine Ratio (uACR) 07/31/2024 Diabetes: Blood Sugar Contro l Test (HGBA1C) 07/31/2024 Influenza Vaccine (Season Ended) 2025 03/21/2022, 03/24/2020 DTaP,Tdap,and Td Vaccines (3 - Td or [...] age to complete this topic Meningococcal B Vaccine Aged Out No l onger eligible based on patient's age to complete [...] 2:15 PM EDT Alzheimer's disease, unspecified (CODE) ([facility] V24, [facility] V28) from Last 3 Months Results * PET CT Limited Area Initial (07/30/2024 2:15 PM EDT) Anatomical Region Laterality Modality Body Radiographic Geraldine ging 08/05/2024 10:2 3 AM EDT Impressions 08/18/2024 6:37 PM EDT Positive study This scan was interpreted using consensus imaging with another board certified radiologist, Dr. Bey. Please note: The CT was acquired at a low radiation dose settings. ??The images are of nondiagnostic quality and used solely for purposes of attenuation correction and slice localization for the PET scan. ??If a diagnostic CT study is desired it must be ordered separately. -------- FINAL REPORT -------- Dictated By: Mayda Belle Dictated Date: 08/05/2024 10:23 ET Assigned Physician: Mayda Belle Reviewed and Electronically Signed By: Mayda Belle Signed Date: 08/18/2024 18:37 ET Workstation ID: [id number] Transcribed By: Self Edit Transcribed Date: 08/05/2024 11:13 ET Narrative 08/18/2024 6:37 PM EDT INDICATION: ALZHEIMER DISEASE TECHNIQUE: F-18 Amyvid PET imaging was performed from of the head in a single acquisition with data set reconstructed in axial, coronal, and sagittal planes at the computer workstation with fused data from both the PET imaging study and attenuation correction CT. The CT portion of the examination was done strictly for attenuation correction and is not a true diagnostic CT examination. DLP: ??934 mGy-cm Radiopharmaceutical: 9.8 mCi of F-18 Florbetapir IV. COMPARISON: Correlation is made with outside brain MRI dated May 2024 FINDINGS: HEAD AND NECK: Lack of emery-white matter differentiation. Cerebral volume loss with scattered white matter hypodensities which may represent microangiopathic white matter change. Procedure Note Mayda Belle MD - 08/18/2024 INDICATION: ALZHEIMER DISEASE TECHNIQUE: F-18 Amyvid PET [...] microangiopathic white matter change. IMPRESSION: Positive study This scan was interpreted using consensus imaging with another boardcertified radiologist, Dr. Bey. Please note: The CT was acquired at a low radiation dose settings. The images are ofnondiagnostic quality and used solely for purposes of attenuationcorrection and slice localization for the PET scan. If a diagnostic CTstudy is desired it must be ordered separately. -------- FINAL REPORT -------- Dictated By: Mayda Belle Dictated Date: 08/05/2024 10:23 ET Assigned Physician: Mayda Belle Reviewed and Electronically Signed By: Mayda Belle Signed Date: 08/18/2024 18:37 ET Workstation ID: [id number] Transcribed By: Self Edit Transcribed Date: 08/05/2024 11:13 ET Subhana Sotero PA IMG NM PROCEDURES Final Result from Last 3 Months Insurance MEDICARE [facility]
[2024-08-24] MEDS: Magnesium Sulfate/H2O 2 GM/50 ML PIGGYBACK IV (19:39)
[2024-08-24] MEDS: Meclizine HCl 25 MG TABLET PO ×2 (19:42→22:50)
[2024-08-24 20:21] VITALS: BP 131/62; PULSE 61; RESP 16; TEMP 36.7; O2SAT 98
[2024-08-24 22:36] VITALS: BP 150/67; PULSE 63; RESP 16; TEMP 37.1; O2SAT 98
[2024-08-24 23:20] VITALS: BP 150/67; PULSE 63; RESP 16; TEMP 37.1; O2SAT 98
== END 2024-08-24 23:37 | disposition home or self-care (01) ==
PROVIDERS: Physician Assistant Medical; Emergency Provider Emergency Medicine Emergency Medical Services; PCP Physician Assistant
DX: R42 Dizziness and giddiness (principal); R53.1 Weakness; G30.9 Alzheimer's disease, unspecified; F02.80 Dementia in other diseases classified elsewhere, unspecified severity, without behavioral disturbance, psychotic disturbance, mood disturbance, and anxiety; Z79.899 Other long term (current) drug therapy
CPT/HCPCS: 36415; 80053; 83735; 84443; 84484; 85025; 93005; 96365; 96366; 99284; 99285; J3475

== ENCOUNTER → 2024-08-24 15:24 | Outpatient (BNV) | payer MEDICARE, SELFPAY | PROVIDERS: Emergency Provider Emergency Medicine Emergency Medical Services; PCP Physician Assistant; Visit Provider Internal Medicine Cardiovascular Disease | DX: R42 Dizziness and giddiness (principal) | CPT/HCPCS: 93010 ==

== ENCOUNTER 2024-08-25 09:27 | Outpatient (AMB) | payer MEDICARE, SELFPAY ==
--- NOTE | 2024-08-25 09:39 | A.OFFPC_ITS ---
Vital Signs 08/25/24 09:41 08/25/24 09:53 08/25/24 09:54 Height 5 ft 3 in Weight 126 lb BMI 22.3 BP 120/72 70/52 L 120/64 Blood Pressure Location Lt brachial Lt brachial Rt brachial Position Sitting Standing Supine Respiration 16 Pulse 95 Pulse Source Pulse Oximeter Temp 97.3 F Temp Source Temporal Artery Scan Pulse Oximetry (%) 95 Oxygen Delivery Method Room Air Intake Visit Reasons: f/u BPPV Trimmer Hand Required: No Accompanied by: Family/Other Allergies peanut Allergy (Severe, Verified 08/25/24 10:00) Anaphylaxis nut - unspecified Allergy (Verified 08/25/24 10:00) Unknown Medication List - Last Reconciled 08/25/24 by Raudel Flanagan PA-C calcium carbonate (Oyster Shell Calcium) 500 mg PO BID 90 days cholecalciferol (vitamin D3) 50 mcg PO DAILY 90 days escitalopram oxalate 20 mg PO DAILY ferrous sulfate 325 mg PO DAILY 90 days MDD 325mg hydrochlorothiazide 12.5 mg PO DAILY 30 days levothyroxine 100 mcg PO DAILY levothyroxine 75 mcg PO DAILY levothyroxine 25 mcg PO DAILY 30 days lisinopril 20 mg PO DAILY 90 days lorazepam 0.5 mg PO DAILY PRN meclizine 25 mg PO TID PRN memantine 28 mg PO DAILY MDD 28mg memantine 28 mg PO DAILY 90 days metformin 500 mg PO BID 90 days ondansetron 4 mg PO Q8H PRN 14 days simvastatin 20 mg PO BEDTIME walker (Ultra-Light Rollator misc) As directed Tobacco use date assessed: 06/15/24 Dental Screening Dental Screen Date: 06/15/24 HPI f/u BPPV HPI Details who is a 79 ?year old female here today for follow-up visit She was found to have elevated blood pressure readings at her physical therapy office. Patient has a PMH significant for type 2 DM, hypertension, anxiety, hypothyroid. We have got patient into vestibular therapy for her vertigo to which she reports was initially helping though recent vestibular therapy session she had very bad dizziness and some hallucinations. She reports she was hallucinating and seeing piles of laundry and tissues and front of her. She was seen at the ER immediately and underwent testing was found to have hypomagnesemia , hypercalcemia and continued impaired renal function. She has been noted to have orthostatic hypotension, unclear if this is related to her fluid status versus cardiac issue ?POTS. BPPV: Patient reporting dizziness and unsteadiness over the last 6 months though has increased over the last month.. She reports episodes of orthostatic hypotension and has experienced two recent falls. Her family notes increased fatigue, lethargy, and cognitive decline over the past six weeks. Despite discontinuing memantine, her fatigue and memory issues persist. Weight loss: Have noted gradual weight loss over last several months. She has been very fatigue sleeping 12-16 hours per day. Due to her sleep she has not been eating much which is likely causing some of her dehydration status. Has been found to have hypercalcemia to which we will check a parathyroid hormone. Concerns here for chronic fatigue, weight loss and hypercalcemia for possible malignancy. Patient was never a long-time smoker. Refer to hem/ onc for evaluation Memory impairment: Has gotten brain MRI that did show age-related findings- parenchymal volume loss. She continues on memantine for her memory ? .. ? DMII: Most recent A1c is 6.4, fasting blood sugar improved. Patient is currently taking Metformin 2000mg daily, Reports her diet has been a bit better during the summer. .. Generalized anxiety disorder:? Has been under more anxiety as of late due to family issues.? She does use lorazepam on a very limited p.r.n. basis.? Continues on Lexapro on a daily basis with decent affect. ? .. ? Hypothyroidism: Most recent labs showing much improved TSH. Will continue her current dose of levothyroxine. Laboratory Tests 07/22/24 08/10/24 08/10/24 15:07 14:03 15:33 RBC 3.89 L Hgb 11.9 L Creatinine 2.53 H Hgb A1c (Clinic) 6.5 H Calcium 11.5 H D Magnesium TSH 0.03 L 08/24/24 15:43 RBC 3.31 L Hgb 10.3 L Creatinine 1.90 H Hgb A1c (Clinic) Calcium Magnesium 1.3 L* TSH 2.52 [facility] Surgical History History of hysterectomy History of bunionectomy Family History Father Colon cancer Mother No problems noted. 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 Minh Ewing, Yecenia Manzano, Juan Beckham and colleagues, with an educational lashaun from [employer]. Review of Systems Const Reports fatigue, Denies headache(s) and Reports lethargy Eyes Denies loss of vision ENT Denies vertigo, Reports dizziness, Denies headache(s) and Denies sore throat Card Denies chest pain, Denies leg edema and Denies lightheadedness Resp Denies cough, Denies hemoptysis and Denies wheezing GI Denies abdominal pain, Denies melena, Denies constipation, Denies diarrhea and Denies vomiting Denies urinary frequency, Denies dysuria and Denies urinary urgency Musc Denies arthralgias, Denies joint swelling, Denies numbness and Denies tingling Neuro Denies Abnormal speech present, Denies behavioral changes, Denies vertigo, Reports dizziness, Denies headache(s), Denies loss of vision, Denies memory loss, Denies numbness and Denies tingling Psych Denies anxiety, Denies behavioral changes, Denies depression, Denies memory loss and Denies panic attacks Endo Reports fatigue Harvinder/Lymph Denies easy bleeding and Denies easy bruising Aller/Immun Denies wheezing Physical exam (Primary Care) Vital Signs: Last Vital Signs Temp 97.3 F 08/25/24 09:41 Pulse 95 08/25/24 09:41 Resp 16 08/25/24 09:41 BP 120/64 08/25/24 09:54 Pulse Ox 95 08/25/24 09:41 Oxygen Delivery Method Room Air 08/25/24 09:41 BMI result Body Mass Index 22.3 Tobacco/Smoking Status: Tobacco use Status Tobacco use date assessed 06/15/24 08/25/24 09:40 Patient Tobacco Use Status Never used Tobacco 08/25/24 09:40 e-Cigarette/Vaping Use Never Used 08/25/24 09:40 Thrive Assessment: Date of Thrive Assessment Date Thrive assessed 06/15/24 08/25/24 09:40 Const General: healthy appearing, no acute distress, alert and awake Nutritional Appearance: well nourished Orientation/consciousness: oriented to person, oriented to place and oriented to time HENMT Ears: TM's normal bilaterally General nose exam: Normal nasal mucous membranes and turbinates present Eyes Conjunctivae: conjunctivae normal Sclerae: sclerae normal Pupils: Equal, round and reactive pupils present Neck Neck: Yes no lymphadenopathy and Yes no JVD Thyroid: Thyroid normal Carotids: no bruits Resp Effort & Inspection: normal respiratory effort and not tachypneic Auscultation: no crackles, no rales, no rhonchi and no wheezes Cardio Rate: regular rate Rhythm: regular rhythm Heart sounds: no murmurs and normal S1 and S2 GI Palpation (GI): Soft to palpation, nontender, no hepatomegaly and no splenomegaly Auscultation: normal bowel sounds Skin General skin exam: no rashes or lesions noted and dry skin Neuro General: oriented to person, oriented to place and oriented to time Cranial nerves: Yes Equal, round and reactive pupils present Speech: No Abnormal speech present Gait exam (Neuro): Normal gait present Motor exam (neuro): no tremor noted Extrem Right upper extremity: full ROM Left upper extremity: full ROM Right lower extremity: full ROM; no edema Left lower extremity: full ROM; no edema Psych Mental Status: mental status grossly normal Speech and movement: Normal speech and movement present Affect: normal affect Attitude: cooperative Thought process: Normal thought process present Results AMB Hemoglobin A1c AMB Hemoglobin A1c 6.4 % Last Edit by HENRY Marin on 08/25/24 10:04 Results Reviewed Results Reviewed: Laboratory Last Values Hgb A1c (Clinic) 6.4 % (4.0-6.0) H 08/25/24 09:33 Coding Level of Care Code Est Pt Level 4 (23624) Diagnoses Hypercalcemia E83.52 Hypomagnesemia E83.42 Orthostatic hypotension I95.1 Benign paroxysmal positional vertigo due to bilateral vestibular disorder H81.13 Laterality: bilateral Assessment & Plan Assessment & Plan (1) Hypercalcemia: Code(s): E83.52 - Hypercalcemia Category: Medical Plan: Will recheck calcium and a parathyroid hormone. If parathyroid hormone normal will appreciate Oncology or nephrology input on recently noted hypercalcemia (2) Hypomagnesemia: Code(s): E83.42 - Hypomagnesemia Category: Medical Plan: Will replenish the magnesium with oral magnesium. (3) Orthostatic hypotension: Code(s): I95.1 - Orthostatic hypotension Category: Medical Plan: Patient noted to have orthostatic hypotension, unclear if this is related to her fluid status. Advised to stay well hydrated particularly with electrolyte fluids. Will refer to cardiology for further workup on her hypotension ?POTS with tilt- table test (4) BPPV (benign paroxysmal positional vertigo): Code(s): H81.10 - Benign paroxysmal vertigo, unspecified ear Category: Medical Qualifiers: Laterality: bilateral Qualified Code(s): H81.13 - Benign paroxysmal vertigo, bilateral Plan: Patient currently undergoing vestibular therapy as she was found to have nystagmus during [place]-Hallpike maneuvers. She has meclizine available to her to use for dizziness. She reports initially vestibular therapy was helpful for her all around dizziness. Orders: Orders Parathyroid Hormone Intact Today E83.52 - Hypercalcemia Calcium Today E83.52 - Hypercalcemia AMB Hemoglobin A1c Today E11.9 - Type 2 diabetes mellitus without complications Vitamin D 25-OH Total Today E83.52 - Hypercalcemia Referrals Cardiology Referral I95.1 - Orthostatic hypotension Hematology & Oncology Referral E83.52 - Hypercalcemia, R63.4 - Abnormal weight loss Medications: New magnesium oxide 500 mg PO DAILY 30 days 30 caps 2RF E83.42 - Hypomagnesemia
[2024-08-25 09:41] VITALS: BP 120/72; PULSE 95; RESP 16; TEMP 36.3; O2SAT 95; BMI 22.3
[2024-08-25 09:53] VITALS: BP 70/52
[2024-08-25 09:54] VITALS: BP 120/64
--- OUTSIDE RECORDS SUMMARY | 2024-08-25 10:36 | XMS_ITS | Clinical Summary ---
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 PET Scan [address] [place] [address] Alzheimer's disease, unspecified (CODE) ([facility] V24, [facility] V28) Discharge Disposition: Home or Self Care [...] 2:15 PM EDT Alzheimer's disease, unspecified (CODE) ([facility] V24, [facility] V28) from Last 3 Months Results * [...] Signed Date: 08/18/2024 18:37 ET Workstation ID: [id number] Transcribed By: Self Edit Transcribed Date: 08/05/2024 [...] Signed Date: 08/18/2024 18:37 ET Workstation ID: [id number] Transcribed By: Self Edit Transcribed Date: 08/05/2024 11:13 ET Subhana Sotero PA IMG NM PROCEDURES Final Result from Last 3 Months Insurance MEDICARE [facility]
== END 2024-08-25 10:34 | disposition home or self-care (01) ==
PROVIDERS: PCP Physician Assistant; Visit Provider Physician Assistant
DX: E83.52 Hypercalcemia (principal); E83.42 Hypomagnesemia; I95.1 Orthostatic hypotension; H81.13 Benign paroxysmal vertigo, bilateral; E11.9 Type 2 diabetes mellitus without complications

== ENCOUNTER 2024-08-25 09:27 | Outpatient (REF) | payer MEDICARE, SELFPAY ==
[2024-08-25 13:45] LABS: Anion Gap 12 (12-20); Blood Urea Nitrogen 32 mg/dL (9-16); Calcium 10.7 mg/dL (8.4-10.2); Carbon Dioxide 24 mmol/L (22-29); Chloride 108 mmol/L (96-108); Estimated Glomerular Filt Rate 23; Glucose Random 87 mg/dL (60-115); Sodium 140 mmol/L (135-145)
[2024-08-25 13:47] LABS: Parathyroid Hormone Intact 23.5 pg/mL (8.7-77.1)
[2024-08-25 14:01] LABS: TSH reflex Free T4 2.66 uIU/mL (0.32-4.0); Vitamin D 25-OH Total 59.2 ng/mL (>30)
--- OUTSIDE RECORDS SUMMARY | 2024-08-25 15:02 | XMS_ITS | Clinical Summary ---
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 V24, [facility] V28) Discharge Disposition: Home or Self Care [...] 2:15 PM EDT Alzheimer's disease, unspecified (CODE) ([facility] V24, [facility] V28) from Last 3 Months Results * [...] Signed Date: 08/18/2024 18:37 ET Workstation ID: [id number] Transcribed By: Self Edit Transcribed Date: 08/05/2024 [...] Signed Date: 08/18/2024 18:37 ET Workstation ID: [id number] Transcribed By: Self Edit Transcribed Date: 08/05/2024 11:13 ET Subhana Sotero PA IMG NM PROCEDURES Final Result from Last 3 Months Insurance MEDICARE [facility]
== END 2024-08-25 09:28 | disposition home or self-care (01) ==
LOC: HO.LAB 09:27
PROVIDERS: PCP Physician Assistant; Visit Provider Physician Assistant
DX: E83.52 Hypercalcemia (principal); E83.42 Hypomagnesemia; I95.1 Orthostatic hypotension; H81.13 Benign paroxysmal vertigo, bilateral; E11.9 Type 2 diabetes mellitus without complications
CPT/HCPCS: 36415; 80048; 82306; 83036; 83970; 84443; 99212

== ENCOUNTER 2024-08-26 12:06 | Outpatient (REF) | payer MEDICARE, SELFPAY ==
[2024-08-27 12:21] LABS: Appearance Urine Cloudy; Color Urine Yellow; Glucose Urine UA Negative (Negative); Leukocyte Esterase Urine Moderate (2+) (Negative); Nitrite Urine Negative (Negative); PH 6.5 (5.0-9.0); Specific Gravity - Urine 1.015 (1.005-1.025); UMIC TRIGGER UACC YES; Urine Blood Negative (Negative); Urine Ketones Trace mg/dL (Negative); Urine Protein Negative (Neg-Trace)
[2024-08-27 12:48] LABS: Bacteria Urine 3+ (None Seen); RBC Urine 0-2 /HPF (0-2); Transitional Epi Cells Urine Present; UACC Culture Trigger YES
[2024-08-27 12:49] LABS: Other Crystals Urine Present
--- OUTSIDE RECORDS SUMMARY | 2024-08-27 15:01 | XMS_ITS | Clinical Summary ---
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 [employer] Name Role Phone Unavailable Primary Care Provider Unavailabl e Encounters Date Type Department Care Team Description 07/30/2024 12:45 PM EDT - 07/30/2024 11:59 PM EDT Hospital Encounter [facility] PET Scan [address] [place] [address] Alzheimer's disease, unspecified (CODE) ([facility] V24, [facility] V28) Discharge Disposition: Home or Self Care [...] unspecified (CODE) ([facility] V24, [facility] V28) from Last 3 Months Results * [...] Signed Date: 08/18/2024 18:37 ET Workstation ID: [id number] Transcribed By: Self Edit Transcribed Date: 08/05/2024 [...] Signed Date: 08/18/2024 18:37 ET Workstation ID: [id number] Transcribed By: Self Edit Transcribed Date: 08/05/2024 11:13 ET Subhana Sotero PA IMG NM PROCEDURES Final Result from Last 3 Months Insurance MEDICARE [facility]
== END 2024-08-26 12:07 | disposition home or self-care (01) ==
LOC: HO.LNP 12:06
PROVIDERS: Visit Provider Physician Assistant
DX: R30.0 Dysuria (principal); N17.9 Acute kidney failure, unspecified
CPT/HCPCS: 81001; 87086

== ENCOUNTER 2024-08-27 15:20 | Outpatient (AMB) | payer MEDICARE, SELFPAY ==
[2024-08-27 15:33] VITALS: BP 106/54; BP 124/62; PULSE 89; TEMP 36.1; O2SAT 98; BMI 22.3
--- NOTE | 2024-08-27 15:33 | A.OFFPC_ITS ---
Vital Signs 08/27/24 15:33 08/27/24 15:33 Height 5 ft 3 in Weight 126 lb BMI 22.3 BP 124/62 106/54 L Blood Pressure Location Lt brachial Lt brachial Position Sitting Standing Pulse 89 Pulse Source Pulse Oximeter Temp 96.9 F Temp Source Temporal Artery Scan Pulse Oximetry (%) 98 Oxygen Delivery Method Room Air Intake Visit Reasons: follow up dizziness/ bp Md Pediatric Allergist Required: No Accompanied by: Family/Other Allergies peanut Allergy (Severe, Verified 08/27/24 15:43) Anaphylaxis nut - unspecified Allergy (Verified 08/27/24 15:43) Unknown Medication List - Last Reconciled 08/27/24 by Raudel Flanagan PA-C calcium carbonate (Oyster Shell Calcium) 500 mg PO BID 90 days cholecalciferol (vitamin D3) 50 mcg PO DAILY 90 days escitalopram oxalate 20 mg PO DAILY ferrous sulfate 325 mg PO DAILY 90 days MDD 325mg hydrochlorothiazide 12.5 mg PO DAILY 30 days levothyroxine 100 mcg PO DAILY levothyroxine 75 mcg PO DAILY levothyroxine 25 mcg PO DAILY 30 days lisinopril 20 mg PO DAILY 90 days lorazepam 0.5 mg PO DAILY PRN magnesium oxide 500 mg PO DAILY 30 days meclizine 25 mg PO TID PRN memantine 28 mg PO DAILY MDD 28mg memantine 28 mg PO DAILY 90 days metformin 500 mg PO BID 90 days ondansetron 4 mg PO Q8H PRN 14 days simvastatin 20 mg PO BEDTIME walker (Ultra-Light Rollator misc) As directed Tobacco use date assessed: 06/15/24 Dental Screening Dental Screen Date: 06/15/24 HPI follow up dizziness/ bp HPI Details Patient is a 79-year-old female here today for problem visit. Patient continues to have fairly bad orthostatic hypotension. Most recent labs continues to show hypercalcemia and impaired renal function. Urinalysis has been done did show 3+ bacterial waiting culture pending. Unfortunately patient's dizziness has gotten worse and has stopped vestibular therapy as she has been noted to have the orthostatic hypotension. Has tried meclizine though felt it was not effective, We have held her hydrochlorothiazide. She is already had brain MRI which showed evidence of volume loss though no intracranial acute pathologies.. --> We plan to hold her memantine and li sinopril for now due to dizziness and noted renal impairment. She has upcoming appointment with cash applications representative. At this time it is unclear what is causing patient's orthostatic hypotension. Will send for Holter monitor to evaluate for arrhythmia, ultrasound of renal function to evaluate for any renal abnormality [facility], [facility] Surgical History History of hysterectomy History of bunionectomy Family History Father Colon cancer Mother No problems noted. 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 Minh Ewing, Yecenia Manzano, Juan Beckham and colleagues, with an educational lashaun from [employer]. Review of Systems Const Denies headache(s) Eyes Denies loss of vision ENT Reports vertigo, Reports dizziness, Denies headache(s) and Denies sore throat Card Denies chest pain, Denies leg edema and Reports lightheadedness Resp Denies cough, Denies hemoptysis and Denies wheezing GI Denies abdominal pain, Denies melena, Denies constipation, Denies diarrhea and Denies vomiting Denies urinary frequency, Denies dysuria and Denies urinary urgency Musc Denies arthralgias, Denies joint swelling, Denies numbness and Denies tingling Neuro Denies Abnormal speech present, Denies behavioral changes, Reports vertigo, Reports dizziness, Denies headache(s), Denies loss of vision, Denies memory loss, Denies numbness and Denies tingling Psych Denies anxiety, Denies behavioral changes, Denies depression, Denies memory loss and Denies panic attacks Harvinder/Lymph Denies easy bleeding and Denies easy bruising Aller/Immun Denies wheezing Physical exam (Primary Care) Vital Signs: Last Vital Signs Temp 96.9 F 08/27/24 15:33 Pulse 89 08/27/24 15:33 BP 106/54 L 08/27/24 15:33 Pulse Ox 98 08/27/24 15:33 Oxygen Delivery Method Room Air 08/27/24 15:33 BMI result Body Mass Index 22.3 Tobacco/Smoking Status: Tobacco use Status Tobacco use date assessed 06/15/24 08/27/24 15:34 Patient Tobacco Use Status Never used Tobacco 08/27/24 15:34 e-Cigarette/Vaping Use Never Used 08/27/24 15:34 Thrive Assessment: Date of Thrive Assessment Date Thrive assessed 06/15/24 08/27/24 15:34 Const General: healthy appearing, no acute distress, alert and awake Nutritional Appearance: well nourished Orientation/consciousness: oriented to person, oriented to place and oriented to time HENMT Ears: TM's normal bilaterally General nose exam: Normal nasal mucous membranes and turbinates present Eyes Conjunctivae: conjunctivae normal Sclerae: sclerae normal Pupils: Equal, round and reactive pupils present Neck Neck: Yes no lymphadenopathy and Yes no JVD Thyroid: Thyroid normal Carotids: no bruits Resp Effort & Inspection: normal respiratory effort and not tachypneic Auscultation: no crackles, no rales, no rhonchi and no wheezes Cardio Rate: regular rate Rhythm: regular rhythm Heart sounds: no murmurs and normal S1 and S2 GI Palpation (GI): Soft to palpation, nontender, no hepatomegaly and no splenomegaly Auscultation: normal bowel sounds Skin General skin exam: no rashes or lesions noted and dry skin Neuro General: oriented to person, oriented to place and oriented to time Cranial nerves: Yes Equal, round and reactive pupils present Speech: No Abnormal speech present Gait exam (Neuro): Normal gait present Motor exam (neuro): no tremor noted Extrem Right upper extremity: full ROM Left upper extremity: full ROM Right lower extremity: full ROM; no edema Left lower extremity: full ROM; no edema Psych Mental Status: mental status grossly normal Speech and movement: Normal speech and movement present Affect: normal affect Attitude: cooperative Thought process: Normal thought process present Coding Level of Care Code Est Pt Level 4 (09239) Diagnoses Heart palpitations R00.2 KEV (acute kidney injury) N17.9 Hypomagnesemia E83.42 Orthostatic hypotension I95.1 Impaired renal function N28.9 Assessment & Plan Assessment & Plan (1) Heart palpitations: Code(s): R00.2 - Palpitations Category: Medical Plan: Due to patient's reports of heart palpitations will send for cardiac Holter monitor to evaluate for any paroxysmal arrhythmia. (2) KEV (acute kidney injury): Code(s): N17.9 - Acute kidney failure, unspecified Category: Medical Plan: Noted continued impaired renal function. Will hold off on her lisinopril for now and continue to monitor blood pressure. She has been showing signs of orthostatic hypotension. (3) Hypomagnesemia: Code(s): E83.42 - Hypomagnesemia Category: Medical Plan: Recent magnesium low, Will check magnesium (4) Orthostatic hypotension: Code(s): I95.1 - Orthostatic hypotension Category: Medical Plan: Unclear etiology to patient's orthostatic hypotension. Advised patient's stay well hydrated. Will hold off on lisinopril for now due to low blood pressures upon standing. Will also hold memantine as unclear having side effects this medication. (5) Impaired renal function: Code(s): N28.9 - Disorder of kidney and ureter, unspecified Category: Medical Plan: Noted to continued having impaired renal function. Will send for renal ultrasound evaluate for structural renal disease. Has upcoming appointment with Nephrology. Orders: Orders ECG 7 day holter monitor Today R00.2 - Palpitations US renal BI Today N28.9 - Disorder of kidney and ureter, unspecified US renal doppler Today N28.9 - Disorder of kidney and ureter, unspecified Magnesium Today E83.42 - Hypomagnesemia Medications: On Hold memantine Hold Comment: Doctor's Order 28 mg PO DAILY 30 ea 6RF cognitive impairment MDD 28mg R41.3 - Other amnesia memantine Hold Comment: Doctor's Order 28 mg PO DAILY 90 days 90 ea 3RF hydrochlorothiazide Hold Comment: Doctor's Order 12.5 mg PO DAILY 30 days 30 tabs 3RF I10 - Essential (primary) hypertension
--- OUTSIDE RECORDS SUMMARY | 2024-08-27 18:02 | XMS_ITS | Clinical Summary ---
Author Organization [facility] Address [address] [place] [address] Phone Care Team Providers Care Saxophone Assembler Name Role Phone Unavailable Primary Care Provider Unavailabl e Encounters Date Type Department Care Team Description 07/30/2024 12:45 PM EDT - 07/30/2024 11:59 PM EDT Hospital Encounter [facility] PET Scan [address] [place] [address] Alzheimer's disease, unspecified (CODE) ([facility] V24, [facility] V28) Discharge Disposition: Home or Self Care [...] 2:15 PM EDT Alzheimer's disease, unspecified (CODE) ([facility] V24, [facility] V28) from Last 3 Months Results * [...] Signed Date: 08/18/2024 18:37 ET Workstation ID: [id number] Transcribed By: Self Edit Transcribed Date: 08/05/2024 [...] Signed Date: 08/18/2024 18:37 ET Workstation ID: [id number] Transcribed By: Self Edit Transcribed Date: 08/05/2024 11:13 ET Subhana Sotero PA IMG NM PROCEDURES Final Result from Last 3 Months Insurance MEDICARE [facility]
== END 2024-08-27 16:20 | disposition home or self-care (01) ==
LOC: HO.HMCH 15:21
PROVIDERS: PCP Physician Assistant; Visit Provider Physician Assistant
DX: R00.2 Palpitations (principal); N17.9 Acute kidney failure, unspecified; E83.42 Hypomagnesemia; I95.1 Orthostatic hypotension; N28.9 Disorder of kidney and ureter, unspecified

== ENCOUNTER → 2024-08-27 15:20 | Outpatient (BNVA) | payer MEDICARE, SELFPAY | PROVIDERS: PCP Physician Assistant; Visit Provider Physician Assistant | DX: R00.2 Palpitations (principal); N17.9 Acute kidney failure, unspecified; E83.42 Hypomagnesemia; I95.1 Orthostatic hypotension; N28.9 Disorder of kidney and ureter, unspecified | CPT/HCPCS: 99212 ==

== ENCOUNTER 2024-08-28 15:25 | Outpatient (REF) | payer MEDICARE, SELFPAY | END 2024-08-28 15:26 | disposition home or self-care (01) | LOC: HO.CT 15:25 | PROVIDERS: PCP Physician Assistant; Visit Provider Physician Assistant | DX: H90.3 Sensorineural hearing loss, bilateral (principal) | CPT/HCPCS: 70480 ==

== ENCOUNTER → 2024-08-28 15:38 | Outpatient (BNV) | payer MEDICARE, SELFPAY | PROVIDERS: PCP Physician Assistant; Visit Provider Radiology Diagnostic Radiology | DX: H90.3 Sensorineural hearing loss, bilateral (principal) | CPT/HCPCS: 70480 ==

== ENCOUNTER 2024-09-07 13:12 | Outpatient (AMB) | payer MEDICARE, SELFPAY ==
--- NOTE | 2024-09-07 13:16 | A.OFFPC_ITS ---
Vital Signs 09/07/24 13:17 09/07/24 14:01 Height 5 ft 3 in Weight 126 lb 2 oz BMI 22.3 BP 120/70 130/70 Blood Pressure Location Lt brachial Rt brachial Position Sitting Standing Pulse 92 Pulse Source Pulse Oximeter Temp 97.3 F Temp Source Temporal Artery Scan Pulse Oximetry (%) 98 Oxygen Delivery Method Room Air Intake Visit Reasons: follow up Soaker Helper Required: No Business Analytics Specialist: Present Accompanied by: Spouse Allergies peanut Allergy (Severe, Verified 09/07/24 13:42) Anaphylaxis nut - unspecified Allergy (Verified 09/07/24 13:42) Unknown Medication List - Last Reconciled 09/07/24 by Raudel Flanagan PA-C calcium carbonate (Oyster Shell Calcium) 500 mg PO BID 90 days cholecalciferol (vitamin D3) 50 mcg PO DAILY 90 days escitalopram oxalate 20 mg PO DAILY ferrous sulfate 325 mg PO DAILY 90 days MDD 325mg hydrochlorothiazide 12.5 mg PO DAILY 30 days levothyroxine 100 mcg PO DAILY levothyroxine 75 mcg PO DAILY levothyroxine 25 mcg PO DAILY 30 days lisinopril 20 mg PO DAILY 90 days lorazepam 0.5 mg PO DAILY PRN magnesium oxide 500 mg PO DAILY 30 days meclizine 25 mg PO TID PRN memantine 28 mg PO DAILY MDD 28mg memantine 28 mg PO DAILY 90 days metformin 500 mg PO BID 90 days ondansetron 4 mg PO Q8H PRN 14 days simvastatin 20 mg PO BEDTIME walker (Ultra-Light Rollator misc) As directed Tobacco use date assessed: 09/07/24 Fall risk assessment: No Falls in past year Last assessed Fall Risk: 09/07/24 Dental Screening Dental Screen Date: 06/15/24 HPI follow up HPI Details Patient is a 79-year-old female here today for a 2 week follow-up visit. We have been discussing patient's orthostatic hypotension and intermittent dizziness. She has done vestibular therapy which did provide her some relief though had breakthrough severe orthostatic hypotension and dizziness. We have held her lisinopril and memantine in 0 feeling much better. She is able to walk unassisted and has much less dizziness. Today blood pressure in office stable even on standing. No further orthostatic hypotension. She will you restarting vestibular therapy for her baseline vertigo. [facility] Surgical History History of hysterectomy History of bunionectomy Family History Father Colon cancer Mother No problems noted. 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 1. Little interest or pleasure in doing things: not at all 2. Feeling down, depressed, or hopeless: not at all 3. Trouble falling or staying asleep, or sleeping too much: not at all 4. Feeling tired or having little energy: not at all 5. Poor appetite or overeating: not at all 6. Feeling bad about yourself - or that you are a failure or have let yourself or your family down: not at all 7. Trouble concentrating on things, such as reading the newspaper or watching television: not at all 8. Moving or speaking so slowly that other people could have noticed. Or the opposite - being so fidgety or restless that you have been moving around a lot more than usual: not at all 9. Thoughts that you would be better off or of hurting yourself in some way: not at all Total score: 0 Depression Screening Interpretation: Negative Depression Screening Done: Yes 97778 - PHQ-9 Billing: Yes Source: Developed by Drs. Minh Ewing, Yecenia Manzano, Juan Beckham and colleagues, with an educational lashaun from [employer]. Thrive Questionnaire Date Thrive assessed: 06/15/24 I am a: Patient What is your living situation today?: I have a steady place to live Within the past 12 months, did the food you bought not last and you didn't have the money to get more?: Never true Within the past 12 months, did you worry whether your food would run out before you got money to buy more?: Never true Do you have trouble paying for medicines?: No Do you have trouble getting transportation to medical appointments?: No Do you have trouble paying your heating and electricity bill?: No Do you have trouble taking care of your child, family member or friend?: No Do you have trouble with day-to-day activities such as bathing, preparing meals, shopping, managing finances, etc.?: No Are you currently unemployed and looking for a job?: No Are you interested in more education?: No Please select the resources that you would like help with: None Currently or been in a relationship where the following occur: No concerns reported THRIVE Score: 0 AUDIT C Alcohol Use Questionnaire (AUDIT-C) 1. How often do you have a drink containing alcohol?: Never Total Score: 0 TASHI-7 AMB Questionnaire TASHI-7 Date TASHI - 7 assessed: 06/15/24 Feeling nervous, anxious, or on edge: 0 = Not at all Not being able to stop or control worryin = Not at all Worrying too much about different things: 0 = Not at all Trouble relaxin = Not at all Being so restless that it is hard to sit still: 0 = Not at all Becoming easily annoyed or irritable: 2 = More than half the days Feeling afraid as if something awful might happen: 0 = Not at all Total TASHI-7 score (0-4 normal; 5-9 mild; 10-14 moderate; 15-21 severe): 2 Source: Developed by Drs. Minh Ewing, Yecenia Manzano, Juan Beckham and colleagues, with an educational lashaun from [employer]. TASHI-7 Assessment Billing TASHI-7 Assessment Tool: TASHI-7 Assessment 09054 Review of Systems Const Denies headache(s) Eyes Denies loss of vision ENT Denies vertigo, Reports dizziness, Denies headache(s) and Denies sore throat Card Denies chest pain, Denies leg edema and Denies lightheadedness Resp Denies cough, Denies hemoptysis and Denies wheezing GI Denies abdominal pain, Denies melena, Denies constipation, Denies diarrhea and Denies vomiting Denies urinary frequency, Denies dysuria and Denies urinary urgency Musc Denies arthralgias, Denies joint swelling, Denies numbness and Denies tingling Neuro Denies Abnormal speech present, Denies behavioral changes, Denies vertigo, R eports dizziness, Denies headache(s), Denies loss of vision, Denies memory loss, Denies numbness and Denies tingling Psych Denies anxiety, Denies behavioral changes, Denies depression, Denies memory loss and Denies panic attacks Harvinder/Lymph Denies easy bleeding and Denies easy bruising Aller/Immun Denies wheezing Physical exam (Primary Care) Vital Signs: Last Vital Signs Temp 97.3 F 09/07/24 13:17 Pulse 92 09/07/24 13:17 BP 120/70 09/07/24 13:17 Pulse Ox 98 09/07/24 13:17 Oxygen Delivery Method Room Air 09/07/24 13:17 BMI result Body Mass Index 22.3 Tobacco/Smoking Status: Tobacco use Status Tobacco use date assessed 09/07/24 09/07/24 13:22 Patient Tobacco Use Status Never used Tobacco 09/07/24 13:22 e-Cigarette/Vaping Use Never Used 09/07/24 13:22 PHQ-9: PHQ-9 Score PHQ-9: Total score 0 09/07/24 13:22 Depression Screening Interpretation: Negative Thrive Assessment: Date of Thrive Assessment Date Thrive assessed 06/15/24 09/07/24 13:22 Currently or been in a relationship where the following occur: No concerns reported Const General: healthy appearing, no acute distress, alert and awake Nutritional Appearance: well nourished Orientation/consciousness: oriented to person, oriented to place and oriented to time HENMT Ears: TM's normal bilaterally General nose exam: Normal nasal mucous membranes and turbinates present Eyes Conjunctivae: conjunctivae normal Sclerae: sclerae normal Pupils: Equal, round and reactive pupils present Neck Neck: Yes no lymphadenopathy and Yes no JVD Thyroid: Thyroid normal Carotids: no bruits Resp Effort & Inspection: normal respiratory effort and not tachypneic Auscultation: no crackles, no rales, no rhonchi and no wheezes Cardio Rate: regular rate Rhythm: regular rhythm Heart sounds: no murmurs and normal S1 and S2 GI Palpation (GI): Soft to palpation, nontender, no hepatomegaly and no splenomegaly Auscultation: normal bowel sounds Skin General skin exam: no rashes or lesions noted and dry skin Neuro General: oriented to person, oriented to place and oriented to time Cranial nerves: Yes Equal, round and reactive pupils present Speech: No Abnormal speech present Gait exam (Neuro): Normal gait present Motor exam (neuro): no tremor noted Extrem Right upper extremity: full ROM Left upper extremity: full ROM Right lower extremity: full ROM; no edema Left lower extremity: full ROM; no edema Psych Mental Status: mental status grossly normal Speech and movement: Normal speech and movement present Affect: normal affect Attitude: cooperative Thought process: Normal thought process present Coding Level of Care Code Est Pt Level 4 (01164) Diagnoses Essential hypertension I10 Hypertension type: essential hypertension Elevated serum creatinine R79.89 Benign paroxysmal positional vertigo due to bilateral vestibular disorder H81.13 Laterality: bilateral Additional Codes PHQ-9 - 59624 - PHQ-9 Billing: Yes ([id number]) TASHI-7 Assessment Billing - TASHI-7 Assessment Tool: TASHI-7 Assessment 43176 ([id number]) Assessment & Plan Assessment & Plan (1) HTN (hypertension): Code(s): I10 - Essential (primary) hypertension Category: Medical Qualifiers: Hypertension type: essential hypertension Qualified Code(s): I10 - Essential (primary) hypertension Plan: Blood pressure much improved today in office., no further orthostatic hypotension. Continue to hold lisinopril continue monitoring blood pressure at home with goal blood pressure to remain below 140/90 (2) Elevated serum creatinine: Code(s): R79.89 - Other specified abnormal findings of blood chemistry Category: Medical Plan: Will send patient to recheck renal function. Has been well hydrated is now feeling much better. We have held lisinopril. Anticipate the renal function to normalize (3) BPPV (benign paroxysmal positional vertigo): Code(s): H81.10 - Benign paroxysmal vertigo, unspecified ear Category: Medical Qualifiers: Laterality: bilateral Qualified Code(s): H81.13 - Benign paroxysmal vertigo, bilateral Plan: Will be starting vestibular therapy again as she does have mild dizziness still. Since stopping lisinopril and memantine her vertigo has been much better. Not using a cane or walker anymore. Orders: Orders Basic Metabolic Panel Today R79.89 - Other specified abnormal findings of blood chemistry
[2024-09-07 13:17] VITALS: BP 120/70; PULSE 92; TEMP 36.3; O2SAT 98; BMI 22.3
[2024-09-07 14:01] VITALS: BP 130/70
--- OUTSIDE RECORDS SUMMARY | 2024-09-07 15:40 | XMS_ITS | Clinical Summary ---
Author Organization [facility] Address [address] [place] [address] Phone Care Team Providers Care Clinical Trials Assistant Name Role Phone Unavailable Primary Care Provider Unavailabl e Encounters Date Type Department Care Team Description 07/30/2024 12:45 PM EDT - 07/30/2024 11:59 PM EDT Hospital Encounter [facility] PET Scan [address] [place] [address] Alzheimer's disease, unspecified (CODE) ([facility] V24, [facility] V28) Discharge Disposition: Home or Self [...] 2:15 PM EDT Alzheimer's disease, unspecified (CODE) ([facility] V24, [facility] V28) from Last 3 Months Results [...] Signed Date: 08/18/2024 18:37 ET Workstation ID: [id number] Transcribed By: Self Edit Transcribed Date: 08/05/2024 [...] Signed Date: 08/18/2024 18:37 ET Workstation ID: [id number] Transcribed By: Self Edit Transcribed Date: 08/05/2024 11:13 ET Subhana Sotero PA IMG NM PROCEDURES Final Result from Last 3 Months Insurance MEDICARE [facility]
== END 2024-09-07 14:03 | disposition home or self-care (01) ==
LOC: HO.HMCH 13:14
PROVIDERS: PCP Physician Assistant; Visit Provider Physician Assistant
DX: I10 Essential (primary) hypertension (principal); R79.89 Other specified abnormal findings of blood chemistry; H81.13 Benign paroxysmal vertigo, bilateral

== ENCOUNTER → 2024-09-07 13:12 | Outpatient (BNVA) | payer MEDICARE, SELFPAY | PROVIDERS: PCP Physician Assistant; Visit Provider Physician Assistant | DX: I10 Essential (primary) hypertension (principal); R79.89 Other specified abnormal findings of blood chemistry; H81.13 Benign paroxysmal vertigo, bilateral | CPT/HCPCS: 96127; 99212 ==

== ENCOUNTER 2024-09-08 09:41 | Outpatient (AMB) | payer MEDICARE, SELFPAY ==
[2024-09-08 09:42] VITALS: BP 130/64; PULSE 98; O2SAT 95; BMI 22.4
--- NOTE | 2024-09-08 09:42 | HO.NEPHOV ---
Vital Signs 09/08/24 09:42 Height 5 ft 3 in Weight 126 lb 4 oz BMI 22.4 BP 130/64 Blood Pressure Location Rt brachial Position Sitting Pulse 98 Pulse Source Pulse Oximeter Pulse Oximetry (%) 95 Oxygen Delivery Method Room Air Intake Visit Reasons: INP: Hypercalcemia Allergies peanut Allergy (Severe, Verified 09/08/24 09:44) Anaphylaxis nut - unspecified Allergy (Verified 09/08/24 09:44) Unknown Medication List - Last Reconciled 09/08/24 by Cristhian Swartz MD calcium carbonate (Oyster Shell Calcium) 500 mg PO BID 90 days cholecalciferol (vitamin D3) 50 mcg PO DAILY 90 days escitalopram oxalate 20 mg PO DAILY ferrous sulfate 325 mg PO DAILY 90 days MDD 325mg hydrochlorothiazide 12.5 mg PO DAILY 30 days levothyroxine 100 mcg PO DAILY levothyroxine 75 mcg PO DAILY levothyroxine 25 mcg PO DAILY 30 days magnesium oxide 500 mg PO DAILY 30 days meclizine 25 mg PO TID PRN memantine 28 mg PO DAILY MDD 28mg memantine 28 mg PO DAILY 90 days metformin 500 mg PO BID 90 days ondansetron 4 mg PO Q8H PRN 14 days simvastatin 20 mg PO BEDTIME walker (Ultra-Light Rollator mis) As directed HPI Comments Details: is a pleasant 79-year-old woman with a history of hypertension who was on lisinopril and hydrochlorothiazide. She has been referred for evaluation of hypercalcemia and acute kidney injury. Up until May of 2024 she had normal serum creatinine of 0.9 mg/dL and hemoglobin was around 12.5 grams/deciliter and normal serum calcium. In July of 2024 she developed vertigo. She was seen by Neurology. Memantine has been placed on hold. She is undergoing workup for the same. In July he was found to have acute kidney injury with a serum creatinine of 2.2 to mg/dL which subsequently increased to 2.53. The lisinopril and hydrochlorothiazide has been placed on hold recent serum creatinine is between 1.9 and 2.06. She was also found to have hypercalcemia of 10.7 grams/deciliter along with anemia with a hemoglobin of 10.3 grams/deciliter. She has been on vitamin-D 2000 units a day along with calcium carbonate 2 times a day. Today she was accompanied by her . She continues to have vertigo but this has improved. She has no headache nausea or vomiting. No diarrhea constipation. No urinary symptoms. No polyuria polydipsia. No edema of fever or rash. She has been experiencing palpitations. Cardiology workup is under progress and waiting to have a Holter monitoring. 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 She has no history of any smoking or alcohol abuse. [facility] Surgical History History of hysterectomy History of bunionectomy Family History Father Colon cancer Mother No problems noted. 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.) Vision needs: No Review of Systems Const Denies fever(s) and Denies weight loss Card Denies chest pain Resp Denies cough and Denies hemoptysis GI Denies abdominal pain, Denies diarrhea and Denies nausea Musc Denies back pain Neuro Denies focal weakness Physical Exam Vital Signs: Last Vital Signs Pulse 98 09/08/24 09:42 BP 130/64 09/08/24 09:42 Pulse Ox 95 09/08/24 09:42 Oxygen Delivery Method Room Air 09/08/24 09:42 BMI result Body Mass Index 22.4 Const General: comfortable Nutritional Appearance: well nourished Orientation/consciousness: patient oriented x3 HEENT Head: No normal to inspection Mouth: moist mucous membranes Neck Neck: Yes supple and Yes no JVD Resp Auscultation: clear to auscultation bilaterally and no rales Cardio Jugular venous distension: no JVD Palpation: no palpable S3 and no palpable S4 Heart sounds: no rubs GI Palpation (GI): Soft to palpation and nontender Percussion: No Fluid wave present General: Yes no CVA tenderness Back/Spine/Pelvis Back: no CVA tenderness Skin General skin exam: no rashes or lesions noted Neuro General: patient oriented x3 Extrem General: Yes no pedal edema and No clubbing Results Reviewed Results Reviewed: All labs was reviewed Nephrology Results: Urine Protein Negative mg/dL (Neg-Trace) 08/26/24 Assessment & Plan Assessment & Plan (1) KEV (acute kidney injury): Code(s): N17.9 - Acute kidney failure, unspecified Category: Medical (2) Hypercalcemia: Code(s): E83.52 - Hypercalcemia Category: Medical (3) Anemia: Code(s): D64.9 - Anemia, unspecified Category: Medical (4) HTN (hypertension): Code(s): I10 - Essential (primary) hypertension Category: Medical Qualifiers: Hypertension type: essential hypertension Qualified Code(s): I10 - Essential (primary) hypertension Plan is a pleasant woman with history of hypertension currently has acute kidney injury along with anemia and hypercalcemia. The combination of KEV anemia and hypercalcemia likely raises the suspicion for multiple myeloma. This needs to be ruled out. Other possibilities including obstructive uropathy should be considered. Other possibility includes hypoperfusion from use of KAUSHAL inhibitors and hydrochlorothiazide could be a contributing factor . However there has been no significant improvement in renal function after stopping these 2 agents. Recent urine sediments were rather bland therefore I do not believe she has any active glomerular nephritis or interstitial disease at this time. Recommendation Check urine for protein creatinine ratio and protein electrophoresis Serum electrophoresis Obtain renal ultrasonogram to check echogenicity and to rule out obstruction. Discontinue calcium carbonate and vitamin-D for now. Anemia workup including iron studies and she is waiting for Hematology appointment. I have answered all her questions and we will be happy to see her in the next few weeks. Orders: Orders Phosphorus Today E83.52 - Hypercalcemia, N17.9 - Acute kidney failure, unspecified UA and rflx microscopic Today E83.52 - Hypercalcemia, N17.9 - Acute kidney failure, unspecified Protein Electrophoresis, Serum Today E83.52 - Hypercalcemia, N17.9 - Acute kidney failure, unspecified Immunofixation Pnl, Serum Today E83.52 - Hypercalcemia, N17.9 - Acute kidney failure, unspecified Ferritin Today E83.52 - Hypercalcemia, N17.9 - Acute kidney failure, unspecified Complete Blood Count Auto Diff Today E83.52 - Hypercalcemia, N17.9 - Acute kidney failure, unspecified Basic Metabolic Panel Today E83.52 - Hypercalcemia, N17.9 - Acute kidney failure, unspecified Parathyroid Hormone Intact Today E83.52 - Hypercalcemia, N17.9 - Acute kidney failure, unspecified Total Protein Urine Random Today E83.52 - Hypercalcemia, N17.9 - Acute kidney failure, unspecified Creatinine Urine Today E83.52 - Hypercalcemia, N17.9 - Acute kidney failure, unspecified IRON PROFILE Today E83.52 - Hypercalcemia, N17.9 - Acute kidney failure, unspecified Medications: Discontinued calcium carbonate (Oyster Shell Calcium) Discontinued Reason: Doctor's Order 500 mg PO BID 90 days 180 tabs 1RF M85.80 - Other specified disorders of bone density and structure, unspecified site cholecalciferol (vitamin D3) Discontinued Reason: Doctor's Order 50 mcg PO DAILY 90 days 90 caps 1RF E55.9 - Vitamin D deficiency, unspecified Coding Level of Care Code New Pt Level 5 (17784) Diagnoses KEV (acute kidney injury) N17.9 Hypercalcemia E83.52 Anemia D64.9 Essential hypertension I10 Hypertension type: essential hypertension Time Spent (min) 45
--- OUTSIDE RECORDS SUMMARY | 2024-09-08 10:47 | XMS_ITS | Clinical Summary ---
Author Organization [facility] Address [address] [place] [address] Phone Care Team Providers Care Supervisor Printing Shop Name Role Phone Unavailable Primary Care Provider Unavailabl e Encounters Date Type Department Care Team Description 07/30/2024 12:45 PM EDT - 07/30/2024 11:59 PM EDT Hospital Encounter [facility] PET Scan [address] [place] [address] Alzheimer's disease, unspecified (CODE) ([facility] V24, [facility] V28) Discharge Disposition: Home or Self Care [...] 2:15 PM EDT Alzheimer's disease, unspecified (CODE) ([facility] V24, [facility] V28) from Last 3 Months Results * [...] Signed Date: 08/18/2024 18:37 ET Workstation ID: [id number] Transcribed By: Self Edit Transcribed Date: 08/05/2024 [...] Signed Date: 08/18/2024 18:37 ET Workstation ID: [id number] Transcribed By: Self Edit Transcribed Date: 08/05/2024 11:13 ET Subhana Sotero PA IMG NM PROCEDURES Final Result from Last 3 Months Insurance MEDICARE [facility]
== END 2024-09-08 10:16 | disposition home or self-care (01) ==
LOC: HO.HKA 09:42
PROVIDERS: PCP Physician Assistant; Visit Provider Internal Medicine Hypertension Specialist
DX: N17.9 Acute kidney failure, unspecified (principal); E83.52 Hypercalcemia; D64.9 Anemia, unspecified; I10 Essential (primary) hypertension
CPT/HCPCS: 99204

== ENCOUNTER → 2024-09-08 09:41 | Outpatient (BNVA) | payer MEDICARE, SELFPAY | PROVIDERS: PCP Physician Assistant; Visit Provider Internal Medicine Hypertension Specialist | DX: Z13.89 Encounter for screening for other disorder (principal) | CPT/HCPCS: 99202 ==

== ENCOUNTER 2024-09-08 10:24 | Outpatient (REF) | payer MEDICARE, SELFPAY ==
--- OUTSIDE RECORDS SUMMARY | 2024-09-08 11:58 | XMS_ITS | Clinical Summary ---
Author Organization [facility] Address [address] [place] [address] Phone Care Team Providers Care Sign Letterer Name Role Phone Unavailable Primary Care Provider Unavailabl e Encounters Date Type Department Care Team Description 07/30/2024 12:45 PM EDT - 07/30/2024 11:59 PM EDT Hospital Encounter [facility] PET Scan [address] [place] [address] Alzheimer's disease, unspecified (CODE) ([facility] V24, [facility] V28) Discharge Disposition: Home or Self [...] 2:15 PM EDT Alzheimer's disease, unspecified (CODE) ([facility] V24, [facility] V28) from Last 3 Months Results [...] Signed Date: 08/18/2024 18:37 ET Workstation ID: [id number] Transcribed By: Self Edit Transcribed Date: 08/05/2024 [...] Signed Date: 08/18/2024 18:37 ET Workstation ID: [id number] Transcribed By: Self Edit Transcribed Date: 08/05/2024 11:13 ET Subhana Sotero PA IMG NM PROCEDURES Final Result from Last 3 Months Insurance MEDICARE [id number]
[2024-09-08 13:55] LABS: MANUAL DIFF FLAG NO
[2024-09-08 14:01] LABS: Basophils Absolute Auto 0.1 X10*3/uL (0.0-0.2); Basophils Percent Auto 1.1 % (0-2); Eosinophils Absolute Auto 0.2 X10*3/uL (0.0-0.4); Eosinophils Percent Auto 2.8 % (0-4); Hematocrit 30.9 % (37.0-47.0); Hemoglobin 10.2 g/dl (12.0-16.0); Imm Gran Abs Auto 0.01 X10*3/uL (0.00-0.03); Imm Gran Pct Auto 0.1 % (0.0-0.4); Lymphocytes Absolute Auto 2.4 X10*3/uL (1.2-4.9); Lymphocytes Percent Auto 32.9 % (20-40); Mean Corpuscular Hemoglobin 31.2 pg (27.0-33.0); Mean Corpuscular Volume 94.5 fL (80.0-98.0); Mean Platelet Volume 9.7 fL (9.4-12.3); Monocytes Absolute Auto 0.5 X10*3/uL (0.1-1.2); Monocytes Percent Auto 6.6 % (2-11); Neutrophils Absolute Auto 4.2 x10*3/uL (2.0-8.3); Neutrophils Percent Auto 56.5 % (45-73); Platelet Count 285 X10*3/uL (160-400); Red Blood Count 3.27 X10*6/uL (4.20-5.50); Red Cell Distribution Width 14.8 % (11.0-16.0); White Blood Count 7.4 X10*3/uL (4.8-10.8)
[2024-09-08 14:48] LABS: Parathyroid Hormone Intact 72.5 pg/mL (8.7-77.1)
[2024-09-08 14:49] LABS: Anion Gap 12 (12-20); Blood Urea Nitrogen 16 mg/dL (9-16); Calcium 9.5 mg/dL (8.4-10.2); Carbon Dioxide 26 mmol/L (22-29); Chloride 112 mmol/L (96-108); Estimated Glomerular Filt Rate 36; Glucose Random 103 mg/dL (60-115); Iron 105 mcg/dL (30-160); Magnesium 1.8 mg/dL (1.6-2.6); Percent Iron Saturation 44 % (15-50); Phosphorus 2.1 mg/dL (2.7-4.5); Potassium 3.9 mmol/L (3.3-5.1); Sodium 146 mmol/L (135-145); Total Iron Binding Capacity 239 mcg/dL (228-428); Unsaturated Iron Binding 134 ug/dL
[2024-09-08 15:04] LABS: Ferritin 154 ng/mL (10-250)
[2024-09-13 22:08] LABS: Prot Elec - Albumin 4.1 g/dL (3.8-4.8); Prot Elec - Alpha1 0.3 g/dL (0.2-0.3); Prot Elec - Alpha2 0.8 g/dL (0.5-0.9); Prot Elec - Beta 1 0.4 g/dL (0.4-0.6); Prot Elec - Beta 2 0.3 g/dL (0.2-0.5); Prot Elec - Gamma 0.9 g/dL (0.8-1.7); Prot Elec - Total Protein 6.6 g/dL (6.1-8.1)
[2024-09-14 22:38] LABS: IgA 122 mg/dL (70-320); IgG 933 mg/dL (600-1540); IgM 73 mg/dL (50-300)
== END 2024-09-08 10:25 | disposition home or self-care (01) ==
LOC: HO.10HDL 10:24
PROVIDERS: Visit Provider Internal Medicine Hypertension Specialist
DX: E83.52 Hypercalcemia (principal); N17.9 Acute kidney failure, unspecified; E83.42 Hypomagnesemia; R30.0 Dysuria; R79.89 Other specified abnormal findings of blood chemistry
CPT/HCPCS: 36415; 80048; 82728; 82784; 83540; 83735; 83970; 84100; 84165; 85025; 86334; 99202

== ENCOUNTER → 2024-09-14 13:21 | Outpatient (REF) | payer MEDICARE, SELFPAY ==
--- OUTSIDE RECORDS SUMMARY | 2024-09-14 14:48 | XMS_ITS | Clinical Summary ---
Author Organization [facility] Address [address] [place] [address] Phone Care Team Providers Care Board Saw Runner Name Role Phone Unavailable Primary Care Provider Unavailabl e Encounters Date Type Department Care Team Description 07/30/2024 12:45 PM EDT - 07/30/2024 11:59 PM EDT Hospital Encounter [facility] PET Scan [address] [place] [address] Alzheimer's disease, unspecified (CODE) ([facility] V24, [facility] V28) Discharge Disposition: Home [...] 2:15 PM EDT Alzheimer's disease, unspecified (CODE) ([facility] V24, [facility] V28) from Last 3 [...] Signed Date: 08/18/2024 18:37 ET Workstation ID: [id number] Transcribed By: Self Edit Transcribed Date: 08/05/2024 [...] Signed Date: 08/18/2024 18:37 ET Workstation ID: [id number] Transcribed By: Self Edit Transcribed Date: 08/05/2024 11:13 ET Subhana Sotero PA IMG NM PROCEDURES Final Result from Last 3 Months Insurance MEDICARE [facility]
== END ==
LOC: HO.CARD 13:21
PROVIDERS: PCP Physician Assistant; Visit Provider Physician Assistant
DX: R00.2 Palpitations (principal)
CPT/HCPCS: 93242

== ENCOUNTER → 2024-09-14 13:24 | Outpatient (BNV) | payer MEDICARE, SELFPAY | PROVIDERS: PCP Physician Assistant; Visit Provider Internal Medicine Cardiovascular Disease | DX: I49.1 Atrial premature depolarization (principal); I49.3 Ventricular premature depolarization | CPT/HCPCS: 93244 ==

== ENCOUNTER 2024-10-20 08:52 | Outpatient (REF) | payer MEDICARE, SELFPAY ==
--- NOTE | ~2024-10-20 | US_ITS ---
CLINICAL HISTORY: N28.9 - Disorder of kidney and ureter, unspecified --- Additional Notes or Special Instructions: Patient experiencing orthostatic hypotensive blood pressures in the setting US Renal with Doppler Comparison: None Findings: Right kidney normal size and echotexture, 9.0 cm length. No hydronephrosis. Normal color Doppler. Resistive index 0.78. A 4 mm nonobstructing renal stone within the lower pole. No hydronephrosis. Left kidney normal size and echotexture, 9.8 cm length. No hydronephrosis. Normal color Doppler. Resistive index 0.78. Bilateral renal artery normal peak systolic velocities. IMPRESSION: 1. A 4 mm nonobstructing stone within the right kidney lower pole. Kidneys are otherwise unremarkable. No hydronephrosis. 2. Patent bilateral renal arteries with normal peak systolic velocities. Normal resistive indexes bilaterally. This document has been electronically signed by: Rl Allen MD on 10/20/2024 22:22:47
--- OUTSIDE RECORDS SUMMARY | 2024-10-20 09:22 | XMS_ITS | Clinical Summary ---
Author Organization [facility] Address [address] [place] [address] Phone Care Team Providers Care Ip Architect Name Role Phone Unavailable Primary Care Provider Unavailabl e Encounters Date Type Department Care Team Description 07/30/2024 12:45 PM EDT - 07/30/2024 11:59 PM EDT Hospital Encounter [facility] PET Scan [address] [place] [address] Alzheimer's disease, unspecified (CODE) ([facility] V24, [facility] V28) Discharge Disposition: Home or Self [...] 2:15 PM EDT Alzheimer's disease, unspecified (CODE) ([facility] V24, [facility] V28) from Last 3 Months Results [...] Signed Date: 08/18/2024 18:37 ET Workstation ID: [id number] Transcribed By: Self Edit Transcribed Date: 08/05/2024 [...] Signed Date: 08/18/2024 18:37 ET Workstation ID: [id number] Transcribed By: Self Edit Transcribed Date: 08/05/2024 11:13 ET Subhana Sotero PA IMG NM PROCEDURES Final Result from Last 3 Months Insurance MEDICARE [facility]
== END 2024-10-20 08:53 | disposition home or self-care (01) ==
LOC: HO.US 08:52
PROVIDERS: PCP Physician Assistant; Visit Provider Physician Assistant
DX: I10 Essential (primary) hypertension (principal); R79.89 Other specified abnormal findings of blood chemistry; N28.9 Disorder of kidney and ureter, unspecified
CPT/HCPCS: 76775; 93975

== ENCOUNTER → 2024-10-20 08:54 | Outpatient (BNV) | payer MEDICARE, SELFPAY | PROVIDERS: PCP Physician Assistant; Visit Provider Student in an Organized Health Care Education/Training Program | DX: I10 Essential (primary) hypertension (principal); N20.0 Calculus of kidney | CPT/HCPCS: 76775; 93975 ==

== ENCOUNTER 2024-10-21 11:23 | Outpatient (AMB) | payer MEDICARE, SELFPAY ==
[2024-10-21 11:36] VITALS: PULSE 67; O2SAT 97; BMI 23.8
--- NOTE | 2024-10-21 11:36 | A.OFFVIS_ITS ---
Vital Signs 10/21/24 11:36 Height 5 ft 3 in Weight 134 lb 6 oz BMI 23.8 Pulse 67 Pulse Source Pulse Oximeter Pulse Oximetry (%) 97 Oxygen Delivery Method Room Air Intake Visit Reasons: Follow Up 6mo Intake Note: Patient presents follow up Dementia. PT note in chart. Patient gave speech and hearing eval and scanned into chart. Accompanied by: Spouse Allergies peanut Allergy (Severe, Verified 10/22/24 10:23) Anaphylaxis nut - unspecified Allergy (Verified 10/22/24 10:23) Unknown HPI Comments Details: 79 year old female referred to us by PCP for gait and memory problems. She is here with daughter Lisa and who help with history Interim Med Hx:KEV improving She has been free of falls and working with her speech therapist 2-x a week for the last 6 weeks, head tilts are helpful however she still has mild pain but vertigo has significantly improved. She is able to identify hearing aids mild/ to moderate improvement with turning them on and using them. She will return to speech therapy both and daughter say she did benefit from the sessions and see a major differences in her energy levels. She went out and played mini-golf for 1.5 hours. Nap times have improved and she is napping less per her . Memory she is very forgetful needs prompting and will describe words or events which she can not recall and still gets confused. Her is interested in Kisunla / Leqembi therapy once APO E4 testing is completed will monitor. Neuro Cognitive Evaluation requested. She continues to have dizziness, balance and gait difficulties, however milder than her previous BPPV symptoms now. Her diet is okay. Mood can fluctuate, she gets very anxious. They are planning to move to a small home with a single floor plan, and this causes her great fear and anxiety as she loves her home. We discussed increasing her anti depressant to help with this transition along with mindful meditation as needed. Will continue with a low dose of memantine 7.0mg again and see if the visual hallucinations re-occur. [facility] Surgical History History of hysterectomy History of bunionectomy Family History Father Colon cancer Mother No problems noted. 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.) Vision needs: No Review of Systems ENT Reports Normal hearing present (Wears hearing aid L ear better than R without aids in.) Neuro Reports Normal hearing present (Wears hearing aid L ear better than R without aids in.) Physical Exam Vital Signs: Last Vital Signs Pulse 67 10/21/24 11:36 Pulse Ox 97 10/21/24 11:36 Oxygen Delivery Method Room Air 10/21/24 11:36 BMI result Body Mass Index 23.8 Const General: cooperative, comfortable and no acute distress Nutritional Appearance: average body habitus Orientation/consciousness: oriented to person and oriented to time HEENT Ears: hearing grossly impaired Teeth and gingiva: other ([place] score of 3) Eyes Pupils: Equal, round and reactive pupils present Resp Effort & Inspection: normal respiratory effort and able to speak in complete sentences Neuro General: oriented to person and oriented to time Cranial nerves: Yes Facial sensation intact/muscles of mastication intact, Yes Equal, round and reactive pupils present, Yes Normal accommodation reflex present, Yes Bilaterally intact EOM present, Yes Nystagmus not present, Yes Normal facial strength present, Yes Midline tongue present, Yes Normal hearing present (Wears hearing aid L ear better than R without aids in.) and Yes Ability to bilaterally elevate shoulders present Gait exam (Neuro): Staggering gait present (Leans to the Right side, off balance.) Motor exam (neuro): 5/5 motor strength present throughout and Normal motor muscle tone present throughout Coordination: [id number] test normal and rapid alternating movements of the distal upper extremity normal Psych Other: easily gets confused, word finding difficulty, redirection. Appearance: grossly normal Assessment & Plan Assessment & Plan (1) Memory impairment: Code(s): R41.3 - Other amnesia Category: Medical (2) Alzheimer's dementia: Code(s): G30.9 - Alzheimer's disease, unspecified; F02.80 - Dementia in other diseases classified elsewhere, unspecified severity, without behavioral disturbance, psychotic disturbance, mood disturbance, and anxiety Category: Medical Qualifiers: Alzheimer's disease onset: unspecified onset Dementia behavioral or psychological symptom: without behavioral, psychotic, or mood disturbance or anxiety Dementia severity: unspecified severity Qualified Code(s): G30.9 - Alzheimer's disease, unspecified; F02.80 - Dementia in other diseases classified elsewhere, unspecified severity, without behavioral disturbance, psychotic disturbance, mood disturbance, and anxiety Plan Memory impairment - PET scan to determine Amyloid plaque burden and APO E4 Genetic Marker Saliva testing. Last visit MMSE 22/30 will evaluate with MMSE at next visit. Continue Memantine at low dose of 7mg po daily at bedtime, will monitor and assess for recurrence of hallucinations. Speak with therapist or PCP- in preparation for the relocation of the home, please increase Escitalopram by 10mg if possible to 30mg daily if PCP is agreeable. Vitamins/supplements: Lions benjamin mushrooms, cordyceps and Reishi, B6 vitamins Labs: CBC/ CMP / B12 Folate Homocysteine/ MMA /Vitamin D/ ESR CRP/ RPR / TSH / Iron reviewed with patient. F/U with Speech and Hearing therapy 2x a week and for 6 more weeks if possible. Continue Gait and Balance PT Determined by patient close to home F/U in 3 months Medications: New memantine take one capsule 7mg po daily at bedtime. 7 mg PO DAILY 30 ea 1RF alzheimers dementia 30 days MDD 7mg po daily F02.80 - Dementia in other diseases classified elsewhere, unspecified severity, without behavioral disturbance, psychotic disturbance, mood disturbance, and anxiety, G30.9 - Alzheimer's disease, unspecified Patient Instructions: Sleep Hygiene provided: set a scheduled bedtime and wake time to help regulate the circadian rhythm and balance the release of pituitary hormones. Sleep in a dark room, temperatures below 68 degrees, and no devices n bed. Limit caffeinated products 6 hours prior to bed, and limit fluids 2-4 hours prior to bed. Gentle night yoga, diffusing essential oils, and playing soft music can be relaxing. Coding Level of Care Code Est Pt Level 4 (35818) Complex EM visit Add On G2211 Diagnoses Memory impairment R41.3 Alzheimer's dementia without behavioral disturbance, psychotic disturbance, mood disturbance, or anxiety, unspecified dementia severity, unspecified timing of dementia onset G30.9; F02.80 Alzheimer's disease onset: unspecified onset Dementia behavioral or psychological symptom: without behavioral, psych otic, or mood disturbance or anxiety Dementia severity: unspecified severity Time Spent (min) 35 Comment improving
--- OUTSIDE RECORDS SUMMARY | 2024-10-21 13:06 | XMS_ITS | Clinical Summary ---
Author Organization [facility] Address [address] [place] [address] Phone Care Team Providers Care Retail Coverage Merchandiser Lead Name Role Phone Unavailable Primary Care Provider Unavailabl e Encounters Date Type Department Care Team Description 07/30/2024 12:45 PM EDT - 07/30/2024 11:59 PM EDT Hospital Encounter [facility] PET Scan [address] [place] [address] Alzheimer's disease, unspecified (CODE) ([facility] V24, [facility] V28) Discharge Disposition: Home or Self Care [...] 2:15 PM EDT Alzheimer's disease, unspecified (CODE) ([facility] V24, [facility] V28) from Last 3 Months Results * [...] Signed Date: 08/18/2024 18:37 ET Workstation ID: [id number] Transcribed By: Self Edit Transcribed Date: 08/05/2024 [...] Signed Date: 08/18/2024 18:37 ET Workstation ID: [id number] Transcribed By: Self Edit Transcribed Date: 08/05/2024 11:13 ET Subhana Sotero PA IMG NM PROCEDURES Final Result from Last 3 Months Insurance MEDICARE [facility]
== END 2024-10-21 12:49 | disposition home or self-care (01) ==
LOC: HO.HSMS 11:24
PROVIDERS: PCP Physician Assistant; Visit Provider Physician Assistant Medical
DX: R41.3 Other amnesia (principal); G30.9 Alzheimer's disease, unspecified; F02.80 Dementia in other diseases classified elsewhere, unspecified severity, without behavioral disturbance, psychotic disturbance, mood disturbance, and anxiety
CPT/HCPCS: 99214; G2211

== ENCOUNTER → 2024-10-21 11:23 | Outpatient (BNVA) | payer MEDICARE, SELFPAY | PROVIDERS: PCP Physician Assistant; Visit Provider Physician Assistant Medical | DX: R41.3 Other amnesia (principal); G30.9 Alzheimer's disease, unspecified; F02.80 Dementia in other diseases classified elsewhere, unspecified severity, without behavioral disturbance, psychotic disturbance, mood disturbance, and anxiety | CPT/HCPCS: 99212 ==

== ENCOUNTER 2024-10-22 10:19 | Outpatient (AMB) | payer MEDICARE, SELFPAY ==
[2024-10-22 10:21] VITALS: BP 146/82; PULSE 73; O2SAT 96; BMI 23.2
--- NOTE | 2024-10-22 10:21 | HO.NEPHOV ---
Vital Signs 10/22/24 10:21 Height 5 ft 3 in Weight 131 lb BMI 23.2 BP 146/82 H Blood Pressure Location Rt brachial Position Sitting Pulse 73 Pulse Source Pulse Oximeter Pulse Oximetry (%) 96 Oxygen Delivery Method Room Air Intake Visit Reasons: FU/Conf Habitat Biologist Required: No Accompanied by: Spouse Allergies peanut Allergy (Severe, Verified 10/22/24 10:23) Anaphylaxis nut - unspecified Allergy (Verified 10/22/24 10:23) Unknown Medication List - Last Reconciled 10/22/24 by Cristhian Swartz MD escitalopram oxalate 20 mg PO DAILY ferrous sulfate 325 mg PO DAILY 90 days MDD 325mg levothyroxine 25 mcg PO DAILY 30 days magnesium oxide 500 mg PO DAILY 30 days memantine 7 mg PO DAILY 30 days MDD 7mg po daily metformin 500 mg PO BID 90 days simvastatin 20 mg PO BEDTIME walker (Ultra-Light Rollator misc) As directed HPI Comments Details: is a pleasant 79-year-old woman with a history of hypertension who was on lisinopril and hydrochlorothiazide. She has been referred for evaluation of hypercalcemia and acute kidney injury. Up until May of 2024 she had normal serum creatinine of 0.9 mg/dL and hemoglobin was around 12.5 grams/deciliter and normal serum calcium. In July of 2024 she developed vertigo. She was seen by Neurology. Memantine has been placed on hold. She is undergoing workup for the same. In July he was found to have acute kidney injury with a serum creatinine of 2.2 to mg/dL which subsequently increased to 2.53. The lisinopril and hydrochlorothiazide has been placed on hold recent serum creatinine is between 1.9 and 2.06. She was also found to have hypercalcemia of 10.7 grams/deciliter along with anemia with a hemoglobin of 10.3 grams/deciliter. She has been on vitamin-D 2000 units a day along with calcium carbonate 2 times a day. Today she was accompanied by her . She continues to have vertigo but this has improved. She has no headache nausea or vomiting. No diarrhea constipation. No urinary symptoms. No polyuria polydipsia. No edema of fever or rash. She has been experiencing palpitations. Cardiology workup is under progress and waiting to have a Holter monitoring. 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 She has no history of any smoking or alcohol abuse. 10/22/24 79-year-old female presenting with a follow-up for kidney function and nephrology management. She has experienced vertigo and had a significant fall last fall, leading to two black eyes, although no fractures were noted. Ongoing vertigo is attributed to this incident. . Recently, she discontinued calcium supplements to improve kidney function. An ultrasound shows an asymptomatic small kidney stone that requires no immediate intervention. Improvements in renal function were observed, linked to reducing calcium intake and advised increased fluid intake to maintain kidney health and prevent stone growth. FOR[facility]LY [facility], [facility] Surgical History History of hysterectomy History of bunionectomy Family History Father Colon cancer Mother No problems noted. 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.) Vision needs: No Physical Exam Vital Signs: Last Vital Signs Pulse 73 10/22/24 10:21 BP 146/82 H 10/22/24 10:21 Pulse Ox 96 10/22/24 10:21 Oxygen Delivery Method Room Air 10/22/24 10:21 BMI result Body Mass Index 23.2 Const General: comfortable Nutritional Appearance: well nourished Orientation/consciousness: patient oriented x3 HEENT Head: No normal to inspection Mouth: moist mucous membranes Neck Neck: Yes supple and Yes no JVD Resp Auscultation: clear to auscultation bilaterally and no rales Cardio Jugular venous distension: no JVD Palpation: no palpable S3 and no palpable S4 Heart sounds: no rubs GI Palpation (GI): Soft to palpation and nontender Percussion: No Fluid wave present General: Yes no CVA tenderness Back/Spine/Pelvis Back: no CVA tenderness Skin General skin exam: no rashes or lesions noted Neuro General: patient oriented x3 Extrem General: Yes no pedal edema and No clubbing Results Reviewed Results Reviewed: October 2024 1. A 4 mm nonobstructing stone within the right kidney lower pole. Kidneys are otherwise unremarkable. No hydronephrosis. 2. Patent bilateral renal arteries with normal peak systolic velocities. Normal resistive indexes bilaterally. Nephrology Results: Hgb 10.2 g/dl (12.0-16.0) L 09/08/24 WBC 7.4 X10*3/uL (4.8-10.8) 09/08/24 Plt Count 285 X10*3/uL (160-400) 09/08/24 Sodium 146 mmol/L (135-145) H 09/08/24 Potassium 3.9 mmol/L (3.3-5.1) 09/08/24 Chloride 112 mmol/L (96-108) H 09/08/24 Carbon Dioxide 26 mmol/L (22-29) 09/08/24 BUN 16 mg/dL (9-16) 09/08/24 Creatinine 1.41 mg/dL (0.5-1.4) H 09/08/24 Calcium 9.5 mg/dL (8.4-10.2) 09/08/24 Phosphorus 2.1 mg/dL (2.7-4.5) L 09/08/24 PTH Intact 72.5 pg/mL (8.7-77.1) 09/08/24 Urine Protein Negative mg/dL (Neg-Trace) 09/09/24 Urine Creatinine 38.98 mg/dL 09/09/24 Renal US 10/20/24 Assessment & Plan Assessment & Plan (1) KEV (acute kidney injury): Code(s): N17.9 - Acute kidney failure, unspecified Category: Medical (2) Hypercalcemia: Code(s): E83.52 - Hypercalcemia Category: Medical (3) Anemia: Code(s): D64.9 - Anemia, unspecified Category: Medical (4) HTN (hypertension): Code(s): I10 - Essential (primary) hypertension Category: Medical Qualifiers: Hypertension type: essential hypertension Qualified Code(s): I10 - Essential (primary) hypertension (5) Hypomagnesemia: Code(s): E83.42 - Hypomagnesemia Category: Medical Plan is a pleasant woman with history of hypertension currently has acute kidney injury along with anemia and hypercalcemia . The combination of KEV anemia and hypercalcemia likely raised the suspicion for multiple myeloma. _No evidence of MCGP No obstructive uropathy based on USG Other possibility includes hypoperfusion from use of KAUSHAL inhibitors and hydrochlorothiazide could be a contributing factor - there has been significant improvement in renal function after stopping these 2 agents. Recent urine sediments were rather bland therefore I do not believe she has any active glomerular nephritis or interstitial disease at this time. Renal function has improved Mild hypernatremia due to free water deficit Recommendation continue to HOLD calcium carbonate and vitamin-D for now. Watch Anemia ; iron studies adequate. If HCT drops below 305< would consider Epogen Low salt diet Increase PO fluids Continue to avoid nephrotoxins including NSAID. Orders: Orders Complete Blood Count no Diff Today N17.9 - Acute kidney failure, unspecified Magnesium Today E83.42 - Hypomagnesemia Basic Metabolic Panel Today N17.9 - Acute kidney failure, unspecified Coding Level of Care Code Est Pt Level 4 (58260) Diagnoses KEV (acute kidney injury) N17.9 Hypercalcemia E83.52 Anemia D64.9 Essential hypertension I10 Hypertension type: essential hypertension Hypomagnesemia E83.42
--- OUTSIDE RECORDS SUMMARY | 2024-10-22 11:57 | XMS_ITS | Clinical Summary ---
Author Organization [facility] Address [address] [place] [address] Phone Care Team Providers Care Driving Teacher Name Role Phone Unavailable Primary Care Provider Unavailabl e Encounters Date Type Department Care Team Description 07/30/2024 12:45 PM EDT - 07/30/2024 11:59 PM EDT Hospital Encounter [facility] PET Scan [address] [place] [address] Alzheimer's disease, unspecified (CODE) ([facility] V24, [facility] V28) Discharge Disposition: Home or Self [...] 2:15 PM EDT Alzheimer's disease, unspecified (CODE) ([facility] V24, [facility] V28) from Last 3 Months Results [...] Signed Date: 08/18/2024 18:37 ET Workstation ID: [id number] Transcribed By: Self Edit Transcribed Date: 08/05/2024 [...] Signed Date: 08/18/2024 18:37 ET Workstation ID: [id number] Transcribed By: Self Edit Transcribed Date: 08/05/2024 11:13 ET Subhana Sotero PA IMG NM PROCEDURES Final Result from Last 3 Months Insurance MEDICARE [facility]
== END 2024-10-22 10:38 | disposition home or self-care (01) ==
LOC: HO.HKA 10:20
PROVIDERS: PCP Physician Assistant; Visit Provider Internal Medicine Hypertension Specialist
DX: N17.9 Acute kidney failure, unspecified (principal); E83.52 Hypercalcemia; D64.9 Anemia, unspecified; I10 Essential (primary) hypertension; E83.42 Hypomagnesemia
CPT/HCPCS: 99214

== ENCOUNTER → 2024-10-22 10:19 | Outpatient (BNVA) | payer MEDICARE, SELFPAY | PROVIDERS: PCP Physician Assistant; Visit Provider Internal Medicine Hypertension Specialist | DX: I10 Essential (primary) hypertension (principal); N17.9 Acute kidney failure, unspecified; E83.52 Hypercalcemia; E83.42 Hypomagnesemia; D64.9 Anemia, unspecified | CPT/HCPCS: 99212 ==

== ENCOUNTER 2024-10-22 10:43 | Outpatient (REF) | payer MEDICARE, SELFPAY ==
[2024-10-22 13:32] LABS: Hematocrit 30.4 % (37.0-47.0); Hemoglobin 10.1 g/dl (12.0-16.0); Mean Corpuscular HGB Conc 33.2 g/dl (31.0-35.0); Mean Corpuscular Hemoglobin 32.8 pg (27.0-33.0); Mean Corpuscular Volume 98.7 fL (80.0-98.0); Mean Platelet Volume 9.7 fL (9.4-12.3); Platelet Count 303 X10*3/uL (160-400); Red Blood Count 3.08 X10*6/uL (4.20-5.50); Red Cell Distribution Width 14.4 % (11.0-16.0); White Blood Count 9.1 X10*3/uL (4.8-10.8)
[2024-10-22 13:56] LABS: Anion Gap 10 (12-20); Blood Urea Nitrogen 25 mg/dL (9-16); Calcium 9.7 mg/dL (8.4-10.2); Carbon Dioxide 27 mmol/L (22-29); Chloride 110 mmol/L (96-108); Estimated Glomerular Filt Rate 37; Glucose Random 119 mg/dL (60-115); Magnesium 1.9 mg/dL (1.6-2.6); Potassium 3.7 mmol/L (3.3-5.1); Sodium 143 mmol/L (135-145)
== END 2024-10-22 10:44 | disposition home or self-care (01) ==
LOC: HO.10HDL 10:43
PROVIDERS: Visit Provider Internal Medicine Hypertension Specialist
DX: N17.9 Acute kidney failure, unspecified (principal); E83.42 Hypomagnesemia
CPT/HCPCS: 36415; 80048; 83735; 85027

== ENCOUNTER 2024-12-08 14:00 | Outpatient (AMB) | payer MEDICARE, SELFPAY ==
--- NOTE | 2024-12-08 14:09 | MHC.OFFVIS ---
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 Present Accompanied by: Spouse Allergies peanut Allergy (Severe, Verified 12/14/24 13:09) Anaphylaxis nut - unspecified Allergy (Verified 12/14/24 13:09) Unknown Medication List - Last Reconciled 12/08/24 by Fan Rosado MD escitalopram oxalate (Lexapro) 10 mg PO DAILY 90 days ferrous sulfate 325 mg PO DAILY 90 days MDD 325mg levothyroxine 25 mcg PO DAILY 30 days magnesium oxide 500 mg PO DAILY 30 days memantine-donepezil 7-10 mg ER 1 cap PO BEDTIME 1 month metformin 500 mg PO BID 90 days simvastatin 20 mg PO BEDTIME walker (Ultra-Light Rollator [facility]) As directed HPI Comments Details: was referred here for symptoms of dizziness. She has a 79-year-old female who is accompanied by her . Patient came to the office today as she few months ago started developing symptoms of severe lightheadedness. She describes that the symptoms were when she would feel like the whole world was spinning around her. She is there was no clear associated diagnose. Subsequently she was referred to physical therapy and she is at about 13 sessions of physical therapy and says his symptoms have now resolved. She is feeling overall well. She does have some cognitive impairment. She also has some hearing loss in his left ear. She has prior history of hyperlipidemia as his diabetes. No cardiovascular disease. She denies any symptoms of exertional chest pain or shortness of breath. She was referred here because of symptoms of lightheadedness. Patient undergone a Holter monitor for these symptoms and she had basically normal sinus rhythm with no pauses and rare ectopy. She had 1 reported symptoms that correlated with sinus rhythm. In June she had undergone a stress test which was negative for ischemia PFSH Surgical History History of hysterectomy History of bunionectomy Family History Father Colon cancer Mother No problems noted. 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.) Vision needs: No Review of Systems Const Denies chills, Denies daytime sleepiness, Denies fatigue, Denies fever(s), Denies frequent falls, Denies poor appetite, Denies snoring, Denies stops breathing during sleep, Denies weakness, Denies weight gain and Denies weight loss Eyes Denies loss of vision ENT Denies dizziness and Denies hearing loss Card Denies chest pain, Denies claudication, Denies leg edema, Denies lightheadedness, Denies palpitations, Denies dyspnea, Denies dyspnea on exertion and Denies orthopnea Resp Denies cough, Denies excessive phlegm production, Denies dyspnea, Denies dyspnea on exertion, Denies snoring and Denies wheezing GI Denies abdominal pain, Denies hematochezia, Denies change in bowel habits, Denies nausea and Denies vomiting Denies urinary frequency and Denies dysuria Musc Denies arthralgias, Denies muscle weakness, Denies numbness and Denies other (frequent falls) Skin/Breast Denies nail changes and Denies rash Neuro Denies Abnormal speech present, Denies dizziness, Denies frequent falls, Denies loss of vision, Denies memory loss, Denies numbness and Denies weakness Psych Denies depression and Denies memory loss Endo Denies fatigue and Denies palpitations Harvinder/Lymph Reports easy bruising and Reports other (anemia) Aller/Immun Denies wheezing Physical Exam Vital Signs: Last Vital Signs Pulse 88 12/08/24 14:23 BP 142/67 H 12/08/24 14:23 BMI result Body Mass Index 21.9 Const General: cooperative, comfortable, no acute distress, alert and awake Nutritional Appearance: thin Orientation/consciousness: patient oriented x3 HEENT Head: Yes normocephalic and Yes atraumatic Neck Neck: Yes trachea midline, Yes supple and Yes no JVD Resp Effort & Inspection: normal respiratory effort Auscultation: clear to auscultation bilaterally Cardio Jugular venous distension: no JVD Palpation: normal PMI Rate: regular rate Rhythm: regular rhythm Heart sounds: S1 normal heart sound present, S2 normal heart sound present, no click, no gallops and no murmurs GI Auscultation: normal bowel sounds Skin General skin exam: no rashes or lesions noted Neuro General: patient oriented x3 and no focal motor deficits Speech: No Abnormal speech present Extrem General: Yes no clubbing, cyanosis or edema Psych Appearance: grossly normal Assessment & Plan Assessment & Plan (1) Dizziness: Code(s): R42 - Dizziness and giddiness Plan: Patient with a few months' history of dizziness which are highly suggestive of vertigo and her symptoms have significantly improved with physical therapy. She feels a lot better. She has a much balance issues. Noted to have marginally elevated blood pressure today without any orthostatic changes orthostatic changes in his heart rate. I do not think these symptoms represent orthostatic hypotension. She also does not have any significant cardiac arrhythmias on the Holter monitor with normal stress test in June. At this point time I have advised her to monitor blood pressure at home intermittently and maintain a log. Avoid treatment of such. Orthostatic precautions were discussed. Mechanism of orthostatic hypotension was discussed. Advised to maintain adequate hydration. Continue therapy for her hyperlipidemia as well as diabetes through your office. Suggest echocardiogram to evaluate for cardiac structure and function and to complete workup. Beyond that I do not think any other cardiac workup is indicated. Will follow up in the clinic if need be. Thank you for allowing me to partake in her care Coding Level of Care Code New Pt Level 4 (49584) Complex EM visit Add On G2211 Diagnoses Dizziness R42
[2024-12-08 14:10] VITALS: BP 142/66; PULSE 80; BMI 21.9
[2024-12-08 14:22] VITALS: BP 140/69; PULSE 80
[2024-12-08 14:23] VITALS: BP 142/67; PULSE 88
--- OUTSIDE RECORDS SUMMARY | 2024-12-08 14:44 | XMS_ITS | Encounter Summary ---
Author Organization [facility] Address [address] [facility] [address] [place] [id number] Phone Care Team Providers Care Agricultural Consultant Name Role Phone Raudel Flanagan Primary Care Provider + Encounter Details Date Type Department Care Team (Late st Contact Info) Description 05/24/2023 Procedure Pass [facility] Endoscopy Admitting Dept Virtual Department [address] [place] [address] Social History Tobacco Use Types Packs/Day Years Used Date Smoking Tobacco: Never Smokeless Tobacco: Never Alcohol Use Standard Drinks/Week Comments Yes 1 (1 standard drink = 0.6 oz pur e alcohol) on occasion Education Answer Date Recorded Are you interested in more education? Not on solo e 11/29/2022 Are you concerned about learning? Not on file 11/29/2022 No 11/29/2022 No 11/29/2022 Digital Access Answer Date Recorded No 11/29/2022 No 11/29/2022 Reliable internet access at home? Not on file 11/29/2022 Device with a working camera? Not on file Comments Unknown Sex and Gender Information Value Date Recorded Sex Assigned at Female 02/29/2024 3:42 PM EDT Legal Sex Female 10:07 PM EDT Gender Identity Female 02/29/2024 3:42 PM EDT Sexual Orientation Not on file documented as of this encounter Plan of Treatment Not on file documented as of this encounter Visit Diagnoses Not on filedocumented in this encounter Care Teams Agricultural Consultant Relationship Specialty Start Date End Date Raudel Flanagan PA [facility] [place] [address] PCP - General Physician [place] Operator 11/29/22 documented as of this encounter Additional Source Comments The information contained in this document represents components of the legal health record. It is not the complete legal health record.[facility]
--- OUTSIDE RECORDS SUMMARY | 2024-12-08 14:44 | XMS_ITS | Clinical Summary ---
Author Organization [facility] Address [address] [place] [phone] Phone Care Team Providers Care Photogeologist Name Role Phone Unavailable Primary Care Provider Unavailabl e Social History Tobacco Use Types Packs/Day Years [...] - 1-dose 75+ series) 2021 COVID-19 Vaccine ( - 2023-2 5 season) 2024 04/20/2021, 07/12/2020, 06/21/2020 Depression Screening 05/13/2024 Cholesterol Screening (Lipid Panel) 07/30/2024 Falls Risk Assessment 07/30/2024 Hepatitis C Screening 07/30/2024 Medicare Annual Wellness Visit 07/30/2024 Osteoporosis Screening (Bone Density Screening) 07/30/2024 Social Influencers of Health Screening 07/30/2024 Diabetes: Annual Urine Albumin-Creatinine Ratio (uACR) 07/31/2024 Diabetes: Blood Sugar Contro l Test (HGBA1C) 07/31/2024 Influenza Vaccine (#1) 2025 2, 03/24/2020 DTaP,Tdap,and Td Vaccines (3 - Td [...] on patient's age to complete this topic Insurance MEDICARE [facility]
== END 2024-12-08 14:39 | disposition home or self-care (01) ==
LOC: HO.HCS 14:01
PROVIDERS: PCP Physician Assistant; Visit Provider Internal Medicine Cardiovascular Disease
DX: R42 Dizziness and giddiness (principal)
CPT/HCPCS: 99214; G2211

== ENCOUNTER → 2024-12-08 14:00 | Outpatient (BNVA) | payer MEDICARE, SELFPAY | PROVIDERS: PCP Physician Assistant; Visit Provider Internal Medicine Cardiovascular Disease | DX: R42 Dizziness and giddiness (principal) | CPT/HCPCS: 99212 ==

== ENCOUNTER 2024-12-14 12:53 | Outpatient (AMB) | payer MEDICARE, SELFPAY ==
--- NOTE | 2024-12-14 12:58 | MHC.PC.OV ---
Vital Signs 12/14/24 12:59 Height 5 ft 3 in Weight 129 lb BMI 22.8 BP 130/62 Blood Pressure Location Lt brachial Position Sitting Pulse 84 Pulse Source Pulse Oximeter Temp 97.1 F Temp Source Temporal Artery Scan Pulse Oximetry (%) 96 Oxygen Delivery Method Room Air Intake Visit Reasons: follow up on htn Intake Note: Patient is here to follow up on HTN, DM. Engine Manager Required: No Cool Roofing Installer: Present Accompanied by: Spouse Allergies peanut Allergy (Severe, Verified 12/14/24 13:09) Anaphylaxis nut - unspecified Allergy (Verified 12/14/24 13:09) Unknown Medication List - Last Reconciled 12/14/24 by Raudel Flanagan PA-C escitalopram oxalate (Lexapro) 10 mg PO DAILY 90 days ferrous sulfate 325 mg PO DAILY 90 days MDD 325mg levothyroxine 25 mcg PO DAILY 30 days magnesium oxide 500 mg PO DAILY 30 days memantine-donepezil 7-10 mg ER 1 cap PO BEDTIME 1 month metformin 500 mg PO BID 90 days simvastatin 20 mg PO BEDTIME walker (Ultra-Light Rollator mis) As directed Tobacco use date assessed: 12/14/24 Fall risk assessment: No Falls in past year Last assessed Fall Risk: 12/14/24 Dental Screening Dental Screen Date: 06/15/24 HPI follow up on htn HPI Details who is a 79 ?year old female here today for follow-up visit She was found to have elevated blood pressure readings at her physical therapy office. Patient has a PMH significant for type 2 DM, hypertension, anxiety, hypothyroid. BPPV: Has resolved, now working with physical therapy on her lower extremity strengthening and balance. She continues to refuse to use a cane for the 3rd point of contact in the floor to reduce fall risk. .. Hypercalcemia: Has been worked up for multiple myeloma though was negative. She has stopped her calcium supplement and calcium has normalized .. Hypertension: Blood pressure today in office acceptable, she is now off of lisinopril due to impaired renal function. Memory impairment: Has gotten brain MRI that did show age-related findings- parenchymal volume loss. She continues on memantine for her memory ? .. ? DMII: , fasting blood sugar improved now at 6.0. Patient is currently taking Metformin 1000mg daily, Reports her diet has been a bit better during the summer. .. Generalized anxiety disorder:? Has been under more anxiety as of late due to family issues.? She does use lorazepam on a very limited p.r.n. basis.? Continues on Lexapro on a daily basis with decent affect. ? .. ? Hypothyroidism: Most recent labs showing much improved TSH. Will continue her current dose of levothyroxine. Laboratory Tests 07/22/24 08/10/24 08/24/24 15:07 15:33 15:43 RBC 3.31 L Hgb 11.9 L 12.0 10.3 L MCV Creatinine 1.90 H Calcium 10.5 H D PTH Intact 08/25/24 09/08/24 10/22/24 12:26 10:30 10:46 RBC Hgb 10.1 L MCV 98.7 H Creatinine 2.06 H 1.41 H 1.39 Calcium 10.7 H 9.5 D 9.7 PTH Intact 23.5 PFSH Surgical History History of hysterectomy History of bunionectomy Family History Father Colon cancer Mother No problems noted. 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.) Vision needs: No Questionnaire Thrive Questionnaire Date Thrive assessed: 09/07/24 I am a: Patient What is your living situation today?: I have a steady place to live Within the past 12 months, did the food you bought not last and you didn't have the money to get more?: Never true Within the past 12 months, did you worry whether your food would run out before you got money to buy more?: Never true Do you have trouble paying for medicines?: No Do you have trouble getting transportation to medical appointments?: No Do you have trouble paying your heating and electricity bill?: No Do you have trouble taking care of your child, family member or friend?: No Do you have trouble with day-to-day activities such as bathing, preparing meals, shopping, managing finances, etc.?: No Are you currently unemployed and looking for a job?: No Are you interested in more education?: No Please select the resources that you would like help with: None Currently or been in a relationship where the following occur: No concerns reported THRIVE Score: 0 TASHI-7 AMB Questionnaire TASHI-7 Date TASHI - 7 assessed: 06/15/24 Source: Developed by Drs. Minh Ewing, Yecenia Manzano, Juan Beckham and colleagues, with an educational lashaun from [employer]. Review of Systems Const Denies headache(s) Eyes Denies loss of vision ENT Denies vertigo, Denies dizziness, Denies headache(s) and Denies sore throat Card Denies chest pain, Denies leg edema and Denies lightheadedness Resp Denies cough, Denies hemoptysis and Denies wheezing GI Denies abdominal pain, Denies melena, Denies constipation, Denies diarrhea and Denies vomiting Denies urinary frequency, Denies dysuria and Denies urinary urgency Musc Denies arthralgias, Denies joint swelling, Denies numbness and Denies tingling Neuro Denies Abnormal speech present, Denies behavioral changes, Denies vertigo, Denies dizziness, Denies headache(s), Denies loss of vision, Denies memory loss, Denies numbness and Denies tingling Psych Denies anxiety, Denies behavioral changes, Denies depression, Denies memory loss and Denies panic attacks Harvinder/Lymph Denies easy bleeding and Denies easy bruising Aller/Immun Denies wheezing Physical exam (Primary Care) Vital Signs: Last Vital Signs Temp 97.1 F 12/14/24 12:59 Pulse 84 12/14/24 12:59 BP 130/62 12/14/24 12:59 Pulse Ox 96 12/14/24 12:59 Oxygen Delivery Method Room Air 12/14/24 12:59 BMI result Body Mass Index 22.8 Tobacco/Smoking Status: Tobacco use Status Tobacco use date assessed 12/14/24 12/14/24 13:08 Patient Tobacco Use Status Never used Tobacco 12/14/24 13:08 e-Cigarette/Vaping Use Never Used 12/14/24 13:08 Thrive Assessment: Date of Thrive Assessment Date Thrive assessed 09/07/24 12/14/24 13:08 Currently or been in a relationship where the following occur: No concerns reported Const General: healthy appearing, no acute distress, alert and awake Nutritional Appearance: well nourished Orientation/consciousness: oriented to person, oriented to place and oriented to time HENMT Ears: TM's normal bilaterally General nose exam: Normal nasal mucous membranes and turbinates present Eyes Conjunctivae: conjunctivae normal Sclerae: sclerae normal Pupils: Equal, round and reactive pupils present Neck Neck: Yes no lymphadenopathy and Yes no JVD Thyroid: Thyroid normal Carotids: no bruits Resp Effort & Inspection: normal respiratory effort and not tachypneic Auscultation: no crackles, no rales, no rhonchi and no wheezes Cardio Rate: regular rate Rhythm: regular rhythm Heart sounds: no murmurs and normal S1 and S2 GI Palpation (GI): Soft to palpation, nontender, no hepatomegaly and no splenomegaly Auscultation: normal bowel sounds Skin General skin exam: no rashes or lesions noted and dry skin Neuro General: oriented to person, oriented to place and oriented to time Cranial nerves: Yes Equal, round and reactive pupils present Speech: No Abnormal speech present Gait exam (Neuro): Normal gait present Motor exam (neuro): no tremor noted Extrem Right upper extremity: full ROM Left upper extremity: full ROM Right lower extremity: full ROM; no edema Left lower extremity: full ROM; no edema Psych Mental Status: mental status grossly normal Speech and movement: Normal speech and movement present Affect: normal affect Attitude: cooperative Thought process: Normal thought process present Results AMB Hemoglobin A1c AMB Hemoglobin A1c 6.0 % Last Edit by GENARO Almanza on 12/14/24 13:12 Coding Level of Care Code Est Pt Level 4 (14899) Diagnoses Essential hypertension I10 Hypertension type: essential hypertension Benign paroxysmal positional vertigo due to bilateral vestibular disorder H81.13 Laterality: bilateral Type 2 diabetes mellitus without complication, without long-term current use of insulin E11.9 Diabetes mellitus termite control representative insulin use: without termite control representative use Diabetes mellitus complication status: without complication Impairment of balance R26.89 Assessment & Plan Assessment & Plan (1) HTN (hypertension): Code(s): I10 - Essential (primary) hypertension Category: Medical Qualifiers: Hypertension type: essential hypertension Qualified Code(s): I10 - Essential (primary) hypertension Plan: Blood pressure much improved today in office., no further orthostatic hypotension. Blood pressure is at time has been high, they will monitor much more closely at home and if consistently above 140 will consider restarting antihypertensive medication We have held lisinopril due to impaired renal function and dizziness (2) BPPV (benign paroxysmal positional vertigo): Code(s): H81.10 - Benign paroxysmal vertigo, unspecified ear Category: Medical Qualifiers: Laterality: bilateral Qualified Code(s): H81.13 - Benign paroxysmal vertigo, bilateral Plan: Has resolved, now working with physical therapy on her balance and lower extremity strengthening. (3) DMII (diabetes mellitus, type 2): Code(s): E11.9 - Type 2 diabetes mellitus without complications Category: Medical Qualifiers: Diabetes mellitus termite control representative insulin use: without termite control representative use Diabetes mellitus complication status: without complication Qualified Code(s): E11.9 - Type 2 diabetes mellitus without complications Plan: Patient's A1c is 6.0, blood sugars have been much better controlled as of late. Will continue her current dose of metformin. Goal A1c is to remain below 6.5 (4) Impairment of balance: Code(s): R26.89 - Other abnormalities of gait and mobility Category: Medical Plan: Working with physical therapy on her balance Orders: Orders Comprehensive Temple. Panel Fast Today I10 - Essential (primary) hypertension TSH reflex Free T4 Today E03.9 - Hypothyroidism, unspecified AMB Hemoglobin A1c Today E11.9 - Type 2 diabetes mellitus without complications Lipid Panel Today E78.00 - Pure hypercholesterolemia, unspecified Complete Blood Count no Diff Today E78.00 - Pure hypercholesterolemia, unspecified
[2024-12-14 12:59] VITALS: BP 130/62; PULSE 84; TEMP 36.2; O2SAT 96; BMI 22.8
--- OUTSIDE RECORDS SUMMARY | 2024-12-14 13:12 | XMS_ITS | Encounter Summary ---
Author Organization [facility] Address [address] [place] [phone] Phone Care Team Providers Care Senior Talent Acquisition Specialist Name Role Phone Raudel Flanagan Primary Care Provider + Encounter Details Date Type Department Care Team (Late st Contact Info) Description 05/24/2023 Procedure Pass [facility] Endoscopy Admitting Dept Virtual Department [address] [place] [address] Social History Tobacco Use Types Packs/Day Years [...] on filedocumented in this encounter Care Teams Senior Talent Acquisition Specialist Relationship Specialty Start Date End Date Raudel Flanagan PA [facility] [place] [address] PCP - General Physician Lead Oracle Developer 11/29/22 documented as of this encounter Additional Source Comments The information contained in this document represents components of the legal health record. It is not the complete legal health record.[facility]
--- OUTSIDE RECORDS SUMMARY | 2024-12-14 13:12 | XMS_ITS | Clinical Summary ---
Author Organization [facility] Address [address] [place] [phone] Phone Care Team Providers Care Windows Consultant Name Role Phone Unavailable Primary Care Provider [...] - 1-dose 75+ series) 2021 COVID-19 Vaccine (2023-2 5 season) 2024 04/20/2021, 07/12/2020, 06/21/2020 Depression [...] age to complete this topic Insurance MEDICARE [facility]
== END 2024-12-14 13:32 | disposition home or self-care (01) ==
LOC: HO.HMCH 12:53
PROVIDERS: PCP Physician Assistant; Visit Provider Physician Assistant
DX: I10 Essential (primary) hypertension (principal); H81.13 Benign paroxysmal vertigo, bilateral; E11.9 Type 2 diabetes mellitus without complications; R26.89 Other abnormalities of gait and mobility

== ENCOUNTER → 2024-12-14 12:53 | Outpatient (BNVA) | payer MEDICARE, SELFPAY | PROVIDERS: PCP Physician Assistant; Visit Provider Physician Assistant | DX: I10 Essential (primary) hypertension (principal); H81.13 Benign paroxysmal vertigo, bilateral; E11.9 Type 2 diabetes mellitus without complications; R26.89 Other abnormalities of gait and mobility | CPT/HCPCS: 83036; 99212 ==

== ENCOUNTER 2024-12-22 11:52 | Outpatient (AMB) | payer MEDICARE, SELFPAY ==
--- NOTE | 2024-12-22 11:55 | HO.NEPHOV ---
Vital Signs 12/22/24 11:56 12/22/24 12:06 12/22/24 12:07 Height 5 ft 3 in Weight 130 lb BMI 23.0 BP 150/76 H 140/80 H 140/80 H Blood Pressure Location Lt brachial Lt brachial Lt brachial Position Sitting Sitting Standing Pulse 83 Pulse Source Pulse Oximeter Pulse Oximetry (%) 95 Oxygen Delivery Method Room Air Intake Visit Reasons: December F/U Conf Sheet Manager Required: No Accompanied by: Spouse Allergies peanut Allergy (Severe, Verified 12/22/24 11:57) Anaphylaxis nut - unspecified Allergy (Verified 12/22/24 11:57) Unknown Medication List - Last Reconciled 12/22/24 by Cristhian Swartz MD escitalopram oxalate (Lexapro) 10 mg PO DAILY 90 days ferrous sulfate 325 mg PO DAILY 90 days MDD 325mg levothyroxine 25 mcg PO DAILY 30 days magnesium oxide 500 mg PO DAILY 30 days memantine-donepezil 7-10 mg ER 1 cap PO BEDTIME 1 month metformin 500 mg PO BID 90 days simvastatin 20 mg PO BEDTIME walker (Ultra-Light [place]ator [facility] As directed HPI Comments Details: is a pleasant 79-year-old woman with a history of hypertension who was on lisinopril and hydrochlorothiazide. She has been referred for evaluation of hypercalcemia and acute kidney injury. Up until May of 2024 she had normal serum creatinine of 0.9 mg/dL and hemoglobin was around 12.5 grams/deciliter and normal serum calcium. In July of 2024 she developed vertigo. She was seen by Neurology. Memantine has been placed on hold. She is undergoing workup for the same. In July he was found to have acute kidney injury with a serum creatinine of 2.2 to mg/dL which subsequently increased to 2.53. The lisinopril and hydrochlorothiazide has been placed on hold recent serum creatinine is between 1.9 and 2.06. She was also found to have hypercalcemia of 10.7 grams/deciliter along with anemia with a hemoglobin of 10.3 grams/deciliter. She has been on vitamin-D 2000 units a day along with calcium carbonate 2 times a day. Today she was accompanied by her . She continues to have vertigo but this has improved. She has no headache nausea or vomiting. No diarrhea constipation. No urinary symptoms. No polyuria polydipsia. No edema of fever or rash. She has been experiencing palpitations. Cardiology workup is under progress and waiting to have a Holter monitoring. 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 She has no history of any smoking or alcohol abuse. 10/22/24 79-year-old female presenting with a follow-up for kidney function and nephrology management. She has experienced vertigo and had a significant fall last fall, leading to two black eyes, although no fractures were noted. Ongoing vertigo is attributed to this incident. . Recently, she discontinued calcium supplements to improve kidney function. An ultrasound shows an asymptomatic small kidney stone that requires no immediate intervention. Improvements in renal function were observed, linked to reducing calcium intake and advised increased fluid intake to maintain kidney health and prevent stone growth. 12/22/2024. Overall she is feeling fine. With therapy the vertigo symptoms are improved. No lightheadedness. She is currently not on any antihypertensive medications. Recent creatinine was 1.39 with a EGFR of 37 mL/minute in October of 2023. This is a significant improvement. Calcium has normalized. [facility] Surgical History History of hysterectomy History of bunionectomy Family History Father Colon cancer Mother No problems noted. 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.) Vision needs: No Physical Exam Vital Signs: Last Vital Signs Pulse 83 12/22/24 11:56 BP 140/80 H 12/22/24 12:07 Pulse Ox 95 12/22/24 11:56 Oxygen Delivery Method Room Air 12/22/24 11:56 BMI result Body Mass Index 23.0 Const General: comfortable Nutritional Appearance: well nourished Orientation/consciousness: patient oriented x3 HEENT Head: No normal to inspection Mouth: moist mucous membranes Neck Neck: Yes supple and Yes no JVD Resp Auscultation: clear to auscultation bilaterally and no rales Cardio Jugular venous distension: no JVD Palpation: no palpable S3 and no palpable S4 Heart sounds: no rubs GI Palpation (GI): Soft to palpation and nontender Percussion: No Fluid wave present General: Yes no CVA tenderness Back/Spine/Pelvis Back: no CVA tenderness Skin General skin exam: no rashes or lesions noted Neuro General: patient oriented x3 Extrem General: Yes no pedal edema and No clubbing Results Reviewed Nephrology Results: Hgb, (12.0-16.0) 10.1 g/dl L 10/22/24 WBC, (4.8-10.8) 9.1 X10*3/uL 10/22/24 Plt Count, (160-400) 303 X10*3/uL 10/22/24 Sodium, (135-145) 143 mmol/L 10/22/24 Potassium, (3.3-5.1) 3.7 mmol/L 10/22/24 Chloride, (96-108) 110 mmol/L H 10/22/24 Carbon Dioxide, (22-29) 27 mmol/L 10/22/24 BUN, (9-16) 25 mg/dL H 10/22/24 Creatinine, (0.5-1.4) 1.39 mg/dL 10/22/24 Calcium, (8.4-10.2) 9.7 mg/dL 10/22/24 Urine Protein, (Neg-Trace) Negative mg/dL 09/09/24 Urine Creatinine 38.98 mg/dL 09/09/24 Renal US 10/20/24 Assessment & Plan Assessment & Plan (1) KEV (acute kidney injury): Code(s): N17.9 - Acute kidney failure, unspecified Category: Medical (2) Hypercalcemia: Code(s): E83.52 - Hypercalcemia Category: Medical (3) Anemia: Code(s): D64.9 - Anemia, unspecified Category: Medical (4) HTN (hypertension): Code(s): I10 - Essential (primary) hypertension Category: Medical Qualifiers: Hypertension type: essential hypertension Qualified Code(s): I10 - Essential (primary) hypertension (5) Hypomagnesemia: Code(s): E83.42 - Hypomagnesemia Category: Medical Plan is a pleasant woman with history of hypertension currently has acute kidney injury along with anemia and hypercalcemia . The combination of KEV anemia and hypercalcemia likely raised the suspicion for multiple myeloma. _No evidence of MCGP No obstructive uropathy based on USG Other possibility includes hypoperfusion from use of KAUSHAL inhibitors and hydrochlorothiazide could be a contributing factor - there has been significant improvement in renal function after stopping these 2 agents. Recent urine sediments were rather bland therefore I do not believe she has any active glomerular nephritis or interstitial disease at this time. Renal function has improved . Recent creatinine was 1.39 as of October 2024. Mild hypernatremia due to free water deficit -resolved after increasing p.o. water intake Blood pressure is acceptable today. No orthostatic changes. If the blood pressure is goes above 140 then I will consider adding a small dose of a calcium channel malu. Recommendation continue to HOLD calcium carbonate and vitamin-D for now. Serum calcium is normal Watch Anemia ; iron studies adequate. If HCT drops below 305< would consider Epogen Low salt diet Increase PO fluids Continue to avoid nephrotoxins including NSAID. Recheck renal panel today. Orders: Orders Basic Metabolic Panel Today I10 - Essential (primary) hypertension, N17.9 - Acute kidney failure, unspecified Coding Level of Care Code Est Pt Level 4 (25546) Diagnoses KEV (acute kidney injury) N17.9 Hypercalcemia E83.52 Anemia D64.9 Essential hypertension I10 Hypertension type: essential hypertension Hypomagnesemia E83.42
[2024-12-22 11:56] VITALS: BP 150/76; PULSE 83; O2SAT 95; BMI 23.0
[2024-12-22 12:06] VITALS: BP 140/80
[2024-12-22 12:07] VITALS: BP 140/80
--- OUTSIDE RECORDS SUMMARY | 2024-12-22 12:49 | XMS_ITS | Encounter Summary ---
Author Organization [facility] Address [address] [place] [phone] Phone Care Team Providers Care Grinding And Spraying Supervisor Name Role Phone Raudel Flanagan Primary Care Provider + Encounter Details Date Type Department Care Team (Late st Contact Info) Description 05/24/2023 Procedure Pass [facility] Endoscopy Admitting Dept Virtual Department [address] [place] [address] Social History Tobacco Use Types Packs/Day Years [...] on filedocumented in this encounter Care Teams Grinding And Spraying Supervisor Relationship Specialty Start Date End Date Raudel Flanagan PA [facility] [place] [address] PCP - General Physician Cobbler Mckay 11/29/22 documented as of this encounter Additional Source Comments The information contained in this document represents components of the legal health record. It is not the complete legal health record.[facility]
--- OUTSIDE RECORDS SUMMARY | 2024-12-22 12:49 | XMS_ITS | Clinical Summary ---
Author Organization [facility] Address [address] [place] [phone] Phone Care Team Providers Care Chicken Handler Name Role Phone Unavailable Primary Care Provider [...] age to complete this topic Insurance MEDICARE [facility]
== END 2024-12-22 12:10 | disposition home or self-care (01) ==
LOC: HO.HKA 11:53
PROVIDERS: PCP Physician Assistant; Visit Provider Internal Medicine Hypertension Specialist
DX: N17.9 Acute kidney failure, unspecified (principal); E83.52 Hypercalcemia; D64.9 Anemia, unspecified; I10 Essential (primary) hypertension; E83.42 Hypomagnesemia
CPT/HCPCS: 99214

== ENCOUNTER → 2024-12-22 11:52 | Outpatient (BNVA) | payer MEDICARE, SELFPAY | PROVIDERS: PCP Physician Assistant; Visit Provider Internal Medicine Hypertension Specialist | DX: E83.52 Hypercalcemia (principal); E83.42 Hypomagnesemia; N17.9 Acute kidney failure, unspecified; I10 Essential (primary) hypertension; D64.9 Anemia, unspecified | CPT/HCPCS: 99212 ==

== ENCOUNTER 2024-12-22 12:15 | Outpatient (REF) | payer MEDICARE, SELFPAY ==
[2024-12-22 13:44] LABS: Anion Gap 14 (12-20); Blood Urea Nitrogen 25 mg/dL (9-16); Calcium 9.8 mg/dL (8.4-10.2); Carbon Dioxide 25 mmol/L (22-29); Chloride 111 mmol/L (96-108); Estimated Glomerular Filt Rate 40; Potassium 3.8 mmol/L (3.3-5.1); Sodium 146 mmol/L (135-145)
== END 2024-12-22 12:16 | disposition home or self-care (01) ==
LOC: HO.10HDL 12:15
PROVIDERS: Visit Provider Internal Medicine Hypertension Specialist
DX: I10 Essential (primary) hypertension (principal); N17.9 Acute kidney failure, unspecified
CPT/HCPCS: 36415; 80048

== ENCOUNTER 2025-01-20 10:01 | Outpatient (RCR) | payer MEDICARE, SELFPAY ==
[2024-08-18 10:10] VITALS: BP 100/51; PULSE 91
--- NOTE | 2024-08-18 11:50 | MHC.PT.EP ---
[facility] [place] Office [place] [facility] [place] Office [address] Baldemar Melendez [address] [phone] F: [phone] F: [phone] F: [phone] F: [phone] Physical Therapy Plan of Care Date of Evaluation: 08/18/24 Date of Surgery: Diagnosis: Benign paroxysmal positional vertigo Assessment: is a 79 year old female who is referred to PT for BPPV . She reports of having sudden onset of room spinning dizziness about 2.5 weeks back. She denies any nausea or vomiting. She reports of having constant dizziness however its worse with looking up, down and quick head turns. On PT examination she presented with intact saccades, smooth pursuit, intact visual tracking, negative VBI, negative DVA and positive for BPPV in B [place]. Static and dynamic balance not assessed. She also has h/o orthostatic hypotension. She lives with her and is independent with all ADLS but does them slowly due to dizziness. She would benefit from skilled PT to address the aforementioned impairments and improve tolerance to functional activities. Frequency and Duration: The patient will be seen Short Term Goals: Intermediate Goals: Patient to be educated on symptoms and indications to return to therapy when needed min 4 weeks. Pt will be negative for nystagmus or reports of vertigo in all diagnostic positions bilaterally to resolution of BPPV in 4 weeks. Patient to be able to functionally move in all planes and directions without provocation of dizziness to show return to PLOF in 4 weeks. Treatment Plan: Modalities to reduce pain, spasms and effusion. Manual therapy to restore motion and function. Therapeutic exercise to improve strength and flexibility. Neuromuscular re-education for posture and balance. Therapeutic activities to return to functional activities of daily living. Electronically signed by: Mirian Hilton PT DPT Please sign and return to therapist. Thank you for your referral.
[2024-09-09 09:39] LABS: Appearance Urine Clear; Glucose Urine UA Negative (Negative); PH 7.5 (5.0-9.0); Specific Gravity - Urine 1.010 (1.005-1.025); UMIC TRIGGER UACC YES
[2024-09-09 09:47] LABS: UACC Culture Trigger YES
[2024-09-09 10:32] LABS: Total Protein Urine Random < 7 mg/dL (<12)
== END 2025-03-02 10:06 | disposition home or self-care (01) ==
LOC: HO.PT 10:01
PROVIDERS: Internal Medicine Hypertension Specialist; PCP Physician Assistant; Visit Provider Physician Assistant
DX: H81.13 Benign paroxysmal vertigo, bilateral (principal)
CPT/HCPCS: 81001; 82570; 84156; 87086; 95992; 97110; 97112; 97116; 97161; 97530

== ENCOUNTER 2025-01-21 13:43 | Outpatient (AMB) | payer MEDICARE, SELFPAY ==
--- NOTE | 2025-01-21 14:17 | A.OFFVIS_ITS ---
Vital Signs 01/21/25 14:18 Height 5 ft 3 in Weight 133 lb BMI 23.6 BP 140/88 H Blood Pressure Location Lt brachial Position Sitting Pulse 77 Pulse Source Pulse Oximeter Pulse Oximetry (%) 96 Oxygen Delivery Method Room Air Intake Visit Reasons: Follow Up 3mo Intake Note: * Patient presents follow up Alzheimer's Dementia medication. ? on infusion Accompanied by: Spouse Allergies peanut Allergy (Severe, Verified 01/21/25 14:22) Anaphylaxis nut - unspecified Allergy (Verified 01/21/25 14:22) Unknown HPI Comments Details: 79 year old female referred to us by PCP for balance/ gait and memory problems. She is here with her who helps with history. She has been free of falls and working with her speech therapist. head tilts are helpful however she still has mild pain but vertigo has significantly improved. She is able to identify hearing aids but them on, and uses them daily. She will return to speech therapy and has a good rapport with her therapist to go back as her gait can still be off balance, we discussed using a cane to ambulate. She does her daily PT/ balance exercises at home. Nap times have improved, she is a good sleeper. Memory she is poor, she continues to have difficulty with word finding and needs prompting or visual cues then she will describe words or events which she can not recall and still gets confused easily. Her is interested in Kisunla / Leqembi therapy once APO E4 testing is completed. Neuro Cognitive Evaluation is requested. She continues to have balance and gait difficulties, however milder than her previous episodes. Her diet is poor. She eats sparingly, beans from a can. Mood can fluctuate, she gets anxious. She has moved to a ranch home now with a single floor plan where she is doing well, adjusting. We discussed increasing the memantine to 14mg po daily again and see if the v/h re-occur. [facility] Surgical History History of hysterectomy History of bunionectomy Family History Father Colon cancer Mother No problems noted. 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.) Vision needs: No Review of Systems ENT Reports Normal hearing present (Wears hearing aid L ear better than R without aids in.) Neuro Reports Normal hearing present (Wears hearing aid L ear better than R without aids in.) Physical Exam Vital Signs: Last Vital Signs Pulse 77 01/21/25 14:18 BP 140/88 H 01/21/25 14:18 Pulse Ox 96 01/21/25 14:18 Oxygen Delivery Method Room Air 01/21/25 14:18 BMI result Body Mass Index 23.6 Const General: cooperative, comfortable and no acute distress Nutritional Appearance: average body habitus Orientation/consciousness: oriented to person and oriented to time HEENT Ears: hearing grossly impaired Teeth and gingiva: other ([place] score of 3) Eyes Pupils: Equal, round and reactive pupils present Resp Effort & Inspection: normal respiratory effort and able to speak in complete sentences Neuro Other: tremor oral/ mouth gait is off balance leans to one side, r. foot gives out, can not walk and talk hearing aids bilateral General: oriented to person and oriented to time Cranial nerves: Yes Facial sensation intact/muscles of mastication intact, Yes Equal, round and reactive pupils present, Yes Normal accommodation reflex present, Yes Bilaterally intact EOM present, Yes Nystagmus not present, Yes Normal facial strength present, Yes Midline tongue present, Yes Normal hearing present (Wears hearing aid L ear better than R without aids in.) and Yes Ability to bilaterally elevate shoulders present Gait exam (Neuro): Staggering gait present (Leans to the Right side, off balance.) Motor exam (neuro): 5/5 motor strength present throughout and Normal motor muscle tone present throughout Coordination: [id number] test normal (over shoots) and rapid alternating movements of the distal upper extremity normal Psych Other: easily gets confused, word finding difficulty, needs cueing and redirection. Appearance: well kempt Speech and movement: Slowed speech present (Psych) Attitude: cooperative Results Reviewed Results Reviewed: MR/MR brain wo con w neuroquant IMPRESSION: No acute intracranial findings. There is moderate cerebral volume loss of temporal lobe and hippocampus ss as described on Neuro quant studies. Extensive T2 periventricular small vessel ischemic changes in the supratentorial brain is similar to previous study. Electronically signed by: Socrates Bey MD 05/21/2024 09:51 AM EST IMPRESSION: 1. A 4 mm nonobstructing stone within the right kidney lower pole. Kidneys are otherwise unremarkable. No hydronephrosis. 2. Patent bilateral renal arteries with normal peak systolic velocities. Normal resistive indexes bilaterally. Assessment & Plan Assessment & Plan (1) Memory impairment: Comment: APO E4 testing/ Code(s): R41.3 - Other amnesia Category: Medical (2) Alzheimer's dementia: Comment: Wilfred and family will decide if they want to move forward with Roman at next appt Code(s): G30.9 - Alzheimer's disease, unspecified; F02.80 - Dementia in other diseases classified elsewhere, unspecified severity, without behavioral disturbance, psychotic disturbance, mood disturbance, and anxiety Category: Medical Qualifiers: Alzheimer's disease onset: unspecified onset Dementia severity: unspecified severity Dementia behavioral or psychological symptom: without behavioral, psychotic, or mood disturbance or anxiety Qualified Code(s): G30.9 - Alzheimer's disease, unspecified; F02.80 - Dementia in other diseases classified elsewhere, unspecified severity, without behavioral disturbance, psychotic disturbance, mood disturbance, and anxiety (3) Impairment of balance: Code(s): R26.89 - Other abnormalities of gait and mobility Category: Medical Plan Memory impairment - PET scan to determine Amyloid plaque burden APO E4 Genetic Marker. Last visit MMSE 22/30 will evaluate with MMSE at next visit. Increase Memantine to 14mg po daily at bedtime, will monitor and assess for r ecurrence of V/H. Anxiety Escitalopram 10mg po daily. Vitamins/supplements: Lions benjamin mushrooms, cordyceps and Reishi, B6 vitamins and B12. Labs: CBC/ CMP / B12 Folate Homocysteine/ MMA /Vitamin D- hold per nephro/ ESR CRP/ RPR / TSH / Iron reviewed with patient, due to recent KEV. (reduce canned foods / microwavable foods with high salt content). F/U with Speech and Hearing therapy 2x a week for 6 more weeks if possible. Continue PT for Gait and Balance, use a cane when ambulating and take your time when changing positons. Continue wearing hearing aids daily, and socially engaging in activities to include outings to pentecostal or dinners. puzzles, and daily journaling. F/U in 3 months Orders: Orders Other Ref Test - [facility] F02.80 - Dementia in other diseases classified elsewhere, unspecified severity, without behavioral disturbance, psychotic disturbance, mood disturbance, and anxiety, G30.9 - Alzheimer's disease, unspecified Medications: Changed From memantine-donepezil 7-10 mg ER 1 cap PO BEDTIME 1 month 30 ea 3RF dementia F02.80 - Dementia in other diseases classified elsewhere, unspecified severity, without behavioral disturbance, psychotic disturbance, mood disturbance, and anxiety, G30.9 - Alzheimer's disease, unspecified, R41.3 - Other amnesia To memantine-donepezil 7-10 mg ER (take 2 capsules) of 7mg - donepezil 10mg sprinkle, ext. release 24 hour daily by mouth with food. 2 caps (2 x 7-10 mg) PO BEDTIME 180 ea 3RF dementia 3 months MDD 2 capsules F02.80 - Dementia in other diseases classified elsewhere, unspecified severity, without behavioral disturbance, psychotic disturbance, mood disturbance, and anxiety, G30.9 - Alzheimer's disease, unspecified, R41.3 - Other amnesia Patient Instructions: Sleep Hygiene provided: set a scheduled bedtime and wake time to help regulate the circadian rhythm and balance the release of pituitary hormones. Sleep in a dark room, temperatures below 68 degrees, and no devices n bed. Limit caffeinated products 6 hours prior to bed, and limit fluids 2-4 hours prior to bed. Gentle night yoga, diffusing essential oils, and playing soft music can be relaxing. Coding Level of Care Code Est Pt Level 4 (30630) Diagnoses Memory impairment R41.3 Alzheimer's dementia without behavioral disturbance, psychotic disturbance, mood disturbance, or anxiety, unspecified dementia severity, unspecified timing of dementia onset G30.9; F02.80 Alzheimer's disease onset: unspecified onset Dementia severity: unspecified severity Dementia behavioral or psychological symptom: without behavioral, psychotic, or mood disturbance or anxiety Impairment of balance R26.89
[2025-01-21 14:18] VITALS: BP 140/88; PULSE 77; O2SAT 96; BMI 23.6
--- OUTSIDE RECORDS SUMMARY | 2025-01-21 17:34 | XMS_ITS | Encounter Summary ---
Author Organization [facility] Address [address] [facility] [address] [place] [address] Phone Care Team Providers Care Machine Repairer Maintenance Name Role Phone Raudel Flanagan Primary Care Provider + Encounter Details Date Type Department Care Team (Late st Contact Info) Description 04/19/2023 Procedure Pass [facility] Admitting Dept Virtual Department [address] [place] [address] Social History Tobacco Use Types Packs/Day Years Used Date Smoking Tobacco: Never Alcohol Use Standard Drinks/Week Comments No 0 (1 standard drink = 0.6 oz pur e alcohol) Education Answer Date Recorded Are you interested [...] on filedocumented in this encounter Care Teams Machine Repairer Maintenance Relationship Specialty Start Date End Date Raudel Flanagan PA [address] [place] [address] PCP - General Physician Milk Powder Grinder 11/29/22 documented as of this encounter Additional Source Comments The information contained in this document represents components of the legal health record. It is not the complete legal health record.[facility]
--- OUTSIDE RECORDS SUMMARY | 2025-01-21 17:34 | XMS_ITS | Clinical Summary ---
Author Organization [facility] Address [address] [address] Phone Care Team Providers Care Psychiatric Np Name Role Phone Raudel Flanagan Primary Care Provider + Allergies Active Allergy Reactions Criticality Noted Date Comments Peanut Anaphylaxis High 08/18/2017 Medications escitalopram oxalate (LEXAPRO) 20 MG tablet Take 20 mg by mouth daily. Active METFORMIN HCL (METFORMIN ORAL) Take 500 mg by mouth 2 (two) times a day. Active CALCIUM CARBONATE (CALCIUM 500 ORAL) Active calcium carbonate (OS-MYA) 1,250 mg (500 mg elemental) tablet Take 1 tablet by mouth 2 (two) times a day. 10/25/2022 Active cholecalciferol (VITAMIN D3) 2,000 unit capsule Take 1 capsule by mouth every morning. 10/25/2022 Active lisinopril (PRINIVIL,ZESTR IL) 20 MG tablet Take 20 mg by mouth daily. Active levothyroxine (SYNTHROID, LEVOTHROID) 112 MCG tablet 05/20/2023 Active Immunizations Immunization Administration Dates Next Due COVID-19 (Pre-03/04) Pfizer Vaccine, mRNA, PF 04/20/2021,07/12/2020,06/21/2020 Influenza Quadrivalent Preservative Free IM 01/2022,03/24/2020 Td (adult) 5 Lf Tetanus Toxo id, PF, Adsorbed 06/06/2018 Tdap 08/15/2011 Zoster live 12/12/2011 Social History Tobacco Use Types Packs/Day Years Used Date Smoking Tobacco: Never Smokeless Tobacco: Never Tobacco Cessation:Counseling Given: Not Answered Alcohol Use Standard Drinks/Week Comments Yes 1 [...] with a working camera? Not on file Intimate Partner Violence Answer Date R ecorded Are you denied basic needs s uch as food, clothing, or medical care? No 02/29/2024 In the past 12 months have y ou been in a relationship with a person who hurts, threatens, or tries to control you? No 02/29/2024 Are you denied basic needs s uch as food, clothing, or medical care? No 02/29/2024 In the past 12 months have y ou been in a relationship with a person who hurts, threatens, or tries to control you? No 02/29/2024 Comments Unknown Sex and Gender Information Value Date Recorded Sex Assigned at Female 02/29/2024 3:42 PM EDT Legal Sex Female 10:07 PM EDT Gender Identity Female 02/29/2024 3:42 PM EDT Sexual Orientation Not on file Last Filed Vital Signs Vital Sign Reading Time Taken Comments Blood Pressure 171/85 02/29/2024 5:38 PM EDT Pulse 63 02/29/2024 5:38 PM EDT Temperature 36.1 C (97 F) 02/29/2024 5:38 PM EDT Respiratory Rate 18 02/29/2024 5:38 PM EDT Oxygen Saturation 96% 02/29/2024 5:38 PM EDT Inhaled Oxygen Concentration - - Weight 59 kg (130 lb) 02/29/2024 3:41 PM EDT Height 160 cm (5' 3 ) 02/29/2024 3:41 PM EDT Body Mass Index 23.03 02/29/2024 3:41 PM EDT Plan of Treatment Health Maintenance Due Date Last Done Comments CREATININE LEVEL 1945 LIPID PANEL 1945 POTASSIUM LEVEL 1945 TSH LEVEL 1945 DEPRESSION SCREENING 1958 HEPATITIS C SCREENING 1964 PNEUMOCOCCAL VACCINES (50+ years) (1 of 1 - PCV) 1996 OSTEOPOROSIS SCREENING INITI AL (ONE-TIME) 2011 ZOSTER VACCINES (2 of 3) 02/06/2012 12/12/2011 RSV VACCINE (1 - 1-dose 75+ series) 2021 INFLUENZA VACCINE (#1) 2024 , 03/21/2022, 03/24/2020 COVID-19 VACCINE (4 - 2024-2 6 season) 2025 04/20/2021, 07/12/2020, 06/21/2020 Adult Td,Tdap Booster 06/06/2028 06/06/2018 , 08/15/2011 SMOKING STATUS SCREENING (On ce After 26 Yrs) Completed 05/24/2023 HEPATITIS A VACCINES Aged Out No long er eligible based on patient's age to complete this topic HIB VACCINES Aged Out No longer eligi ble based on patient's age to complete this topic MENINGOCOCCAL VACCINES (ACWY) Aged Out No longer eligible based on patient's age to complete this topic MENINGOCOCCAL VACCINES (B) Aged Out N o longer eligible based on patient's age to complete this topic Medical Devices Not on file Insurance MEDICARE PART A & B [employer] CROSS MEDEX SUPPLEMENT MEDICARE PART A & B [place] MEDEX SUPPLEMENT MEDICARE PART A & B [place]UE [place]OSS MEDEX SUPPLEMENT MEDICARE PART A & B [place] MEDEX SUPPLEMENT MEDICARE PART A & B [place] MEDEX SUPPLEMENT MEDICARE PART A & B [place] MEDEX SUPPLEMENT MEDICARE PART A & B [place] MEDEX SUPPLEMENT MEDICARE PART A & B [place] MEDEX SUPPLEMENT MEDICARE PART A & B [employer] CROSS MEDEX SUPPLEMENT Care Teams Psychiatric Np Relationship Specialty Start Date End Date Raudel Flanagan PA [address] [place] [address] PCP - General Physician Non Destructive Testing Engineer 11/29/22 Additional Source Comments The information contained in this document represents components of the legal health record. It is not the complete legal health record.[facility]
--- OUTSIDE RECORDS SUMMARY | 2025-01-21 17:34 | XMS_ITS | Encounter Summary ---
Author Organization [facility] Address [address] [facility] [address] [place] [address] Phone Care Team Providers Care Director Epidemiology Name Role Phone Raudel Flanagan Primary Care Provider + Encounter Details Date Type Department Care Team (Late st Contact Info) Description 02/29/2024 Procedure Pass [facility], Ct Scan - [facility] [address] [place] [address] Social History Tobacco Use Types Packs/Day Years [...] on file documented as of this encounter Functional Status * Calculated C-SSRS Risk Score (Lifetime/Recent) Answer Date of Assessment Author No Risk Indicated 02/29/2024 3:41 PM EDT Mali Macdonald RN * [place] Suicide Severity Rating Scale (Screener/Recent Self-Report) Question Answer Date of Assessment Author 1. Wish to be (Past 1 Month) No 024 3:41 PM EDT Mali Macdonald RN 2. Non-Specific Active Suici shola Thoughts (Past 1 Month) No 02/29/2024 3:41 PM EDT Mali Macdonald RN 6. Suicidal Behavior (Lifetime) No 4 3:41 PM EDT Mali Macdonald RN documented as of this encounter Plan of Treatment Not on file documented as of this encounter Visit Diagnoses Not on filedocumented in this encounter Care Teams Director Epidemiology Relationship Specialty Start Date End Date Raudel Flanagan PA [address] [place] [address] PCP - General Physician Roofing Foreman 11/29/22 documented as of this encounter Additional Source Comments The information contained in this document represents components of the legal health record. It is not the complete legal health record.[facility]
--- OUTSIDE RECORDS SUMMARY | 2025-01-21 17:34 | XMS_ITS | Encounter Summary ---
Author Organization [facility] Address [address] [facility] [address] [place] [phone] Phone Care Team Providers Care Membership Secretary Name Role Phone Raudel Flanagan Primary Care Provider + Encounter Details Date Type Department Care Team (Late st Contact Info) Description 05/24/2023 Procedure Pass [facility]oscopy Admitting Dept Virtual Department [address] [place] [address] Social History Tobacco Use Types Packs/Day Years [...] on filedocumented in this encounter Care Teams Membership Secretary Relationship Specialty Start Date End Date Raudel Flanagan PA [facility] [place] [address] PCP - General Physician E Commerce Marketing Manager 11/29/22 documented as of this encounter Additional Source Comments The information contained in this document represents components of the legal health record. It is not the complete legal health record.[facility]
--- OUTSIDE RECORDS SUMMARY | 2025-01-21 17:34 | XMS_ITS | Encounter Summary ---
Author Organization [facility] Address [address] [facility] [address] [place] [address] Phone Care Team Providers Care Title Agent Name Role Phone Raudel Flanagan Primary Care Provider + Encounter Details Date Type Department Care Team (Late st Contact Info) Description 02/29/2024 Procedure Pass [facility], Ct Scan - [facility] [address] [place] [address] Social History Tobacco Use Types Packs/Day Years [...] 3:41 PM EDT Mali Macdonald RN * [place] Suicide Severity Rating Scale (Screener/Recent Self-Report) Question [...] on filedocumented in this encounter Care Teams Title Agent Relationship Specialty Start Date End Date Raudel Flanagan PA [address] [place] [address] PCP - General Physician Critical Power Install Technician 11/29/22 documented as of this encounter Additional Source Comments The information contained in this document represents components of the legal health record. It is not the complete legal health record.[facility]
== END 2025-01-21 15:27 | disposition home or self-care (01) ==
LOC: HO.HSMS 13:44
PROVIDERS: PCP Physician Assistant; Visit Provider Physician Assistant Medical
DX: R41.3 Other amnesia (principal); G30.9 Alzheimer's disease, unspecified; F02.80 Dementia in other diseases classified elsewhere, unspecified severity, without behavioral disturbance, psychotic disturbance, mood disturbance, and anxiety; R26.89 Other abnormalities of gait and mobility
CPT/HCPCS: 99214

== ENCOUNTER → 2025-01-21 13:43 | Outpatient (BNVA) | payer MEDICARE, SELFPAY | PROVIDERS: PCP Physician Assistant; Visit Provider Physician Assistant Medical | DX: R26.0 Ataxic gait (principal); G30.9 Alzheimer's disease, unspecified; F02.80 Dementia in other diseases classified elsewhere, unspecified severity, without behavioral disturbance, psychotic disturbance, mood disturbance, and anxiety; R26.89 Other abnormalities of gait and mobility; R41.3 Other amnesia | CPT/HCPCS: 99212 ==

== ENCOUNTER → 2025-01-27 14:48 | Outpatient (REF) | payer MEDICARE, SELFPAY ==
--- NOTE | 2025-01-27 14:55 | CA_ITS ---
Transthoracic Echocardiogram Patient (Last, First, Middle): Barbara Fonseca, Gender: Female Date of : 1945 Age: 79 Procedure Date: 01/27/2025 Procedure Type: Transthoracic Echocardiogram Location: OP Height: 160.02 cm Weight: 60.33 kg BSA: 1.63 m2 Heart Rate: 72 bpm BP: 140 / 80 mmHg Pharmacist Per Diem: DIANNE Referring MD: Fan Rosado MD Symptoms: I10 - Essential (primary) hypertension Study Quality: Adequate ECG Rhythm: Sinus Conclusions: - The left ventricular systolic function is normal. The calculated ejection fraction is 61% by biplane method. - No obvious valvular pathology seen on this study. Findings Left Ventricle Normal left ventricular cavity size. The left ventricular systolic function is normal. The calculated ejection fraction is 61% by biplane method. There is no evidence of regional wall motion abnormalities. Evidence suggests grade I (mild) diastolic dysfunction. There is moderate septal asymmetric hypertrophy. Right Ventricle Normal right ventricular cavity size and systolic function. Atria Both atria are normal in size. Aortic Valve There is a normal trileaflet aortic valve. There is no aortic valve stenosis. There is no aortic valve regurgitation. Mitral Valve The mitral valve appears normal. There is trace mitral valve regurgitation. There is no mitral valve stenosis. Pulmonic Valve The pulmonic valve is likely normal. Tricuspid Valve Normal tricuspid valve structure. There is mild tricuspid valve regurgitation. There is no evidence of pulmonary hypertension. Great Vessels The asc aorta is normal in size. Venous The inferior vena cava is normal in size and collapses greater than 50% with inspiration. Pericardium/Pleural There is no evidence of pericardial effusion. Prior Study Comparison No prior study available for comparison. Recommendations, Care & Conclusions No obvious valvular pathology seen on this study. Measurements 2D Linear Measurements IVSd: 1.39 0.6-0.9/0.6-1.0 cm LVIDd: 4.60 3.9-5.3/4.2-5.9 cm LVIDd Index: 2.82 2.4-3.2/2.2-3.1 cm/m2 LVIDs: 2.42 2.0-3.6 cm LVPWd: 0.94 0.7-1.1 cm LA Diam: 3.40 2.7-3.8/3.0-4.0 cm LAIDs Index: 2.09 1.5-2.3 cm/m2 LV Mass: 244.75 67-162/88-224 g LV Mass Index: 150.15 43-95/49-115 g/m2 LVOT Diam: 2.10 3.0+(-)1.3 cm 2D Systolic Function EF 4C: 61.60 >55% EF 2C: 60.20 >55% EF BiP: 61.20 >55% Mitral Valve MV Pk E: 0.54 MV PK A: 0.76 MV Decel Time: 253.00 E/A: 0.70 E'Lateral: 5.11 E'Medial: 3.73 E/E' Med: 14.40 E/E' Lat: 10.50 PHT: 74.00 MVA PHT: 2.97 Decel Billings: 2.12 Aortic Valve AoV Pk Morgan: 1.31 AoV Mn Morgan: 0.97 AoV VTI: 0.29 AoV Pk Grad: 7.00 Aov Mn Grad: 4.00 EVAN Cont.VTI: 2.29 LVOT LVOT Pk Morgan: 0.87 LVOT Mn Morgan: 0.59 LVOT VTI: 0.19 LVOT Pk Grad: 3.00 LVOT Mn Grad: 2.00 LVOT Diam: 2.10 LVOT Area: 3.46 Diastolic Function MV Pk E: 0.54 MV Pk A: 0.76 E/A: 0.70 E'Medial: 3.73 E/E' Med: 14.40 E' Laterial: 5.11 E/E' Lat: 10.50 Right Ventricle TAPSE (mm): 19.20 TVS' Morgan: 13.60 Tricuspid Valve TR Pk Morgan: 2.45 TR Pk Grad: 24.00 RA Press: 3.00 RVSP: 27.00 Great Vessels Aorta Sinus of Valsalva: 2.80 2.0-3.5 cm Ao Asc: 3.30 2.1-3.4 cm Pulmonary Veins Pulm Vein S/D 1.60 Pulmonary Valve PV Pk Morgan: 0.81 Peak PV Grad: 3.00 Updated in Other Vendor System with Status of Final Johnnie Hayes MD electronically signed on 01/29/2025 3:26:54 PM with status of Final
--- OUTSIDE RECORDS SUMMARY | 2025-01-27 18:24 | XMS_ITS | Encounter Summary ---
Author Organization [facility] Address [address] [facility] [address] [place] [address] Phone Care Team Providers Care Office Asst Name Role Phone Raudel Flanagan Primary Care Provider + Encounter Details Date Type Department Care Team (Late st Contact Info) Description 05/24/2023 Procedure Pass [facility]oscopy Admitting Dept Virtual Department [address] [place] [address] Social History Tobacco Use Types Packs/Day Years [...] on filedocumented in this encounter Care Teams Office Asst Relationship Specialty Start Date End Date Raudel Flanagan PA [facility] [place] [address] PCP - General Physician Substance Abuse Nurse 11/29/22 documented as of this encounter Additional Source Comments The information contained in this document represents components of the legal health record. It is not the complete legal health record.[facility]
--- OUTSIDE RECORDS SUMMARY | 2025-01-27 18:24 | XMS_ITS | Clinical Summary ---
Author Organization [facility] Address [address] [address] Phone Care Team Providers Care Reimbursement Director Name Role Phone Raudel Flanagan Primary Care [...] file Insurance MEDICARE PART A & B [employer] CROSS MEDEX SUPPLEMENT MEDICARE PART A & B [employer] MEDEX SUPPLEMENT MEDICARE PART A & B [employer] MEDEX SUPPLEMENT MEDICARE PART A & B [employer] MEDEX SUPPLEMENT MEDICARE PART A & B [employer] MEDEX SUPPLEMENT MEDICARE PART A & B [employer] MEDEX SUPPLEMENT MEDICARE PART A & B [employer] MEDEX SUPPLEMENT MEDICARE PART A & B [place] MEDEX SUPPLEMENT MEDICARE PART A & B [employer] CROSS MEDEX SUPPLEMENT Care Teams Reimbursement Director Relationship Specialty Start Date End Date Raudel Flanagan PA [address] [place] [phone] PCP - General Physician Speeder Operator 11/29/22 Additional Source Comments The information contained in this document represents components of the legal health record. It is not the complete legal health record.[facility]
--- OUTSIDE RECORDS SUMMARY | 2025-01-27 18:24 | XMS_ITS | Encounter Summary ---
Author Organization [facility] Address [address] [facility] [place] [address] [place] [phone] Phone Care Team Providers Care Motor Vehicle Inspector Name Role Phone Raudel Flanagan Primary Care Provider + Encounter Details Date Type Department Care Team (Late st Contact Info) Description 02/29/2024 Procedure Pass [facility], Ct Scan - [facility] [address] [place] [address] Social History Tobacco Use Types Packs/Day Years [...] 3:41 PM EDT Mali Macdonald RN * [place] Suicide Severity Rating Scale (Screener/Recent Self-Report) Question [...] on filedocumented in this encounter Care Teams Motor Vehicle Inspector Relationship Specialty Start Date End Date Raudel Flanagan PA [address] [place] [address] PCP - General Physician Fagot Heater Helper 11/29/22 documented as of this encounter Additional Source Comments The information contained in this document represents components of the legal health record. It is not the complete legal health record.[facility]
--- OUTSIDE RECORDS SUMMARY | 2025-01-27 18:24 | XMS_ITS | Encounter Summary ---
Author Organization [facility] Address [address] [facility] [address] [place] [address] Phone Care Team Providers Care Compensation Specialist Name Role Phone Raudel Flanagan Primary Care Provider + Encounter Details Date Type Department Care Team (Late st Contact Info) Description 04/19/2023 Procedure Pass [facility] Admitting Dept Virtual Department [address] [place] [address] Social History Tobacco Use Types Packs/Day Years [...] on filedocumented in this encounter Care Teams Compensation Specialist Relationship Specialty Start Date End Date Raudel Flanagan PA [address] [place] [address] PCP - General Physician Mangle Feeder 11/29/22 documented as of this encounter Additional Source Comments The information contained in this document represents components of the legal health record. It is not the complete legal health record.[facility]
--- OUTSIDE RECORDS SUMMARY | 2025-01-27 18:24 | XMS_ITS | Encounter Summary ---
Author Organization [facility] Address [address] [facility] [address] [place] [phone] Phone Care Team Providers Care Escort Vehicle Driver Name Role Phone Raudel Flanagan Primary Care Provider + Encounter Details Date Type Department Care Team (Late st Contact Info) Description 02/29/2024 Procedure Pass [facility], Ct Scan - [facility] [address] [place] [address] Social History Tobacco Use Types Packs/Day Years [...] 3:41 PM EDT Mali Macdonald RN * [place] Suicide Severity Rating Scale (Screener/Recent Self-Report) Question [...] on filedocumented in this encounter Care Teams Escort Vehicle Driver Relationship Specialty Start Date End Date Raudel Flanagan PA [address] [place] [address] PCP - General Physician Photographic Reproduction Technician 11/29/22 documented as of this encounter Additional Source Comments The information contained in this document represents components of the legal health record. It is not the complete legal health record.[facility]
== END ==
LOC: HO.CARD 14:48
PROVIDERS: PCP Physician Assistant; Visit Provider Internal Medicine Cardiovascular Disease
DX: I10 Essential (primary) hypertension (principal)
CPT/HCPCS: 93306

== ENCOUNTER → 2025-01-27 14:55 | Outpatient (BNV) | payer MEDICARE, SELFPAY | PROVIDERS: PCP Physician Assistant; Visit Provider Internal Medicine | DX: I42.2 Other hypertrophic cardiomyopathy (principal) | CPT/HCPCS: 93306 ==

== ENCOUNTER 2025-04-15 10:55 | Outpatient (AMB) | payer MEDICARE, SELFPAY ==
--- NOTE | 2025-04-15 10:54 | MHC.PC.OV ---
Vital Signs 04/15/25 10:57 04/15/25 11:18 Height 5 ft 3 in Weight 136 lb 2 oz BMI 24.1 BP 120/80 140/90 H Blood Pressure Location Lt brachial Position Sitting Respiration 16 Pulse 72 Pulse Source Pulse Oximeter Temp 97.1 F Temp Source Temporal Artery Scan Pulse Oximetry (%) 97 Oxygen Delivery Method Room Air Intake Visit Reasons: 4mth f/u [place] Planning Manager Required: No Accompanied by: Spouse Allergies peanut Allergy (Severe, Verified 04/15/25 11:06) Anaphylaxis nut - unspecified Allergy (Verified 04/15/25 11:06) Unknown Medication List - Last Reconciled 04/15/25 by Raudel Flanagan PA-C escitalopram oxalate (Lexapro) 10 mg PO DAILY 90 days ferrous sulfate 325 mg PO DAILY 90 days MDD 325mg levothyroxine 25 mcg PO DAILY 30 days magnesium oxide 500 mg PO DAILY 30 days memantine-donepezil 28-10 mg ER 1 cap PO BEDTIME metformin 500 mg PO BID 90 days simvastatin 20 mg PO BEDTIME walker (Ultra-Light Rollator misc) As directed Tobacco use date assessed: 12/14/24 Fall risk assessment: 2 + Falls in past year Last assessed Fall Risk: 04/15/25 Dental Screening Dental Screen Date: 06/15/24 HPI 4mt f/u HPI Details who is a 79 ?year old female here today for follow-up visit . She presents today with her Patient has a PMH significant for type 2 DM, hypertension, anxiety, hypothyroid. .. Hypertension: Blood pressure elevated today in office and has been consistently 140s 150s reported systolic numbers at home. She is now off of lisinopril and renal function has been better and dizziness vertigo symptoms has been much improved.. PLAN: Will add on amlodipine 5 mg for blood pressure control Memory impairment: Has gotten brain MRI that did show age-related findings- parenchymal volume loss. She continues on memantine for her memory. She has a lot of family support. She is going to senior center and being physically active ? .. ? DMII: fasting blood sugar improved now at 6.0. Patient is currently taking Metformin 1000mg daily, Reports her diet has been a bit better during the summer. .. Generalized anxiety disorder:? Has been under more anxiety as of late due to family issues.? She does use lorazepam on a very limited p.r.n. basis.? Continues on Lexapro on a daily basis with decent affect. ? .. ? Hypothyroidism: Most recent labs showing much improved TSH. Will continue her current dose of levothyroxine. [facility] Surgical History History of hysterectomy History of bunionectomy Family History Father Colon cancer Mother No problems noted. 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.) Vision needs: No Questionnaire Thrive Questionnaire Date Thrive assessed: 09/07/24 I am a: Patient What is your living situation today?: I have a steady place to live Within the past 12 months, did the food you bought not last and you didn't have the money to get more?: Never true Within the past 12 months, did you worry whether your food would run out before you got money to buy more?: Never true Do you have trouble paying for medicines?: No Do you have trouble getting transportation to medical appointments?: No Do you have trouble paying your heating and electricity bill?: No Do you have trouble taking care of your child, family member or friend?: No Do you have trouble with day-to-day activities such as bathing, preparing meals, shopping, managing finances, etc.?: No Are you currently unemployed and looking for a job?: No Are you interested in more education?: No Please select the resources that you would like help with: None Currently or been in a relationship where the following occur: No concerns reported THRIVE Score: 0 AUDIT C Alcohol Use Questionnaire (AUDIT-C) 1. How often do you have a drink containing alcohol?: Never 3. How often do you have six or more drinks on one occasion?: Never Total Score: 0 TASHI-7 AMB Questionnaire TASHI-7 Date TASHI - 7 assessed: 06/15/24 Source: Developed by Drs. Minh Ewing, Yecenia Manzano, Juan Beckham and colleagues, with an educational lashaun from [employer]. Review of Systems Const Denies headache(s) Eyes Denies loss of vision ENT Denies vertigo, Denies dizziness, Denies headache(s) and Denies sore throat Card Denies chest pain, Denies leg edema and Denies lightheadedness Resp Denies cough, Denies hemoptysis and Denies wheezing GI Denies abdominal pain, Denies melena, Denies constipation, Denies diarrhea and Denies vomiting Denies urinary frequency, Denies dysuria and Denies urinary urgency Musc Denies arthralgias, Denies joint swelling, Denies numbness and Denies tingling Neuro Denies Abnormal speech present, Denies behavioral changes, Denies vertigo, Denies dizziness, Denies headache(s), Denies loss of vision, Denies memory loss, Denies numbness and Denies tingling Psych Denies anxiety, Denies behavioral changes, Denies depression, Denies memory loss and Denies panic attacks Harvinder/Lymph Denies easy bleeding and Denies easy bruising Aller/Immun Denies wheezing Physical exam (Primary Care) Vital Signs: Last Vital Signs Temp 97.1 F 04/15/25 10:57 Pulse 72 04/15/25 10:57 Resp 16 04/15/25 10:57 BP 140/90 H 04/15/25 11:18 Pulse Ox 97 04/15/25 10:57 Oxygen Delivery Method Room Air 04/15/25 10:57 BMI result Body Mass Index 24.1 Tobacco/Smoking Status: Tobacco use Status Tobacco use date assessed 12/14/24 04/15/25 11:05 Patient Tobacco Use Status Never used Tobacco 04/15/25 11:05 e-Cigarette/Vaping Use Never Used 04/15/25 11:05 Thrive Assessment: Date of Thrive Assessment Date Thrive assessed 09/07/24 04/15/25 11:05 Currently or been in a relationship where the following occur: No concerns reported Const General: healthy appearing, no acute distress, alert and awake Nutritional Appearance: well nourished Orientation/consciousness: oriented to person, oriented to place and oriented to time HENMT Ears: TM's normal bilaterally General nose exam: Normal nasal mucous membranes and turbinates present Eyes Conjunctivae: conjunctivae normal Sclerae: sclerae normal Pupils: Equal, round and reactive pupils present Neck Neck: Yes no lymphadenopathy and Yes no JVD Thyroid: Thyroid normal Carotids: no bruits Resp Effort & Inspection: normal respiratory effort and not tachypneic Auscultation: no crackles, no rales, no rhonchi and no wheezes Cardio Rate: regular rate Rhythm: regular rhythm Heart sounds: no murmurs and normal S1 and S2 GI Palpation (GI): Soft to palpation, nontender, no hepatomegaly and no splenomegaly Auscultation: normal bowel sounds Skin General skin exam: no rashes or lesions noted and dry skin Neuro General: oriented to person, oriented to place and oriented to time Cranial nerves: Yes Equal, round and reactive pupils present Speech: No Abnormal speech present Gait exam (Neuro): Normal gait present Motor exam (neuro): no tremor noted Extrem Right upper extremity: full ROM Left upper extremity: full ROM Right lower extremity: full ROM; no edema Left lower extremity: full ROM; no edema Psych Mental Status: mental status grossly normal Speech and movement: Normal speech and movement present Affect: normal affect Attitude: cooperative Thought process: Normal thought process present Office Procedures Flu Questionnaire Does the patient have a severe egg allergy?: No Does the patient have severe life threatening allergies?: No Does the patient have a fever or illness today?: No Has the patient ever had Guillain-[place] Syndrome?: No Has the patient ever had any past reaction to a flu shot?: No Immunizations Fluarix [id number] (PF) 45 mcg (15 mcg x 3)/0.5 mL IM syringe Performing Provider: Raudel Flanagan PA-C [facility] Administered by: Candace Ahn CMA on 04/15/25 11:33 Dose Route Admin Location Dispensed Lot Number Expiration Date MTC Sales Professional 0.5 mL IM Left Deltoid 0.5 mL [id number] 11/09/25 [id number] [employer] VIS Given Date VIS Provided VIS Publication Date 04/15/25 Single Vaccine 24 Eligibility Eligibility Date Funding Source Not [facility] Eligible 04/15/25 Private Coding Level of Care Code Est Pt Level 4 (98328) Diagnoses Essential hypertension I10 Hypertension type: essential hypertension Type 2 diabetes mellitus without complication, without long-term current use of insulin E11.9 Diabetes mellitus half-way insulin use: without long wall mining machine tender use Diabetes mellitus complication status: without complication Alzheimer's dementia without behavioral disturbance, psychotic disturbance, mood disturbance, or anxiety, unspecified dementia severity, unspecified timing of dementia onset G30.9; F02.80 Alzheimer's disease onset: unspecified onset Dementia behavioral or psychological symptom: without behavioral, psychotic, or mood disturbance or anxiety Dementia severity: unspecified severity Assessment & Plan Assessment & Plan (1) HTN (hypertension): Code(s): I10 - Essential (primary) hypertension Category: Medical Qualifiers: Hypertension type: essential hypertension Qualified Code(s): I10 - Essential (primary) hypertension Plan: Blood pressure elevated today in office, has been somewhat elevated at home with reported numbers 140-150 systolic. Has had side effects to lisinopril. Will add on amlodipine 5 mg for better blood pressure control. Goal blood pressures to preferably be below 130/80 (2) DMII (diabetes mellitus, type 2): Code(s): E11.9 - Type 2 diabetes mellitus without complications Category: Medical Qualifiers: Diabetes mellitus long wall mining machine tender insulin use: without long wall mining machine tender use Diabetes mellitus complication status: without complication Qualified Code(s): E11.9 - Type 2 diabetes mellitus without complications Plan: Patient's A1c is 6.0, blood sugars have been much better controlled as of late. Will continue her current dose of metformin. Goal A1c is to remain below 6.5 (3) Alzheimer's dementia: Comment: Wilfred and family will decide if they want to move forward with Roman at next appt Code(s): G30.9 - Alzheimer's disease, unspecified; F02.80 - Dementia in other diseases classified elsewhere, unspecified severity, without behavioral disturbance, psychotic disturbance, mood disturbance, and anxiety Category: Medical Qualifiers: Alzheimer's disease onset: unspecified onset Dementia behavioral or psychological symptom: without behavioral, psychotic, or mood disturbance or anxiety Dementia severity: unspecified severity Qualified Code(s): G30.9 - Alzheimer's disease, unspecified; F02.80 - Dementia in other diseases classified elsewhere, unspecified severity, without behavioral disturbance, psychotic disturbance, mood disturbance, and anxiety Plan: Patient continues to follow in Neurology and continues on amantadine medication. She has good family support. Her balance has a bit off and has done therapy for this. We strongly recommended using a cane for the 3rd point of contact to reduce her fall / fracture risk. She is somewhat reluctant to start using a cane Orders: Orders Influenza [id number] Immunization Today Z23 - Encounter for immunization Hemoglobin A1c Today E11.9 - Type 2 diabetes mellitus without complications Medications: New amlodipine 5 mg PO DAILY 30 tabs 3RF 30 days E11.9 - Type 2 diabetes mellitus without complications Discontinued magnesium oxide Discontinued Reason: Doctor's Order 500 mg PO DAILY 30 days 30 caps 2RF E83.42 - Hypomagnesemia
[2025-04-15 10:57] VITALS: BP 120/80; PULSE 72; RESP 16; TEMP 36.2; O2SAT 97; BMI 24.1
[2025-04-15 11:18] VITALS: BP 140/90
== END 2025-04-15 11:35 | disposition home or self-care (01) ==
LOC: HO.HMCH 10:56
PROVIDERS: PCP Physician Assistant; Visit Provider Physician Assistant
DX: I10 Essential (primary) hypertension (principal); E11.9 Type 2 diabetes mellitus without complications; G30.9 Alzheimer's disease, unspecified; F02.80 Dementia in other diseases classified elsewhere, unspecified severity, without behavioral disturbance, psychotic disturbance, mood disturbance, and anxiety; Z23 Encounter for immunization

== ENCOUNTER → 2025-04-15 10:55 | Outpatient (BNVA) | payer MEDICARE, SELFPAY | PROVIDERS: PCP Physician Assistant; Visit Provider Physician Assistant | DX: I10 Essential (primary) hypertension (principal); E11.9 Type 2 diabetes mellitus without complications; G30.9 Alzheimer's disease, unspecified; F02.80 Dementia in other diseases classified elsewhere, unspecified severity, without behavioral disturbance, psychotic disturbance, mood disturbance, and anxiety; Z23 Encounter for immunization | CPT/HCPCS: 90471; 90656; 99212 ==

== ENCOUNTER 2025-04-19 09:35 | Outpatient (REF) | payer MEDICARE, SELFPAY ==
[2025-04-19 10:40] LABS: Appearance Urine Clear; Glucose Urine UA Negative (Negative); PH 6.0 (5.0-9.0); Specific Gravity - Urine 1.010 (1.005-1.025); UMIC TRIGGER UACC YES
[2025-04-19 10:41] LABS: Hematocrit 36.3 % (37.0-47.0); Hemoglobin 11.6 g/dl (12.0-16.0); Mean Corpuscular HGB Conc 32.0 g/dl (31.0-35.0); Mean Corpuscular Hemoglobin 31.7 pg (27.0-33.0); Mean Corpuscular Volume 99.2 fL (80.0-98.0); NRBC Abs Auto 0.000 X10*3/uL (0.0-0.012); NRBC Pct Auto 0.0 /100WBC (0.0-0.2); Platelet Count 292 X10*3/uL (160-400); Red Blood Count 3.66 X10*6/uL (4.20-5.50); White Blood Count 8.9 X10*3/uL (4.8-10.8)
[2025-04-19 11:24] LABS: Alanine Aminotransferase 14 U/L (0-31); Albumin Level 4.6 g/dL (3.5-5.0); Alkaline Phosphatase 76 U/L (39-117); Anion Gap 13 (12-20); Aspartate Amino Transferase 22 U/L (5-31); Blood Urea Nitrogen 19 mg/dL (9-16); Calcium 9.7 mg/dL (8.4-10.2); Carbon Dioxide 28 mmol/L (22-29); Chloride 109 mmol/L (96-108); Cholesterol 163 mg/dL (<200); Estimated Glomerular Filt Rate 35; HDL Cholesterol 62 mg/dL (>40); Potassium 3.7 mmol/L (3.3-5.1); Sodium 146 mmol/L (135-145); Total Protein 7.6 g/dL (6.5-8.0); Triglycerides 104 mg/dL (<150)
[2025-04-19 11:30] LABS: Parathyroid Hormone Intact 109.1 pg/mL (8.7-77.1)
[2025-04-19 13:30] LABS: Free T4 (Free Thyroxine) 0.93 ng/dL (0.71-1.85)
== END 2025-04-19 09:36 | disposition home or self-care (01) ==
LOC: HO.LAB 09:35
PROVIDERS: PCP Physician Assistant; Visit Provider Physician Assistant
DX: E11.9 Type 2 diabetes mellitus without complications (principal); I10 Essential (primary) hypertension; E03.9 Hypothyroidism, unspecified; N17.9 Acute kidney failure, unspecified; E78.00 Pure hypercholesterolemia, unspecified
CPT/HCPCS: 36415; 80048; 80053; 80061; 81001; 83036; 83970; 84439; 84443; 85027

== ENCOUNTER 2025-04-20 11:14 | Outpatient (AMB) | payer MEDICARE, SELFPAY ==
--- NOTE | 2025-04-20 11:16 | HO.NEPHOV_ITS ---
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 Required: No Accompanied by: Spouse Allergies peanut Allergy (Severe, Verified 04/20/25 11:18) Anaphylaxis nut - unspecified Allergy (Verified 04/20/25 11:18) Unknown Medication List - Last Reconciled 04/20/25 by Cristhian Swartz MD amlodipine 5 mg PO DAILY 30 days escitalopram oxalate (Lexapro) 10 mg PO DAILY 90 days ferrous sulfate 325 mg PO DAILY 90 days MDD 325mg levothyroxine (Synthroid) 50 mcg PO DAILY 30 days levothyroxine 25 mcg PO DAILY 30 days memantine-donepezil 28-10 mg ER 1 cap PO BEDTIME metformin 500 mg PO BID 90 days simvastatin 20 mg PO BEDTIME walker (Ultra-Light Rollator mis) As directed HPI Comments Details: History of Present Illness The patient is a 79 year old female presenting for a follow-up visit for management of her kidney function. She has a history of acute kidney injury and hypercalcemia in the past. A renal ultrasound in October 2019 was unremarkable, and a Doppler study did not reveal any renal artery stenosis. The patient's medical history includes hypertension and carotid disease. Her blood pressure was recently high, with home readings of 145-152 mmHg, leading her other provider to add amlodipine a few days ago, after which her blood pressure was recorded as 138 mmHg. She reports recent blood work was completed to check her kidney function and calcium levels. The patient recently completed physical therapy for vertigo but continues to experience balance issues and lightheadedness when standing up. Although her doctors have recommended she use a cane, she has been refusing to do so. She reports no nausea, vomiting, or diarrhea. Regarding her hypothyroidism, she reports having trouble falling asleep, followed by sleeping excessively, sometimes all day. Her dose of levothyroxine was recently increased from 25 to 50 mcg due to abnormal thyroid function tests. She engages in chair yoga but feels very tired and sleeps for long periods afterward. She admits to drinking only two or three glasses of water per day. [facility] Surgical History History of hysterectomy History of bunionectomy Family History Father Colon cancer Mother No problems noted. 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 Comfortable. HENT: Neck supple. Mucosa moist. Pulmonary: Lungs aeration equal. No rales. Cardiology: Heart S1-S2 heard. No gallop. Blood pressure 140/62. Abdomen: Soft. Non tender. Bowel sounds normal. Neurologic: No involuntary movements. No myoclonus. Balance issues noted. Extremities: No edema. No rash. Vital Signs: Last Vital Signs Pulse 84 04/20/25 11:17 BP 132/66 04/20/25 11:17 Pulse Ox 96 04/20/25 11:17 Oxygen Delivery Method Room Air 04/20/25 11:17 BMI result Body Mass Index 24.1 Results Reviewed Results Reviewed: October 2024 1. A 4 mm nonobstructing stone within the right kidney lower pole. Kidneys are otherwise unremarkable. No hydronephrosis. 2. Patent bilateral renal arteries with normal peak systolic velocities. Normal resistive indexes bilaterally. Nephrology Results: Hgb, (12.0-16.0) 11.6 g/dl L 04/19/25 WBC, (4.8-10.8) 8.9 X10*3/uL 04/19/25 Plt Count, (160-400) 292 X10*3/uL 04/19/25 Sodium, (135-145) 146 mmol/L H 04/19/25 Potassium, (3.3-5.1) 3.7 mmol/L 04/19/25 Chloride, (96-108) 109 mmol/L H 04/19/25 Carbon Dioxide, (22-29) 28 mmol/L 04/19/25 BUN, (9-16) 19 mg/dL H 04/19/25 Creatinine, (0.5-1.4) 1.46 mg/dL H 04/19/25 Calcium, (8.4-10.2) 9.7 mg/dL 04/19/25 PTH Intact, (8.7-77.1) 109.1 pg/mL H 04/19/25 Urine Protein, (Neg-Trace) Negative mg/dL 04/19/25 Urine Creatinine 38.98 mg/dL 09/09/24 Renal US 10/20/24 Assessment & Plan Assessment & Plan (1) KEV (acute kidney injury): Code(s): N17.9 - Acute kidney failure, unspecified Category: Medical (2) Hypercalcemia: Code(s): E83.52 - Hypercalcemia Category: Medical (3) Anemia: Code(s): D64.9 - Anemia, unspecified Category: Medical (4) HTN (hypertension): Code(s): I10 - Essential (primary) hypertension Category: Medical Qualifiers: Hypertension type: essential hypertension Qualified Code(s): I10 - Essential (primary) hypertension Plan Plan 1. CKD 3 Marginal increase in creatinine with HYPERNATREMIA - Recent blood tests suggest dehydration/ Free water deficit. - The patient was counseled to increase her fluid intake. - From a kidney standpoint, no other changes will be made to her regimen at this time. - A follow-up visit is scheduled for September. 2. Hypertension - The recent addition of amlodipine by her primary doctor appears to be effective for blood pressure control. - Continue current medications without change. 3. Hypothyroidism - The patient's symptoms of fatigue and sleepiness are likely due to an underactive thyroid, as indicated by abnormal lab results. - Her primary doctor has increased her levothyroxine dosage from 25 mcg to 50 mcg. - The patient will cloth picker the new prescription for 50 mcg, which should help alleviate her symptoms. 4. Vertigo - The patient continues to experience balance problems and lightheadedness, creating a fall risk. - It was strongly recommended that the patient use a cane for her safety. 5. Hypercalcemia- stands corrected Patient Instructions - Drink more water to stay hydrated. - You should seriously consider using a cane to help with your balance and prevent falls. - Be careful when you stand up or get out of bed to avoid feeling lightheaded. 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 - Continue all your other medications as they are currently prescribed. - Return for a follow-up appointment in September. Orders: Orders Comprehensive Met. Panel 5 Months I10 - Essential (primary) hypertension, N17.9 - Acute kidney failure, unspecified Medications: Discontinued levothyroxine Discontinued Reason: Patient no longer taking 25 mcg PO DAILY 30 days 30 tabs 1RF E03.9 - Hypothyroidism, unspecified Coding Level of Care Code Est Pt Level 4 (48508) Diagnoses KEV (acute kidney injury) N17.9 Hypercalcemia E83.52 Anemia D64.9 Essential hypertension I10 Hypertension type: essential hypertension
[2025-04-20 11:17] VITALS: BP 132/66; PULSE 84; O2SAT 96; BMI 24.1
== END 2025-04-20 11:34 | disposition home or self-care (01) ==
LOC: HO.HKA 11:15
PROVIDERS: PCP Physician Assistant; Visit Provider Internal Medicine Hypertension Specialist
DX: N17.9 Acute kidney failure, unspecified (principal); E83.52 Hypercalcemia; D64.9 Anemia, unspecified; I10 Essential (primary) hypertension
CPT/HCPCS: 99214

== ENCOUNTER → 2025-04-20 11:14 | Outpatient (BNVA) | payer MEDICARE, SELFPAY | PROVIDERS: PCP Physician Assistant; Visit Provider Internal Medicine Hypertension Specialist | DX: I10 Essential (primary) hypertension (principal); N17.9 Acute kidney failure, unspecified; E83.52 Hypercalcemia; D64.9 Anemia, unspecified | CPT/HCPCS: 99212 ==

== ENCOUNTER 2025-05-07 12:58 | Outpatient (AMB) | payer MEDICARE, SELFPAY ==
--- NOTE | 2025-05-07 12:57 | A.OFFVIS_ITS ---
Vital Signs 05/07/25 13:03 Height 5 ft 3 in Weight 137 lb 2 oz BMI 24.3 BP 136/70 Blood Pressure Location Rt brachial Position Sitting Pulse 73 Pulse Source Pulse Oximeter Pulse Oximetry (%) 97 Oxygen Delivery Method Room Air Intake Visit Reasons: 3 mo follow up Intake Note: Patient presents follow up Alzheimer dementia medication Carriage Rider Required: No Accompanied by: Spouse Allergies peanut Allergy (Severe, Verified 05/07/25 12:58) Anaphylaxis nut - unspecified Allergy (Verified 05/07/25 12:58) Unknown HPI Comments Details: 79 year old female referred to us by her PCP for balance, gait and memory problems. She is here with her Sean who helps with history. She has been free of falls after completed physical therapy for gait and balance. Her vertigo is now much improved since having 13 sessions of therapy. Head tilts are helpful in correcting her vertigo. She now is able to identify her hearing aides and puts them on regularly. She will return to speech therapy and has a good rapport with her therapist to go back as her balance and gait can still be off balance, we discussed using a cane to ambulate and she declines. She does her daily chair yoga exercises at home for balance and gait at home now. She forgot her carrot cake recipe which is one of her most treasured recipes for special occasions. Her memory is getting worse, she continues to have difficulty with word finding, needs promp ting or visual cues then she will describe words or events which she can not recall and still gets confused easily. She gets upset with her and frustrated, she needs redirection and repetition several times a day. Nap times have improved now, she used to sleep all day and can still sleep all day if she is not woken up to complete activities.Her is interested in [facility] / [facility] therapy once APO E4 testing is completed. Her diet is poor. She eats sparingly, beans from a can. Mood can fluctuate, she gets anxious. She has moved to a ranch home now with a single floor plan where she is doing well, adjusting. We discussed increasing the memantine to 14mg po daily again and see if the v/h re-occur. Neuro Cognitive Evaluation is requested. [facility] Surgical History History of hysterectomy History of bunionectomy Family History Father Colon cancer Mother No problems noted. 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.) Vision needs: No Review of Systems ENT Reports Normal hearing present (Wears hearing aid L ear better than R without aids in.) Neuro Reports Normal hearing present (Wears hearing aid L ear better than R without aids in.) Physical Exam Vital Signs: Last Vital Signs Pulse 73 05/07/25 13:03 BP 136/70 05/07/25 13:03 Pulse Ox 97 05/07/25 13:03 Oxygen Delivery Method Room Air 05/07/25 13:03 BMI result Body Mass Index 24.3 Const General: cooperative, comfortable and no acute distress Nutritional Appearance: average body habitus Orientation/consciousness: oriented to person and oriented to time HEENT Ears: hearing grossly impaired Teeth and gingiva: other ([place] score of 3) Eyes Pupils: Equal, round and reactive pupils present Resp Effort & Inspection: normal respiratory effort and able to speak in complete sentences Neuro Other: tremor oral/ mouth gait is off balance leans to one side, r. foot gives out, can not walk and talk hearing aids bilateral General: oriented to person and oriented to time Cranial nerves: Yes Facial sensation intact/muscles of mastication intact, Yes Equal, round and reactive pupils present, Yes Normal accommodation reflex present, Yes Bilaterally intact EOM present, Yes Nystagmus not present, Yes Normal facial strength present, Yes Midline tongue present, Yes Normal hearing present (Wears hearing aid L ear better than R without aids in.) and Yes Ability to bilaterally elevate shoulders present Gait exam (Neuro): Staggering gait present (Leans to the Right side, off balance.) Motor exam (neuro): 5/5 motor strength present throughout and Normal motor muscle tone present throughout Coordination: [id number] test normal (over shoots) and rapid alternating movements of the distal upper extremity normal Psych Other: easily gets confused, word finding difficulty, needs cueing and redirection. Appearance: well kempt Speech and movement: Slowed speech present (Psych) Attitude: cooperative Results Reviewed Results Reviewed: labs reviewed with pt Assessment & Plan Assessment & Plan (1) Excessive daytime and night-time sleepiness: Code(s): G47.19 - Other hypersomnia Category: Medical (2) Chronic fatigue: Code(s): R53.82 - Chronic fatigue, unspecified Category: Medical (3) Memory impairment: Comment: APO E4 testing/ Code(s): R41.3 - Other amnesia Category: Medical (4) Alzheimer's dementia: Comment: Sean and family will decide if they want to move forward with Roman at next appt Code(s): G30.9 - Alzheimer's disease, unspecified; F02.80 - Dementia in other diseases classified elsewhere, unspecified severity, without behavioral disturbance, psychotic disturbance, mood disturbance, and anxiety Category: Medical Qualifiers: Alzheimer's disease onset: unspecified onset Dementia behavioral or psychological symptom: without behavioral, psychotic, or mood disturbance or anxiety Dementia severity: unspecified severity Qualified Code(s): G30.9 - Alzheimer's disease, unspecified; F02.80 - Dementia in other diseases classified elsewhere, unspecified severity, without behavioral disturbance, psychotic disturbance, mood disturbance, and anxiety (5) Impairment of balance: Code(s): R26.89 - Other abnormalities of gait and mobility Category: Medical Plan Memory impairment - PET scan to determine Amyloid plaque burden APO E4 Genetic Marker. MMSE 22/30. Continue Memantine 28/Donepezil 10mg po daily. Anxiety and depression continue Escitalopram 10mg po daily will increase to 20mg po daily, once you complete the 10mg. Supplements to take omega 3 fatty acid, lions benjamin, probiotics and yogurt daily. Labs: CBC/ CMP / B12 Folate Homocysteine/ MMA /Vitamin D- hold per nephro/ ESR CRP/ RPR / TSH / Iron reviewed with patient, due to recent KEV, monitor bp, take your time and count to 20 when getting up from seated position or lying to sitting on the bed. HST to r/o LUCY in the future. Pt is sleeping all hours of the day per . She declines HST today. Speech and Hearing may continue as needed, continue wearing hearing aids and use a cane or use walking sticks in both hands. Continue PT for Gait and Balance strengthening, pt is doing chair yoga 2x a week at gym in home. Continue social activities to include outings to alevism or dinners completing puzzles, daily journaling, reading books and playing the piano or keyboard. F/U in 3 months Orders: Orders Vitamin B12 and Folate 05/07/25 G47.19 - Other hypersomnia, R53.82 - Chronic fatigue, unspecified Vitamin D 25-OH Total 05/07/25 G47.19 - Other hypersomnia, R53.82 - Chronic fatigue, unspecified Methylmalonic Acid 05/07/25 G47.19 - Other hypersomnia, G47.9 - Sleep disorder, unspecified, R53.82 - Chronic fatigue, unspecified, R53.83 - Other fatigue Homocysteine 05/07/25 G47.19 - Other hypersomnia, G47.9 - Sleep disorder, unspecified, R53.82 - Chronic fatigue, unspecified, R53.83 - Other fatigue Magnesium 05/07/25 G47.19 - Other hypersomnia, R53.82 - Chronic fatigue, unspecified Ferritin 05/07/25 G47.19 - Other hypersomnia, R53.82 - Chronic fatigue, unspecified Other Ref Test - [facility] [place] 05/07/25 F02.80 - Dementia in other diseases classified elsewhere, unspecified severity, without behavioral disturbance, psychotic disturbance, mood disturbance, and anxiety, G30.9 - Alzheimer's disease, unspecified Patient Instructions: Please complete the following fasting labs to rule out deficiencies. CBC/CMP/ B12/ Vit D/ TSH/ Homocysteine and MMA/ Ferritin. Sleep Hygiene provided: set a scheduled bedtime and wake time to help regulate the circadian rhythm and balance the release of pituitary hormones. Sleep in a dark room, temperatures below 68 degrees, and no devices n bed. Limit caffeinated products 6 hours prior to bed, and limit fluids 2-4 hours prior to bed. Gentle night yoga, diffusing essential oils, and playing soft music can be relaxing. Anxiety and mood may continue to take 10mg Ecitalopram and increase dose to 20mg every other day to taper up to 30mg per pcp. Chair Yoga for daily movement and exercise, using the cane or walking sticks in both hands if able to walk and as tolerable. Continue wearing hearing aides, f/u with new glasses, and continue the PT if able for balance and stregth with gait disturbances. Socializing with friends and family, reading and puzzles, playing the piano is good for cognitive health. Coding Level of Care Code Est Pt Level 4 (79551) Diagnoses Excessive daytime and night-time sleepiness G47.19 Chronic fatigue R53.82 Memory impairment R41.3 Alzheimer's dementia without behavioral disturbance, psychotic disturbance, mood disturbance, or anxiety, unspecified dementia severity, unspecified timing of dementia onset G30.9; F02.80 Alzheimer's disease onset: unspecified onset Dementia behavioral or psychological symptom: without behavioral, psychotic, or mood disturbance or anxiety Dementia severity: unspecified severity Impairment of balance R26.89
[2025-05-07 13:03] VITALS: BP 136/70; PULSE 73; O2SAT 97; BMI 24.3
== END 2025-05-07 14:23 | disposition home or self-care (01) ==
LOC: HO.HSMS 12:59
PROVIDERS: PCP Physician Assistant; Visit Provider Physician Assistant Medical
DX: G47.19 Other hypersomnia (principal); R53.82 Chronic fatigue, unspecified; R41.3 Other amnesia; G30.9 Alzheimer's disease, unspecified; F02.80 Dementia in other diseases classified elsewhere, unspecified severity, without behavioral disturbance, psychotic disturbance, mood disturbance, and anxiety; R26.89 Other abnormalities of gait and mobility
CPT/HCPCS: 99214

== ENCOUNTER → 2025-05-07 12:58 | Outpatient (BNVA) | payer MEDICARE, SELFPAY | PROVIDERS: PCP Physician Assistant; Visit Provider Physician Assistant Medical | DX: G30.9 Alzheimer's disease, unspecified (principal); F02.80 Dementia in other diseases classified elsewhere, unspecified severity, without behavioral disturbance, psychotic disturbance, mood disturbance, and anxiety; G47.19 Other hypersomnia; R53.82 Chronic fatigue, unspecified; R26.89 Other abnormalities of gait and mobility; R41.3 Other amnesia | CPT/HCPCS: 99212 ==